=== PATIENT | female | born 1980 | race Caucasian/White ===

== ENCOUNTER 2020-06-29 20:01 | Emergency (ER) | payer MEDICARE, OTHER ==
[~2020-06-29] VITALS: Ht 170.2 cm; Wt 59.0 kg
--- OUTSIDE RECORDS SUMMARY | ~2020-06-29 | XMS | Clinical Summary ---
Demographics + + + | Address | [address] | | | [place] [address] | + + + | Home Phone | | + + + | Preferred Language | Unknown | + + + | Marital Status | Unknown or other | + + + | Evangelical Affiliation | Unknown | + + + | Race | White | + + + | Ethnic Group | Patient Declined | + + + Author + + + | Author | [facility] | + + + | Organization | [facility] | + + + | Address | [address] | | | [place] [address] | + + + | Phone | | + + + Care Team Providers + + + + | Care Professor Of Education Name | Role | Phone | + + + + Unavailable | Unavailable | + + + + Conditions or Problems +---------+---------+---------+--------+---------+---------+---------+---------+---------+ | Problem | Problem | Onset | Status | Entry | Provide | Comment | Standar | Annotat | | Name | Code | Date | | Date | r | | d | e | | | | | | | | | Descrip | | | | | | | | | | tion | | +---------+---------+---------+--------+---------+---------+---------+---------+---------+ | Other | [id number] | | Active | | Sheila | | Dyspnea | | | abnorma | | / | | / | Lea | | | | | lities | (SNOMED | | | | PA-C | | | | | of | CT) | | | | | | | | | breathi | | | | | | | | | | ng | | | | | | | | | +---------+---------+---------+--------+---------+---------+---------+---------+---------+ | Positiv | [id number] | | Active | | Zo | | Positiv | | | e | [id number] | | | /15 | Willoug | | e | | | screeni | 0 | | | | hby | | screeni | | | ng for | (SNOMED | | | | 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 AUTOMATIC | | ng for | | | depress | CT) | | | | | | depress | | | ion on | | | | | | | ion on | | | Patient | | | | | | | PHQ-9 | | | Health | | | | | | | (Patien | | | | | | | | | | t | | | Questio | | | | | | | Health | | | nnaire | | | | | | | Questio | | | 9 | | | | | | | nnaire | | | | | | | | | | 9) | | +---------+---------+---------+--------+---------+---------+---------+---------+---------+ | Cigaret | [id number] | | Active | | Yaneli | | Cigaret | | | te | 7 | /30 | | /05 | Anil | | te | | | smoker | (SNOMED | | | | | | smoker | | | | CT) | | | | | | | | +---------+---------+---------+--------+---------+---------+---------+---------+---------+ | Autism | [id number] | | Active | | lEder | | Addisti | | | | 03 | /13 | | /13 | D | | c | | | | (SNOMED | | | | Chloe | | disorde | | | | CT) | | | | MD | | r | | +---------+---------+---------+--------+---------+---------+---------+---------+---------+ | other | [id number] | | Active | | Amal | | Procedu | | | screeni | | / | | / | Tominna | | re | | | ng | (SNOMED | | | | | | carried | | | | CT) | | | | | | out on | | | | | | | | | | | | | | | | | | | | subject | | +---------+---------+---------+--------+---------+---------+---------+---------+---------+ | Lumbar | [id number] | | Active | | Leobardo | | Disorde | | | disc | | | | | Robyn AMOS | | r of | | | degener | (SNOMED | | | | | | nervous | | | ation | CT) | | | | | | system | | | with | | | | | | | | | | neurolo | | | | | | | | | | gical | | | | | | | | | | manifes | | | | | | | | | | tation | | | | | | | | | +---------+---------+---------+--------+---------+---------+---------+---------+---------+ | Anxiety | [id number] | | Active | | Leobardo | | Anxiety | | | | | | | | Robyn AMOS | | | | | disorde | (SNOMED | | | | | | disorde | | | r | CT) | | | | | | r | | +---------+---------+---------+--------+---------+---------+---------+---------+---------+ | Vitamin | [id number] | | Active | | Yomaira | | Vitamin | | | D | 6 | /21 | | /21 | M | | D | | | deficie | (SNOMED | | | | Paez | | deficie | | | ncy | CT) | | | | 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 | | ncy | | +---------+---------+---------+--------+---------+---------+---------+---------+---------+ | Sacroil | [id number] | | Active | | Yomaira | | Sacroil | | | iac | 03 | / | | | M | | iac | | | joint | (SNOMED | | | | Paez | | disorde | | | dysfunc | CT) | | | | 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 | | r | | | tion | | | | | | | | | +---------+---------+---------+--------+---------+---------+---------+---------+---------+ | Pain in | [id number] | | Active | | Yomaira | | Multipl | | | joint, | 5 | /21 | | / | M | | e joint | | | | (SNOMED | | | | Paez | | pain | | | multipl | CT) | | | | 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 | | | | | e sites | | | | | | | | | +---------+---------+---------+--------+---------+---------+---------+---------+---------+ | Ilioing | [id number] | | Active | | Yomaira | | Ilioing | | | uinal | 08 | | | | M | | uinal | | | nerve | (SNOMED | | | | Paez | | nerve | | | neuriti | CT) | | | | 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 | | neuriti | | | s, left | | | | | | | s | | +---------+---------+---------+--------+---------+---------+---------+---------+---------+ | Incisio | [id number] | | Active | | Yomaira | | Incisio | | | nal | 00 | | | | M | | nal | | | hernia | (SNOMED | | | | Paez | | hernia | | | | CT) | | | | 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 | | | | +---------+---------+---------+--------+---------+---------+---------+---------+---------+ | Hx of | [id number] | | Active | | Yomaira | | H/O: | | | dysmeno | | | | | M | | dysmeno | | | rrhea | (SNOMED | | | | Paez | | rrhea | | | | CT) | | | | 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 | | | | +---------+---------+---------+--------+---------+---------+---------+---------+---------+ | Pelvic | [id number] | | Active | | Yomaira | | Pain in | | | pain, | | | | | M | | female | | | female | (SNOMED | | | | Paez | | pelvis | | | | CT) | | | | 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 | | | | +---------+---------+---------+--------+---------+---------+---------+---------+---------+ | Endomet | [id number] | | Active | | Yomaira | | Endomet | | | riosis | | | | | M | | riosis | | | | (SNOMED | | | | Paez | | (clinic | | | | CT) | | | | 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 | | al) | | +---------+---------+---------+--------+---------+---------+---------+---------+---------+ | Chronic | [id number] | | Active | | Yomaira | | Chronic | | | pain | 1 | /21 | | /21 | M | | pain | | | | (SNOMED | | | | Paez | | | | | | CT) | | | | 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 | | | | +---------+---------+---------+--------+---------+---------+---------+---------+---------+ Medications + + + + + + + + | Medication | Instructio | Start Date | Stop Date | Generic | NDC | Provider | | | ns | | | Name | | | + + + + + + + + | SERTRALINE | take 2 | | | SERTRALINE | [id number] | Sheila Dorman | | HCL 100 | tablet by | | | HCL | 0 | PA-C | | MG TABS | mouth | | | | | | | | daily | | | | | | + + + + + + + + | KRATOM | | | | KRATOM | | Sheila Dorman | | | | | | | | ELSA | + + + + + + + + | CLONAZEPAM | take 1 | | | CLONAZEPAM | [id number] | Sheila Dorman | | 0.5 MG | tablet by | | | | 1 | ELSA | | TABS | mouth up | | | | | | | | to 3 times | | | | | | | | per day | | | | | | + + + + + + + + Medications Administered No information available. 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 | + + + + +--------+ + | AVIANE TABS | | | Critical | Active | Yomaira M | | | | | | | Paez 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 | + + + + +--------+ + | PENICILLIN | | | Moderate | Active | Yomaira M | | | | | | | Paez 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 | + + + + +--------+ + Results +------+------+-------+------+-------+------+ + | Date | Name | Value | Unit | Range | Flag | Descriptio | | | | | | | | n | +------+------+-------+------+-------+------+ + + + | Lab Report: CMP, CBC, PLT, & MANUAL DIFF | + + + + +---+---+-----+---+ + | | EOS % MANU | 0 | % | 0-7 | | eosinophil | | | | | | | | s as | | | | | | | | percent of | | | | | | | | blood | | | | | | | | leukocytes | | | | | | | | , manual | | | | | | | | count | + + +---+---+-----+---+ + + + | Office Visit: Establish care | + + + + + +---+---+---+ + | | PAP SMEAR | Abnormal | | | | General | | | | | | | | categories | | | | | | | | | | | | | | | | [Interpret | | | | | | | | ation] of | | | | | | | | Cervical | | | | | | | | or vaginal | | | | | | | | smear or | | | | | | | | scraping | | | | | | | | by Cyto | | | | | | | | stain | + + + +---+---+---+ + + + | Office Visit: medication follow up | + + + + +----+---+---+---+ + | | FALLRSKASS | No | | | | Fall risk | | | ES | | | | | assessment | + + +----+---+---+---+ + + + | Lab Report: CMP, CBC, PLT & AUTO DIFF, DIFFERENTIAL, MANUAL, AMYLASE, LI ... | + + + + + + + +---+ + | | LIPASE | 56 | U/L | 22-51 | H | lipase, | | | SERUM | | | | | serum | + + + + + +---+ + | | AMYLASE | 88 | U/L | 28-100 | | amylase, | | | | | | | | serum | + + + + + +---+ + | | RBC MORPH | NORMAL | | NORMAL | | RBC | | | | | | | | morphology | + + + + + +---+ + | | MONOS % | 2 | % | 0-12 | | monocytes | | | MANU | | | | | as percent | | | | | | | | of blood | | | | | | | | leukocytes | | | | | | | | , manual | | | | | | | | count | + + + + + +---+ + | | LYMPH % | 6 | % | 15-45 | L | lymphocyte | | | MANU | | | | | s as | | | | | | | | percent of | | | | | | | | blood | | | | | | | | leukocytes | | | | | | | | , manual | | | | | | | | count | + + + + + +---+ + | | BAND % | 1 | % | 0-8 | | neutrophil | | | MANU | | | | | s, band | | | | | | | | form as | | | | | | | | percent of | | | | | | | | blood | | | | | | | | leukocytes | | | | | | | | , manual | | | | | | | | count | + + + + + +---+ + | | PMN%(MANUA | 90 | | 38-70 | H | neutrophil | | | L) | | | | | s, | | | | | | | | polymorpho | | | | | | | | nuclear as | | | | | | | | percent | | | | | | | | of blood | | | | | | | | leukocytes | | | | | | | | , manual | | | | | | | | count | + + + + + +---+ + | | WBC | 11.5 | 10*3/mm3 | 4.8-10.8 | H | leukocyte | | | | | | | | count, | | | | | | | | blood | + + + + + +---+ + | | PLATELETS | 205 | 10*3/mm3 | 150-400 | | platelet | | | | | | | | count | + + + + + +---+ + | | RDW | 12.3 | % | 11.0-15.0 | | red blood | | | | | | | | cell | | | | | | | | distributi | | | | | | | | on width | + + + + + +---+ + | | MCHC | 33.9 | G/DL | 33.0-35.5 | | mean | | | | | | | | corpuscula | | | | | | | | r | | | | | | | | hemoglobin | | | | | | | | | | | | | | | | concentrat | | | | | | | | ion, RBC | + + + + + +---+ + | | MCH | 29.6 | pg | 27.0-34.0 | | mean | | | | | | | | corpuscula | | | | | | | | r | | | | | | | | hemoglobin | | | | | | | | , RBC | + + + + + +---+ + | | MCV | 87.2 | fL | 81.0-100.0 | | mean | | | | | | | | corpuscula | | | | | | | | r volume, | | | | | | | | RBC | + + + + + +---+ + | | RBC | 4.42 M/UL | 10*6/mm3 | 3.80-5.20 | | erythrocyt | | | | | | | | e (RBC) | | | | | | | | count | + + + + + +---+ + | | HCT | 38.6 | % | 35-46 | | hematocrit | | | | | | | | , blood | + + + + + +---+ + | | HGB | 13.1 | g/dL | 11.6-15.5 | | hemoglobin | | | | | | | | , blood | + + + + + +---+ + | | EGFR | > 60 | mL/min/1.7 | >60 | | Estimated | | | | | 3m2 | | | Glomerular | | | | | | | | | | | | | | | | Filtration | | | | | | | | Rate | | | | | | | | (calc) | + + + + + +---+ + | | SGOT (AST) | 26 | U/L | 15-41 | | aspartate | | | | | | | | aminotrans | | | | | | | | ferase | | | | | | | | (SGOT), | | | | | | | | serum | + + + + + +---+ + | | ALK PHOS | 52 | U/L | 50-136 | | alkaline | | | | | | | | phosphatas | | | | | | | | e, serum | + + + + + +---+ + | | SGPT (ALT) | 14 | U/L | 14-54 | | alanine | | | | | | | | aminotrans | | | | | | | | ferase | | | | | | | | (SGPT), | | | | | | | | serum | + + + + + +---+ + | | BILI TOTAL | 1.2 | mg/dL | 0.3-1.2 | | bilirubin, | | | | | | | | serum, | | | | | | | | total | + + + + + +---+ + | | A/G RATIO | 1.9 CALC | | 1.1-2.2 | | albumin/gl | | | | | | | | obulin | | | | | | | | ratio, | | | | | | | | serum | + + + + + +---+ + | | ALBUMIN | 4.2 | g/dL | 3.5-5.0 | | albumin, | | | | | | | | serum | + + + + + +---+ + | | PROTEIN, | 6.4 | g/dL | 6.0-8.3 | | protein, | | | TOT | | | | | total, | | | | | | | | serum | + + + + + +---+ + | | CALCIUM | 8.4 | mg/dL | 8.6-10.0 | L | calcium, | | | | | | | | serum | + + + + + +---+ + | | GLUCOSE | 107.0 | mg/dL | 65-110 | | blood | | | SER | | | | | glucose | + + + + + +---+ + | | BUN/CREAT | 34.2 Ratio | | 7.0-24.0 | H | urea | | | | | | | | nitrogen/c | | | | | | | | reatinine | | | | | | | | ratio, | | | | | | | | serum | + + + + + +---+ + | | BUN | 24 | mg/dL | 6-20 | H | urea | | | | | | | | nitrogen, | | | | | | | | blood | + + + + + +---+ + | | CREATININE | 0.7 | mg/dL | 0.6-1.3 | | creatinine | | | | | | | | , serum | + + + + + +---+ + | | ANION GAP | 12.6 | mmol/L | 5-16 | | anion gap, | | | | | | | | serum | + + + + + +---+ + | | CO2 | 22 | mmol/L | 23-29 | L | carbon | | | | | | | | dioxide, | | | | | | | | venous | | | | | | | | blood | + + + + + +---+ + | | CHLORIDE | 105 | mmol/L | 98-107 | | chloride, | | | | | | | | serum | + + + + + +---+ + | | POTASSIUM | 3.6 | mmol/L | 3.5-5.1 | | potassium, | | | | | | | | serum | + + + + + +---+ + | | SODIUM | 136 | mmol/L | 136-145 | | sodium, | | | | | | | | serum | + + + + + +---+ + + + | Lab Report: URINALYSIS | + + + + + +---+ +---+ + | | [id number] | CULT NOT | | | | GE use | | | | INDICATED | | | | only - for | | | | | | | | LinkLogic | | | | | | | | import | | | | | | | | when terms | | | | | | | | are not | | | | | | | | otherwise | | | | | | | | specified | + + + +---+ +---+ + | | UROBILINOG | NORMAL | | < 2.0 | | urobilinog | | | EN | | | | | en, urine, | | | | | | | | | | | | | | | | semiquanti | | | | | | | | tative | | | | | | | | (dipstick) | + + + +---+ +---+ + | | NITRITE | NEGATIVE | | NEGATIVE | | nitrite, | | | URN | | | | | urine, | | | | | | | | semiquanti | | | | | | | | tative | + + + +---+ +---+ + | | WBC DIPSTK | NEGATIVE | | NEGATIVE | | leukocyte | | | U | | | | | esterase, | | | | | | | | urine, by | | | | | | | | dipstick | + + + +---+ +---+ + | | BILIRUBIN | NEGATIVE | | NEGATIVE | | bilirubin, | | | UR | | | | | urine | + + + +---+ +---+ + | | BLOOD UR | NEGATIVE | | NEGATIVE | | blood in | | | DIP | | | | | urine | | | | | | | | (hemoglobi | | | | | | | | n) by | | | | | | | | dipstick | + + + +---+ +---+ + | | KETONES | NEGATIVE | | NEGATIVE | | ketones, | | | URN | | | | | urine, by | | | | | | | | test strip | + + + +---+ +---+ + | | GLOBULIN | NORMAL | | NEGATIVE | | globulin, | | | | | | | | serum | + + + +---+ +---+ + | | PROTEIN, | NEGATIVE | | NEGATIVE | | Albumin | | | URN | | | | | [Presence] | | | | | | | | in Urine | + + + +---+ +---+ + | | PH URINE | 8.0 | | 5.0 - 8.0 | | pH, urine, | | | | | | | | | | | | | | | | semiquanti | | | | | | | | tative | + + + +---+ +---+ + | | SPEC GR | 1.015 | | 1.000-1.03 | | specific | | | URIN | | | 0 | | gravity, | | | | | | | | urine | + + + +---+ +---+ + | | APPEARANCE | CLEAR | | CLEAR | | appearance | | | U | | | | | , urine | + + + +---+ +---+ + | | UA COLOR | YELLOW | | YELLOW | | urine | | | | | | | | color | + + + +---+ +---+ + + + | Lab Report: DRUG SCREEN, UR | + + + + + +-------+ +---+ + | | THC URINE | NEGATIVE | ng/mL | NEGATIVE | | cannabinoi | | | | | | | | d screen, | | | | | | | | urine | + + + +-------+ +---+ + | | OPIATE | POSITIVE | | NEGATIVE | A | opiate | | | URINE | | | | | screen, | | | | | | | | urine | + + + +-------+ +---+ + | | METHADONE | NEGATIVE | ug/mL | NEGATIVE | | methadone | | | | | | | | screen, | | | | | | | | urine | + + + +-------+ +---+ + | | COCAINE UR | NEGATIVE | | NEGATIVE | | cocaine, | | | | | | | | urine | + + + +-------+ +---+ + | | BENZODIAZ | NEGATIVE | | NEGATIVE | | benzodiaze | | | UR | | | | | pine | | | | | | | | screen, | | | | | | | | urine | + + + +-------+ +---+ + + + | Office Visit: Follow up psychotherapy | + + + +--------+----+---+---+---+ + | | PHQ-9 | 19 | | | | Adult | | | SCORE | | | | | depression | | | | | | | | screening | | | | | | | | | | | | | | | | assessment | + +--------+----+---+---+---+ + + + | Office Visit: F/U | + + + + + +---+---+---+ + | | MEDS | Done | | | | Documentat | | | REVIEW | | | | | ion of | | | | | | | | current | | | | | | | | medication | | | | | | | | s | | | | | | | | (procedure | | | | | | | | ) | + + + +---+---+---+ + | | SMOK | yes | | | | Smoking | | | ADVICE | | | | | cessation | | | | | | | | education | | | | | | | | (procedure | | | | | | | | ) | + + + +---+---+---+ + | | ORALTOBACU | Never | | | | Tobacco | | | SE | | | | | smoking | | | | | | | | status | | | | | | | | NHIS | + + + +---+---+---+ + | | SMOK | Current | | | | Tobacco | | | STATUS | every day | | | | smoking | | | | smoker | | | | status | | | | | | | | NHIS | + + + +---+---+---+ + Plan of Care + + + + | Type | Date | Detail | + + + + | Referral | | Physical | | | | Therapy/Occupational | | | | Therapy | | | | [facility] [place] | | | | [facility] [place] [facility] [place] | | | | [facility], | | | | [place], [address] | | | | | + + + + | Pending order | | CBC- Auto Diff | + + + + | Pending order | | CMP | + + + + | Pending order | | Vitamin D, 25 Hydroxy | + + + + | Pending order | | Lipid Profile | + + + + Procedures + + + + + | Code | Procedure Name | Date | Entry Date | + + + + + | CPT-4004F | [facility] TOBACCO SCREEN | | | | | AND COUNSELING | | | | | ([facility]) | | | + + + + + | CPT-32680 | [facility] PSYTX PT/FAM | | | | | 45 MIN | | | + + + + + | CPT-3725F | [facility] Depression | | | | | Screening ([facility]) | | | + + + + + | CPT-36675 | [facility] PSYCH | | | | | DIAGNOSTIC EVAL | | | + + + + + | CPT-3725F | [facility] Depression | | | | | Screening ([facility]) | | | + + + + + | CPT-4004F | [facility] TOBACCO SCREEN | | | | | AND COUNSELING | | | | | ([facility]) | | | + + + + + | CPT-NCV | [facility] NCV | | | + + + + + | CPT-10808 | [facility] PSYCH DIAG | | | | | EVAL W/MED SRVCS | | | + + + + + | DME | DME | | | + + + + + | [id number] | SNOMED-CT: | | | | | [id number] Smoking | | | | | Cessation | | | | | Counseling | | | + + + + + | [id number] | SNOMED-CT: | | | | | [id number] | | | | | Current Medications | | | | | Documented | | | + + + + + | CPT-3725F | [facility] Depression | | | | | Screening ([facility]) | | | + + + + + Vital Signs + + +--------+---------+ + | Date | Name | Value | Unit | Description | + + +--------+---------+ + | | BMI (Body Mass | 18.64 | kg/m2 | Body Mass Index | | | Index) | | | [Ratio] | + + +--------+---------+ + | | Body | 98.6 | [degF] | temperature E&M | | | Temperature | | | | + + +--------+---------+ + | | BP Diastolic | 64 | mm[Hg] | blood pressure, | | | | | | diastolic | + + +--------+---------+ + | | BP Systolic | 102 | mm[Hg] | blood pressure, | | | | | | systolic | + + +--------+---------+ + | | Heart Rate | 108 | /min | pulse rate E&M | + + +--------+---------+ + | | Respiratory | 16 | /min | respiratory | | | Rate | | | rate E&M | + + +--------+---------+ + | | Weight Measured | 119 | [lb_av] | weight E&M | + + +--------+---------+ + | | Height | 67 | [in_us] | height E&M | + + +--------+---------+ + | | BSA (Body | 1.64 | | body surface | | | Surface Area) | | | area | + + +--------+---------+ + | | Height | 170.18 | cm | height in | | | | | | centimeters E&M | + + +--------+---------+ + | | Weight Measured | 55.11 | kg | weight in | | | | | | kilograms E&M | + + +--------+---------+ + Immunizations No information available. Advance Directives No information available. Chief Complaint + + + | Chief Complaint Description | Start Date | + + + | F/U meds | | + + + | Follow up psychotherapy | | + + + | med check | | + + + | Establish care psychotherapy | | + + + | medication follow up | | + + + | New Patient | | + + + | Establish care | | + + + Family History + +--------+ + | Relation | Gender | Diagnosis | + +--------+ + | Paternal Grandfather | M | FH of acute medical | | | | disorder | + +--------+ + | Maternal Grandmother | F | FH of acute medical | | | | disorder | + +--------+ + | Full Brother | M | FH: Anxiety state | + +--------+ + | Father | M | FH of HT | + +--------+ + | Father | M | FH: Anxiety state | + +--------+ + | Mother | F | FH of heart failure | + +--------+ + GE General Observations Section narrative not generated History of Past Illness Peptic ulcerpyelonephritisanemiachronic low back pain. endometriosis -- 2 surgeries to cor rect -- [facility]mostat [employer] Dr Julien.Peptic ulcerpyelonephritisPernicious anemia History of Present Illness + + + | History of Present Illness Description | Start Date | + + + | Patient is here today for a follow up med | | | check..................................... | | | ...............................Jadyn | | | [facility] September 04, 2018 3:53 PM | | | DAVID LANDAVERDE is a 38 year old female | | | who presents to the clinic today with | | | chief complaint of several issues to | | | discuss. 1) medicaiton management. States | | | that she lost her sertraline 3 days after | | | picking it up. She had restarted and was | | | at 100 mg our last visit. Increased to | | | 150 mg. She is very anxious today, | | | pressured speech. She is afraid that | | | since she lost it in the [place] a bear | | | could have eaten the meds and . We | | | discussed that this is unlikely. 2) cannot | | | breathe. She is concerned as she has a | | | history of chldhood asthma. Now she is | | | living in basement and there is black | | | mold, a covering over one of the windows | | | was labeled as containing asbestos. She | | | feels that her breathing has been worse in | | | the past 2 weeks. Now with cough. Very | | | anxious and has to stop to catch her | | | breath several times. She also smokes and | | | is worried aobut that3) she talks about | | | issues with family, this has increased | | | anxiety. She saw counselor today and did | | | not feel comfortable in the room they were | | | in, could hear others outside the door so | | | felt it was not a "confidential area". Is | | | afraid that she offended the behavioral | | | health specialist because she wanted her | | | to read a text on patient's phone4) has | | | switcheds from the teaspoons and | | | tablespoons of Kratum to capsules 500 mg, | | | taking 2 three times per day. Reminds me | | | that she has chronic pain and will need | | | this or pain medicaitons. 5) since she | | | lost the sertraline and was afraid to call | | | and report this, she has used more of the | | | clonazepam then prescribed. She will | | | monitor, restrt the sertraline and follow | | | up. Was on higher dose with Dr. Castro. | | | We discussed that she needs further | | | mental health evalution for best diagnosis | | | and then will be able to treat best. | | + + + | Follow up psychotherapy [facility] FOLLOW-UP | | | NOTE Duration of session: 50 | | | minutesCURRENT BEHAVIORAL HEALTH | | | CONCERNS/REASON(S) FOR VISIT: Pt is a 38 | | | year old female Patient self-referred to | | | the [facility]al [facility] Program | | | ([facility]) for Anxiety and Pervasive | | | Developmental Disorder. Pt was oriented | | | x3, cooperate attitude, hygiene and | | | grooming good, labile affect congruent | | | with mood, anxious mood, fast speech, | | | clear thought processes. Pt voiced no | | | suicidal thoughts, no intent or plan. Pt | | | voiced no thoughts of self-harm or harm to | | | others. Interval HistoryPt comes to | | | therapy to follow up on Anxiety and | | | Pervasive Developmental Disorder. Pt | | | presented late for her initial assessment | | | and this follow up session was used to | | | complete the assessment. Sections of | | | original assessment that were not | | | completed will be listed and completed | | | below. Pt reports she is not feeling | | | really good. Pt shared that she has had | | | trouble breathing, was recently exposed | | | to asbestos, is struggling with memory | | | problems, feeling dizzy and coughing. Pt | | | has a scheduled appointment with her PCP | | | directly after this appointment to discuss | | | her medical concerns. Pt reports three | | | days after getting her Zoloft prescription | | | she lost it and reports she is hoping to | | | get a refill today. Pt reports that all of | | | this has been anxiety provoking. Pt | | | reports she has been utilizing prayer and | | | breathing techniques to help her decrease | | | anxiety but states the breathing | | | techniques are not as useful as she | | | struggles to breathe. Pt voiced concerns | | | throughout the sessions that persons in | | | the clinic could hear her and Counselor | | | talking and was concerned regarding her | | | privacy. Pt asked Counselor for | | | clarification on confidentially between Pt | | | and Counselor and was made aware that | | | 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 mandated datastage architect and | | | would be required to report | | | suspected/reported child abuse, elder | | | abuse (or abuse of a vulnerable adult), | | | suicidal ideation with intent and | | | homicidal ideation with intent. | | + + + | Patient is here today for a med review | | | needing | | | refills................................... | | | .................................Jadyn | | | [facility] August 21, 2018 3:15 PM | | | DAVID LANDAVERDE is a 38 year old female | | | who presents to the clinic today with | | | chief complaint of medication management. | | | She was seen by Dr. Castro in the past | | | and has not had meds since the refills ran | | | out. she was on sertraline and needs to | | | get back on the meds. She saw counselor | | | today. She relates that she did have | | | refills of the sertraline and has | | | restarted that at 100 mg per day. Started | | | again on 07/19. She was on clonaxepam as | | | well, lots of anxiety and would like to | | | restart that as well but at lower dose. 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 She had termination at 5 months | | | and has had issues since. Relates that | | | this was in 2007, uterus was punctured. | | | later had exploratory lap. then in 2016 | | | had hernia repair with Dr. Theodore. She | | | has had lupron injections, Danagal as | | | well. No hysterectomy yet. | | | Endometriosis. she also has chronic back | | | pain, annular tears, dysmenorrhea and | | | neuropathy. Lots of anxiety. She takes | | | kratum frequently, she shows me the bag | | | and her measuring spoons. helps wth her | | | various pains. No fever or chills. No | | | nausea, vomiting, diarrhea. | | + + + | Establish care psychotherapy BEHAVIORAL | | | HEALTH INTEGRATION PROGRAM ([facility]) INITIAL | | | CLINICAL ASSESSMENT Duration of session: | | | 30 minutesCURRENT MENTAL HEALTH | | | CONCERN(S)/REASON(S) FOR VISITPt is a 38 | | | year old female Patient self-referred to | | | the Behavioral Health Integration Program | | | ([facility]) for Anxiety and Pervasive | | | Developmental Disorder. Pt was oriented | | | x3, cooperate attitude, hygiene and | | | grooming good, labile affect congruent | | | with mood, anxious mood, fast speech, | | | clear thought processes. Pt voiced no | | | suicidal thoughts, no intent or plan. Pt | | | voiced no thoughts of self-harm or harm to | | | others. History of Present Illness: Pt | | | presented for assessment and therapy, | | | stating she had previous been engaged in | | | MH services and was wanting to re-engage | | | in services. Pt reports she was diagnosed | | | with Pervasive Developmental Disorder in | | | 09/2017 and is unsure if the diagnosis is | | | accurate. Pt reports her Anxiety began in | | | 2006 after having a DNC that led to | | | numerous medical conditions. Since then, | | | Pts anxiety has continued to worsen and | | | Pt reports she finds it crippling. | | | Pt has pervasive thoughts and reports the | | | theme of the thoughts is I need to get | | | stuff done.Summary of pt reported | | | symptoms: Anger, anxiety, chronic pain, | | | panic attacks, poor appetite, poor | | | concentration, poor sleep. PATIENTS | | | GOAL(S) FOR TREATMENT: Get back to | | | teaching, Getting back on meds, | | | Eliminate anxiety.SCREENING | | | SCORESPHQ9: 20 VGAD7: 15 VPSYCHIATRIC | | | HXPt reports no hx. MEDICAL CONCERNS: | | | patient statedUnable to complete due to | | | time constraints.SLEEP HYGIENEPt struggles | | | to fall asleep before midnight. Pt wakes | | | up around 9-10AM and may go back to bed | | | depending on her pain. Pt uses Kratom at | | | night before going to bed and if she | | | continues to struggle falling asleep she | | | reports she takes Benadryl as well. Pt has | | | had no sleep study and does not have a | | | CPAP. SUBSTANCE USE/ABUSE HISTORYUnable to | | | complete due to time constraints. | | + + + | Patient is here today to follow up on | | | medications. questions regarding | | | clonazepam and dosage. needs refill | | | sertraline. | | | .......................................... | | | .........................Belle Cook | | | December 05, 2017 2:33 PMPt says he father | | | has said she is much easier to be around | | | and is not getting overwhelmed like she | | | was. Pt wonders if she is needing a | | | higher dose of sertraline, has been using | | | 1mg of clonazepam of the clonazepam and | | | take about 1.5 hrs to start working and | | | thinks the extra sertraline may help her | | | not need as much. clonazepam is not | | | making her tired but thinks it takes too | | | long to work. She is aslso finding her | | | sleep is better regularted, able to sleep | | | in 30 minutes and wakes up easily. She is | | | thinking she has the most anxiety in the | | | morning, ruminating and calming herself | | | down, mid day she will start to feel amped | | | up again. | | + + + | This is a new patient here to establish | | | care with Dr. Castro. Here for anxiety. | | | Has been seeing Bernardo Ugarte for past few | | | years, but has been seeing Dr. Carlson now. | | | .......................................... | | | .........................Myriam Novak RN | | | October 04, 2017 9:13 AM Pt has issues | | | with anxiety, was seeing Dr Julien and then | | | Bernardo Rose over anxiety. 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 Says | | | she was having some panic, feelings she | | | cannot breath and asked her PCP for xanax | | | again but was given propranolol instead | | | and is not helping. Was told to come see | | | a psychiatrist instead of given xanax. | | | Says she is chronic late and blames her | | | anxiety for much. Worries, heart pounds. | | | Tends to be worried about being late, | | | not liking someone, someone not liking her | | | and ruminates on it. Repeatedly brings | | | up pain issues and ruminates on it. She | | | is not , has no SO or children but | | | people in her life see her as a worrier. | | | She spins at night about the following day | | | and can keep her awake. Tenses up her | | | muscles, family tell her she needs to | | | relax and is hard on her. She recalls | | | this starting in college when she had | | | homework. She gets a knot feeling in her | | | gut. Has had a panic attack in the past, | | | went to the hospital and felt she was not | | | able to breath, worried she was dying. | | | Was at work, was told she was having | | | panic. 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 in 2004 had | | | health issues, ended up having her uterus | | | punctured and needed blood transfusions. | | | Says she started seeing Anaay in 2007, | | | did a exploreratory lap and found | | | endometriosis, adhesions and another | | | surgery in 2011. Back started becoming a | | | problem in 2011. Feels her health has | | | been an issue. Agrees she tends to need | | | to fight the thought something is | | | seriously wrong with her health and has | | | made it hard to work. Gave her YBOC, | | | very much identifies with needing things | | | arranged just so, she | | + + + | Past psyc: Hx of anxiety and has used | | | xanax sucessfully and tried propranolol | | | and not working for her. Has treid | | | cymbalta and did not help. xanax helped a | | | lot. Substances: Family psyc; | | | Grandfather is thought has aspergers. | | | Thinks he is OCD as well. Thinks brother | | | is OCD. Allergy: had bladder | | | constriction with cymbalta. | | + + + | has tendoncy to need to make lists to the | | | point she is late, others see it an issue | | | for her. Tend to recheck things to | | | excess. 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 She will redo | | | things and erase thing to the point gets | | | in her way. Her house has to be don | | | perfectly, not in a particular standard | | | but has to change and she does the | | | rearranging to excess and can take all | | | day. Does montly and drives her broter | | | and dad crazy. She feels that something | | | terrible is going to happn in her life to | | | excess. She has kashif and unlucky numbers | | | and tends to be superstitious. She adds | | | things up and finds the nuber 7 helps her | | | feel better. She tends to double the | | | digets when she i sputting the microwave | | | on. She has wondered if she has | | | aspergers. Does not like change or how | | | things are outside her way of things | | | needing to be done. Social is a preoblem | | | for her, relationships have been hard as | | | she often does not get social subtly. | | | Recalls struggling in school, 3rd or 4th | | | grade was hard and struggled. Struggled | | | in college a lot. Easily distracted, even | | | by her own thought. She use to get upset | | | at her last relationship last year, felt | | | he would say embarassing things, feels | | | akward socially. Does not get jokes often | | | and embarasses her or her SO. She does | | | not get sarcasm easily and when she picks | | | up on it, often gets offended. often | | | people make comments that are meant to be | | | cute, often reacting in a hostile manner, | | | angry. She gets onto her dad for making | | | comments like that. I comment how people | | | with autism spectrum have these features | | | often and says she agrees, other have | | | commented this. Tends to have impulsive | | | issues, talking before speaking. Has | | | recall of doing unusual things as a child, | | | use to have to blinking tic and her | | | brother does this as well. eye contact is | | | not hard but has been before college. | | | She had this pointed out to her and has | | | worked on this in college. She will often | | | have to look away. | | + + + | Establish care. Bcollier LPNchronic low | | | back pain. --major pain in her back. She | | | used to see PRASHANTH Rose, She was | | | refered to Dr Nava for epidural but | | | her insurance denied. She will be referred | | | to PT She used to take Hydrocodone 10mg | | | tid and Tramadol before. she is not on | | | any controlled substance. we will do UDS | | | and contolled substance agreement signed. | | | first. her last [place] 10mg refill was on | | | 08/07 #90. Her PADS showed she is using | | | it appropriately so we will give refill SI | | | joint dysfunction -- needs SI belt. | | | Anxiety disorder -- she used to be on | | | Xanax but she stopped due to fear of | | | memory loss. She was givne cymbalta 60mg | | | but this caused elevated BP and bladder | | | outlet problem so she had to stop it. She | | | has appt with Dr Castro in September. | | | FRANCK 10/12 PHQ-9 endometriosis -- she | | | has appt with Dr Hunter. She bleeds 10 | | | days out of month before and during | | | menses. She is in bed suffering from pain | | | while in period. She still has uterus | | | hoping she can get in future. | | | smoking -- 3 cig per day. she is advised | | | to quit smoking. | | + + + Review of Systems No information available.
--- OUTSIDE RECORDS SUMMARY | ~2020-06-29 | XMS | Clinical Summary ---
Demographics + + + | Address | [address] | | | [place] [address] | + + + | Home Phone | | + + + | Preferred Language | Unknown | + + + | Marital Status | Unknown or other | + + + | Gnosticist Affiliation | Unknown | + + + | Race | White | + + + | Ethnic Group | Patient Declined | + + + Author + + + | Author | [facility] | + + + | Organization | [facility] | + + + | Address | [address] | | | [place] [address] | + + + | Phone | | + + + Care Team Providers + + + + | Care Small Parts Assembler Name | Role | Phone | + [...] | | tion | | +---------+---------+---------+--------+---------+---------+---------+---------+---------+ | Screeni | [id number] | | Active | | Sheila | | Procedu | | | ng for | 03 | /16 | | /16 | [place] | | re | | | infecti | (SNOMED | | | | PA-C | | carried | | | ous | [place]) | | | | | | out on | | | disease | | | | | | | | | | | | | | | | | subject | | +---------+---------+---------+--------+---------+---------+---------+---------+---------+ | Depress | [id number] | | Active | | Sheila | | Depress | | | ion | 7 | / | | / | [place] | | cesilia | | | | (SNOMED | | | | PA-C | | disorde | | | | CT) | | | | | | r | | +---------+---------+---------+--------+---------+---------+---------+---------+---------+ | screeni | [id number] | | Active | | Amal | | Depress | | | ng for | 06 | /22 | | / | [place] | | ion | | | depress | (SNOMED | | | | | | screeni | | | ion | CT) | | | | | | ng | | +---------+---------+---------+--------+---------+---------+---------+---------+---------+ | Encount | [id number] | | Active | | Yaneli | | Depress | | | er for | 06 | /13 | | /15 | Anil | | ion | | | screeni | (SNOMED | | | | | | screeni | | | ng for | CT) | | | | | | ng | | | depress | | | | | | | | | | ion | | | | | | | | | +---------+---------+---------+--------+---------+---------+---------+---------+---------+ | Degener | [id number] | | Active | | Sheila | | Degener | | | ative | | / | | / | [place] | | ation | | | disc | (SNOMED | | | | PA-C | | of | | | disease | CT) | | | | | | interve | | | | | | | | | | rtebral | | | | | | | | | | disc | | +---------+---------+---------+--------+---------+---------+---------+---------+---------+ | Cervica | [id number] | | Active | | Sheila | | HPV - | | | l high | | / | | | [place] | | Human | | | risk | (SNOMED | | | | PA-C | | papillo | | | human | CT) | | | | | | mavirus | | | papillo | | | | | | | test | | | mavirus | | | | | | | positiv | | | (HPV) | | | | | | | e | | | DNA | | | | | | | | | | test | | | | | | | | | | positiv | | | | | | | | | | e | | | | | | | | | +---------+---------+---------+--------+---------+---------+---------+---------+---------+ | Umbilic | [id number] | | Active | | Sheila | | Umbilic | | | al | | | | | [place] | | al | | | hernia | (SNOMED | | | | PA-C | | hernia | | | | CT) | | | | | | | | +---------+---------+---------+--------+---------+---------+---------+---------+---------+ | Other | [id number] | | Active | | Sheila | | Dyspnea | | | abnorma | | | | /16 | [place] | | | | | lities | (SNOMED | | | | PA-C | | | | | of | [place]) | | | | | | | | | breathi | | | | | | | | | | ng | | | | | | | | | +---------+---------+---------+--------+---------+---------+---------+---------+---------+ | Cigaret | [id number] | | Active | | Yaneli | | Cigaret | | | te | 7 | /30 | | /05 | Anil | | te | | | smoker | (SNOMED | | | | | | smoker | | | | CT) | | | | | | | | +---------+---------+---------+--------+---------+---------+---------+---------+---------+ | Autism | [id number] | | Active | | Elder | | Autisti | | | | 03 | / | | | D | | c | | | | (SNOMED | | | | Maroa | | disorde | | | | CT) | | | | MD | | r | | +---------+---------+---------+--------+---------+---------+---------+---------+---------+ | Lumbar | [id number] | | Active | | Leobardo | [...] | | | +---------+---------+---------+--------+---------+---------+---------+---------+---------+ | Anxiety | [id number] | | Active | | Leobardo | | Anxiety | | | | | | | | Robyn AMOS | | | | | disorde | (SNOMED | | | | | | disorde | | | r | CT) | | | | | | r | | +---------+---------+---------+--------+---------+---------+---------+---------+---------+ | Vitamin | [id number] | | Active | | Yomaira | | Vitamin | | | D | 6 | | | | M | | D | | | deficie | (SNOMED | | | | Paez | | deficie | | | ncy | CT) | | | | CANNONEER | | ncy | | +---------+---------+---------+--------+---------+---------+---------+---------+---------+ | Sacroil | [id number] | | Active | | Yomaira | | Sacroil | | | iac | 03 | /21 | | /21 | M | | iac | | | joint | (SNOMED | | | | Paez | | disorde | | | dysfunc | CT) | | | | CANNONEER | | r | | | tion | | | | | | | | | +---------+---------+---------+--------+---------+---------+---------+---------+---------+ | Pain in | [id number] | | Active | | Yomaira | | Multipl | | | joint, | | | | | M | | e joint | | | | (SNOMED | | | | Paez | | pain | | | multipl | CT) | | | | CANNONEER | | | | | e sites | | | | | | | | | +---------+---------+---------+--------+---------+---------+---------+---------+---------+ | Ilioing | [id number] | | Active | | Yomaira | | Ilioing | | | uinal | 08 | | | | M | | uinal | | | nerve | (SNOMED | | | | Paez | | nerve | | | neuriti | CT) | | | | CANNONEER | | neuriti | | | s, left | | | | | | | s | | +---------+---------+---------+--------+---------+---------+---------+---------+---------+ | Incisio | [id number] | | Active | | Yomaira | | Incisio | | | nal | 00 | | | | M | | nal | | | hernia | (SNOMED | | | | Paez | | hernia | | | | CT) | | | | CANNONEER | | | | +---------+---------+---------+--------+---------+---------+---------+---------+---------+ | Hx of | [id number] | | Active | | Yomaira | | H/O: | | | dysmeno | | | | | M | | dysmeno | | | rrhea | (SNOMED | | | | Paez | | rrhea | | | | CT) | | | | CANNONEER | | | | +---------+---------+---------+--------+---------+---------+---------+---------+---------+ | Pelvic | [id number] | | Active | | Yomaira | | Pain in | | | pain, | 03 | /21 | | /21 | M | | female | | | female | (SNOMED | | | | Paez | | pelvis | | | | CT) | | | | CANNONEER | | | | +---------+---------+---------+--------+---------+---------+---------+---------+---------+ | Endomet | [id number] | | Active | | Yomaira | | Endomet | | | riosis | 03 | / | | | M | | riosis | | | | (SNOMED | | | | Paez | | (clinic | | | | CT) | | | | CANNONEER | | al) | | +---------+---------+---------+--------+---------+---------+---------+---------+---------+ | Chronic | [id number] | | Active | | Yomaira | | Chronic | | | pain | 1 | / | | | M | | pain | | | | (SNOMED | | | | Paez | | | | | | CT) | | | | CANNONEER | | | | +---------+---------+---------+--------+---------+---------+---------+---------+---------+ Medications + + + + + + + + | Medication | Instructio | Start Date | Stop Date | Generic | NDC | Provider | | | ns | | | Name | | | + + + + + + + + | VENLAFAXIN | take 1 | | | VENLAFAXIN | [id number] | Sheila Dorman | | E HCL ER | capsule by | | | E HCL | 5 | PA-C | | 37.5 MG | mouth | | | | | | | [id number] | daily for | | | | | | | | 10 days | | | | | | + + + + + + + + | VENLAFAXIN | take 1 | | | VENLAFAXIN | [id number] | Sheila Dorman | | E HCL ER | capsule by | | | E HCL | 5 | PA-C | | 75 MG | mouth | | | | | | | [id number] | daily | | | | | | + + + + + + + + | CLONAZEPAM | take 1 | | | CLONAZEPAM | [id number] | Sheila Dorman | | 0.5 MG | tablet by | | | | 1 | PA-C | | TABS | mouth up | | | | | | | | to 3 times | | | | | | | | per day | | | | | | + + + + + + + + | TRAMADOL | one pill | | | TRAMADOL | [id number] | Sheila Dorman | | HCL 50 MG | orally | | | HCL | 1 | PA-C | | TABS | every six | | | | | | | | hours as | | | | | | | | needed for | | | | | | | | pain | | | | | | + + + + + + + + | SERTRALINE | take 2 | | | SERTRALINE | [id number] | Sheila Dorman | | HCL 100 | tablet by | | | HCL | 0 | PA-C | | MG TABS | mouth | | | | | | | | daily | | | | | | + + + + + + + + | GREGORIOM | | | | SELAM | | Sheila Dorman | | | [...] NS | | | | | [place] CANNONEER | + + + + +--------+ + | AVIANE TABS | | | Critical | Active | Yomaira M | | | | | | | [place] CANNONEER | + + + + +--------+ + | PENICILLIN | | | Moderate | Active | Yomaira M | | | | | | | [place]ae[place] CANNONEER | + + + + +--------+ + [...] + + +---+---+-----+---+ + + + | Lab Report: CMP, [...] | + + + +-------+ +---+ + Plan of Care + + + + | Type | Date | Detail | + + + + | Appointment | 02:20 PM | Sheila Dorman PA-C, [address] [facility] | | | | [place], [place], | | | | | + + + + | Referral | | OB-[facility]EE[facility] for | | | | [facility] | | | | Physicians, [address] | | | | [place], [address], | | | | [place], [address] | | | | | + + + + | Referral | | Tele-Psych | + + + + | Referral | | Physical | | | | Therapy/Occupational | | | | Therapy | + + + + | Pending order | | Other Lab | + + + + | Pending [...] | + + + + + | CPT-22550 | [facility] PT/[facility] | | | | | 30 MIN | | | + + + [...] | + + + + + | CPT-85617 | [facility] | | | | | 45 MIN | | | + + + + + | CPT-3725F | [facility] Depression | | | | | Screening ([facility]) | | | + + + + + | CPT-56622 | [facility] | | | | [...] | + + + + + | CPT-04183 | [facility] DIAG | | | | | EVAL W/MED SRVCS | | | + + + + + | DME | DME | | | + + + + + | [id number] | SNOMED-CT: | | | | | [phone] Smoking | | | | | Cessation | | | | | Counseling | | | + + + + + | [id number] | SNOMED-CT: | | | | | [phone] | | | | | Current Medications | | | | | Documented | | | + + + + + | CPT-3725F | [facility] | | | | | Screening ([facility]) | | | + + + + + | [id number] | Physical | | | | | Therapy/Occupationa | | | | | l Therapy | | | + + + + + Vital Signs + + +--------+---------+ + | Date | Name | Value | Unit | Description | + + +--------+---------+ + | | BP Diastolic | 84 | mm[Hg] | blood pressure, | | | | | | diastolic | + + +--------+---------+ + | | BP Systolic | 130 | mm[Hg] | blood pressure, | | | | | | systolic | + + +--------+---------+ + | | Heart Rate | 68 | /min | pulse rate E&M | + + +--------+---------+ + | | Respiratory | 16 | /min | respiratory | | | Rate | | | rate E&M | + + +--------+---------+ + | | BMI (Body Mass | 18.17 | kg/m2 | Body Mass Index | | | Index) | | | [Ratio] | + + +--------+---------+ + | | Body | 97.9 | [degF] | temperature E&M | | | Temperature | | | | + + +--------+---------+ + | | Weight Measured | 116 | [lb_av] | weight E&M | + [...] Start Date | + + + | wants antibiotic possible MRSA | | + + + | paperwork | | + + + | needs paperwork for DS | | + + + | Follow up anxiety psychotherapy | | + + + | F/U anxiety | | + + + | F/U meds [...] -- 2 surgeries to cor rect -- [facility] T[facility] Dr Julien.Peptic ulcerpyelonephritisPernicious anemia History of Present Illness + + + | History of Present Illness Description | Start Date | + + + | Patient is here today wanting an | | | antibiotic with possible | | | MRSA...................................... | | | ..............................Jadyn | | | Arnulfo [facility] January 05, 2019 12:59 PM | | | DAVID LANDAVERDE is a 38 year old female | | | who presents to the clinic today with | | | chief complaint of several issues to | | | discuss1) father with another bout of | | | MRSA. Pt as talking to her new TAVERN KEEPER and | | | states that she was told to get on | | | prophylactic antibiotics as they live in | | | the same house. Father did not have | | | sores but had some procedures and was dx | | | with nasal swab. We discussed that it is | | | not approprite to take abx without active | | | iinfection. WE discussed that I can do | | | nasal swab on her to make sure that she is | | | not harboring.2) She saw the gyne and | | | will have further testing and possibly | | | another laproscopic procedure. Hx of | | | endometriosis. US is scheduled for ) | | | increased anxiety with all of this, states | | | that Dr Castro had her on higher dose of | | | clonazepam and she has been taking more. | | | WE discussed again that this is | | | controlled substance and the goal is to | | | get off his med, not increase. She is on | | | max dose of sertraline. Discussed that | | | she missed the telepsych, she states that | | | she was called and notified that | | | appointment was cancelled. I will need to | | | check into that. She needs to schedule | | | with Zo for furhter counseling. | | | Discussed changing to venlafaxine that may | | | be more helpful for her pain and her | | | anxiety. Discussed decreasing sertraline | | | by 50 while starting venlafaxine at 37.5 | | | and making adjustment every 10 days. I am | | | not comfortable increasing the | | | clonazepam. No current illness sympotms. | | | No fever or chills. no nausea, vomiting, | | | diarrhea. No cough or congestion. No | | | sores. increased anxiety | | + + + | Patient is here today needing paperwork | | | filled out supervisor pipe finishing said they was not | | | filled out | | | right..................................... | | | ..............................Jadyn | | | [facility] November 05, 2018 8:00 PM | | | DAVID LANDAVERDE is a 38 year old female | | | who presents to the clinic today with | | | chief complaint of disability forms. She | | | relates that I did not complete the | | | severity rating. Rather I wrote that at | | | this time I cannot rate as she will need | | | [facility] evaluaiton. I kept the comments | | | and corrected, recopied for scanning. | | | she has continued to cut back on Kratum. | | | We discussed cutting back on clonazepam, | | | she feels that this is what is really | | | helping with her anxiety and Dr. Castro | | | told her she needs to stay on this. | | | Discussed consulting psychistry | | | recommendations and we will discuss in the | | | future, very slow weaning after she has | | | better diagnosis and treatment | | | plan.Ongoing endometiral pain, last foot doctor | | | discussed [facility] for better diagnosis. | | | she has had hernia surgery mesh and is | | | concerned aobut his. We discussed that | | | she does need to follow specialist | | | recommendations and there may be changes | | | in the past 5 years. She will consider. | | | She will be having the [facility] mental health | | | evaluation for that portion of the | | | disability forms. | | + + + | Chris is here today needing paperwork | | | filled out for | | | [facility]...................................... | | | ..............................Jadyn | | | Arredondo CMA October 20, 2018 1:46 PM | | | DAVID LANDAVERDE is a 38 year old female | | | who presents to the clinic today with | | | chief complaint of needing forms for | | | disability completed. She brings in some | | | from years ago by her GYNE Dr. Julien. She | | | has ongoing chronic pelvic pain. she is | | | on cratum and is weaning down as I have | | | agreed to prescribe some ultram. she has | | | halved her use of the cratum. We | | | discussed continuing to decrease | | | completely. Then will wean off the | | | tramadol as we should have more | | | informaiton regarding definitive | | | treatment. We discussed that I just have | | | past records to review for the paperwork | | | and cannot do this during or visit today | | | but will get this done whne I am back in | | | office the week of Oct 29Shsudeep has some | | | forms for her counselor to sign as well. | | | She has been refrred to telepsych for | | | definitive diagnosis of her mental helath | | | as well. Has autism spectrum by prior | | | psychiatric provider, definitely with | | | anxiety. she relats that she needs to | | | increase her clonazepam. I am not | | | comfortable wiht this and she needs to | | | remain at same dosing until furhter | | | psychiatric evaluation. I just filled | | | for one month on 10/18. | | + + + | Follow up anxiety psychotherapy [facility] | | | FOLLOW-UP NOTE Duration of session: 20 | | | minutesCURRENT BEHAVIORAL HEALTH | | | CONCERNS/REASON(S) FOR VISIT: Pt is a 38 | | | year old female Patient self-referred to | | | the Behavioral Health Integration Program | | | ([facility]) for Anxiety and Pervasive | | | [...] self-harm or harm to | | | othersInterval HistoryPt comes to therapy | | | for follow up on anxiety and pervasive | | | developmental disorder. Pt presented late | | | for her session so session was cut short. | | | Pt reports attending appointments causes | | | anxiety so she procrastinates. Pt states | | | this is why she is usually late for her | | | appointments. Pt has been taking her | | | Zoloft as prescribed and states she can | | | tell, thank the Lord. Pt reports she | | | is feeling calmer and like I can be | | | nicer to people. Pt reports she is | | | willing to meet with Counselor in the | | | therapy room due to being medicated. | | | Thats the difference between being | | | on meds and not being on meds, she | | | stated. Previously, Pt was concerned about | | | people hearing her talk in the therapy | | | room and was not wanting to engage in | | | services. 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 Pt reports she is | | | still concerned about the possibility of | | | asbestos exposure, starting she can | | | breathe now, but it still feels like | | | Im having trouble getting oxygen. Pt | | | reports her Father was recently made | | | aware that he has three lumps in his | | | armpit and has to go do a biopsy. Pt | | | states she thinks she has something | | | similar as she has some lumps as well. Pt | | | states she had previously discussed this | | | with her PCP. | | + + + | Patient is here today for a follow up | | | anxiety the KRATOM is getting to expencive | | | and not as effective no opiods would like | | | to try tylenol with codiene to help with | | | pain...................................... | | | .............................Jadyn | | | [facility] [place] October 01, 2018 5:08 PM | | | DAVID LANDAVERDE is a 38 year old female | | | who presents to the clinic today with | | | chief complaint of follow up on anxiety | | | and pain. She has long history of back | | | and pelvic pain. today she brings in | | | several old records. She has had | | | extensiver work up and surgeries for | | | endometriosis. Has some older disability | | | forms that she shows me as well. Old | | | lumbar MRI showing degenerative disc | | | disease. Disability for endometriosis, | | | sacrolitis, neuropathy. She feels that she | | | may be due for PAP but has records | | | showing last one done in December of this | | | year. Hx of positive HPV but last few PAP | | | negative for this. We discussed those | | | results in detail. Hx of endometriosis. | | | Was put on lupron and that increased | | | anxiety and changes in her personality. | | | States that at 41 she will have | | | hysterectomy, Has been having some lower | | | abdominal pressure, some white discharge, | | | no smell, no itching. States that with the | | | sertraline she is doing much better. She | | | is still using lots of Kratum for her | | | pain. She is open to PT. WE discussed | | | this today. She does not want to be on | | | "strong" narcotic. Discussed that kratum | | | acts as narcotic. Discussed that I do not | | | think that codeine will be effective with | | | the amount of kratum that she is taking. | | | She is having a hard time affording this. | | | We did disuss ultram as well. no | | | seizure disorder. has used in the past. | | | We spent time discussing that ultram is a | | | controlled substance, will see if it is | | | effective and if so will need to sign | | | agreement, close follow up, etc. | | + + + | Patient is here today for a follow up med | | | check..................................... | | | ...............................Jadyn | | | [facility] [place] September 04, 2018 3:53 PM | | [...] + + + | Follow up psychotherapy [facility] FOLLOW-UP | | | NOTE Duration of session: 50 | | | minutesCURRENT BEHAVIORAL HEALTH | | | CONCERNS/REASON(S) FOR VISIT: Pt is a 38 | | | year old female Patient self-referred to | | | the Behavioral Health Integration Program | | | (BH[facility]) for Anxiety and Pervasive | | | [...] | | | 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 mandated drier helper and | | | would be required [...] | | | .................................Jadyn | | | [facility] [place] August 21, 2018 3:15 PM | | [...] Establish care psychotherapy BEHAVIORAL | | | [facility] INTEGRATION PROGRAM ([facility]) INITIAL | | | CLINICAL ASSESSMENT Duration of session: | | | 30 minutesCURRENT MENTAL HEALTH | | | CONCERN(S)/REASON(S) FOR VISITPt is a 38 | | | year old female Patient self-referred to | | | the [facility] | | | ([facility]) for Anxiety and Pervasive | | | [...] | | started to become concerned of tank terminal gauger | | | side effects and took [...] | | | Says she started seeing Anaya in 2007, | | | did a [...] signed. | | | first. her last [place] 10mg refill was on | | | [...]
--- OUTSIDE RECORDS SUMMARY | ~2020-06-29 | XMS | Clinical Summary ---
Demographics + + + | Address | [address] | | | [place] [address] | + + + | Home Phone | | + + + | Preferred Language | Unknown | + + + | Marital Status | Unknown or other | + + + | Holiness Affiliation | Unknown | + + + | Race | White | + + + | Ethnic Group | Patient Declined | + + + Author + + + | Author | [facility] | + + + | Organization | [facility] | + + + | Address | [address] | | | [place] [address] | + + + | Phone | | + + + Care Team Providers + + + + | Care Director Of Search Engine Marketing Name | Role | Phone | + [...] | | tion | | +---------+---------+---------+--------+---------+---------+---------+---------+---------+ | Depress | [phone] | | Active | | Sheila | | Depress | | | ion | | / | | / | [place] | | cesilia | | | | (SNOMED | | | | PA-C | | disorde | | | | CT) | | | | | | r | | +---------+---------+---------+--------+---------+---------+---------+---------+---------+ | screeni | [id number] | | Active | | Amal | | Depress | | | ng for | | / | | / | [place] | | ion | | | depress | (SNOMED | | | | | | screeni | | | ion | CT) | | | | | | ng | | +---------+---------+---------+--------+---------+---------+---------+---------+---------+ | Encount | [id number] | | Active | | Yaneli | | Depress | | | er for | 06 | / | | /15 | Anil | | ion | | | screeni | (SNOMED | | | | | | screeni | | | ng for | CT) | | | | | | ng | | | depress | | | | | | | | | | ion | | | | | | | | | +---------+---------+---------+--------+---------+---------+---------+---------+---------+ | Degener | [id number] | | Active | | Sheila | | Degener | | | ative | | | | | [place] | | ation | | | disc | (SNOMED | | | | PA-C | | of | | | disease | CT) | | | | | | interve | | | | | | | | | | rtebral | | | | | | | | | | disc | | +---------+---------+---------+--------+---------+---------+---------+---------+---------+ | Cervica | [id number] | | Active | | Sheila | | HPV - | | | l high | 04 | / | | | [place] | | Human | | | risk [...] | | | +---------+---------+---------+--------+---------+---------+---------+---------+---------+ | Umbilic | [id number] | | Active | | Sheila | | Umbilic | | | al | | | | | [place] | | al | | | hernia | (SNOMED | | | | PA-C | | hernia | | | | CT) | | | | | | | | +---------+---------+---------+--------+---------+---------+---------+---------+---------+ | Other | [id number] | | Active | | Sheila | | Dyspnea | | | abnorma | | | | /16 | [place] | | | | | lities | (SNOMED | | | | PA-C | | | | | of | CT) | | | | | | | | | breathi | | | | | | | | | | ng | | | | | | | | | +---------+---------+---------+--------+---------+---------+---------+---------+---------+ | Cigaret | [id number] | | Active | | Yaneli | | Cigaret | | | te | 7 | /30 | | /05 | Anil | | te | | | smoker | (SNOMED | | | | | | smoker | | | | CT) | | | | | | | | +---------+---------+---------+--------+---------+---------+---------+---------+---------+ | Autism | [id number] | | Active | | Elder | | Autisti | | | | 03 | /13 | | /13 | D | | c | | | | (SNOMED | | | | Holley | | disorde | | | | CT) | | | | MD | | r | | +---------+---------+---------+--------+---------+---------+---------+---------+---------+ | Lumbar | [id number] | | Active | | Leobardo | | Disorde | | | disc | 03 | / | | / | Park MD | | r of | | | [...] | | | +---------+---------+---------+--------+---------+---------+---------+---------+---------+ | Anxiety | [id number] | | Active | | Leobardo | | Anxiety | | | | 06 | | | | Park MD | | | | | disorde | (SNOMED | | | | | | disorde | | | r | CT) | | | | | | r | | +---------+---------+---------+--------+---------+---------+---------+---------+---------+ | Vitamin | [id number] | | Active | | Yomaira | | Vitamin | | | D | 6 | | | | M | | D | | | deficie | (SNOMED | | | | Paez | | deficie | | | ncy | CT) | | | | ASSISTANT PROFESSOR OF SURGERY | | ncy | | +---------+---------+---------+--------+---------+---------+---------+---------+---------+ | Sacroil | [id number] | | Active | | Yomaira | | Sacroil | | | iac | 03 | | | | M | | iac | | | joint | (SNOMED | | | | Paez | | disorde | | | dysfunc | CT) | | | | ASSISTANT PROFESSOR OF SURGERY | | r | | | tion | | | | | | | | | +---------+---------+---------+--------+---------+---------+---------+---------+---------+ | Pain in | [id number] | | Active | | Yomaira | | Multipl | | | joint, | 5 | / | | / | M | | e joint | | | | (SNOMED | | | | Paez | | pain | | | multipl | CT) | | | | ASSISTANT PROFESSOR OF SURGERY | | | | | e sites | | | | | | | | | +---------+---------+---------+--------+---------+---------+---------+---------+---------+ | Ilioing | [id number] | | Active | | Yomaira | | Ilioing | | | uinal | 08 | | | | M | | uinal | | | nerve | (SNOMED | | | | Paez | | nerve | | | neuriti | CT) | | | | ASSISTANT PROFESSOR OF SURGERY | | neuriti | | | s, left | | | | | | | s | | +---------+---------+---------+--------+---------+---------+---------+---------+---------+ | Incisio | [id number] | | Active | | Yomaira | | Incisio | | | nal | 00 | | | | M | | nal | | | hernia | (SNOMED | | | | Paez | | hernia | | | | CT) | | | | ASSISTANT PROFESSOR OF SURGERY | | | | +---------+---------+---------+--------+---------+---------+---------+---------+---------+ | Hx of | [id number] | | Active | | Yomaira | | H/O: | | | dysmeno | | | | | M | | dysmeno | | | rrhea | (SNOMED | | | | Paez | | rrhea | | | | CT) | | | | ASSISTANT PROFESSOR OF SURGERY | | | | +---------+---------+---------+--------+---------+---------+---------+---------+---------+ | Pelvic | [id number] | | Active | | Yomaira | | Pain in | | | pain, | | | | | M | | female | | | female | (SNOMED | | | | Paez | | pelvis | | | | CT) | | | | ASSISTANT PROFESSOR OF SURGERY | | | | +---------+---------+---------+--------+---------+---------+---------+---------+---------+ | Endomet | [id number] | | Active | | Yomaira | | Endomet | | | riosis | | | | | M | | riosis | | | | (SNOMED | | | | Paez | | (clinic | | | | CT) | | | | ASSISTANT PROFESSOR OF SURGERY | | al) | | +---------+---------+---------+--------+---------+---------+---------+---------+---------+ | Chronic | [id number] | | Active | | Yomaira | | Chronic | | | pain | 1 | /21 | | /21 | M | | pain | | | | (SNOMED | | | | Paez | | | | | | CT) | | | | ASSISTANT PROFESSOR OF SURGERY | | | | +---------+---------+---------+--------+---------+---------+---------+---------+---------+ Medications + + + + + + + + | Medication | Instructio | Start Date | Stop Date | Generic | NDC | Provider | | | ns | | | Name | | | + + + + + + + + | TRAMADOL | one pill | | | TRAMADOL | [id number] | Sheila Dorman | | HCL 50 [...] take 1 | | | CLONAZEPAM | [id number] | Claudia | | 0.5 MG | tablet by | | | | 1 | Rich | | TABS | mouth up | | | | | 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 | | | to 3 times | | | | | | | | per day | | | | | | + + + + + + + + | SERTRALINE | take 2 | | | SERTRALINE | [id number] | Sheila Dorman | | HCL 100 | tablet by | | | HCL | 0 | PA-C | | MG TABS | mouth | | | | | | | | daily | | | | | | + + + + + + + + | KRATOM | | | | GREGORIOM | | Sheila Dorman | | | | | | | | PA-C | + + + + + + [...] NS | | | | | Paez ASSISTANT PROFESSOR OF SURGERY | + + + + +--------+ + | AVIANE TABS | | | Critical | Active | Yomaira M | | | | | | | Paez ASSISTANT PROFESSOR OF SURGERY | + + + + +--------+ + | PENICILLIN | | | Moderate | Active | Yomaira M | | | | | | | Paez ASSISTANT PROFESSOR OF SURGERY | + + + + +--------+ + [...] + + | Office Visit: Follow up anxiety psychotherapy | + + + +--------+----+---+---+---+ + | | PHQ-9 | 22 | | | | Adult | | | SCORE | | | | | depression | | | | | | | | screening | | | | | | | | | | | | | | | | assessment | + +--------+----+---+---+---+ + + + | Office Visit: paperwork for [facility] | + + + + + +---+---+---+ [...] Therapy | + + + + | Referral | | Physical | | | | Therapy/Occupational | | | | Therapy | | | | [facility] | | | | [facility] | | | | [facility], | | | | [facility] [address] | | | | | + + [...] | + + + + + | CPT-66263 | [facility]TX PT/FAM | | | [...] | + + + + + | CPT-50558 | [facility] PSY[facility] PT/FAM | | | | | 45 MIN | | | + + + + + | CPT-3725F | [facility] Depression | | | | | Screening ([facility]) | | | + + + + + | CPT-26805 | [facility] PSYCH | | | | [...] | + + + + + | CPT-13819 | [facility] DIAG | | | | | CHANCE W/MED SRVCS | | | + + + + + | DME | DME | | | + + + + + | [id number] | SNOMED-CT: | | | | | [id number] Smoking | | | | | Cessation | | | | | Counseling | | | + + + + + | [id number] | SNOMED-CT: | | | | | [id number] | | | | | Current Medications [...] + | | BMI (Body Mass | 18.48 | kg/m2 | Body Mass Index | | | Index) | | | [Ratio] | + + +--------+---------+ + | | Body | 98.6 | [degF] | temperature E&M | | | Temperature | | | | + + +--------+---------+ + | | BP Diastolic | 76 | mm[Hg] | blood pressure, | | | | | | diastolic | + + +--------+---------+ + | | BP Systolic | 120 | mm[Hg] | blood pressure, | | | | | | systolic | + + +--------+---------+ + | | Heart Rate | 100 | /min | pulse rate E&M | + + +--------+---------+ + | | Respiratory | 16 | /min | respiratory | | | Rate | | | rate E&M | + + +--------+---------+ + | | Weight Measured | 118 | [lb_av] | weight E&M | + [...] Start Date | + + + | needs paperwork for [facility] | | + + + | Follow [...] -- 2 surgeries to cor rect -- 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 then in 2015 | | | had hernia repair with [...] BEHAVIORAL | | | HEALTH INTEGRATION PROGRAM ([facility]) INITIAL | | | CLINICAL ASSESSMENT Duration of session: | | | 30 minutesCURRENT MENTAL HEALTH | | | CONCERN(S)/REASON(S) FOR VISITPt is a 38 | | | year old female Patient self-referred to | | | the [facility] | | | ([facility]) for Anxiety and Pervasive | | | [...] previous been engaged in | | | services and was wanting to re-engage | [...] | | started to become concerned of longterm | | | 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 | | | first. her last [place] 10mg refill was on | | | [...]
--- OUTSIDE RECORDS SUMMARY | ~2020-06-29 | XMS | Clinical Summary ---
Demographics + + + | Address | [address] | | | [place] [address] | + + + | Home Phone | | + + + | Preferred Language | Unknown | + + + | Marital Status | Unknown or other | + + + | Buddhism Affiliation | Unknown | + + + | Race | White | + + + | Ethnic Group | Patient Declined | + + + Author + + + | Author | [facility] | + + + | Organization | [facility] | + + + | Address | [address] | | | [place] [address] | + + + | Phone | | + + + Care Team Providers + + + + | Care Education Specialist Name | Role | Phone | + [...] | | tion | | +---------+---------+---------+--------+---------+---------+---------+---------+---------+ | Pneumon | [id number] | | Active | | Marilyn | | Pneumon | | | ia | 07 | /25 | | /25 | R | | ia | | | | (SNOMED | | | | Czapka | | | | | | CT) | | | | TOBACCO CHECKOUT CLERK | | | | +---------+---------+---------+--------+---------+---------+---------+---------+---------+ | Screeni | [id number] | | Active | | Sheila | | Procedu | | | ng for | 03 | /16 | | /16 | Gove | | re | | | infecti | (SNOMED | | | | PA-C | | carried | | | ous | CT) | | | | | | out on | | | disease | | | | | | | | | | | | | | | | | subject | | +---------+---------+---------+--------+---------+---------+---------+---------+---------+ | Depress | [id number] | | Active | | Sheila | | Depress | | | ion | 7 | / | | / | Gove | | cesilia | | | | (SNOMED | | | | PA-C | | disorde | | | | CT) | | | | | | r | | +---------+---------+---------+--------+---------+---------+---------+---------+---------+ | screeni | [id number] | | Active | | Amal | | Depress | | | ng for | | / | | / | Tominna | | ion | | | depress | (SNOMED | | | | | | screeni | | | ion | CT) | | | | | | ng | | +---------+---------+---------+--------+---------+---------+---------+---------+---------+ | Encount | [id number] | | Active | | Yaneli | [...] | | | +---------+---------+---------+--------+---------+---------+---------+---------+---------+ | Degener | [id number] | | Active | | Sheila | | Degener | | | ative | 8 | / | | /13 | Gove | | ation | | | disc | (SNOMED | | | | PA-C | | of | | | disease | CT) | | | | | | interve | | | | | | | | | | rtebral | | | | | | | | | | disc | | +---------+---------+---------+--------+---------+---------+---------+---------+---------+ | Cervica | [id number] | | Active | | Sheila | | HPV - | | | l high | 04 | /10 | | /13 | Gove | | Human | | | risk [...] | | | +---------+---------+---------+--------+---------+---------+---------+---------+---------+ | Umbilic | [id number] | | Active | | Sheila | | Umbilic | | | al | 07 | /10 | | /13 | Gove | | al | | | hernia | (SNOMED | | | | PA-C | | hernia | | | | CT) | | | | | | | | +---------+---------+---------+--------+---------+---------+---------+---------+---------+ | Other | [id number] | | Active | | Sheila | | Dyspnea | | | abnorma | 07 | / | | /16 | Gove | | | | | lities | (SNOMED | | | | PA-C | | | | | of | CT) | | | | | | | | | breathi | | | | | | | | | | ng | | | | | | | | | +---------+---------+---------+--------+---------+---------+---------+---------+---------+ | Cigaret | [id number] | | Active | | Yaneli | | Cigaret | | | te | 7 | /30 | | /05 | Anil | | te | | | smoker | (SNOMED | | | | | | smoker | | | | CT) | | | | | | | | +---------+---------+---------+--------+---------+---------+---------+---------+---------+ | Autism | [id number] | | Active | | Elder | | Autisti | | | | 03 | / | | | D | | c | | | | (SNOMED | | | | [place] | | disorde | | | | CT) | | | | MD | | r | | +---------+---------+---------+--------+---------+---------+---------+---------+---------+ | Lumbar | [id number] | | Active | | Leobardo | [...] | | | +---------+---------+---------+--------+---------+---------+---------+---------+---------+ | Anxiety | [id number] | | Active | | Leobardo | | Anxiety | | | | | | | | Robyn AMOS | | | | | disorde | (SNOMED | | | | | | disorde | | | r | CT) | | | | | | r | | +---------+---------+---------+--------+---------+---------+---------+---------+---------+ | Vitamin | [id number] | | Active | | Yomaira | | Vitamin | | | D | 6 | /21 | | /21 | M | | D | | | deficie | (SNOMED | | | | Paez | | deficie | | | ncy | CT) | | | | BATTERY INSTALLER | | ncy | | +---------+---------+---------+--------+---------+---------+---------+---------+---------+ | Sacroil | [id number] | | Active | | Yomaira | | Sacroil | | | iac | 03 | | | | M | | iac | | | joint | (SNOMED | | | | Paez | | disorde | | | dysfunc | CT) | | | | BATTERY INSTALLER | | r | | | tion | | | | | | | | | +---------+---------+---------+--------+---------+---------+---------+---------+---------+ | Pain in | [id number] | | Active | | Yomaira | | Multipl | | | joint, | 5 | /21 | | / | M | | e joint | | | | (SNOMED | | | | Paez | | pain | | | multipl | CT) | | | | BATTERY INSTALLER | | | | | e sites | | | | | | | | | +---------+---------+---------+--------+---------+---------+---------+---------+---------+ | Ilioing | [id number] | | Active | | Yomaira | | Ilioing | | | uinal | 08 | | | | M | | uinal | | | nerve | (SNOMED | | | | Paez | | nerve | | | neuriti | CT) | | | | BATTERY INSTALLER | | neuriti | | | s, left | | | | | | | s | | +---------+---------+---------+--------+---------+---------+---------+---------+---------+ | Incisio | [id number] | | Active | | Yomaira | | Incisio | | | nal | 00 | | | | M | | nal | | | hernia | (SNOMED | | | | Paez | | hernia | | | | CT) | | | | BATTERY INSTALLER | | | | +---------+---------+---------+--------+---------+---------+---------+---------+---------+ | Hx of | [id number] | | Active | | Yomaira | | H/O: | | | dysmeno | 06 | / | | /21 | M | | dysmeno | | | rrhea | (SNOMED | | | | Paez | | rrhea | | | | CT) | | | | BATTERY INSTALLER | | | | +---------+---------+---------+--------+---------+---------+---------+---------+---------+ | Pelvic | [id number] | | Active | | Yomaira | | Pain in | | | pain, | | | | | M | | female | | | female | (SNOMED | | | | Paez | | pelvis | | | | CT) | | | | BATTERY INSTALLER | | | | +---------+---------+---------+--------+---------+---------+---------+---------+---------+ | Endomet | [id number] | | Active | | Yomaira | | Endomet | | | riosis | | | | | M | | riosis | | | | (SNOMED | | | | Paez | | (clinic | | | | CT) | | | | BATTERY INSTALLER | | al) | | +---------+---------+---------+--------+---------+---------+---------+---------+---------+ | Chronic | [id number] | | Active | | Yomaira | | Chronic | | | pain | 1 | /21 | | /21 | M | | pain | | | | (SNOMED | | | | Paez | | | | | | CT) | | | | BATTERY INSTALLER | | | | +---------+---------+---------+--------+---------+---------+---------+---------+---------+ Medications + + + + + + + + | Medication | Instructio | Start Date | Stop Date | Generic | NDC | Provider | | | ns | | | Name | | | + + + + + + + + | TRAMADOL | one pill | | | TRAMADOL | [id number] | Sheila Dorman | | HCL 50 [...] take 2 | | | SERTRALINE | [id number] | Sheila Gove | | HCL 100 | tablet by | | | HCL | 0 | PA-C | | MG TABS | mouth | | | | | | | | daily | | | | | | + + + + + + + + | CLONAZEPAM | take 1 | | | CLONAZEPAM | [id number] | Sheila Dorman | | 0.5 MG | tablet by | | | | 1 | PA-C | | TABS | mouth up | | | | | | | | to 3 times | | | | | | | | per day | | | | | | + + + + + + + + | BACTRIM DS | 1 tab by | | | SULFAMETHO | [id number] | Marilyn R | | 800-160 | mouth | | | XAZOLE-TRI | 1 | Czapka | | MG TABS | twice a | | | METHOPRIM | | TOBACCO CHECKOUT CLERK | | | day | | | | | | + + + + + + + + | VENLAFAXIN | take 1 | | | VENLAFAXIN | [id number] | Sheila Dorman | | E HCL ER | capsule by | | | E HCL | 5 | PA-C | | 37.5 MG | mouth | | | | | | | [id number] | daily for | | | | | | | | 10 days | | | | | | + + + + + + + + | VENLAFAXIN | take 1 | | | VENLAFAXIN | [id number] | Sheila Dorman | | E HCL ER | capsule by | | | E HCL | 5 | PA-C | | 75 MG | mouth | | | | | | | [id number] | daily | | | | | [...] NS | | | | | Paez BATTERY INSTALLER | + + + + +--------+ + | AVIANE TABS | | | Critical | Active | Yomaira M | | | | | | | Paez BATTERY INSTALLER | + + + + +--------+ + | PENICILLIN | | | Moderate | Active | Yomaira M | | | | | | | Paez BATTERY INSTALLER | + + + + +--------+ + [...] 02:20 PM | Sheila Dorman PA-C, [address] [facility] | | | | [place], [place], | | | | | + + + + | Referral | | [facility] for | | | | [facility] | | | | Physicians, [address], [address], | | | | [place], [address] | | | | | + + + + | Referral | | Tele-Psych | + + + + | Referral | | Physical | | | | Therapy/Occupational | | | | Therapy | + + + + | Pending order | | CBC- Auto Diff | + + + + | Pending order | | XR Chest 2 Views | + + + + | Pending [...] | + + + + + | [id number] | SNOMED-CT: | | | | | [id number] | | | | | Current Medications | | | | | Documented | | | + + + + + | OTHLAB | Other Lab | | | + + + + + | CPT-28223 | [facility] | | | [...] | + + + + + | CPT-17906 | [facility] PT/[facility] | | | | | 45 MIN | | | + + + + + | CPT-3725F | [facility] Depression | | | | | Screening ([facility]) | | | + + + + + | CPT-90608 | [facility] | | | | [...] | + + + + + | CPT-24425 | [facility] DI[facility] | | | | | MONIQUEAL W/MED SRVCS | | | + + + + + | DME | DME | | | + + + + + | [id number] | SNOMED-CT: | | | | | [id number] Smoking | | | | | Cessation | | | | | Counseling | | | + + + + + | [id number] | SNOMED-CT: | | | | | [id number] | | | | | Current Medications | | | | | Documented | | | + + + + + | CPT-3725F | [facility] | | | | | Screening ([facility]) | | | + + + + + | [id number] | Physical | | | | | Therapy/Occupationa | | | | | l Therapy | | | + + + + + Vital Signs + + +--------+---------+ + | Date | Name | Value | Unit | Description | + + +--------+---------+ + | | BMI (Body Mass | 18.78 | kg/m2 | Body Mass Index | | | Index) | | | [Ratio] | + + +--------+---------+ + | | Body | 98.6 | [degF] | temperature E&M | | | Temperature | | | | + + +--------+---------+ + | | BP Diastolic | 70 | mm[Hg] | blood pressure, | | | | | | diastolic | + + +--------+---------+ + | | BP Systolic | 112 | mm[Hg] | blood pressure, | | | | | | systolic | + + +--------+---------+ + | | Heart Rate | 103 | /min | pulse rate E&M | + + +--------+---------+ + | | Weight Measured | 119.9 | [lb_av] | weight E&M | + [...] + + + | needs paperwork for [facility] | | + + + | Follow [...] -- 2 surgeries to cor rect -- Overlock Operator Dr Julien.Peptic ulcerpyelonephritisPernicious anemia History of Present Illness + + + | History of Present Illness Description | Start Date | + + + | Pt states she has been sick for about a | | | week. Pt c/o cough, nasal congestion, | | | bloody mucus. Pt c/o pain on breathing and | | | states she can't lay flat. | | | .......................................... | | | .........................Kae Moran | | | BATTERY INSTALLER January 14, 2019 1:58 PM Sick for 7 | | | days. Cough, nasal congestion, pain with | | | deep breathing. Left side sharp pain with | | | with deep breath. Unable to lay flat. | | | Cough is productive, yellow thick sputum. | | | Thick green drainage coming from her nose. | | | Ear pain and pressure, sore throat. | | | Headaches. Body aches. Restless. No | | | nausea, vomiting, or diarrhea. Decreased | | | appetite. Hoarse voice. Denies chills. | | | Maybe fevers. Quit smoking three days ago. | | | Denies alcohol or drug use. Caring for | | | her elderly father who is sick. History of | | | pneumonia [phone] (Patient | | | cell) [phone] (Dad emergency contact) | | + + + | Patient is here today wanting an | | | antibiotic with possible | | | MRSA...................................... | | | ..............................Jadyn | | | Arredondo CMA January 05, 2019 12:59 PM | | | DAVID LANDAVERDE is a 38 year old female | | | who presents to the clinic today with | | | chief complaint of several issues to | | | discuss1) father with another bout of | | | MRSA. Pt as talking to her new CATTLE RANCHER and | | | states that she [...] needing paperwork | | | filled out montessori teacher said they was not | | | filled out | | | right..................................... | | | ..............................Jadyn | | | Arredondo CMA November 05, 2018 8:00 PM | | [...] as she will need | | | [facility] evaluaiton. I kept the comments | | [...] | | | plan.Ongoing endometiral pain, last bottle washer | | | discussed furhte lab for better diagnosis. | | | she has had hernia surgery mesh and is | | | concerned aobut his. We discussed that | | | she does need to follow specialist | | | recommendations and there may be changes | | | in the past 5 years. She will consider. | | | She will be having the [facility] mental health | | | evaluation for that portion of the | | | disability forms. | | + + + | Chris is here today needing paperwork | | | filled out for | | | [facility]...................................... | | | ..............................Jadyn | | | [facility] October 20, 2018 1:46 PM | | [...] + + | Follow up anxiety psychotherapy [facility] | | | FOLLOW-UP NOTE Duration of [...] | | | .............................Jadyn | | | [facility] October 01, 2018 5:08 PM | [...] | | | ...............................Jadyn | | | Arredondo CMA September 04, 2018 3:53 PM | | [...] + + + | Follow up psychotherapy [facility] FOLLOW-UP | | | NOTE Duration of session: 50 | | | minutesCURRENT BEHAVIORAL HEALTH | | | CONCERNS/REASON(S) FOR VISIT: Pt is a 38 | | | year old female Patient self-referred to | | | the Behavioral Health Integration Program | | | ([facility]) for Anxiety and Pervasive | | | [...] | | | 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 mandated template fitter and | | | would be required [...] | | | .................................Jadyn | | | [facility] August 21, 2018 3:15 PM | [...] BEHAVIORAL | | | HEALTH INTEGRATION PROGRAM ([facility]) INITIAL | | | CLINICAL ASSESSMENT Duration of session: | | | 30 minutesCURRENT MENTAL HEALTH | | | CONCERN(S)/REASON(S) FOR VISITPt is a 38 | | | year old female Patient self-referred to | | | the [facility] Health Integration [facility] | | | ([facility]) for Anxiety and Pervasive | | | [...] | | started to become concerned of usp | | | 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 | | | first. her last Loraine 10mg refill was on | | | [...]
--- OUTSIDE RECORDS SUMMARY | ~2020-06-29 | XMS | Clinical Summary ---
Demographics + + + | Address | [address] | | | [place] [address] | + + + | Home Phone | | + + + | Preferred Language | Unknown | + + + | Marital Status | Unknown or other | + + + | Anabaptist Affiliation | Unknown | + + + | Race | White | + + + | Ethnic Group | Patient Declined | + + + Author + + + | Author | [facility] | + + + | Organization | [facility] | + + + | Address | [address] | | | [place] [address] | + + + | Phone | | + + + Care Team Providers + + + + | Care Recreation Director Name | Role | Phone | + [...] | | tion | | +---------+---------+---------+--------+---------+---------+---------+---------+---------+ | Autism | [id number] | | Active | | Elder | | Autisti | | | | | / | | | D | | c | | | | (SNOMED | | | | [employer] | | disorde | | | | CT) | | | | MD | | r | | +---------+---------+---------+--------+---------+---------+---------+---------+---------+ | other | [id number] | | Active | | Amal | [...] subject | | +---------+---------+---------+--------+---------+---------+---------+---------+---------+ | Lumbar | [id number] | | Active | | Leobardo | | Disorde | | | disc | 03 | | | | Robyn AMOS | [...] | | | +---------+---------+---------+--------+---------+---------+---------+---------+---------+ | Anxiety | [id number] | | Active | | Leobardo | | Anxiety | | | | | | | | Robyn AMOS | | | | | disorde | (SNOMED | | | | | | disorde | | | r | CT) | | | | | | r | | +---------+---------+---------+--------+---------+---------+---------+---------+---------+ | Vitamin | 6231456 | | Active | | Yomaira | | Vitamin | | | D | 6 | /21 | | / | M | | D | | | deficie | (SNOMED | | | | Paez | | deficie | | | ncy | CT) | | | | MANAGER MOTOR | | ncy | | +---------+---------+---------+--------+---------+---------+---------+---------+---------+ | Sacroil | [id number] | | Active | | Yomaira | | Sacroil | | | iac | 03 | | | | M | | iac | | | joint | (SNOMED | | | | Paez | | disorde | | | dysfunc | CT) | | | | MANAGER MOTOR | | r | | | tion | | | | | | | | | +---------+---------+---------+--------+---------+---------+---------+---------+---------+ | Pain in | [id number] | | Active | | Yomaira | | Multipl | | | joint, | | | | | M | | e joint | | | | (SNOMED | | | | Paez | | pain | | | multipl | CT) | | | | MANAGER MOTOR | | | | | e sites | | | | | | | | | +---------+---------+---------+--------+---------+---------+---------+---------+---------+ | Ilioing | [id number] | | Active | | Yomaira | | Ilioing | | | uinal | | | | /21 | M | | uinal | | | nerve | (SNOMED | | | | Paez | | nerve | | | neuriti | CT) | | | | MANAGER MOTOR | | neuriti | | | s, left | | | | | | | s | | +---------+---------+---------+--------+---------+---------+---------+---------+---------+ | Incisio | [id number] | | Active | | Yomaira | | Incisio | | | nal | 00 | | | | M | | nal | | | hernia | (SNOMED | | | | Paez | | hernia | | | | CT) | | | | MANAGER MOTOR | | | | +---------+---------+---------+--------+---------+---------+---------+---------+---------+ | Hx of | [id number] | | Active | | Yomaira | | H/O: | | | dysmeno | 06 | | | | M | | dysmeno | | | rrhea | (SNOMED | | | | Paez | | rrhea | | | | CT) | | | | MANAGER MOTOR | | | | +---------+---------+---------+--------+---------+---------+---------+---------+---------+ | Pelvic | [id number] | | Active | | Yomaira | | Pain in | | | pain, | 03 | / | | / | M | | female | | | female | (SNOMED | | | | Paez | | pelvis | | | | CT) | | | | MANAGER MOTOR | | | | +---------+---------+---------+--------+---------+---------+---------+---------+---------+ | Endomet | [id number] | | Active | | Yomaira | | Endomet | | | riosis | | | | | M | | riosis | | | | (SNOMED | | | | Paez | | (clinic | | | | CT) | | | | MANAGER MOTOR | | al) | | +---------+---------+---------+--------+---------+---------+---------+---------+---------+ | Chronic | [id number] | | Active | | Yomaira | | Chronic | | | pain | 1 | | | | M | | pain | | | | (SNOMED | | | | Paez | | | | | | CT) | | | | MANAGER MOTOR | | | | +---------+---------+---------+--------+---------+---------+---------+---------+---------+ Medications + + + + + + + + | Medication | Instructio | Start Date | Stop Date | Generic | NDC | Provider | | | ns | | | Name | | | + + + + + + + + | SERTRALINE | take 1 and | | | SERTRALINE | [id number] | Sheila Dorman | | HCL 100 | 1/2 | | | HCL | 0 | PA-C | | MG TABS | tablets by | | | | | | | | mouth | | | | | | | | daily | | | | | | + + + + + + + + | CLONAZEPAM | take 1 | | | CLONAZEPAM | [id number] | Sheila Dorman | | 0.5 MG | tablet by | | | | 1 | PA-C | | TABS | mouth up | | | | | | | | to 3 times | | | | | | | | per day | | | | | | + + + + + + + + | CLONAZEPAM | 1 po tid | | | CLONAZEPAM | [id number] | Sheila Dorman | | 1 MG TABS | as needed | | | | 5 | PA-C | | | for | | | | | | | | anxiety | | | | | | | | and sleep. | | | | | | + [...] NS | | | | | Paez MANAGER MOTOR | + + + + +--------+ + | AVIANE TABS | | | Critical | Active | Yomaira M | | | | | | | Paez MANAGER MOTOR | + + + + +--------+ + | PENICILLIN | | | Moderate | Active | Yomaira M | | | | | | | Paez MANAGER MOTOR | + + + + +--------+ + [...] + + +---+ +---+ + | | ThomasZ-GE-placidok | CULT NOT | | | | [...] +---+ + + + | Office Visit: Establish care psychotherapy | + + + +--------+----+---+---+---+ + | | PHQ-9 | 20 | | | | Adult | | | SCORE | | | | | depression | | | | | | | | screening | | | | | | | | | | | | | | | | assessment | + +--------+----+---+---+---+ + + + | Office Visit: needs refills | + + + + + +---+---+---+ [...] + + + + | Appointment | 03:40 PM | Sheila Dorman PA-C, [address] | | | | [facility], [place], | | | | | + + + + | Referral | | Physical | | | | Therapy/Occupational | | | | Therapy | | | | [facility] | | | | [place] [address] | | | | [facility], | | | | [place], [address] | | | | | + + [...] | + + + + + | CPT-79310 | [facility] | | | | | CHANCE Rivera/[facility] | | | + + + + + | DME | DME | | | + + + + + | [id number] | SNOMED-CT: | | | | | [id number] Smoking | | | | | Cessation | | | | | Counseling | | | + + + + + | [id number] | SNOMED-CT: | | | | | [id number] | | | | | Current Medications [...] + +--------+---------+ + | | Respiratory | 18 | /min | respiratory | | | [...] Start Date | + + + | med check [...] -- 2 surgeries to cor rect -- Adult Education Teacher Dr Julien.Peptic ulcerpyelonephritisPernicious anemia History of Present Illness + + + | History of Present Illness Description | Start Date | + + + | Patient is here today for a med review | | | needing | | | refills................................... | | | .................................Jadyn | | | Arredondo CMA August 21, 2018 3:15 PM | | [...] BEHAVIORAL | | | HEALTH INTEGRATION PROGRAM ([facility]) INITIAL | | | CLINICAL ASSESSMENT Duration [...] | | started to become concerned of [place] | | | side effects and took [...] She | | | used to see SHUTTLE VAN DRIVERCarolina Rose, She was | | | refered [...] signed. | | | first. her last Avoca 10mg refill was on | | | [...] + + Review of Systems No information available."
--- OUTSIDE RECORDS SUMMARY | ~2020-06-29 | XMS | Clinical Summary ---
Demographics + + + | Address | [address] | | | [place] [address] | + + + | Home Phone | | + + + | Preferred Language | Unknown | + + + | Marital Status | Unknown or other | + + + | Mu-Ism Affiliation | Unknown | + + + | Race | White | + + + | Ethnic Group | Patient Declined | + + + Author + + + | Author | [facility] | + + + | Organization | [facility] | + + + | Address | [address] | | | [place] [address] | + + + | Phone | | + + + Care Team Providers + + + + | Care Maintenance Of Way Supervisor Name | Role | Phone | + [...] tion | | +---------+---------+---------+--------+---------+---------+---------+---------+---------+ | Screeni | [id number] | | Active | | Sheila | | Procedu | | | ng for | 03 | /16 | | /16 | [place] | | re | | | infecti | (SNOMED | | | | PA-C | | carried | | | ous | CT) | | | | | | out on | | | disease | | | | | | | | | | | | | | | | | subject | | +---------+---------+---------+--------+---------+---------+---------+---------+---------+ | Depress | [id number] | | Active | | Sheila | | Depress | | | ion | 7 | / | | / | [place] | | cesilia | | | | (SNOMED | | | | PA-C | | disorde | | | | CT) | | | | | | r | | +---------+---------+---------+--------+---------+---------+---------+---------+---------+ | screeni | [id number] | | Active | | Amal | | Depress | | | ng for | 06 | /22 | | / | [place] | | ion | | | depress | (SNOMED | | | | | | screeni | | | ion | CT) | | | | | | ng | | +---------+---------+---------+--------+---------+---------+---------+---------+---------+ | Encount | [id number] | | Active | | Yaneli | [...] | | | +---------+---------+---------+--------+---------+---------+---------+---------+---------+ | Degener | [id number] | | Active | | Sheila | | Degener | | | ative | | / | | / | [place] | | ation | | | disc | (SNOMED | | | | PA-C | | of | | | disease | CT) | | | | | | interve | | | | | | | | | | rtebral | | | | | | | | | | disc | | +---------+---------+---------+--------+---------+---------+---------+---------+---------+ | Cervica | [id number] | | Active | | Sheila | | HPV - | | | l high | | / | | | [place] | | Human | | | risk [...] | | | +---------+---------+---------+--------+---------+---------+---------+---------+---------+ | Umbilic | [id number] | | Active | | Sheila | | Umbilic | | | al | | | | | [place] | | al | | | hernia | (SNOMED | | | | PA-C | | hernia | | | | CT) | | | | | | | | +---------+---------+---------+--------+---------+---------+---------+---------+---------+ | Other | [id number] | | Active | | Sheila | | Dyspnea | | | abnorma | | | | /16 | [place] | | | | | lities | (SNOMED | | | | PA-C | | | | | of | CT) | | | | | | | | | breathi | | | | | | | | | | ng | | | | | | | | | +---------+---------+---------+--------+---------+---------+---------+---------+---------+ | Cigaret | [id number] | | Active | | Yaneli | | Cigaret | | | te | 7 | /30 | | /05 | Anil | | te | | | smoker | (SNOMED | | | | | | smoker | | | | CT) | | | | | | | | +---------+---------+---------+--------+---------+---------+---------+---------+---------+ | Autism | [id number] | | Active | | Elder | | Autisti | | | | 03 | / | | | D | | c | | | | (SNOMED | | | | [place] | | disorde | | | | CT) | | | | MD | | r | | +---------+---------+---------+--------+---------+---------+---------+---------+---------+ | Lumbar | [id number] | | Active | | Leobardo | [...] | | | +---------+---------+---------+--------+---------+---------+---------+---------+---------+ | Anxiety | [id number] | | Active | | Leobardo | | Anxiety | | | | | | | | Robyn AMOS | | | | | disorde | (SNOMED | | | | | | disorde | | | r | CT) | | | | | | r | | +---------+---------+---------+--------+---------+---------+---------+---------+---------+ | Vitamin | [id number] | | Active | | Yomaira | | Vitamin | | | D | 6 | | | | M | | D | | | deficie | (SNOMED | | | | Paez | | deficie | | | ncy | CT) | | | | [employer] | | ncy | | +---------+---------+---------+--------+---------+---------+---------+---------+---------+ | Sacroil | [id number] | | Active | | Yomaira | | Sacroil | | | iac | 03 | /21 | | /21 | M | | iac | | | joint | (SNOMED | | | | [facility] | | disorde | | | dysfunc | CT) | | | | [employer] | | r | | | tion | | | | | | | | | +---------+---------+---------+--------+---------+---------+---------+---------+---------+ | Pain in | [id number] | | Active | | Yomaira | | Multipl | | | joint, | | | | | M | | e joint | | | | (SNOMED | | | | Paez | | pain | | | multipl | CT) | | | | [employer] | | | | | e sites | | | | | | | | | +---------+---------+---------+--------+---------+---------+---------+---------+---------+ | Ilioing | [id number] | | Active | | Yomaira | | Ilioing | | | uinal | 08 | | | | M | | uinal | | | nerve | (SNOMED | | | | Paez | | nerve | | | neuriti | CT) | | | | [employer] | | neuriti | | | s, left | | | | | | | s | | +---------+---------+---------+--------+---------+---------+---------+---------+---------+ | Incisio | [id number] | | Active | | Yomaira | | Incisio | | | nal | 00 | | | | M | | nal | | | hernia | (SNOMED | | | | Paez | | hernia | | | | CT) | | | | [employer] | | | | +---------+---------+---------+--------+---------+---------+---------+---------+---------+ | Hx of | [id number] | | Active | | Yomaira | | H/O: | | | dysmeno | | | | | M | | dysmeno | | | rrhea | (SNOMED | | | | [facility]aez | | rrhea | | | | CT) | | | | [employer] | | | | +---------+---------+---------+--------+---------+---------+---------+---------+---------+ | Pelvic | [id number] | | Active | | Yomaira | | Pain in | | | pain, | 03 | /21 | | /21 | M | | female | | | female | (SNOMED | | | | [facility] | | pelvis | | | | CT) | | | | [employer] | | | | +---------+---------+---------+--------+---------+---------+---------+---------+---------+ | Endomet | [id number] | | Active | | Yomaira | | Endomet | | | riosis | 03 | / | | | M | | riosis | | | | (SNOMED | | | | [facility] | | (clinic | | | | CT) | | | | [employer] | | al) | | +---------+---------+---------+--------+---------+---------+---------+---------+---------+ | Chronic | [id number] | | Active | | Yomaira | | Chronic | | | pain | 1 | / | | | M | | pain | | | | (SNOMED | | | | [facility] | | | | | | CT) | | | | [employer] | | | | +---------+---------+---------+--------+---------+---------+---------+---------+---------+ Medications + + + + + + + + | Medication | Instructio | Start Date | Stop Date | Generic | NDC | Provider | | | ns | | | Name | | | + + + + + + + + | VENLAFAXIN | take 1 | | | VENLAFAXIN | [id number] | Sheila Dorman | | E HCL ER | capsule by | | | E HCL | 5 | PA-C | | 37.5 MG | mouth | | | | | | | [id number] | daily for | | | | | | | | 10 days | | | | | | + + + + + + + + | VENLAFAXIN | take 1 | | | VENLAFAXIN | [id number] | Sheila Dorman | | E HCL ER | capsule by | | | E HCL | 5 | PA-C | | 75 MG | mouth | | | | | | | [id number] | daily | | | | | | + + + + + + + + | CLONAZEPAM | take 1 | | | CLONAZEPAM | [id number] | Sheila Dorman | | 0.5 MG [...] one pill | | | TRAMADOL | [id number] | Sheila Dorman | | HCL 50 [...] take 2 | | | SERTRALINE | [id number] | Sheila Dorman | | HCL 100 [...] NS | | | | | Pae[facility] [employer] | + + + + +--------+ + | AVIANE TABS | | | Critical | Active | Yomaira M | | | | | | | [facility]ae[facility] [employer] | + + + + +--------+ + | PENICILLIN | | | Moderate | Active | Yomaira M | | | | | | | [place] [employer] | + + + + +--------+ + [...] 02:20 PM | Sheila Dorman PA-C, [address] [facility] | | | | [place], [place], | | | | | + + + + | Referral | | [facility] for | | | | [facility] | | | | Physicians, [address] | | | | [place], [address], | | | | [place], [address] | | | | | + + [...] | + + + + + | CPT-99094 | [facility] PS[facility]TX PT/F[facility] | | | [...] | + + + + + | CPT-10385 | [facility] | | | | | 45 MIN | | | + + + + + | CPT-3725F | [facility] Depression | | | | | Screening ([facility]) | | | + + + + + | CPT-73312 | [facility] PSYCH | | | | [...] | + + + + + | CPT-34961 | [facility] DIAG | | | | | EVAL W/MED SRVCS | | | + + + + + | DME | DME | | | + + + + + | [id number] | SNOMED-CT: | | | | | [id number] Smoking | | | | | Cessation | | | | | Counseling | | | + + + + + | [id number] | SNOMED-CT: | | | | | [id number] | | | | | Current Medications | | | | | Documented | | | + + + + + | CPT-3725F | [facility] Depression | | | | | Screening ([facility]) | | | + + + + + | [id number] | Physical | | | | | [...] +--------+---------+ + | | BP Diastolic | 78 | mm[Hg] | blood pressure, | | | | | | diastolic | + + +--------+---------+ + | | BP Systolic | 118 | mm[Hg] | blood pressure, | | | | | | systolic | + + +--------+---------+ + | | Heart Rate | 88 | /min | pulse rate E&M | [...] Start Date | + + + | paperwork | | + + + | needs paperwork for [facility] | | + + + | [...] -- 2 surgeries to cor rect -- 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 | | | ..............................Jadyn | | | November 05, 2018 8:00 PM | | [...] as she will need | | | [facility] evaluaiton. I kept the [...] | | | plan.Ongoing endometiral pain, last messenger copy | | | discussed furhte lab for [...] | | She will be having the [facility] mental health | | | evaluation for that portion of the | | | disability forms. | | + + + | Chris is here today needing paperwork | | | filled out for | | | [facility]...................................... | | | ..............................Jadyn | | | [facility] October 20, 2018 1:46 PM | [...] | | office the week of Oct has some | | | forms for [...] + + | Follow up anxiety psychotherapy [facility] | | | FOLLOW-UP NOTE Duration of session: 20 | | | minutesCURRENT BEHAVIORAL HEALTH | | | CONCERNS/REASON(S) FOR VISIT: Pt is a 38 | | | year old female Patient self-referred to | | | the Behavioral Health Integration Program | | | ([facility]) for Anxiety and Pervasive | [...] | | | .............................Jadyn | | | [facility] October 01, 2018 5:08 PM | [...] | | | ...............................Jadyn | | | [facility] September 04, 2018 3:53 PM | [...] + + + | Follow up psychotherapy [facility] FOLLOW-UP | | | NOTE Duration of session: 50 | | | minutesCURRENT BEHAVIORAL HEALTH | | | CONCERNS/REASON(S) FOR VISIT: Pt is a 38 | | | year old female Patient self-referred to | | | the Behavioral Health Integration Program | | | ([facility]) for Anxiety and Pervasive | [...] | | | 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 Dar LPNchronic low | | | back pain. --major pain in her back. She | | | used to see FIELD TECHNICAL SPECIALISTCarolina Rose, She was | | | refered [...] signed. | | | first. her last [place] 10mg refill was on | | | [...]
--- OUTSIDE RECORDS SUMMARY | ~2020-06-29 | XMS | Continuity of Care Document ---
Demographics + + + | Address | [address] | | | [place] [address] | + + + | Home Phone | | + + + | Preferred Language | Unknown | + + + | Marital Status | Unknown | + + + | Samaritan Affiliation | Unknown | + + + | Race | Unknown | + + + | Ethnic Group | Unknown | + + + Author + + + | Author | [facility] | + + + | Organization | [facility] | + + + | Address | Unknown | + + + | Phone | Unavailable | + + + Support + + + + + | Name | Relationship | Address | Phone | + + + + + | EUGENE LANDAVERDE | Next Of Kin | [address] | | | | | [place] [address] | | + + + + + Care Team Providers + + + + | Care Packaging Operator Name | Role | Phone | + + + + | Christofer Carlson | Unavailable | | + + + + Insurance Providers + + + + + | Payer Name | Policy Number | Subscriber Name | Relationship | + + + + + | KELSEY STEELE | [id number] | DAVID LANDAVERDE | SAME PATIENT | | [facility] | | | | + + + + + Chief Complaint and Reason for Visit + + + | Reason for Visit | FOOD POISONING | + + + Problems No problem information available. Medications Current Home Medications + +------+-------+-------+ + + + + | Medicati | Dose | Units | Route | Directio | Days/Qty | Instruct | Start | | on | | | | ns | | ions | Date | + +------+-------+-------+ + + + + | Clonazep | 1 | MG | ORAL | | | | | | am 1 MG | | | | | | | | | TABLET | | | | | | | | + +------+-------+-------+ + + + + | Duloxeti | 40 | MG | ORAL | AT | | | | | ne Hcl | | | | BEDTIME | | | | | (Cymbalt | | | | | | | | | a) 60 MG | | | | | | | | | | | | | | | | | | CAPSULE. | | | | | | | | | DR | | | | | | | | + +------+-------+-------+ + + + + | Hydroxyz | 50 | MG | ORAL | TWICE | 15 | | 05/04/18 | | ine | | | | DAILY | | | | | Pamoate | | | | NEEDED | | | | | (Vistari | | | | as | | | | | l) 50 MG | | | | needed | | | | | CAPSULE | | | | for | | | | | | | | | Anxiety | | | | + +------+-------+-------+ + + + + Past Home Medications + + +---------+ + | Medication | Directions | Ordered | Status | + + +---------+ + | Alprazolam 0.5 Mg | for ANXIETY | Unknown | Discontinued | | Tablet Tablet, 0.25 | | | | | Mg Oral | | | | + + +---------+ + | Docusate Sodium | ONCE DAILY for | Unknown | Discontinued | | (Stool Softener) | CONSTIPATION | | | | 250 Mg Capsule | | | | | Capsule, 3 Tab Oral | | | | + + +---------+ + | Gabapentin 100 Mg | AT BEDTIME as | Unknown | Discontinued | | Capsule Capsule, | needed for Pain | | | | 600 Mg Oral | | | | + + +---------+ + | Hydrocodone/Apap | FIVE TIMES DAILY as | Unknown | Discontinued | | 5-325 Mg 1 Each | needed for Pain | | | | Tablet Tablet, 2 | | | | | Tab Oral | | | | + + +---------+ + | Propranolol Hcl 20 | ONCE DAILY as | Unknown | Discontinued | | Mg Tablet Tablet, | needed for Anxiety | | | | 10 Mg Oral | | | | + + +---------+ + Social History + + + + + | Query | Response | Start Date | Stop Date | + + + + + | Smoking Status/ | Current Every Day | | | | | Smoker | | | + + + + + Hospital Discharge Instructions No hospital discharge instructions. Plan of Care + + + | Discharge Date | 05/04/18 | + + + | Disposition | DISCHARGE HOME ROUTINE HOME | + + + | Condition at Discharge | Improved | + + + | Instructions/Education Provided | ED Visit Guide | | | Acute Nausea and Vomiting (ED) | | | Anxiety (ED) | + + + | Forms Provided | Home Medications/Allergy Form | + + + | Prescriptions | See Medications Section | + + + | Referrals | Christofer Carlson - | | | | | | Yisel Staples - | + + + | Additional Instructions/Education | Follow up with a provider of your choice | | | within 2-4 weeks so that you can | | | re-establish care. We Will need to make | | | sure that your anxiety is under control, | | | anxiety and panic may have been a | | | contributing factor to your worsening | | | symptoms tonight Hydrocodone should be | | | taken with food, take one tab every 4-6 | | | hours as needed for pain. Trial Vistaril | | | 50-100mg twice daily NEEDED for anxiety | | | or panic attack, may also help with sleep | | | when taken at nightEat well rounded easy | | | to digest foods until you feel like you | | | are getting back to your baseline then | | | advance your diet as tolerated. I agree | | | with you on the Kratom Powder, please | | | avoid. The data on this product is | | | complicated to interpret due to the many | | | products used in studies and the poor | | | quality of the studies. On the product | | | side there is not regulation such that | | | when one buys a product it is unclear as | | | to what is really in it. return to the ER | | | as needed | + + + Functional Status + + + + | Query | Response | Date Recorded | + + + + | Weight LB: | 120.00 | May 03, 2018 10:46pm | + + + + | KG: | 54.43 | May 03, 2018 10:46pm | + + + + | HEIGHT: FT. | 5 | May 03, 2018 10:46pm | + + + + | IN. | 7.00 | May 03, 2018 10:46pm | + + + + Allergies, Adverse Reactions, Alerts + +---------+ + +--------+ + | Allergen | Type | Severity | Reaction | Status | Last Updated | + +---------+ + +--------+ + | CEPHALOSPORI | Allergy | Unknown | Anaphylaxis | Active | 01/14/16 | | NS | | | | | | + +---------+ + +--------+ + | ETHINYL | Allergy | Unknown | Vomiting | Active | 01/14/16 | | ESTRADIOL | | | | | | + +---------+ + +--------+ + | LEVONORGESTR | Allergy | Unknown | Vomiting | Active | 01/14/16 | | EL | | | | | | + +---------+ + +--------+ + | PENICILLIN G | Allergy | Unknown | Anaphylaxis | Active | 01/14/16 | + +---------+ + +--------+ + Immunizations No Known History of Immunizations. Vital Signs + + + + | Vital Reading | Collection Date/Time | Result | + + + + | Blood Pressure | 05/04/18 2:19am | 108/58 | + + + + | Temperature | 05/04/18 2:19am | 98.9 F | + + + + | Respiratory Rate | 05/04/18 2:19am | 18 | + + + + | Pulse Rate | 05/04/18 2:19am | 106 | + + + + | Bedside Pulse Oximetry | 05/04/18 2:19am | 98 | + + + + | Height | 05/03/18 10:46pm | 5 ft 7 in | + + + + | Height | 05/03/18 10:46pm | 170.18 cm | + + + + | Weight | 05/03/18 10:46pm | 120 lb | + + + + | Weight | 05/03/18 10:46pm | 54.43 kg | + + + + | Body Mass Index | 05/03/18 10:46pm | 18.8 kg/m2 | + + + + Results Laboratory Results + + +--------+-------+ + + + + | Test | Result | Units | Flags | Referenc | Collecti | Result | Comments | | Name | | | | e | on | Date/Sky | | | | | | | | Date/Sky | e | | | | | | | | e | | | + + +--------+-------+ + + + + | Hemoglob | 13.1 | G/dL | | 11.6-15. | 05/03/18 | 05/03/18 | | | in | | | | 5 | 11:15pm | 11:31pm | | + + +--------+-------+ + + + + | Hematocr | 38.6 | % | | 35-46 | 05/03/18 | 05/03/18 | | | it | | | | | 11:15pm | 11:31pm | | + + +--------+-------+ + + + + | Red | 4.42 | M/uL | | 3.80-5.2 | 05/03/18 | 05/03/18 | | | Blood | | | | 0 | 11:15pm | 11:31pm | | | Count | | | | | | | | + + +--------+-------+ + + + + | Mean | 87.2 | fL | | 81.0-100 | 05/03/18 | 05/03/18 | | | Corpuscu | | | | .0 | 11:15pm | 11:31pm | | | lar | | | | | | | | | Volume | | | | | | | | + + +--------+-------+ + + + + | Mean | 29.6 | pg | | 27.0-34. | 05/03/18 | 05/03/18 | | | Corpuscu | | | | 0 | 11:15pm | 11:31pm | | | lar | | | | | | | | | Hemoglob | | | | | | | | | in | | | | | | | | + + +--------+-------+ + + + + | Mean | 33.9 | g/dL | | 33.0-35. | 05/03/18 | 05/03/18 | | | Corpuscu | | | | 5 | 11:15pm | 11:31pm | | | lar | | | | | | | | | Hemoglob | | | | | | | | | in | | | | | | | | | Concent | | | | | | | | + + +--------+-------+ + + + + | Red Cell | 12.3 | % | | 11.0-15. | 05/03/18 | 05/03/18 | | | | | | | 0 | 11:15pm | 11:31pm | | | Distribu | | | | | | | | | tion | | | | | | | | | Width | | | | | | | | + + +--------+-------+ + + + + | Platelet | 205 | K/uL | | 150-400 | 05/03/18 | 05/03/18 | | | Count | | | | | 11:15pm | 11:31pm | | + + +--------+-------+ + + + + | White | 11.5 | K/uL | H | 4.8-10.8 | 05/03/18 | 05/03/18 | | | Blood | | | | | 11:15pm | 11:31pm | | | Count | | | | | | | | + + +--------+-------+ + + + + | Neutroph | 90 | % | H | 38-70 | 05/03/18 | 05/03/18 | | | ils % | | | | | 11:15pm | 11:49pm | | | (Manual) | | | | | | | | + + +--------+-------+ + + + + | Band | 1 | % | | 0-8 | 05/03/18 | 05/03/18 | | | Neutroph | | | | | 11:15pm | 11:49pm | | | ils % | | | | | | | | + + +--------+-------+ + + + + | Lymphocy | 6 | % | L | 15-45 | 18 | 05/03/18 | | | cody % | | | | | 11:15pm | 11:49pm | | | (Manual) | | | | | | | | + + +--------+-------+ + + + + | Monocyte | 2 | % | | 0-12 | 18 | 05/03/18 | | | s % | | | | | 11:15pm | 11:49pm | | | (Manual) | | | | | | | | + + +--------+-------+ + + + + | Basophil | 1 | % | | 0-2 | 18 | 18 | | | s % | | | | | 11:15pm | 11:49pm | | | (Manual) | | | | | | | | + + +--------+-------+ + + + + | Platelet | ADEQUATE | | | | 05/03/18 | 18 | | | | | | | | 11:15pm | 11:49pm | | | Estimate | | | | | | | | + + +--------+-------+ + + + + | Red | NORMAL | | | NORMAL | 05/03/18 | 05/03/18 | | | Blood | | | | | 11:15pm | 11:49pm | | | Cell | | | | | | | | | Morpholo | | | | | | | | | gy | | | | | | | | + + +--------+-------+ + + + + | Sodium | 136 | mmol/L | | 136-145 | 05/03/18 | 05/03/18 | | | Level | | | | | 11:15pm | 11:48pm | | + + +--------+-------+ + + + + | Potassiu | 3.6 | mmol/L | | 3.5-5.1 | 05/03/18 | 05/03/18 | | | m Level | | | | | 11:15pm | 11:48pm | | + + +--------+-------+ + + + + | Chloride | 105 | mmol/L | | 98-107 | 05/03/18 | 05/03/18 | | | Level | | | | | 11:15pm | 11:48pm | | + + +--------+-------+ + + + + | Carbon | 22 | mmol/L | L | 23-29 | 05/03/18 | 05/03/18 | | | Dioxide | | | | | 11:15pm | 11:48pm | | | Level | | | | | | | | + + +--------+-------+ + + + + | Anion | 12.6 | mmol/L | | 5-16 | 05/03/18 | 05/03/18 | | | Gap | | | | | 11:15pm | 11:48pm | | + + +--------+-------+ + + + + | Creatini | 0.7 | mg/dL | | 0.6-1.3 | 05/03/18 | 05/03/18 | | | ne | | | | | 11:15pm | 11:48pm | | + + +--------+-------+ + + + + | Blood | 24 | mg/dL | H | 6-20 | 05/03/18 | 05/03/18 | | | Urea | | | | | 11:15pm | 11:48pm | | | Nitrogen | | | | | | | | + + +--------+-------+ + + + + | BUN/Crea | 34.2 | Ratio | H | 7.0-24.0 | 05/03/18 | 05/03/18 | | | tinine | | | | | 11:15pm | 11:48pm | | | Ratio | | | | | | | | + + +--------+-------+ + + + + | Glucose | 107.0 | mg/dL | | 65-110 | 05/03/18 | 05/03/18 | | | Level | | | | | 11:15pm | 11:48pm | | + + +--------+-------+ + + + + | Calcium | 8.4 | mg/dL | L | 8.6-10.0 | 05/03/18 | 05/03/18 | | | Level | | | | | 11:15pm | 11:48pm | | + + +--------+-------+ + + + + | Serum | 6.4 | g/dL | | 6.0-8.3 | 05/03/18 | 05/03/18 | | | Total | | | | | 11:15pm | 11:48pm | | | Protein | | | | | | | | + + +--------+-------+ + + + + | Albumin | 4.2 | g/dL | | 3.5-5.0 | 05/03/18 | 05/03/18 | | | | | | | | 11:15pm | 11:48pm | | + + +--------+-------+ + + + + | Globulin | 2.2 | g/dL | L | 2.3-3.5 | 05/03/18 | 05/03/18 | | | | | | | | 11:15pm | 11:48pm | | + + +--------+-------+ + + + + | Albumin/ | 1.9 | CALC | | 1.1-2.2 | 05/03/18 | 05/03/18 | | | Globulin | | | | | 11:15pm | 11:48pm | | | Ratio | | | | | | | | + + +--------+-------+ + + + + | Total | 1.2 | mg/dL | | 0.3-1.2 | 05/03/18 | 05/03/18 | | | Bilirubi | | | | | 11:15pm | 11:48pm | | | n | | | | | | | | + + +--------+-------+ + + + + | Alanine | 14 | IU/L | | 14-54 | 05/03/18 | 05/03/18 | | | Aminotra | | | | | 11:15pm | 11:48pm | | | nsferase | | | | | | | | | | | | | | | | | | (ALT/SGP | | | | | | | | | T) | | | | | | | | + + +--------+-------+ + + + + | Alkaline | 52 | IU/L | | 50-136 | 05/03/18 | 05/03/18 | | | | | | | | 11:15pm | 11:48pm | | | Phosphat | | | | | | | | | ase | | | | | | | | + + +--------+-------+ + + + + | Aspartat | 26 | IU/L | | 15-41 | 05/03/18 | 05/03/18 | | | e Amino | | | | | 11:15pm | 11:48pm | | | Transf | | | | | | | | | (AST/SGO | | | | | | | | | T) | | | | | | | | + + +--------+-------+ + + + + | Amylase | 88 | U/L | | 28-100 | 05/03/18 | 05/03/18 | | | Level | | | | | 11:15pm | 11:48pm | | + + +--------+-------+ + + + + | Lipase | 56 | U/L | H | 22-51 | 05/03/18 | 05/03/18 | | | | | | | | 11:15pm | 11:48pm | | + + +--------+-------+ + + + + | Estimat | > 60 | | | >60 | 07/12/18 | 07/12/18 | Limitati | | Glomerul | | | | | 11:15pm | 11:48pm | ons | | ar | | | | | | | apply. | | Filtrati | | | | | | | This | | on Rate | | | | | | | calculat | | | | | | | | | ion | | | | | | | | | includes | | | | | | | | | | | | | | | | | | variable | | | | | | | | | s | | | | | | | | | forserum | | | | | | | | | | | | | | | | | | creatini | | | | | | | | | ne, age, | | | | | | | | | race | | | | | | | | | and | | | | | | | | | gender. | | | | | | | | | This | | | | | | | | | estimate | | | | | | | | | applies | | | | | | | | | only to | | | | | | | | | stable | | | | | | | | | chronic | | | | | | | | | renal | | | | | | | | | disease | | | | | | | | | states. | | | | | | | | | Below60 | | | | | | | | | | | | | | | | | | ml/min/1 | | | | | | | | | .73 | | | | | | | | | square | | | | | | | | | meters, | | | | | | | | | the | | | | | | | | | prevalen | | | | | | | | | ce | | | | | | | | | ofcompli | | | | | | | | | cations | | | | | | | | | of CKD | | | | | | | | | increase | | | | | | | | | s, as | | | | | | | | | does the | | | | | | | | | risk | | | | | | | | | ofcardio | | | | | | | | | vascular | | | | | | | | | | | | | | | | | | disease. | + + +--------+-------+ + + + + Procedures No Known History of Procedures. Encounters + + + + + + | Encounter | Location | Arrival/Admit | Discharge/Depar | Attending | | | | Date | t Date | Provider | + + + + + + | Departed | [facility] | 05/03/18 | 05/04/18 2:48am | [facility] | 10:44pm | | | + + + + + +"
--- OUTSIDE RECORDS SUMMARY | ~2020-06-29 | XMS | Clinical Summary ---
Demographics + + + | Address | [address] | | | [place] [address] | + + + | Home Phone | | + + + | Preferred Language | Unknown | + + + | Marital Status | Unknown or other | + + + | Voodoo Affiliation | Unknown | + + + | Race | White | + + + | Ethnic Group | Patient Declined | + + + Author + + + | Author | [facility] | + + + | Organization | [facility] | + + + | Address | [address] | | | [place] [address] | + + + | Phone | | + + + Care Team Providers + + + + | Care Finance Vice President Name | Role | Phone | + [...] tion | | +---------+---------+---------+--------+---------+---------+---------+---------+---------+ | Depress | [id number] | | Active | | Sheila | | Depress | | | ion | | / | | / | Navarro | | cesilia | | | | (SNOMED | | | | PA-C | | disorde | | | | CT) | | | | | | r | | +---------+---------+---------+--------+---------+---------+---------+---------+---------+ | screeni | [id number] | | Active | | Amal | | Depress | | | ng for | | / | | / | Tominna | | ion | | | depress | (SNOMED | | | | | | screeni | | | ion | CT) | | | | | | ng | | +---------+---------+---------+--------+---------+---------+---------+---------+---------+ | Encount | [id number] | | Active | | Yaneli | [...] | | | +---------+---------+---------+--------+---------+---------+---------+---------+---------+ | Degener | [id number] | | Active | | Sheila | | Degener | | | ative | | | | | Navarro | | ation | | | disc | (SNOMED | | | | PA-C | | of | | | disease | CT) | | | | | | interve | | | | | | | | | | rtebral | | | | | | | | | | disc | | +---------+---------+---------+--------+---------+---------+---------+---------+---------+ | Cervica | [id number] | | Active | | Sheila | | HPV - | | | l high | 04 | / | | | Navarro | | Human | | | risk [...] | | | +---------+---------+---------+--------+---------+---------+---------+---------+---------+ | Umbilic | [id number] | | Active | | Sheila | | Umbilic | | | al | | | | | Navarro | | al | | | hernia | (SNOMED | | | | PA-C | | hernia | | | | CT) | | | | | | | | +---------+---------+---------+--------+---------+---------+---------+---------+---------+ | Other | [id number] | | Active | | Sheila | | Dyspnea | | | abnorma | | | | /16 | Navarro | | | | | lities | (SNOMED | | | | PA-C | | | | | of | CT) | | | | | | | | | breathi | | | | | | | | | | ng | | | | | | | | | +---------+---------+---------+--------+---------+---------+---------+---------+---------+ | Cigaret | [id number] | | Active | | Yaneli | | Cigaret | | | te | 7 | /30 | | /05 | Anil | | te | | | smoker | (SNOMED | | | | | | smoker | | | | CT) | | | | | | | | +---------+---------+---------+--------+---------+---------+---------+---------+---------+ | Autism | [id number] | | Active | | Elder | | Autisti | | | | 03 | /13 | | /13 | D | | c | | | | (SNOMED | | | | [place] | | disorde | | | | CT) | | | | MD | | r | | +---------+---------+---------+--------+---------+---------+---------+---------+---------+ | Lumbar | [id number] | | Active | | Leobardo | [...] | | | +---------+---------+---------+--------+---------+---------+---------+---------+---------+ | Anxiety | [id number] | | Active | | Leobardo | | Anxiety | | | | 06 | | | | Park MD | | | | | disorde | (SNOMED | | | | | | disorde | | | r | CT) | | | | | | r | | +---------+---------+---------+--------+---------+---------+---------+---------+---------+ | Vitamin | [id number] | | Active | | Yomaira | | Vitamin | | | D | 6 | | | | M | | D | | | deficie | (SNOMED | | | | Paez | | deficie | | | ncy | CT) | | | | SALES AND MARKETING MANAGER | | ncy | | +---------+---------+---------+--------+---------+---------+---------+---------+---------+ | Sacroil | [id number] | | Active | | Yomaira | | Sacroil | | | iac | 03 | | | | M | | iac | | | joint | (SNOMED | | | | Paez | | disorde | | | dysfunc | CT) | | | | SALES AND MARKETING MANAGER | | r | | | tion | | | | | | | | | +---------+---------+---------+--------+---------+---------+---------+---------+---------+ | Pain in | [id number] | | Active | | Yomaira | | Multipl | | | joint, | 5 | / | | / | M | | e joint | | | | (SNOMED | | | | Paez | | pain | | | multipl | CT) | | | | SALES AND MARKETING MANAGER | | | | | e sites | | | | | | | | | +---------+---------+---------+--------+---------+---------+---------+---------+---------+ | Ilioing | [id number] | | Active | | Yomaira | | Ilioing | | | uinal | 08 | | | | M | | uinal | | | nerve | (SNOMED | | | | Paez | | nerve | | | neuriti | CT) | | | | SALES AND MARKETING MANAGER | | neuriti | | | s, left | | | | | | | s | | +---------+---------+---------+--------+---------+---------+---------+---------+---------+ | Incisio | [id number] | | Active | | Yomaira | | Incisio | | | nal | 00 | | | | M | | nal | | | hernia | (SNOMED | | | | Paez | | hernia | | | | CT) | | | | SALES AND MARKETING MANAGER | | | | +---------+---------+---------+--------+---------+---------+---------+---------+---------+ | Hx of | [id number] | | Active | | Yomaira | | H/O: | | | dysmeno | | | | | M | | dysmeno | | | rrhea | (SNOMED | | | | Paez | | rrhea | | | | CT) | | | | SALES AND MARKETING MANAGER | | | | +---------+---------+---------+--------+---------+---------+---------+---------+---------+ | Pelvic | [id number] | | Active | | Yomaira | | Pain in | | | pain, | | | | | M | | female | | | female | (SNOMED | | | | Paez | | pelvis | | | | CT) | | | | SALES AND MARKETING MANAGER | | | | +---------+---------+---------+--------+---------+---------+---------+---------+---------+ | Endomet | [id number] | | Active | | Yomaira | | Endomet | | | riosis | | | | | M | | riosis | | | | (SNOMED | | | | Paez | | (clinic | | | | CT) | | | | SALES AND MARKETING MANAGER | | al) | | +---------+---------+---------+--------+---------+---------+---------+---------+---------+ | Chronic | [id number] | | Active | | Yomaira | | Chronic | | | pain | 1 | /21 | | /21 | M | | pain | | | | (SNOMED | | | | Paez | | | | | | CT) | | | | SALES AND MARKETING MANAGER | | | | +---------+---------+---------+--------+---------+---------+---------+---------+---------+ Medications + + + + + + + + | Medication | Instructio | Start Date | Stop Date | Generic | NDC | Provider | | | ns | | | Name | | | + + + + + + + + | TRAMADOL | one pill | | | TRAMADOL | [id number] | Sheila Dorman | | HCL 50 [...] take 1 | | | CLONAZEPAM | [id number] | Claudia | | 0.5 MG | tablet by | | | | 1 | Rich | | TABS | mouth up | | | | | CAR DEALER | | | to 3 times | | | | | | | | per day | | | | | | + + + + + + + + | SERTRALINE | take 2 | | | SERTRALINE | [id number] | Sheila Dorman | | HCL 100 [...] NS | | | | | Paez SALES AND MARKETING MANAGER | + + + + +--------+ + | AVIANE TABS | | | Critical | Active | Yomaira M | | | | | | | Paez SALES AND MARKETING MANAGER | + + + + +--------+ + | PENICILLIN | | | Moderate | Active | Yomaira M | | | | | | | Paez SALES AND MARKETING MANAGER | + + + + +--------+ + [...] + + + | Office Visit: paperwork | + + + + + +---+---+---+ [...] + + + + | Appointment | 02:00 PM | [address], | | | | [place], | + + + + | Referral | | Tele-Psych | + + + + | Referral | | Physical | | | | Therapy/Occupational | | | | Therapy | + + + + | Referral | | Physical | | | | Therapy/Occupational | | | | Therapy | | | | [facility] [place] | | | | [facility], [facility] | | | | [facility], | | | | [facility] [address] | | | | | + + [...] | + + + + + | CPT-28882 | [facility] PT/[facility] | | | [...] | + + + + + | CPT-57853 | [facility] PT/F[facility] | | | | | 45 MIN | | | + + + + + | CPT-3725F | [facility] | | | | | Screening ([facility]) | | | + + + + + | CPT-39608 | [facility] | | | | [...] | + + + + + | CPT-94652 | [facility] DIAG | | | | | EVAL W/MED SRVCS | | | + + + + + | DME | DME | | | + + + + + | [id number] | SNOMED-CT: | | | | | [id number] Smoking | | | | | Cessation | | | | | Counseling | | | + + + + + | [id number] | SNOMED-CT: | | | | | [id number] | | | | | Current Medications [...] -- 2 surgeries to cor rect -- 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 | | | she has had hernia surgery mesh and is | | | concerned aobut his. We discussed that | | | she does need to follow specialist | | | recommendations and there may be changes | | | in the past 5 years. She will consider. | | | She will be having the [facility] mental health | | | evaluation for that portion of the | | | disability forms. | | + + + | Chris is here today needing paperwork | | | filled out for | | | [facility]...................................... | | | ..............................Jadyn | | | [facility] October 20, 2018 1:46 PM [...] | | office the week of Oct 29She has some | | | forms for [...] + + | Follow up anxiety psychotherapy [facility] | | | FOLLOW-UP NOTE Duration of session: 20 | | | minutesCURRENT BEHAVIORAL HEALTH | | | CONCERNS/REASON(S) FOR VISIT: Pt is a 38 | | | year old female Patient self-referred to | | | the Behavioral Health Integration Program | | | ([facility]) for Anxiety and Pervasive | | [...] | | | .............................Jadyn | | | Arnulfo [facility] October 01, 2018 5:08 PM | | [...] | | ...............................Jadyn | | | Arredondo [facility] September 04, 2018 3:53 PM | | [...] + + + | Follow up psychotherapy [facility] FOLLOW-UP | | | NOTE Duration of session: 50 | | | minutesCURRENT BEHAVIORAL HEALTH | | | CONCERNS/REASON(S) FOR VISIT: Pt is a 38 | | | year old female Patient self-referred to | | | the Behavioral Health Integration Program | | | ([facility]) for Anxiety and Pervasive | | [...] | | | 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 | | | would be required [...] | | | .................................Jadyn | | | [facility] August 21, 2018 3:15 PM [...] BEHAVIORAL | | | HEALTH INTEGRATION PROGRAM ([facility]) INITIAL | | | CLINICAL ASSESSMENT Duration of session: | | | 30 minutesCURRENT MENTAL HEALTH | | | CONCERN(S)/REASON(S) FOR VISITPt is a 38 | | | year old female Patient self-referred to | | | the Behavioral Health Integration Program | | | ([facility]) for Anxiety and Pervasive | | [...] | | 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 | | | first. her last [place] 10mg refill was on | | | [...]
--- OUTSIDE RECORDS SUMMARY | ~2020-06-29 | XMS | Clinical Summary ---
Demographics + + + | Address | [address] | | | [place] [address] | + + + | Home Phone | | + + + | Preferred Language | Unknown | + + + | Marital Status | Unknown or other | + + + | Roman Catholic Affiliation | Unknown | + + + | Race | White | + + + | Ethnic Group | Patient Declined | + + + Author + + + | Author | [facility] | + + + | Organization | [facility] | + + + | Address | [address] | | | [place] [address] | + + + | Phone | | + + + Care Team Providers + + + + | Care Varnish Blender Name | Role | Phone | + [...] | | tion | | +---------+---------+---------+--------+---------+---------+---------+---------+---------+ | Cigaret | [id number] | | Active | | Yaneli | | Cigaret | | | te | 7 | /30 | | /05 | Anil | | te | | | smoker | (SNOMED | | | | | | smoker | | | | CT) | | | | | | | | +---------+---------+---------+--------+---------+---------+---------+---------+---------+ | Autism | [id number] | | Active | | Elder | | Autisti | | | | 03 | /13 | | /13 | D | | c | | | | (SNOMED | | | | [place] | | disorde | | | | CT) | | | | MD | | r | | +---------+---------+---------+--------+---------+---------+---------+---------+---------+ | other | [id number] | | Active | | Amal | | Procedu | | | screeni | | | | Tominna | | re | | | ng | (SNOMED | | | | | | carried | | | | CT) | | | | | | out on | | | | | | | | | | | | | | | | | | | | subject | | +---------+---------+---------+--------+---------+---------+---------+---------+---------+ | Lumbar | [id number] | | Active | | Leobardo | | Disorde | | | disc | | | | Robyn AMOS | [...] | | | +---------+---------+---------+--------+---------+---------+---------+---------+---------+ | Anxiety | [id number] | | Active | | Leobardo | | Anxiety | | | | | | | | Robyn AMOS | | | | | disorde | (SNOMED | | | | | | disorde | | | r | CT) | | | | | | r | | +---------+---------+---------+--------+---------+---------+---------+---------+---------+ | Vitamin | [id number] | | Active | | Yomaira | | Vitamin | | | D | 6 | /21 | | /21 | M | | D | | | deficie | (SNOMED | | | | Paez | | deficie | | | ncy | CT) | | | | PRODUCTION BORING MACHINE OPERATOR | | ncy | | +---------+---------+---------+--------+---------+---------+---------+---------+---------+ | Sacroil | [id number] | | Active | | Yomaira | | Sacroil | | | iac | 03 | | | | M | | iac | | | joint | (SNOMED | | | | Paez | | disorde | | | dysfunc | CT) | | | | PRODUCTION BORING MACHINE OPERATOR | | r | | | tion | | | | | | | | | +---------+---------+---------+--------+---------+---------+---------+---------+---------+ | Pain in | [id number] | | Active | | Yomaira | | Multipl | | | joint, | 5 | /21 | | /21 | M | | e joint | | | | (SNOMED | | | | Paez | | pain | | | multipl | CT) | | | | PRODUCTION BORING MACHINE OPERATOR | | | | | e sites | | | | | | | | | +---------+---------+---------+--------+---------+---------+---------+---------+---------+ | Ilioing | [id number] | | Active | | Yomaira | | Ilioing | | | uinal | 08 | | | | M | | uinal | | | nerve | (SNOMED | | | | Paez | | nerve | | | neuriti | CT) | | | | PRODUCTION BORING MACHINE OPERATOR | | neuriti | | | s, left | | | | | | | s | | +---------+---------+---------+--------+---------+---------+---------+---------+---------+ | Incisio | [id number] | | Active | | Yomaira | | Incisio | | | nal | 00 | | | | M | | nal | | | hernia | (SNOMED | | | | Paez | | hernia | | | | CT) | | | | PRODUCTION BORING MACHINE OPERATOR | | | | +---------+---------+---------+--------+---------+---------+---------+---------+---------+ | Hx of | [id number] | | Active | | Yomaira | | H/O: | | | dysmeno | 06 | | | | M | | dysmeno | | | rrhea | (SNOMED | | | | Paez | | rrhea | | | | CT) | | | | PRODUCTION BORING MACHINE OPERATOR | | | | +---------+---------+---------+--------+---------+---------+---------+---------+---------+ | Pelvic | [id number] | | Active | | Yomaira | | Pain in | | | pain, | | | | | M | | female | | | female | (SNOMED | | | | Paez | | pelvis | | | | CT) | | | | PRODUCTION BORING MACHINE OPERATOR | | | | +---------+---------+---------+--------+---------+---------+---------+---------+---------+ | Endomet | [id number] | | Active | | Yomaira | | Endomet | | | riosis | | | | | M | | riosis | | | | (SNOMED | | | | Paez | | (clinic | | | | CT) | | | | PRODUCTION BORING MACHINE OPERATOR | | al) | | +---------+---------+---------+--------+---------+---------+---------+---------+---------+ | Chronic | [id number] | | Active | | Yomaira | | Chronic | | | pain | | / | | /21 | M | | pain | | | | (SNOMED | | | | Paez | | | | | | CT) | | | | PRODUCTION BORING MACHINE OPERATOR | | | | +---------+---------+---------+--------+---------+---------+---------+---------+---------+ Medications + + + + + + + + | Medication | Instructio | Start Date | Stop Date | Generic | NDC | Provider | | | ns | | | Name | | | + + + + + + + + | SERTRALINE | take 1 and | | | SERTRALINE | [id number] | Sheila Dorman | | HCL 100 | 10/24 | | | HCL | 0 | PA-C | | MG TABS | tablets by | | | | | | | | mouth | | | | | | | | daily | | | | | | + + + + + + + + | CLONAZEPAM | take 1 | | | CLONAZEPAM | [id number] | Sheila Dorman | | 0.5 MG [...] po tid | | | CLONAZEPAM | [id number] | Sheila Dorman | | 1 MG [...] NS | | | | | Paez PRODUCTION BORING MACHINE OPERATOR | + + + + +--------+ + | AVIANE TABS | | | Critical | Active | Yomaira M | | | | | | | Paez PRODUCTION BORING MACHINE OPERATOR | + + + + +--------+ + | PENICILLIN | | | Moderate | Active | Yomaira M | | | | | | | Paez PRODUCTION BORING MACHINE OPERATOR | + + + + +--------+ + [...] 03:40 PM | Sheila Dorman PA-C, [address] | | | | [place], [place], | | | | | + + + + | Referral | | Physical | | | | Therapy/Occupational | | | | Therapy | | | | [facility] [place] | | | | [facility], [address] | | | | [facility], | | | | [facility] [address] | | | | | + + [...] | + + + + + | CPT-55500 | [facility] | | | | | DIAGNOSTIC EVAL | | | + + + + + | CPT-3725F | [facility] Depression | | | | | Screening ([facility]) | | | + + + + + | CPT-4004F | [facility] TOBACCO SCREEN | | | | | AND COUNSELING | | | | | ([facility]) | | | + + + + + | CPT-NCV | [facility] NCV | | | + + + + + | CPT-90925 | [facility] PSYCH DIAG | | | | | [place] W/MED SRVCS | | | + + + + + | DME | DME | | | + + + + + | [id number] | SNOMED-CT: | | | | | [id number] Smoking | | | | | Cessation | | | | | Counseling | | | + + + + + | [id number] | SNOMED-CT: | | | | | [id number] | | | | | Current Medications [...] -- 2 surgeries to cor rect -- 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 Bcmarge LPNchronic low | | | back pain. [...] signed. | | | first. her last [place] 10mg refill was on | | | [...]
--- OUTSIDE RECORDS SUMMARY | ~2020-06-29 | XMS | Clinical Summary ---
Demographics + + + | Address | [address] | | | [place] [address] | + + + | Home Phone | | + + + | Preferred Language | Unknown | + + + | Marital Status | Unknown or other | + + + | Restorationist Affiliation | Unknown | + + + | Race | White | + + + | Ethnic Group | Patient Declined | + + + Author + + + | Author | [facility] | + + + | Organization | [facility] | + + + | Address | [address] | | | [place] [address] | + + + | Phone | | + + + Care Team Providers + + + + | Care Health Program Specialist Name | Role | Phone | [...] tion | | +---------+---------+---------+--------+---------+---------+---------+---------+---------+ | Pneumon | [id number] | | Active | | Marilyn | | Pneumon | | | ia | 07 | /25 | | /25 | R | | ia | | | | (SNOMED | | | | [place] | | | | | | CT) | | | | RANCH COOK | | | | +---------+---------+---------+--------+---------+---------+---------+---------+---------+ | Screeni | [id number] | | Active | | Sheila | | Procedu | | | ng for | 03 | /16 | | /16 | [place] | | re | | | infecti | (SNOMED | | | | PA-C | | carried | | | ous | CT) | | | | | | out on | | | disease | | | | | | | | | | | | | | | | | subject | | +---------+---------+---------+--------+---------+---------+---------+---------+---------+ | Depress | [id number] | | Active | | Sheila | | Depress | | | ion | 7 | / | | / | [place] | | cesilia | | | | (SNOMED | | | | PA-C | | disorde | | | | CT) | | | | | | r | | +---------+---------+---------+--------+---------+---------+---------+---------+---------+ | screeni | [id number] | | Active | | Amal | | Depress | | | ng for | | / | | / | [place] | | ion | | | depress | (SNOMED | | | | | | screeni | | | ion | CT) | | | | | | ng | | +---------+---------+---------+--------+---------+---------+---------+---------+---------+ | Encount | [id number] | | Active | | Yaneli | [...] | | | +---------+---------+---------+--------+---------+---------+---------+---------+---------+ | Degener | [id number] | | Active | | Shelia | | Degener | | | ative | 8 | / | | /13 | [place] | | ation | | | disc | (SNOMED | | | | PA-C | | of | | | disease | CT) | | | | | | interve | | | | | | | | | | rtebral | | | | | | | | | | disc | | +---------+---------+---------+--------+---------+---------+---------+---------+---------+ | Cervica | [id number] | | Active | | Sheila | | HPV - | | | l high | 04 | /10 | | /13 | [place] | | Human | | | risk [...] | | | +---------+---------+---------+--------+---------+---------+---------+---------+---------+ | Umbilic | [id number] | | Active | | Sheila | | Umbilic | | | al | 07 | /10 | | /13 | [place] | | al | | | hernia | (SNOMED | | | | PA-C | | hernia | | | | CT) | | | | | | | | +---------+---------+---------+--------+---------+---------+---------+---------+---------+ | Other | [id number] | | Active | | Sheila | | Dyspnea | | | abnorma | 07 | / | | /16 | [place] | | | | | lities | (SNOMED | | | | PA-C | | | | | of | CT) | | | | | | | | | breathi | | | | | | | | | | ng | | | | | | | | | +---------+---------+---------+--------+---------+---------+---------+---------+---------+ | Cigaret | [id number] | | Active | | Yaneli | | Cigaret | | | te | 7 | /30 | | /05 | Anil | | te | | | smoker | (SNOMED | | | | | | smoker | | | | CT) | | | | | | | | +---------+---------+---------+--------+---------+---------+---------+---------+---------+ | Autism | [id number] | | Active | | Elder | | Autisti | | | | 03 | / | | | D | | c | | | | (SNOMED | | | | [place] | | disorde | | | | CT) | | | | MD | | r | | +---------+---------+---------+--------+---------+---------+---------+---------+---------+ | Lumbar | [id number] | | Active | | Leobardo | [...] | | | +---------+---------+---------+--------+---------+---------+---------+---------+---------+ | Anxiety | [id number] | | Active | | Leobardo | | Anxiety | | | | | | | | Robyn AMOS | | | | | disorde | (SNOMED | | | | | | disorde | | | r | CT) | | | | | | r | | +---------+---------+---------+--------+---------+---------+---------+---------+---------+ | Vitamin | 1054081 | | Active | | Yomaira | | Vitamin | | | D | 6 | /21 | | /21 | M | | D | | | deficie | (SNOMED | | | | Paez | | deficie | | | ncy | CT) | | | | CALL OUT CLERK | | ncy | | +---------+---------+---------+--------+---------+---------+---------+---------+---------+ | Sacroil | [id number] | | Active | | Yomaira | | Sacroil | | | iac | 03 | | | | M | | iac | | | joint | (SNOMED | | | | Paez | | disorde | | | dysfunc | CT) | | | | CALL OUT CLERK | | r | | | tion | | | | | | | | | +---------+---------+---------+--------+---------+---------+---------+---------+---------+ | Pain in | [id number] | | Active | | Yomaira | | Multipl | | | joint, | 5 | /21 | | / | M | | e joint | | | | (SNOMED | | | | Paez | | pain | | | multipl | CT) | | | | CALL OUT CLERK | | | | | e sites | | | | | | | | | +---------+---------+---------+--------+---------+---------+---------+---------+---------+ | Ilioing | [id number] | | Active | | Yomaira | | Ilioing | | | uinal | 08 | | | | M | | uinal | | | nerve | (SNOMED | | | | Paez | | nerve | | | neuriti | CT) | | | | CALL OUT CLERK | | neuriti | | | s, left | | | | | | | s | | +---------+---------+---------+--------+---------+---------+---------+---------+---------+ | Incisio | [id number] | | Active | | Yomaira | | Incisio | | | nal | 00 | | | | M | | nal | | | hernia | (SNOMED | | | | Paez | | hernia | | | | CT) | | | | CALL OUT CLERK | | | | +---------+---------+---------+--------+---------+---------+---------+---------+---------+ | Hx of | [id number] | | Active | | Yomaira | | H/O: | | | dysmeno | 06 | / | | /21 | M | | dysmeno | | | rrhea | (SNOMED | | | | Paez | | rrhea | | | | CT) | | | | CALL OUT CLERK | | | | +---------+---------+---------+--------+---------+---------+---------+---------+---------+ | Pelvic | [id number] | | Active | | Yomaira | | Pain in | | | pain, | | | | | M | | female | | | female | (SNOMED | | | | Paez | | pelvis | | | | CT) | | | | CALL OUT CLERK | | | | +---------+---------+---------+--------+---------+---------+---------+---------+---------+ | Endomet | [id number] | | Active | | Yomaira | | Endomet | | | riosis | | | | | M | | riosis | | | | (SNOMED | | | | Paez | | (clinic | | | | CT) | | | | CALL OUT CLERK | | al) | | +---------+---------+---------+--------+---------+---------+---------+---------+---------+ | Chronic | 1157715 | | Active | | Yomaira | | Chronic | | | pain | 1 | /21 | | /21 | M | | pain | | | | (SNOMED | | | | Paez | | | | | | CT) | | | | CALL OUT CLERK | | | | +---------+---------+---------+--------+---------+---------+---------+---------+---------+ Medications + + + + + + + + | Medication | Instructio | Start Date | Stop Date | Generic | NDC | Provider | | | ns | | | Name | | | + + + + + + + + | CLONAZEPAM | take 1 | | | CLONAZEPAM | [id number] | Sheila Dorman | | 0.5 MG | tablet by | | | | 1 | PASarthakC | | TABS | mouth up | | | | | | | | to 3 times | | | | | | | | per day | | | | | | + + + + + + + + | SERTRALINE | take 2 | | | SERTRALINE | [id number] | Sehila Dorman | | HCL 100 | tablet by | | | HCL | 0 | PA-C | | MG TABS | mouth | | | | | | | | daily | | | | | | + + + + + + + + | BACTRIM DS | 1 tab by | | | SULFAMETHO | [id number] | Marilyn R | | 800-160 | mouth | | | XAZOLE-TRI | 1 | [place] | | MG TABS | twice a | | | METHOPRIM | | RANCH COOK | | | day | | | | | | + + + + + + + + | VENLAFAXIN | take 1 | | | VENLAFAXIN | [id number] | Sheila Dorman | | E HCL ER | capsule by | | | E HCL | 5 | PA-C | | 37.5 MG | mouth | | | | | | | [id number] | daily for | | | | | | | | 10 days | | | | | | + + + + + + + + | VENLAFAXIN | take 1 | | | VENLAFAXIN | [id number] | Sheila Dorman | | E HCL ER | capsule by | | | E HCL | 5 | PA-C | | 75 MG | mouth | | | | | | | [id number] | daily | | | | | | + + + + + + + + | TRAMADOL | one pill | | | TRAMADOL | [id number] | Sheila Dorman | | HCL 50 [...] NS | | | | | Paez CALL OUT CLERK | + + + + +--------+ + | AVIANE TABS | | | Critical | Active | Yomaira M | | | | | | | Paez CALL OUT CLERK | + + + + +--------+ + | PENICILLIN | | | Moderate | Active | Yomaira M | | | | | | | Paez CALL OUT CLERK | + + + + +--------+ + [...] 02:20 PM | Sheila Dorman PA-C, [address] | | | | [place], [place], | | | | | + + + + | Referral | | OB-EXERCISE PHYSIOLOGIST CERTIFIED for | | | | [facility] | | | | Physicians, [address], [address], | | | | [place], [address] | | | | | + + [...] | + + + + + | [id number] | SNOMED-CT: | | | | | [id number] | | | | | Current Medications | | | | | Documented | | | + + + + + | CPT-19916 | [facility] PS[facility] PT[facility] | | | [...] | + + + + + | CPT-57592 | [facility] PS[facility]TX PT/FAM | | | | | 45 MIN | | | + + + + + | CPT-3725F | [facility] | | | | | Screening ([facility]) | | | + + + + + | CPT-60746 | [facility] PS[facility]CH | | | | [...] | + + + + + | CPT-80600 | [facility] DIAG | | | | | CHANCE W/MED SRVCS | | | + + + + + | DME | DME | | | + + + + + | [id number] | SNOMED-CT: | | | | | [id number] Smoking | | | | | Cessation | | | | | Counseling | | | + + + + + | [id number] | SNOMED-CT: | | | | | [id number] | | | | | Current Medications | | | | | Documented | | | + + + + + | CPT-3725F | [facility] | | | | | Screening ([facility]) | | | + + + + + | [id number] | Physical | | | | | [...] -- 2 surgeries to cor rect -- 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 History of | | | pneumonia [phone] (Patient | | | cell) [phone] ([facility] emergency contact) | | + + + | Patient is here today wanting an | | | antibiotic with possible | | | MRSA...................................... | | | ..............................Jadyn | | | Arredondo [facility] January 05, 2019 12:59 PM | | | DAVID LANDAVERDE is a 38 year old female | | | who presents to the clinic today with | | | chief complaint of several issues to | | | discuss1) father with another bout of | | | MRSA. Pt as talking to her new EXERCISE PHYSIOLOGIST CERTIFIED and | | | states that she [...] needing paperwork | | | filled out emergency dispatcher said they was not | | | filled out | | | right..................................... | | | ..............................Jadyn | | | [facility] November 05, 2018 8:00 PM | | [...] as she will need | | | [facility] evaluaiton. 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 | | | discussed furhte lab for [...] + + | Follow up anxiety psychotherapy IP | | | FOLLOW-UP NOTE Duration of session: 20 | | | minutesCURRENT BEHAVIORAL HEALTH | | | CONCERNS/REASON(S) FOR VISIT: Pt is a 38 | | | year old female Patient self-referred to | | | the Behavioral Health Integration Program | | | ([facility]) for Anxiety and Pervasive | [...] | | | .............................Jadyn | | | [facility] October 01, 2018 5:08 PM | [...] | | | ...............................Jadyn | | | [facility] September 04, 2018 3:53 PM | [...] + + + | Follow up psychotherapy BHIP FOLLOW-UP | | | NOTE Duration of session: 50 | | | minutesCURRENT BEHAVIORAL HEALTH | | | CONCERNS/REASON(S) FOR VISIT: Pt is a 38 | | | year old female Patient self-referred to | | | the Behavioral Health Integration Program | | | ([facility]) for Anxiety and Pervasive | [...] | | | 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 mandated substance abuse counselor and | | | would be required [...] | | | .................................Jadyn | | | [facility] August 21, 2018 3:15 PM | [...] BEHAVIORAL | | | HEALTH INTEGRATION PROGRAM ([facility]) INITIAL | | | CLINICAL ASSESSMENT Duration of session: | | | 30 minutesCURRENT MENTAL HEALTH | | | CONCERN(S)/REASON(S) FOR VISITPt is a 38 | | | year old female Patient self-referred to | | | the [facility] | | | ([facility]) for Anxiety and Pervasive | [...] | | started to become concerned of watermaster | | | 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 | | | first. her last Russell 10mg refill was on | | | [...]
--- OUTSIDE RECORDS SUMMARY | ~2020-06-29 | XMS | Clinical Summary ---
Demographics + + + | Address | [address] | | | [place] [address] | + + + | Home Phone | | + + + | Preferred Language | Unknown | + + + | Marital Status | Unknown or other | + + + | Islam Affiliation | Unknown | + + + | Race | White | + + + | Ethnic Group | Patient Declined | + + + Author + + + | Author | [facility] | + + + | Organization | [facility] | + + + | Address | [address] | | | [place] [address] | + + + | Phone | | + + + Care Team Providers + + + + | Care Cloth Grader Name | Role | Phone | + [...] | | tion | | +---------+---------+---------+--------+---------+---------+---------+---------+---------+ | Degener | [id number] | | Active | | Sheila | | Degener | | | ative | 8 | / | | | [place] | | ation | | | disc | (SNOMED | | | | PA-C | | of | | | disease | CT) | | | | | | interve | | | | | | | | | | rtebral | | | | | | | | | | disc | | +---------+---------+---------+--------+---------+---------+---------+---------+---------+ | Cervica | [id number] | | Active | | Sheila | | HPV - | | | l high | 04 | /10 | | /13 | [place] | | Human | | | risk [...] | | | +---------+---------+---------+--------+---------+---------+---------+---------+---------+ | Umbilic | 9446451 | | Active | | Sheila | | Umbilic | | | al | | | | | [place] | | al | | | hernia | (SNOMED | | | | PA-C | | hernia | | | | CT) | | | | | | | | +---------+---------+---------+--------+---------+---------+---------+---------+---------+ | Other | [id number] | | Active | | Sheila | | Dyspnea | | | abnorma | | | | /16 | [place] | | | | | lities | (SNOMED | | | | PA-C | | | | | of | CT) | | | | | | | | | breathi | | | | | | | | | | ng | | | | | | | | | +---------+---------+---------+--------+---------+---------+---------+---------+---------+ | Positiv | [id number] | | Active | | Zo | | Positiv | | | e | [id number] | /13 | | /15 | Willoug | | e | | | screeni | 0 | | | | hby | | screeni | | | ng for | (SNOMED | | | | GAUGER CHIEF DELIVERY | | ng for | | | [...] 9) | | +---------+---------+---------+--------+---------+---------+---------+---------+---------+ | Cigaret | 8439677 | | Active | | Yaneli | | Cigaret | | | te | 7 | /30 | | /05 | Anli | | te | | | smoker | (SNOMED | | | | | | smoker | | | | CT) | | | | | | | | +---------+---------+---------+--------+---------+---------+---------+---------+---------+ | Autism | 5704554 | | Active | | Elder | | Autisti | | | | 03 | / | | / | D | | c | | | | (SNOMED | | | | [place] | | disorde | | | | CT) | | | | MD | | r | | +---------+---------+---------+--------+---------+---------+---------+---------+---------+ | other | 9757688 | | Active | | Amal | [...] subject | | +---------+---------+---------+--------+---------+---------+---------+---------+---------+ | Lumbar | 7255129 | | Active | | Leobardo | | Disorde | | | disc | | / | | | Park MD | | r of [...] | | | +---------+---------+---------+--------+---------+---------+---------+---------+---------+ | Anxiety | 7341836 | | Active | | Leobardo | | Anxiety | | | | 06 | / | | | Park MD | | | | | disorde | (SNOMED | | | | | | disorde | | | r | CT) | | | | | | r | | +---------+---------+---------+--------+---------+---------+---------+---------+---------+ | Vitamin | 5373541 | | Active | | Yomaira | | Vitamin | | | D | 6 | | | | M | | D | | | deficie | (SNOMED | | | | Paez | | deficie | | | ncy | CT) | | | | RADIOLOGY TRANSPORTER | | ncy | | +---------+---------+---------+--------+---------+---------+---------+---------+---------+ | Sacroil | [id number] | | Active | | Yomaira | | Sacroil | | | iac | 03 | | | | M | | iac | | | joint | (SNOMED | | | | Paez | | disorde | | | dysfunc | CT) | | | | RADIOLOGY TRANSPORTER | | r | | | tion | | | | | | | | | +---------+---------+---------+--------+---------+---------+---------+---------+---------+ | Pain in | [id number] | | Active | | Yomaira | | Multipl | | | joint, | 5 | /21 | | / | M | | e joint | | | | (SNOMED | | | | Paez | | pain | | | multipl | CT) | | | | RADIOLOGY TRANSPORTER | | | | | e sites | | | | | | | | | +---------+---------+---------+--------+---------+---------+---------+---------+---------+ | Ilioing | [id number] | | Active | | Yomaira | | Ilioing | | | uinal | 08 | | | | M | | uinal | | | nerve | (SNOMED | | | | Paez | | nerve | | | neuriti | CT) | | | | RADIOLOGY TRANSPORTER | | neuriti | | | s, left | | | | | | | s | | +---------+---------+---------+--------+---------+---------+---------+---------+---------+ | Incisio | 8556685 | | Active | | Yomaira | | Incisio | | | nal | 00 | / | | | M | | nal | | | hernia | (SNOMED | | | | Paez | | hernia | | | | CT) | | | | RADIOLOGY TRANSPORTER | | | | +---------+---------+---------+--------+---------+---------+---------+---------+---------+ | Hx of | 9409271 | | Active | | Yomaira | | H/O: | | | dysmeno | | / | | /21 | M | | dysmeno | | | rrhea | (SNOMED | | | | Paez | | rrhea | | | | CT) | | | | RADIOLOGY TRANSPORTER | | | | +---------+---------+---------+--------+---------+---------+---------+---------+---------+ | Pelvic | 3477270 | | Active | | Yomaira | | Pain in | | | pain, | | | | | M | | female | | | female | (SNOMED | | | | Paez | | pelvis | | | | CT) | | | | RADIOLOGY TRANSPORTER | | | | +---------+---------+---------+--------+---------+---------+---------+---------+---------+ | Endomet | 7497910 | | Active | | Yomaira | | Endomet | | | riosis | | | | | M | | riosis | | | | (SNOMED | | | | Paez | | (clinic | | | | CT) | | | | RADIOLOGY TRANSPORTER | | al) | | +---------+---------+---------+--------+---------+---------+---------+---------+---------+ | Chronic | 3989176 | | Active | | Yomaira | | Chronic | | | pain | 1 | / | | / | M | | pain | | | | (SNOMED | | | | Paez | | | | | | CT) | | | | RADIOLOGY TRANSPORTER | | | | +---------+---------+---------+--------+---------+---------+---------+---------+---------+ Medications + + + + + + + + | Medication | Instructio | Start Date | Stop Date | Generic | NDC | Provider | | | ns | | | Name | | | + + + + + + + + | SERTRALINE | take 2 | | | SERTRALINE | [id number] | Sheila Dorman | | HCL 100 | tablet by | | | HCL | 0 | PA-C | | MG TABS | mouth | | | | | | | | daily | | | | | | + + + + + + + + | TRAMADOL | one pill | | | TRAMADOL | [id number] | Sheila Dorman | | HCL 50 [...] take 1 | | | CLONAZEPAM | [id number] | Sheila Dorman | | 0.5 MG [...] NS | | | | | Pae[place] RADIOLOGY TRANSPORTER | + + + + +--------+ + | AVIANE TABS | | | Critical | Active | Yomaira M | | | | | | | Paez RADIOLOGY TRANSPORTER | + + + + +--------+ + | PENICILLIN | | | Moderate | Active | Yomaira M | | | | | | | Paez RADIOLOGY TRANSPORTER | + + + + +--------+ + [...] +---+ + + + | Office Visit: F/U anxiety | + + + + + +---+---+---+ [...] NHIS | + + + +---+---+---+ + + + | Office Visit: Follow [...] | | assessment | + +--------+----+---+---+---+ + Plan of Care + + + + | Type | Date | Detail | + + + + | Appointment | 01:20 PM | Sheila Dorman PA-C, [address] [place] [address] | | | | [place], [place], | | | | | + + + + | Appointment | 04:00 PM | Zo Blackby G[facility]GER [facility]IE[facility] DELIVERY, | | | | [address], | | | | [place], | + + + + | Referral | | Physical | | | | Therapy/Occupational | | | | Therapy | + + + + | Referral | | Physical | | | | Therapy/Occupational | | | | Therapy | | | | [facility] | | | | [facility], [address] | | | | [facility], | | | | [place], [address] | | | | | + + [...] + + + + | CPT-4004F | [facility] TOBACCO SCREEN | | | | | AND COUNSELING | | | | | ([facility]) | | | + + + + + | CPT-02109 | [facility] PSYTX PT/FAM | | | | | 45 MIN | | | + + + + + | CPT-3725F | [facility] Depression | | | | | Screening ([facility]) | | | + + + + + | CPT-01084 | [facility] PSYCH | | | | | DIAGNOSTIC EVAL | | | + + + + + | CPT-3725F | [facility] Depression | | | | | Screening ([facility]) | | | + + + + + | CPT-4004F | [facility] TOBACCO SCREEN | | | | | AND COUNSELING | | | | | ([facility]) | | | + + + + + | CPT-NCV | [facility] NCV | | | + + + + + | CPT-03505 | [facility] PSYCH DIAG | | | | | EVAL W/MED SRVCS | | | + + + + + | DME | DME | | | + + + + + | [id number] | SNOMED-CT: | | | | | [id number] Smoking | | | | | Cessation | | | | | Counseling | | | + + + + + | [id number] | SNOMED-CT: | | | | | [id number] | | | | | Current Medications [...] + | | BMI (Body Mass | 18.32 | kg/m2 | Body Mass Index | [...] +--------+---------+ + | | BP Systolic | 110 | mm[Hg] | blood pressure, | | | | | | systolic | + + +--------+---------+ + | | Heart Rate | 100 | /min | pulse rate E&M | + + +--------+---------+ + | | Respiratory | 16 | /min | respiratory | | | Rate | | | rate E&M | + + +--------+---------+ + | | Weight Measured | 117 | [lb_av] | weight E&M | + [...] Start Date | + + + | Follow up [...] -- 2 surgeries to cor rect -- 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 [employer]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.Peptic ulcerpyelonephritisPernicious anemia History of Present Illness + + + | History of Present Illness Description | Start Date | + + + | [facility] | | | FOLLOW-UP NOTE Duration of session: 20 | | | minutesCURRENT BEHAVIORAL HEALTH | | | CONCERNS/REASON(S) FOR VISIT: Pt is a 38 | | | year old female Patient self-referred to | | | the [facility] Health [facility] Program | | | ([facility] for Anxiety and Pervasive | | [...] | | | .............................Jadyn | | | Arredondo [facility] October 01, 2018 5:08 PM | [...] | | | ...............................Jadyn | | | [facility] September 04, 2018 3:53 PM | | [...] + + + | Follow up psychotherapy [facility] FOLLOW-UP | | | NOTE Duration of session: 50 | | | minutesCURRENT BEHAVIORAL HEALTH | | | CONCERNS/REASON(S) FOR VISIT: Pt is a 38 | | | year old female Patient self-referred to | | | the [facility] Health Integration Program | | | ([facility] for Anxiety and Pervasive | | [...] | | | 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 | | | first. her last Cactus 10mg refill was on | | | [...]
--- OUTSIDE RECORDS SUMMARY | ~2020-06-29 | XMS | Clinical Summary ---
Demographics + + + | Address | [address] | | | [place] [address] | + + + | Home Phone | | + + + | Preferred Language | Unknown | + + + | Marital Status | Unknown or other | + + + | Muslim Affiliation | Unknown | + + + | Race | White | + + + | Ethnic Group | Patient Declined | + + + Author + + + | Author | [facility] | + + + | Organization | [facility] | + + + | Address | [address] | | | [place] [address] | + + + | Phone | | + + + Care Team Providers + + + + | Care Storekeeper Engineering Name | Role | Phone | + [...] tion | | +---------+---------+---------+--------+---------+---------+---------+---------+---------+ | Screeni | [id number] | | Active | | Sheila | | Procedu | | | ng for | 03 | /16 | | /16 | Kake | | re | | | infecti | (SNOMED | | | | PA-C | | carried | | | ous | CT) | | | | | | out on | | | disease | | | | | | | | | | | | | | | | | subject | | +---------+---------+---------+--------+---------+---------+---------+---------+---------+ | Depress | [id number] | | Active | | Sheila | | Depress | | | ion | 7 | / | | / | Kake | | cesilia | | | | (SNOMED | | | | PA-C | | disorde | | | | CT) | | | | | | r | | +---------+---------+---------+--------+---------+---------+---------+---------+---------+ | screeni | [id number] | | Active | | Amal | | Depress | | | ng for | 06 | /22 | | / | Tominna | | ion | | | depress | (SNOMED | | | | | | screeni | | | ion | CT) | | | | | | ng | | +---------+---------+---------+--------+---------+---------+---------+---------+---------+ | Encount | [id number] | | Active | | Yaneli | [...] | | | +---------+---------+---------+--------+---------+---------+---------+---------+---------+ | Degener | [id number] | | Active | | Sheila | | Degener | | | ative | | / | | / | Kake | | ation | | | disc | (SNOMED | | | | PA-C | | of | | | disease | CT) | | | | | | interve | | | | | | | | | | rtebral | | | | | | | | | | disc | | +---------+---------+---------+--------+---------+---------+---------+---------+---------+ | Cervica | [id number] | | Active | | Sheila | | HPV - | | | l high | | / | | | Kake | | Human | | | risk [...] | | | +---------+---------+---------+--------+---------+---------+---------+---------+---------+ | Umbilic | [id number] | | Active | | Sheila | | Umbilic | | | al | | | | | Kake | | al | | | hernia | (SNOMED | | | | PA-C | | hernia | | | | CT) | | | | | | | | +---------+---------+---------+--------+---------+---------+---------+---------+---------+ | Other | [id number] | | Active | | Sheila | | Dyspnea | | | abnorma | | | | /16 | Kake | | | | | lities | (SNOMED | | | | PA-C | | | | | of | CT) | | | | | | | | | breathi | | | | | | | | | | ng | | | | | | | | | +---------+---------+---------+--------+---------+---------+---------+---------+---------+ | Cigaret | [id number] | | Active | | Yaneli | | Cigaret | | | te | 7 | /30 | | /05 | Anil | | te | | | smoker | (SNOMED | | | | | | smoker | | | | CT) | | | | | | | | +---------+---------+---------+--------+---------+---------+---------+---------+---------+ | Autism | [id number] | | Active | | Elder | | Autisti | | | | 03 | / | | | D | | c | | | | (SNOMED | | | | Delavan | | disorde | | | | CT) | | | | MD | | r | | +---------+---------+---------+--------+---------+---------+---------+---------+---------+ | Lumbar | [id number] | | Active | | Leobardo | [...] | | | +---------+---------+---------+--------+---------+---------+---------+---------+---------+ | Anxiety | [id number] | | Active | | Leobardo | | Anxiety | | | | | | | | Robyn AMOS | | | | | disorde | (SNOMED | | | | | | disorde | | | r | CT) | | | | | | r | | +---------+---------+---------+--------+---------+---------+---------+---------+---------+ | Vitamin | [id number] | | Active | | Yomaira | | Vitamin | | | D | 6 | | | | M | | D | | | deficie | (SNOMED | | | | Paez | | deficie | | | ncy | CT) | | | | DORMITORY COUNSELOR | | ncy | | +---------+---------+---------+--------+---------+---------+---------+---------+---------+ | Sacroil | [id number] | | Active | | Yomaira | | Sacroil | | | iac | 03 | /21 | | /21 | M | | iac | | | joint | (SNOMED | | | | Paez | | disorde | | | dysfunc | CT) | | | | DORMITORY COUNSELOR | | r | | | tion | | | | | | | | | +---------+---------+---------+--------+---------+---------+---------+---------+---------+ | Pain in | [id number] | | Active | | Yomaira | | Multipl | | | joint, | | | | | M | | e joint | | | | (SNOMED | | | | Paez | | pain | | | multipl | CT) | | | | DORMITORY COUNSELOR | | | | | e sites | | | | | | | | | +---------+---------+---------+--------+---------+---------+---------+---------+---------+ | Ilioing | [id number] | | Active | | Yomaira | | Ilioing | | | uinal | 08 | | | | M | | uinal | | | nerve | (SNOMED | | | | Paez | | nerve | | | neuriti | CT) | | | | DORMITORY COUNSELOR | | neuriti | | | s, left | | | | | | | s | | +---------+---------+---------+--------+---------+---------+---------+---------+---------+ | Incisio | [id number] | | Active | | Yomaira | | Incisio | | | nal | 00 | | | | M | | nal | | | hernia | (SNOMED | | | | Paez | | hernia | | | | CT) | | | | DORMITORY COUNSELOR | | | | +---------+---------+---------+--------+---------+---------+---------+---------+---------+ | Hx of | [id number] | | Active | | Yomaira | | H/O: | | | dysmeno | | | | | M | | dysmeno | | | rrhea | (SNOMED | | | | Paez | | rrhea | | | | CT) | | | | DORMITORY COUNSELOR | | | | +---------+---------+---------+--------+---------+---------+---------+---------+---------+ | Pelvic | [id number] | | Active | | Yomaira | | Pain in | | | pain, | 03 | /21 | | /21 | M | | female | | | female | (SNOMED | | | | Paez | | pelvis | | | | CT) | | | | DORMITORY COUNSELOR | | | | +---------+---------+---------+--------+---------+---------+---------+---------+---------+ | Endomet | [id number] | | Active | | Yomaira | | Endomet | | | riosis | 03 | / | | | M | | riosis | | | | (SNOMED | | | | Paez | | (clinic | | | | CT) | | | | DORMITORY COUNSELOR | | al) | | +---------+---------+---------+--------+---------+---------+---------+---------+---------+ | Chronic | [id number] | | Active | | Yomaira | | Chronic | | | pain | 1 | / | | | M | | pain | | | | (SNOMED | | | | Paez | | | | | | CT) | | | | DORMITORY COUNSELOR | | | | +---------+---------+---------+--------+---------+---------+---------+---------+---------+ Medications + + + + + + + + | Medication | Instructio | Start Date | Stop Date | Generic | NDC | Provider | | | ns | | | Name | | | + + + + + + + + | VENLAFAXIN | take 1 | | | VENLAFAXIN | [id number] | Sheila Dorman | | E HCL ER | capsule by | | | E HCL | 5 | PA-C | | 37.5 MG | mouth | | | | | | | [id number] | daily for | | | | | | | | 10 days | | | | | | + + + + + + + + | VENLAFAXIN | take 1 | | | VENLAFAXIN | [id number] | Sheila Dorman | | E HCL ER | capsule by | | | E HCL | 5 | PA-C | | 75 MG | mouth | | | | | | | [id number] | daily | | | | | | + + + + + + + + | CLONAZEPAM | take 1 | | | CLONAZEPAM | [id number] | Sheila Dorman | | 0.5 MG [...] one pill | | | TRAMADOL | [id number] | Sheila Dorman | | HCL 50 [...] take 2 | | | SERTRALINE | [id number] | Sheila Dorman | | HCL 100 [...] NS | | | | | Paez DORMITORY COUNSELOR | + + + + +--------+ + | AVIANE TABS | | | Critical | Active | Yomaira M | | | | | | | Paez DORMITORY COUNSELOR | + + + + +--------+ + | PENICILLIN | | | Moderate | Active | Yomaira M | | | | | | | Paez DORMITORY COUNSELOR | + + + + +--------+ + [...] 02:20 PM | Sheila Dorman PA-C, [address] | | | | [place], [place], | | | | | + + + + | Referral | | OB-INFECTION CONTROL PRACTITIONER for | | | | [facility] | | | | Physicians, [address] | | | | [place], [address], | | | | [place], [address] | | | | | + + [...] | + + + + + | CPT-68117 | [facility] PS[facility]TX PT/FAM | | | [...] | + + + + + | CPT-36615 | [facility] PSYTX PT/FAM | | | | | 45 MIN | | | + + + + + | CPT-3725F | [facility] Depression | | | | | Screening ([facility]) | | | + + + + + | CPT-24810 | [facility] PSYCH | | | | [...] | + + + + + | CPT-72446 | [facility] DIAG | | | | | EVAL W/MED SRVCS | | | + + + + + | DME | DME | | | + + + + + | [id number] | SNOMED-CT: | | | | | [id number] Smoking | | | | | Cessation | | | | | Counseling | | | + + + + + | [id number] | SNOMED-CT: | | | | | [id number] | | | | | Current Medications | | | | | Documented | | | + + + + + | CPT-3725F | [facility] Depression | | | | | Screening ([facility]) | | | + + + + + | [id number] | Physical | | | | | [...] -- 2 surgeries to cor rect -- Field Nurse Dr Julien.Peptic ulcerpyelonephritisPernicious anemia History of Present Illness + + + | History of Present Illness Description | Start Date | + + + | Patient is here today wanting an | | | antibiotic with possible | | | MRSA...................................... | | | ..............................Jadyn | | | [facility] January 05, 2019 12:59 PM | | | DAVID LANDAVERDE is a 38 year old female | | | who presents to the clinic today with | | | chief complaint of several issues to | | | discuss1) father with another bout of | | | MRSA. Pt as talking to her new INFECTION CONTROL PRACTITIONER and | | | states that she [...] needing paperwork | | | filled out site worker said they was not | | | filled out | | | right..................................... | | | ..............................Jadyn | | | [facility] November 05, 2018 8:00 PM | [...] as she will need | | | [facility] evaluaiton. I kept the comments | [...] | | | plan.Ongoing endometiral pain, last urogynaecologist | [facility]. | | | she has had hernia surgery mesh and is | | | concerned aobut his. We discussed that | | | she does need to follow specialist | | | recommendations and there may be changes | | | in the past 5 years. She will consider. | | | She will be having the [facility] mental health | | | evaluation for that portion of the | | | disability forms. | | + + + | Chris is here today needing paperwork | | | filled out for | | | [facility]...................................... 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 and | | | would be required [...] | | | .................................Jadyn | | | [facility] August 21, 2018 3:15 PM | [...] Establish care psychotherapy BEHAVIORAL | | | [facility] INTEGRATION PROGRAM ([facility]) INITIAL | | | CLINICAL ASSESSMENT Duration of session: | | | 30 minutesCURRENT MENTAL HEALTH | | | CONCERN(S)/REASON(S) FOR VISITPt is a 38 | | | year old female Patient self-referred to | | | the [facility] Integration [facility] | | | ([facility]) for Anxiety and Pervasive | [...] to become concerned of long term care pharmacist | | | 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 | | | first. her last Ethridge 10mg refill was on | | | [...]
--- OUTSIDE RECORDS SUMMARY | ~2020-06-29 | XMS | Clinical Summary ---
Demographics + + + | Address | [address] | | | [place] [address] | + + + | Home Phone | | + + + | Preferred Language | Unknown | + + + | Marital Status | Unknown or other | + + + | Mosque Affiliation | Unknown | + + + | Race | White | + + + | Ethnic Group | Patient Declined | + + + Author + + + | Author | [facility] | + + + | Organization | [facility] | + + + | Address | [address] | | | [place] [address] | + + + | Phone | | + + + Care Team Providers + + + + | Care Eligibility Manager Name | Role | Phone | + [...] | | tion | | +---------+---------+---------+--------+---------+---------+---------+---------+---------+ | Body | [id number] | | Active | | Amal | | Decreas | | | mass | | /20 | | /23 | [place] | | ed body | | | index | (SNOMED | | | | | | mass | | | less | CT) | | | | | | index | | | than 19 | | | | | | | | | +---------+---------+---------+--------+---------+---------+---------+---------+---------+ | Pneumon | [id number] | | Active | | Marilyn | | Pneumon | | | ia | 07 | /25 | | /25 | R | | ia | | | | (SNOMED | | | | Cz[place]ka | | | | | | CT) | | | | REPAIRER RESISTANCE WELDING MACHINES | | | | +---------+---------+---------+--------+---------+---------+---------+---------+---------+ | Screeni | [id number] | | Active | | Sheila | | Procedu | | | ng for | | / | | / | [place] | | re | | | infecti | (SNOMED | | | | PA-C | | carried | | | ous | CT) | | | | | | out on | | | disease | | | | | | | | | | | | | | | | | subject | | +---------+---------+---------+--------+---------+---------+---------+---------+---------+ | Depress | [id number] | | Active | | Sheila | | Depress | | | ion | | | | | [place] | | cesilia | | | | (SNOMED | | | | PA-C | | disorde | | | | CT) | | | | | | r | | +---------+---------+---------+--------+---------+---------+---------+---------+---------+ | screeni | [id number] | | Active | | Amal | | Depress | | | ng for | | | | | [place] | | ion | | | depress | (SNOMED | | | | | | screeni | | | ion | CT) | | | | | | ng | | +---------+---------+---------+--------+---------+---------+---------+---------+---------+ | Encount | [id number] | | Active | | Yaneli | [...] | | | +---------+---------+---------+--------+---------+---------+---------+---------+---------+ | Degener | [id number] | | Active | | Sheila | | Degener | | | ative | 8 | | | | [place] | | ation | | | disc | (SNOMED | | | | PA-C | | of | | | disease | CT) | | | | | | interve | | | | | | | | | | rtebral | | | | | | | | | | disc | | +---------+---------+---------+--------+---------+---------+---------+---------+---------+ | Cervica | [id number] | | Active | | Sheila | | HPV - | | | l high | 04 | /10 | | /13 | [place] | | Human | | | risk [...] | | | +---------+---------+---------+--------+---------+---------+---------+---------+---------+ | Umbilic | [id number] | | Active | | Sheila | | Umbilic | | | al | | / | | | [place] | | al | | | hernia | (SNOMED | | | | PA-C | | hernia | | | | CT) | | | | | | | | +---------+---------+---------+--------+---------+---------+---------+---------+---------+ | Other | [id number] | | Active | | Sheila | | Dyspnea | | | abnorma | 07 | /13 | | /16 | [place] | | | | | lities | (SNOMED | | | | PA-C | | | | | of | CT) | | | | | | | | | breathi | | | | | | | | | | ng | | | | | | | | | +---------+---------+---------+--------+---------+---------+---------+---------+---------+ | Cigaret | [id number] | | Active | | Yaneli | | Cigaret | | | te | 7 | /30 | | /05 | Anil | | te | | | smoker | (SNOMED | | | | | | smoker | | | | CT) | | | | | | | | +---------+---------+---------+--------+---------+---------+---------+---------+---------+ | Autism | [id number] | | Active | | Elder | | Autisti | | | | 03 | / | | /13 | D | | c | | | | (SNOMED | | | | [place] | | disorde | | | | CT) | | | | MD | | r | | +---------+---------+---------+--------+---------+---------+---------+---------+---------+ | Lumbar | [id number] | | Active | | Leobardo | | Disorde | | | disc | | / | | / | [...] | | | +---------+---------+---------+--------+---------+---------+---------+---------+---------+ | Anxiety | [id number] | | Active | | Leobardo | | Anxiety | | | | 06 | / | | | Park MD | | | | | disorde | (SNOMED | | | | | | disorde | | | r | CT) | | | | | | r | | +---------+---------+---------+--------+---------+---------+---------+---------+---------+ | Vitamin | [id number] | | Active | | Yomaira | | Vitamin | | | D | 6 | | | | M | | D | | | deficie | (SNOMED | | | | Paez | | deficie | | | ncy | CT) | | | | OXYGRAPH OPERATOR | | ncy | | +---------+---------+---------+--------+---------+---------+---------+---------+---------+ | Sacroil | [id number] | | Active | | Yomaira | | Sacroil | | | iac | 03 | | | | M | | iac | | | joint | (SNOMED | | | | Paez | | disorde | | | dysfunc | CT) | | | | OXYGRAPH OPERATOR | | r | | | tion | | | | | | | | | +---------+---------+---------+--------+---------+---------+---------+---------+---------+ | Pain in | [id number] | | Active | | Yomaira | | Multipl | | | joint, | | | | | M | | e joint | | | | (SNOMED | | | | Paez | | pain | | | multipl | CT) | | | | OXYGRAPH OPERATOR | | | | | e sites | | | | | | | | | +---------+---------+---------+--------+---------+---------+---------+---------+---------+ | Ilioing | [id number] | | Active | | Yomaira | | Ilioing | | | uinal | | | | | M | | uinal | | | nerve | (SNOMED | | | | Paez | | nerve | | | neuriti | CT) | | | | OXYGRAPH OPERATOR | | neuriti | | | s, left | | | | | | | s | | +---------+---------+---------+--------+---------+---------+---------+---------+---------+ | Incisio | [id number] | | Active | | Yomaira | | Incisio | | | nal | 00 | / | | | M | | nal | | | hernia | (SNOMED | | | | Paez | | hernia | | | | CT) | | | | OXYGRAPH OPERATOR | | | | +---------+---------+---------+--------+---------+---------+---------+---------+---------+ | Hx of | [id number] | | Active | | Yomaira | | H/O: | | | dysmeno | | | | | M | | dysmeno | | | rrhea | (SNOMED | | | | Paez | | rrhea | | | | CT) | | | | OXYGRAPH OPERATOR | | | | +---------+---------+---------+--------+---------+---------+---------+---------+---------+ | Pelvic | [id number] | | Active | | Yomaira | | Pain in | | | pain, | | | | | M | | female | | | female | (SNOMED | | | | Paez | | pelvis | | | | CT) | | | | OXYGRAPH OPERATOR | | | | +---------+---------+---------+--------+---------+---------+---------+---------+---------+ | Endomet | [id number] | | Active | | Yomaira | | Endomet | | | riosis | 03 | /21 | | /21 | M | | riosis | | | | (SNOMED | | | | Paez | | (clinic | | | | CT) | | | | OXYGRAPH OPERATOR | | al) | | +---------+---------+---------+--------+---------+---------+---------+---------+---------+ | Chronic | [id number] | | Active | | Yomaira | | Chronic | | | pain | 1 | | | | M | | pain | | | | (SNOMED | | | | Paez | | | | | | CT) | | | | OXYGRAPH OPERATOR | | | | +---------+---------+---------+--------+---------+---------+---------+---------+---------+ Medications + + + + + + + + | Medication | Instructio | Start Date | Stop Date | Generic | NDC | Provider | | | ns | | | Name | | | + + + + + + + + | ACETAMINOP | take 1 | | | ACETAMINOP | [id number] | Sheila Dorman | | HEN-CODEIN | tablet by | | | HEN-CODEIN | 1 | PA-C | | E #3 | mouth up | | | E | | | | 300-30 MG | to three | | | | | | | TABS | times per | | | | | | | | day | | | | | | + + + + + + + + | CLONAZEPAM | one tablet | | | CLONAZEPAM | [id number] | Sheila Dorman | | 1 MG TABS | by mouth | | | | 1 | PA-C | | | every 8 | | | | | | | | hours as | | | | | | | | needed | | | | | | + + + + + + + + | VENLAFAXIN | take 1 | | | VENLAFAXIN | [id number] | Sheila Dorman | | E HCL ER | capsule by | | | E HCL | 5 | PA-C | | 75 MG | mouth | | | | | | | [id number] | daily | | | | | [...] NS | | | | | Paez OXYGRAPH OPERATOR | + + + + +--------+ + | AVIANE TABS | | | Critical | Active | Yomaira M | | | | | | | Paez OXYGRAPH OPERATOR | + + + + +--------+ + | PENICILLIN | | | Moderate | Active | Yomaira M | | | | | | | Paez OXYGRAPH OPERATOR | + + + + +--------+ + Results +------+------+-------+------+-------+------+ + | Date | Name | Value | Unit | Range | Flag | Descriptio | | | | | | | | n | +------+------+-------+------+-------+------+ + + + | Lab Report: CMP, CBC, PLT & AUTO DIFF, DIFFERENTIAL, MANUAL, AMYLASE, LI ... | + + + +---------+----+-----+--------+---+ + | | LIPASE | 56 | U/L | 22-51 | H | lipase, | | | SERUM | | | | | serum | + +---------+----+-----+--------+---+ + | | AMYLASE | 88 | U/L | 28-100 | | amylase, | | | | | | | | serum | + +---------+----+-----+--------+---+ + + + | Lab Report: URINALYSIS [...] + +-------+ +---+ + + + | Lab Report: CMP, CBC, PLT & AUTO DIFF, DIFFERENTIAL, MANUAL | + + + + + +-------+---------+---+ + | | SGOT (AST) | 15 | U/L | 15-41 | | aspartate | | | | | | | | aminotrans | | | | | | | | ferase | | | | | | | | (SGOT), | | | | | | | | serum | + + + +-------+---------+---+ + | | ALK PHOS | 56 | U/L | 50-136 | | alkaline | | | | | | | | phosphatas | | | | | | | | e, serum | + + + +-------+---------+---+ + | | SGPT (ALT) | 8 | U/L | 14-54 | L | alanine | | | | | | | | aminotrans | | | | | | | | ferase | | | | | | | | (SGPT), | | | | | | | | serum | + + + +-------+---------+---+ + | | BILI TOTAL | 0.7 | mg/dL | 0.3-1.2 | | bilirubin, | | | | | | | | serum, | | | | | | | | total | + + + +-------+---------+---+ + | | A/G RATIO | 1.4 CALC | | 1.1-2.2 | | albumin/gl | | | | | | | | obulin | | | | | | | | ratio, | | | | | | | | serum | + + + +-------+---------+---+ + | | GLOBULIN | 2.7 | | 2.3-3.5 | | globulin, | | | | | | | | serum | + + + +-------+---------+---+ + | | ALBUMIN | 3.8 | g/dL | 3.5-5.0 | | albumin, | | | | | | | | serum | + + + +-------+---------+---+ + | | PROTEIN, | 6.5 | g/dL | 6.0-8.3 | | protein, | | | TOT | | | | | total, | | | | | | | | serum | + + + +-------+---------+---+ + + + | Lab Report: B-TYPE NATRIURETIC PEPTIDE | + + + + +----+-------+-------+---+ + | | BNP PG/ML | 87 | pg/mL | 0-100 | | B-type | | | | | | | | natriureti | | | | | | | | c peptide | + + +----+-------+-------+---+ + + + | Lab Report: BMP, CBC, PLT & AUTO DIFF, DIFFERENTIAL, MANUAL | + + + + +--------+---+--------+---+ + | | RBC MORPH | NORMAL | | NORMAL | | RBC | | | | | | | | morphology | + + +--------+---+--------+---+ + | | EOS % MANU | [...] | | | count | + + +--------+---+--------+---+ + | | MONOS % | 4 | % | 0-12 | | monocytes | | | MANU | | | | | as percent | | | | | | | | of blood | | | | | | | | leukocytes | | | | | | | | , manual | | | | | | | | count | + + +--------+---+--------+---+ + | | LYMPH % | 12 | % | 15-45 | L | [...] | | | count | + + +--------+---+--------+---+ + | | BAND % | 8 | % | 0-8 | | neutrophil [...] | | | count | + + +--------+---+--------+---+ + | | PMN%(MANUA | 76 | | 38-70 | H | neutrophil [...] | | | count | + + +--------+---+--------+---+ + + + | Lab Report: BMP, CBC, PLT & AUTO DIFF | + + + + + + + +---+ + | | BASOPH | 0.00 | 10*3/mm3 | 0.00-0.10 | | basophil | | | COUNT | | | | | count, | | | | | | | | blood | + + + + + +---+ + | | EOS COUNT | 0.20 | 10*3/mm3 | 0.00-0.50 | | eosinophil | | | | | | | | count, | | | | | | | | blood | + + + + + +---+ + | | MONOCYTE | 0.50 | 10*3/mm3 | 0.30-0.80 | | monocyte | | | CNT | | | | | count, | | | | | | | | blood | + + + + + +---+ + | | LYMPH | 1.3 | 10*3/mm3 | 1.20-3.20 | | lymphocyte | | | COUNT | | | | | count, | | | | | | | | blood | + + + + + +---+ + | | ANC | 4.80 | 10*3/mm3 | 2.00-7.30 | | neutrophil | | | | | | | | count, | | | | | | | | blood | + + + + + +---+ + | | % BASO | 0.6 | % | 0.0-2.0 | | basophils | | | AUTO | | | | | as percent | | | | | | | | of blood | | | | | | | | leukocytes | | | | | | | | , | | | | | | | | automated | | | | | | | | count | + + + + + +---+ + | | % EOS AUTO | 3.0 | % | 0.0-7.0 | | eosinophil | | | | | | | | s as | | | | | | | | percent of | | | | | | | | blood | | | | | | | | leukocytes | + + + + + +---+ + | | MONOCYTE % | 7.8 | % | 0.0-12.0 | | monocytes | | | | | | | | as percent | | | | | | | | of blood | | | | | | | | leukocytes | + + + + + +---+ + | | LYMPHS % | 18.7 | % | 15.0-45.0 | | lymphocyte | | | | | | | | s as | | | | | | | | percent of | | | | | | | | blood | | | | | | | | leukocytes | + + + + + +---+ + | | PMN % | 69.9 | % | 40.0-80.0 | | neutrophil | | | | | | | | s as | | | | | | | | percent of | | | | | | | | blood | | | | | | | | leukocytes | + + + + + +---+ + | | WBC | 6.8 | 10*3/mm3 | 4.8-10.8 | | leukocyte | | | | | | | | count, | | | | | | | | blood | + + + + + +---+ + | | PLATELETS | 202 | 10*3/mm3 | 150-400 | | platelet | | | | | | | | count | + + + + + +---+ + | | RDW | 13.0 | % | 11.0-15.0 | | red blood | | | | | | | | cell | | | | | | | | distributi | | | | | | | | on width | + + + + + +---+ + | | MCHC | 33.8 | G/DL | 33.0-35.5 | | mean [...] + +---+ + | | MCH | 30.1 | pg | 27.0-34.0 | | mean | | | | | | | | corpuscula | | | | | | | | r | | | | | | | | hemoglobin | | | | | | | | , RBC | + + + + + +---+ + | | MCV | 89.2 | fL | 81.0-100.0 | | mean | | | | | | | | corpuscula | | | | | | | | r volume, | | | | | | | | RBC | + + + + + +---+ + | | RBC | 3.57 M/UL | 10*6/mm3 | 3.80-5.20 | L | erythrocyt | | | | | | | | e (RBC) | | | | | | | | count | + + + + + +---+ + | | HCT | 31.8 | % | 35-46 | L | hematocrit | | | | | | | | , blood | + + + + + +---+ + | | HGB | 10.8 | g/dL | 11.6-15.5 | L | hemoglobin | | | | | [...] + +---+ + | | CALCIUM | 8.3 | mg/dL | 8.6-10.0 | L | calcium, | | | | | | | | serum | + + + + + +---+ + | | GLUCOSE | 94.0 | mg/dL | 65-110 | | blood | | | SER | | | | | glucose | + + + + + +---+ + | | BUN/CREAT | 30.0 Ratio | | 7.0-24.0 | H | urea | | | | | | | | nitrogen/c | | | | | | | | reatinine | | | | | | | | ratio, | | | | | | | | serum | + + + + + +---+ + | | BUN | 12 | mg/dL | 6-20 | | urea | | | | | | | | nitrogen, | | | | | | | | blood | + + + + + +---+ + | | CREATININE | 0.4 | mg/dL | 0.6-1.3 | L | creatinine | | | | | | | | , serum | + + + + + +---+ + | | ANION GAP | 8.9 | mmol/L | 5-16 | | anion gap, | | | | | | | | serum | + + + + + +---+ + | | CO2 | 24 | mmol/L | 23-29 | | carbon | | | | | | | | dioxide, | | | | | | | | venous | | | | | | | | blood | + + + + + +---+ + | | CHLORIDE | 109 | mmol/L | 98-107 | H | chloride, | | | | | | | | serum | + + + + + +---+ + | | POTASSIUM | 3.9 | mmol/L | 3.5-5.1 | | potassium, | | | | | | | | serum | + + + + + +---+ + | | SODIUM | 138 | mmol/L | 136-145 | | sodium, | | | | | | | | serum | + + + + + +---+ + Plan of Care No information available. Procedures + + + + + | Code | Procedure Name | Date | Entry Date | + + + + + | CPT-3008F | [facility] BODY MASS | | | | | INDEX DOCUMENTED | | | | | ([facility]) | | | + + + + + | CPT-4004F | [facility] TOBACCO SCREEN | | | | | AND COUNSELING | | | | | ([facility]) | | | + + + + + | CPT-14371 | [facility] PSYTX PT/FAM | | | | | 30 MIN | | | + + + + + | CPT-3008F | [facility] BODY MASS | | | | | INDEX DOCUMENTED | | | | | ([facility]) | | | + + + + + | 12951 | XR Chest 2 Views | | | + + + + + | CBC | CBC- Auto Diff | | | + + + + + | [id number] | SNOMED-CT: | | | | | [id number] | | | | | Current Medications | | | | | Documented | | | + + + + + | OTHLAB | Other Lab | | | + + + + + | [id number] | OB-READING ASSISTANT | | | + + + + + | [id number] | Tele-Psych | | | + + + + + | [id number] | Physical | | | | | Therapy/Occupationa | | | | | l Therapy | | | + + + + + | CPT-25985 | [facility] PSYTX PT/FAM | | | | [...] | + + + + + | CPT-73921 | [facility] PSYTX PT/FAM | | | | | 45 MIN | | | + + + + + | CPT-3725F | [facility] Depression | | | | | Screening ([facility]) | | | + + + + + | CPT-55513 | [facility] PSYCH | | | | [...] | + + + + + | CPT-06691 | [facility] PSYCH DIAG | | | | | EVAL W/MED SRVCS | | | + + + + + | DME | DME | | | + + + + + | [id number] | SNOMED-CT: | | | | | [id number] Smoking | | | | | Cessation | | | | | Counseling | | | + + + + + | [id number] | SNOMED-CT: | | | | | [id number] | | | | | Current Medications | | | | | Documented | | | + + + + + | CPT-3725F | [facility] Depression | | | | | Screening ([facility]) | | | + + + + + | [id number] | Physical | | | | | Therapy/Occupationa | | | | | l Therapy | | | + + + + + | CBC | CBC- Auto Diff | | | + + + + + | CMP | CMP | | | + + + + + | VITD | Vitamin D, 25 | | | | | Hydroxy | | | + + + + + | LIPID | Lipid Profile | | | + + + + + Vital Signs + + +--------+---------+ + | Date | Name | Value | Unit | Description | + + +--------+---------+ + | | BMI (Body Mass | 18.01 | kg/m2 | Body Mass Index | | | Index) | | | [Ratio] | + + +--------+---------+ + | | Body | 98.4 | [degF] | temperature E&M | | | Temperature | | | | + + +--------+---------+ + | | BP Diastolic | 88 | mm[Hg] | blood pressure, | | | | | | diastolic | + + +--------+---------+ + | | BP Systolic | 150 | mm[Hg] | blood pressure, | | | | | | systolic | + + +--------+---------+ + | | Heart Rate | 88 | /min | pulse rate E&M | + + +--------+---------+ + | | Respiratory | 16 | /min | respiratory | | | Rate | | | rate E&M | + + +--------+---------+ + | | Weight Measured | 115 | [lb_av] | weight E&M | + [...] Date | + + + | med review | | + + + | med review | | + + + | wants antibiotic [...] -- 2 surgeries to cor rect -- Host Dr Julien.Peptic ulcerpyelonephritisPernicious anemia History of Present Illness + + + | History of Present Illness Description | Start Date | + + + | Patient is here today for a med | | | review.................................... | | | ................................Jadyn | | | [facility] March 22, 2019 1:16 PM DAVID | | | AKHIL is a 38 year old female who | | | presents to the clinic today with chief | | | complaint of medication management. She | | | relates that her anxiety is out of | | | control. she changed the date of her | | | pelvic surgery due to this. she again | | | relates that Dr. Castro said she should | | | take 1 mg of clonazapam three times per | | | day and I am only given her 0.5 mg | | | tablets. She has been to see Zo for | | | counseling and has had chart review with | | | our consulting psychiatrist who does not | | | agree wit hthe higher clonazepam. I do | | | not as well and we have discussed this at | | | past visits. She has bring in some of her | | | records, med insert sheets. She is on | | | venlafaxine, now at 150, finds this | | | helpful but with the tramadol uncle has | | | warned her that she will have serrotonin | | | syndrome. We reviewed literature today | | | and this is a possibility. She would like | | | to decrease the venlafaxine but not stop | | | it. She would like to try something else | | | for pain. We talked about her telepsych | | | appointments, one was rescheduled and she | | | has no showed, states because she was | | | told to come the wrong day and then was | | | son anxious about that she could not come | | | in. She apologized for her behavior on the | | | last couple of phone calls. We spent time | | | discussing the clonazepam and I let her | | | know that I would send one rx in at the | | | dose she wants to give her time to find a | | | new provider. She relates that she has | | | been accepted back to her prior provider | | | as long as she has the note stating that | | | Dr. Castro told her that she can take 1 | | | mg clonazepam TID. She will need records | | | sent. | | + + + | [facility] FOLLOW-UP NOTE Duration of | | | session: 30 minutesCURRENT BEHAVIORAL | | | HEALTH CONCERNS/REASON(S) FOR VISIT: Pt is | | | a 38 year old female Patient | | | self-referred to the Behavioral Health | | | Integration Program (BHIP) for Anxiety and | | | Pervasive Developmental Disorder. Pt was | | | oriented x3, hygiene and grooming | | | adequate, labile affect congruent with | | | mood, fast-changing mood, loud, pressured | | | speech, and thought processes. Pt voiced | | | no suicidal thoughts, no intent or plan. | | | Pt voiced no thoughts of self-harm or harm | | | to others. Also present was a female | | | friend of Pt. Interval HistoryPt presents | | | to session distraught and frustrated. Pt | | | states she feels as if she is being forced | | | into sessions to get her medications and | | | Pt was made aware that sessions are | | | completely voluntary. Pt states she does | | | not need counseling but states she wants | | | an increase in her clonazepam and her PCP | | | has not agreed. Pt would like Psychiatric | | | review/consultation for medications and to | | | clarify Pervasive Developmental Disorder | | | however is hesitant to agree to Tele-Psych | | | as she prefers pfhg-[id number] sessions. | | | Discussion was had on Pts potential | | | options. Three were identified. Pt is able | | | to transition to a different PCP, Pt is | | | able to engage in Tele-Psych through [facility], | | | and Pt is able to pursue psychiatric | | | evaluation from a different psychiatrist | | | outside of [facility]. Pt decided at this time to | | | pursue Tele-Psych through [facility] and was | | | scheduled for Tele-Psych appointment. | | | Reviewed Medication(s) Plan: Pt agrees to | | | continue current medication regimen as | | | prescribed by PCP. SCREENING SCORESPHQ9: | | | Screening not completed.GAD7: Screening | | | not completed. BARRIERS TO CARE None | | | identified.[facility]Psych[facility] appointment | | | scheduled. Counseling interventions: | | | Problem-Focused Therapy.Substance use | | | interventions (if applicable): N/APatient | | | will follow-up with: [facility] if she chooses to | | | in the future. The pt is able to | | | participate in treatment and consents to | | | the [facility] treatment plan. | | + + + | Patient is here today for a med | | | review.................................... | | | ................................Jadyn | | | Arredondo CMA February 09, 2019 11:44 AM | | | DAVID LANDAVERDE is a 38 year old female | | | who presents to the clinic today with | | | chief complaint of follow up on her | | | chronic conditions. She has had | | | pneumonia since I saw her last. Sympotms | | | have improved. She has seen OB and is | | | scheduled for surgery on 03/28. She has pre | | | op for 03/21, her well woman on 02/28 and SS | | | hearing on 02/18. We discussed her robotic | | | assisted upcoming surgery. Hopefully | | | this will resolve her chronic pelvic pain, | | | hx of endometriosis. I hae refilled her | | | tramadol. She relates that she is doing | | | well on the venlafaxine. She needs | | | refill. We discussed increasing the dose. | | | she needs to get to pharmacy today | | | before they close. We discussed treatment | | | with Zo she needds to schedule follow | | | up. No current fever or chills. No | | | nausea, vomiting, diarrhea. Cough has | | | improved, no congestion. | | + + + | Pt states she has been sick for about a | | | week. Pt c/o cough, nasal congestion, | | | bloody mucus. Pt c/o pain on breathing and | | | states she can't lay flat. | | | .......................................... 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 History of | | | pneumonia [phone] (Patient | | | cell) [phone] (Dad emergency contact) | | + + + | Patient is here today wanting an | | | antibiotic with possible | | | MRSA...................................... | | | ..............................Jadyn | | | Arredondo [facility] January 05, 2019 12:59 PM | | | DAVID LANDAVERDE is a 38 year old female | | | who presents to the clinic today with | | | chief complaint of several issues to | | | discuss1) father with another bout of | | | MRSA. Pt as talking to her new READING ASSISTANT and | | | states that she [...] schedule | | [facility]. 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 | | | ..............................Jadyn | | | [facility] November 05, 2018 8:00 PM | | [...] as she will need | | | [facility] evaluaiton. 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 | | | she has had hernia surgery mesh and is | | | concerned aobut his. We discussed that | | | she does need to follow specialist | | | recommendations and there may be changes | | | in the past 5 years. She will consider. | | | She will be having the [facility] mental health | | | evaluation for that portion of the | | | disability forms. | | + + + | Chris is here today needing paperwork | | | filled out for | | | [facility]...................................... 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 | | | She was seen by Dr. Casrto in the past | | | and [...] BEHAVIORAL | | | HEALTH INTEGRATION PROGRAM ([facility]) INITIAL | | | CLINICAL ASSESSMENT Duration of session: | | | 30 minutesCURRENT MENTAL HEALTH | | | CONCERN(S)/REASON(S) FOR VISITPt is a 38 | | | year old female Patient self-referred to | | | the [facility] Health Integration Program | | | ([facility]) for Anxiety and Pervasive | [...] | | started to become concerned of mcc | | | 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 | | | first. her last [place] 10mg refill was on | | | [...]
--- OUTSIDE RECORDS SUMMARY | ~2020-06-29 | XMS | Clinical Summary ---
Demographics + + + | Address | [address] | | | [place] [address] | + + + | Home Phone | | + + + | Preferred Language | Unknown | + + + | Marital Status | Unknown or other | + + + | Druze Affiliation | Unknown | + + + | Race | White | + + + | Ethnic Group | Patient Declined | + + + Author + + + | Author | [facility] | + + + | Organization | [facility] | + + + | Address | [address] | | | [place] [address] | + + + | Phone | | + + + Care Team Providers + + + + | Care Slab Lifting Engineer Name | Role | Phone | + [...] tion | | +---------+---------+---------+--------+---------+---------+---------+---------+---------+ | Body | [id number] | | Active | | Amal | [...] | | | +---------+---------+---------+--------+---------+---------+---------+---------+---------+ | Pneumon | [id number] | | Active | | Marilyn | | Pneumon | | | ia | 07 | /25 | | /25 | R | | ia | | | | (SNOMED | | | | Czapka | | | | | | CT) | | | | DIAL LATHE OPERATOR | | | | +---------+---------+---------+--------+---------+---------+---------+---------+---------+ | Screeni | [id number] | | Active | | Sheila | | Procedu | | | ng for | | / | | / | [place] | | re | | | infecti | (SNOMED | | | | PA-C | | carried | | | ous | CT) | | | | | | out on | | | disease | | | | | | | | | | | | | | | | | subject | | +---------+---------+---------+--------+---------+---------+---------+---------+---------+ | Depress | [id number] | | Active | | Sheila | | Depress | | | ion | | | | | [place] | | cesilia | | | | (SNOMED | | | | PA-C | | disorde | | | | CT) | | | | | | r | | +---------+---------+---------+--------+---------+---------+---------+---------+---------+ | screeni | [id number] | | Active | | Amal | | Depress | | | ng for | | | | | Tominna | | ion | | | depress | (SNOMED | | | | | | screeni | | | ion | CT) | | | | | | ng | | +---------+---------+---------+--------+---------+---------+---------+---------+---------+ | Encount | [id number] | | Active | | Yaneli | [...] | | | +---------+---------+---------+--------+---------+---------+---------+---------+---------+ | Degener | [id number] | | Active | | Sheila | | Degener | | | ative | 8 | | | | [place] | | ation | | | disc | (SNOMED | | | | PA-C | | of | | | disease | CT) | | | | | | interve | | | | | | | | | | rtebral | | | | | | | | | | disc | | +---------+---------+---------+--------+---------+---------+---------+---------+---------+ | Cervica | [id number] | | Active | | Sheila | | HPV - | | | l high | 04 | /10 | | /13 | [place] | | Human | | | [...] | | | +---------+---------+---------+--------+---------+---------+---------+---------+---------+ | Umbilic | [id number] | | Active | | Sheila | | Umbilic | | | al | | / | | | [place] | | al | | | hernia | (SNOMED | | | | PA-C | | hernia | | | | CT) | | | | | | | | +---------+---------+---------+--------+---------+---------+---------+---------+---------+ | Other | [id number] | | Active | | Sheila | | Dyspnea | | | abnorma | 07 | /13 | | /16 | [place] | | | | | lities | (SNOMED | | | | PA-C | | | | | of | CT) | | | | | | | | | breathi | | | | | | | | | | ng | | | | | | | | | +---------+---------+---------+--------+---------+---------+---------+---------+---------+ | Cigaret | [id number] | | Active | | Yaneli | | Cigaret | | | te | 7 | /30 | | /05 | Anil | | te | | | smoker | (SNOMED | | | | | | smoker | | | | CT) | | | | | | | | +---------+---------+---------+--------+---------+---------+---------+---------+---------+ | Autism | [id number] | | Active | | Elder | | Autisti | | | | 03 | / | | /13 | D | | c | | | | (SNOMED | | | | Plummer | | disorde | | | | CT) | | | | MD | | r | | +---------+---------+---------+--------+---------+---------+---------+---------+---------+ | Lumbar | [id number] | | Active | | Leobardo | [...] | | | +---------+---------+---------+--------+---------+---------+---------+---------+---------+ | Anxiety | [id number] | | Active | | Leobardo | | Anxiety | | | | 06 | / | | | Park MD | | | | | disorde | (SNOMED | | | | | | disorde | | | r | CT) | | | | | | r | | +---------+---------+---------+--------+---------+---------+---------+---------+---------+ | Vitamin | [id number] | | Active | | Yomaira | | Vitamin | | | D | 6 | | | | M | | D | | | deficie | (SNOMED | | | | Paez | | deficie | | | ncy | CT) | | | | GAS STATION CLERK | | ncy | | +---------+---------+---------+--------+---------+---------+---------+---------+---------+ | Sacroil | [id number] | | Active | | Yomaira | | Sacroil | | | iac | 03 | | | | M | | iac | | | joint | (SNOMED | | | | Paez | | disorde | | | dysfunc | CT) | | | | GAS STATION CLERK | | r | | | tion | | | | | | | | | +---------+---------+---------+--------+---------+---------+---------+---------+---------+ | Pain in | [id number] | | Active | | Yomaira | | Multipl | | | joint, | | | | | M | | e joint | | | | (SNOMED | | | | Paez | | pain | | | multipl | CT) | | | | GAS STATION CLERK | | | | | e sites | | | | | | | | | +---------+---------+---------+--------+---------+---------+---------+---------+---------+ | Ilioing | [id number] | | Active | | Yomaira | | Ilioing | | | uinal | | | | | M | | uinal | | | nerve | (SNOMED | | | | Paez | | nerve | | | neuriti | CT) | | | | GAS STATION CLERK | | neuriti | | | s, left | | | | | | | s | | +---------+---------+---------+--------+---------+---------+---------+---------+---------+ | Incisio | [id number] | | Active | | Yomaira | | Incisio | | | nal | 00 | / | | | M | | nal | | | hernia | (SNOMED | | | | Paez | | hernia | | | | CT) | | | | GAS STATION CLERK | | | | +---------+---------+---------+--------+---------+---------+---------+---------+---------+ | Hx of | [id number] | | Active | | Yomaira | | H/O: | | | dysmeno | | | | | M | | dysmeno | | | rrhea | (SNOMED | | | | Paez | | rrhea | | | | CT) | | | | GAS STATION CLERK | | | | +---------+---------+---------+--------+---------+---------+---------+---------+---------+ | Pelvic | [id number] | | Active | | Yomaira | | Pain in | | | pain, | | | | | M | | female | | | female | (SNOMED | | | | Paez | | pelvis | | | | CT) | | | | GAS STATION CLERK | | | | +---------+---------+---------+--------+---------+---------+---------+---------+---------+ | Endomet | [id number] | | Active | | Yomaira | | Endomet | | | riosis | 03 | /21 | | /21 | M | | riosis | | | | (SNOMED | | | | Paez | | (clinic | | | | CT) | | | | GAS STATION CLERK | | al) | | +---------+---------+---------+--------+---------+---------+---------+---------+---------+ | Chronic | [id number] | | Active | | Yomaira | | Chronic | | | pain | 1 | | | | M | | pain | | | | (SNOMED | | | | Paez | | | | | | CT) | | | | GAS STATION CLERK | | | | +---------+---------+---------+--------+---------+---------+---------+---------+---------+ Medications + + + + + + + + | Medication | Instructio | Start Date | Stop Date | Generic | NDC | Provider | | | ns | | | Name | | | + + + + + + + + | ACETAMINOP | take 1 | | | ACETAMINOP | [id number] | Sheila Dorman | | HEN-CODEIN | [...] one tablet | | | CLONAZEPAM | [id number] | Sheila Dorman | | 1 MG [...] take 1 | | | VENLAFAXIN | [id number] | Sheila Dorman | | E HCL ER | capsule by | | | E HCL | 5 | PA-C | | 75 MG | mouth | | | | | | | [id number] | daily | | | | | [...] NS | | | | | Paez GAS STATION CLERK | + + + + +--------+ + | AVIANE TABS | | | Critical | Active | Yomaira M | | | | | | | Paez GAS STATION CLERK | + + + + +--------+ + | PENICILLIN | | | Moderate | Active | Yomaira M | | | | | | | Paez GAS STATION CLERK | + + + + +--------+ [...] MANUAL | + + + + + + + +---+ + | | RBC MORPH | NORMAL | | NORMAL | | RBC | | | | | | | | morphology | + + + + + +---+ + | | EOS % MANU | [...] +---+ + | | MONOS % | 4 [...] +---+ + | | LYMPH % | 12 [...] +---+ + | | BAND % | 8 [...] + +---+ + | | PMN%(MANUA | 76 | [...] + +---+ + | | WBC | 16.5 | 10*3/mm3 | 4.8-10.8 | H | leukocyte | | | | | | | | count, | | | | | | | | blood | + + + + + +---+ + | | PLATELETS | 210 | 10*3/mm3 | 150-400 | | platelet | | | | | | | | count | + + + + + +---+ + | | RDW | 13.6 | % | 11.0-15.0 | | red blood | | | | | | | | cell | | | | | | | | distributi | | | | | | | | on width | + + + + + +---+ + | | MCHC | 33.6 | G/DL | 33.0-35.5 | | mean [...] + +---+ + | | MCH | 29.7 | pg | 27.0-34.0 | | mean | | | | | | | | corpuscula | | | | | | | | r | | | | | | | | hemoglobin | | | | | | | | , RBC | + + + + + +---+ + | | MCV | 88.4 | fL | 81.0-100.0 | | mean | | | | | | | | corpuscula | | | | | | | | r volume, | | | | | | | | RBC | + + + + + +---+ + | | RBC | 3.68 M/UL | 10*6/mm3 | 3.80-5.20 | L | erythrocyt | | | | | | | | e (RBC) | | | | | | | | count | + + + + + +---+ + | | HCT | 32.5 | % | 35-46 | L | hematocrit | | | | | | | | , blood | + + + + + +---+ + | | HGB | 10.9 | g/dL | 11.6-15.5 | L | [...] + +---+ + | | GLUCOSE | 104.0 | mg/dL | 65-110 | | blood | | | SER | | | | | glucose | + + + + + +---+ + | | BUN/CREAT | 26.6 Ratio | | 7.0-24.0 | H | urea | | | | | | | | nitrogen/c | | | | | | | | reatinine | | | | | | | | ratio, | | | | | | | | serum | + + + + + +---+ + | | BUN | 16 | mg/dL | 6-20 | | urea | | | | | | | | nitrogen, | | | | | | | | blood | + + + + + +---+ + | | CREATININE | 0.6 | mg/dL | 0.6-1.3 | | creatinine | | | | | | | | , serum | + + + + + +---+ + | | ANION GAP | 9.7 | mmol/L | 5-16 | | anion gap, | | | | | | | | serum | + + + + + +---+ + | | CO2 | 23 | mmol/L | 23-29 | | carbon [...] + +---+ + | | POTASSIUM | 3.7 | mmol/L | 3.5-5.1 | | potassium, | | | | | | | | serum | + + + + + +---+ + | | SODIUM | 138 | mmol/L | 136-145 | | sodium, | | | | | | | | serum | + + + + + +---+ + Plan of Care + + + + | Type | Date | Detail | + + + + | Referral | | 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, [address] | | | [address], [address], | | | | [place], [address] | | | | | + + [...] | + + + + + | CPT-22295 | [facility] PSYTX PT/FAM | | | | | 30 MIN | | | + + + + + | CPT-3008F | [facility] BODY MASS | | | | | INDEX DOCUMENTED | | | | | ([facility]) | | | + + + + + | [id number] | SNOMED-CT: | | | | | [id number] | | | | | Current Medications | | | | | Documented | | | + + + + + | [id number] | XR Chest 2 Views | | | + + + + + | CBC | CBC- Auto Diff | | | + + + + + | OTHLAB | Other Lab | | | + + + + + | CPT-41494 | [facility] PSYTX PT/FAM | | | | | 30 MIN | | | + + + + + | CPT-3725F | [facility] Depression | | | | | Screening ([facility]) | | | + + + + + | CPT-3725F | [facility] Depression | | | | | Screening ([facility]) | | | + + + + + | CPT-4004F | [facility] TOBACCO SCREEN | | | | | AND COUNSELING | | | | | ([facility]) | | | + + + + + | CPT-53504 | [facility] PSYTX PT/FAM | | | | | 45 MIN | | | + + + + + | CPT-3725F | [facility] Depression | | | | | Screening ([facility]) | | | + + + + + | CPT-40834 | [facility] PSYCH | | | | | DIAGNOSTIC [...] | + + + + + | CPT-58992 | [facility] PSYCH DIAG | | | | | CHANCE Rivera/[facility] | | | + + + + + | DME | DME | | | + + + + + | [id number] | SNOMED-CT: | | | | | [id number] Smoking | | | | | Cessation | | | | | Counseling | | | + + + + + | [id number] | SNOMED-CT: | | | | | [id number] | | | | | Current Medications | | | | | Documented | | | + + + + + | CPT-3725F | [facility] Depression | | | | | Screening ([facility]) | | | + + + + + | [id number] | Physical | | | | | [...] -- 2 surgeries to cor rect -- 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 | | | ................................Jadyn | | | [facility] March 22, 2019 1:16 PM DAVID | [...] sent. | | + + + | BHIP FOLLOW-UP NOTE Duration of | | | session: 30 minutesCURRENT BEHAVIORAL | | | HEALTH CONCERNS/REASON(S) FOR VISIT: Pt is | | | a 38 year old female Patient | | | self-referred to the Behavioral Health | | | Integration Program ([facility]) for Anxiety and | | | Pervasive [...] Tele-Psych | | | as she prefers yrns-xq-vjic sessions. | | | Discussion was had on Pts potential | | | options. Three were identified. Pt is able | | | to transition to a different PCP, Pt is | | | able to engage in Tele-Psych through [facility], | | | and Pt is able to pursue psychiatric | | | evaluation from a different psychiatrist | | | outside of [facility]. Pt decided at this time to | | | pursue Tele-Psych through [facility] and was | | | scheduled for Tele-Psych appointment. | | | Reviewed Medication(s) Plan: Pt agrees to | | | continue current medication regimen as | | | prescribed by PCP. SCREENING SCORESPHQ9: | | | Screening not completed.GAD7: Screening | | | not completed. BARRIERS TO CARE None | | | identified.PLANTele-Psychiatry appointment | | | scheduled. Counseling interventions: | | | Problem-Focused Therapy.Substance use | | | interventions (if applicable): N/APatient | | | will follow-up with: [facility] if she chooses to | | | in the future. The pt is able to | | | participate in treatment and consents to | | | the [facility] treatment plan. | | + + + | Patient is here today for a med | | | review.................................... | | | ................................Jadyn | | | [facility] February 09, 2019 11:44 AM | | [...] | | .........................Kae Moran | | | GAS STATION CLERK January 14, 2019 1:58 PM Sick [...] sick. History of | | | pneumonia [phone] (Patient | | | cell) [phone] (Dad emergency contact) | | + + + | Patient is here today wanting an | | | antibiotic with possible | | | MRSA...................................... | | | ..............................Jadyn | | | Arnulfo [facility] January 05, 2019 12:59 PM | | | DAVID LANDAVERDE is a 38 year old female | | | who presents to the clinic today with | | | chief complaint of several issues to | | | discuss1) father with another bout of | | | MRSA. Pt as talking to her new BOWLING BALL PATCHER and | | | states that she [...] schedule | | [facility]. | | | Discussed changing [...] needing paperwork | | | filled out hand or machine paster said they was not | | | filled out | | | right..................................... | | | ..............................Jadyn | | | Arredondo [facility] November 05, 2018 8:00 PM | | [...] as she will need | | | [facility] evaluaiton. 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 | | | she has had hernia surgery mesh and is | | | concerned aobut his. We discussed that | | | she does need to follow specialist | | | recommendations and there may be changes | | | in the past 5 years. She will consider. | | | She will be having the [facility] mental health | | | evaluation for that portion of the | | | disability forms. | | + + + | Chris is here today needing paperwork | | | filled out for | | | [facility]...................................... | | | ..............................Jadyn | | | [facility] October 20, 2018 1:46 PM | [...] + + | Follow up anxiety psychotherapy [facility] | | | FOLLOW-UP NOTE Duration of session: 20 | | | minutesCURRENT BEHAVIORAL HEALTH | | | CONCERNS/REASON(S) FOR VISIT: Pt is a 38 | | | year old female Patient self-referred to | | | the Behavioral Health Integration Program | | | ([facility]) for Anxiety and Pervasive | [...] | | | .............................Jadyn | | | [facility] October 01, 2018 5:08 PM | | | DVAID LANDAVERDE is a 38 year old female [...] + + + | Follow up psychotherapy [facility] FOLLOW-UP | | | NOTE [...] | | | 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 mandated med peds and | | | would be required [...] | | | .................................Jadyn | | | 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 She feels that something | | | [...] signed. | | | first. her last [place] 10mg refill was on | | | [...] | | | has appt with Dr Vandeslut. She bleeds 10 | | | days [...]
--- OUTSIDE RECORDS SUMMARY | ~2020-06-29 | XMS | Clinical Summary ---
Demographics + + + | Address | [address] | | | [place] [address] | + + + | Home Phone | | + + + | Preferred Language | Unknown | + + + | Marital Status | Unknown or other | + + + | Christianity Affiliation | Unknown | + + + | Race | White | + + + | Ethnic Group | Patient Declined | + + + Author + + + | Author | [facility] | + + + | Organization | [facility] | + + + | Address | [address] | | | [place] [address] | + + + | Phone | | + + + Care Team Providers + + + + | Care Bisque Placer Name | Role | Phone | + [...] tion | | +---------+---------+---------+--------+---------+---------+---------+---------+---------+ | Body | [id number] | | Active | | Amal | [...] | | | +---------+---------+---------+--------+---------+---------+---------+---------+---------+ | Pneumon | [id number] | | Active | | Marilyn | | Pneumon | | | ia | 07 | /25 | | /25 | R | | ia | | | | (SNOMED | | | | Czapka | | | | | | CT) | | | | 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 | | | | +---------+---------+---------+--------+---------+---------+---------+---------+---------+ | Screeni | [id number] | | Active | | Sheila | | Procedu | | | ng for | | / | | / | [place] | | re | | | infecti | (SNOMED | | | | PA-C | | carried | | | ous | CT) | | | | | | out on | | | disease | | | | | | | | | | | | | | | | | subject | | +---------+---------+---------+--------+---------+---------+---------+---------+---------+ | Depress | [id number] | | Active | | Sheila | | Depress | | | ion | | / | | | [place] | | cesilia | | | | (SNOMED | | | | PA-C | | disorde | | | | CT) | | | | | | r | | +---------+---------+---------+--------+---------+---------+---------+---------+---------+ | screeni | [id number] | | Active | | Amal | | Depress | | | ng for | | | | | Tominna | | ion | | | depress | (SNOMED | | | | | | screeni | | | ion | CT) | | | | | | ng | | +---------+---------+---------+--------+---------+---------+---------+---------+---------+ | Encount | [id number] | | Active | | Yaneli | [...] | | | +---------+---------+---------+--------+---------+---------+---------+---------+---------+ | Degener | [id number] | | Active | | Sheila | | Degener | | | ative | 8 | | | | [place] | | ation | | | disc | (SNOMED | | | | PA-C | | of | | | disease | CT) | | | | | | interve | | | | | | | | | | rtebral | | | | | | | | | | disc | | +---------+---------+---------+--------+---------+---------+---------+---------+---------+ | Cervica | [id number] | | Active | | Sheila | | HPV - | | | l high | 04 | /10 | | /13 | [place] | | Human | | | risk [...] | | | +---------+---------+---------+--------+---------+---------+---------+---------+---------+ | Umbilic | [id number] | | Active | | Sheila | | Umbilic | | | al | | / | | | [place] | | al | | | hernia | (SNOMED | | | | PA-C | | hernia | | | | CT) | | | | | | | | +---------+---------+---------+--------+---------+---------+---------+---------+---------+ | Other | [id number] | | Active | | Sheila | | Dyspnea | | | abnorma | 07 | /13 | | /16 | [place] | | | | | lities | (SNOMED | | | | PA-C | | | | | of | CT) | | | | | | | | | breathi | | | | | | | | | | ng | | | | | | | | | +---------+---------+---------+--------+---------+---------+---------+---------+---------+ | Cigaret | [id number] | | Active | | Yaneli | | Cigaret | | | te | 7 | /30 | | /05 | Anil | | te | | | smoker | (SNOMED | | | | | | smoker | | | | CT) | | | | | | | | +---------+---------+---------+--------+---------+---------+---------+---------+---------+ | Autism | [id number] | | Active | | Elder | | Autisti | | | | 03 | / | | /13 | D | | c | | | | (SNOMED | | | | [place]ust | | disorde | | | | CT) | | | | MD | | r | | +---------+---------+---------+--------+---------+---------+---------+---------+---------+ | Lumbar | [id number] | | Active | | Leobardo | [...] | | | +---------+---------+---------+--------+---------+---------+---------+---------+---------+ | Anxiety | [id number] | | Active | | Leobardo | | Anxiety | | | | 06 | / | | | Park MD | | | | | disorde | (SNOMED | | | | | | disorde | | | r | CT) | | | | | | r | | +---------+---------+---------+--------+---------+---------+---------+---------+---------+ | Vitamin | [id number] | | Active | | Yomaira | | Vitamin | | | D | 6 | / | | | M | | D | | | deficie | (SNOMED | | | | Paez | | deficie | | | ncy | CT) | | | | VOCATIONAL REHABILITATION TEACHER | | ncy | | +---------+---------+---------+--------+---------+---------+---------+---------+---------+ | Sacroil | [id number] | | Active | | Yomaira | | Sacroil | | | iac | 03 | | | | M | | iac | | | joint | (SNOMED | | | | Paez | | disorde | | | dysfunc | CT) | | | | VOCATIONAL REHABILITATION TEACHER | | r | | | tion | | | | | | | | | +---------+---------+---------+--------+---------+---------+---------+---------+---------+ | Pain in | [id number] | | Active | | Yomaira | | Multipl | | | joint, | | | | | M | | e joint | | | | (SNOMED | | | | Paez | | pain | | | multipl | CT) | | | | VOCATIONAL REHABILITATION TEACHER | | | | | e sites | | | | | | | | | +---------+---------+---------+--------+---------+---------+---------+---------+---------+ | Ilioing | [id number] | | Active | | Yomaira | | Ilioing | | | uinal | | | | | M | | uinal | | | nerve | (SNOMED | | | | Paez | | nerve | | | neuriti | CT) | | | | VOCATIONAL REHABILITATION TEACHER | | neuriti | | | s, left | | | | | | | s | | +---------+---------+---------+--------+---------+---------+---------+---------+---------+ | Incisio | [id number] | | Active | | Yomaira | | Incisio | | | nal | 00 | / | | | M | | nal | | | hernia | (SNOMED | | | | Paez | | hernia | | | | CT) | | | | VOCATIONAL REHABILITATION TEACHER | | | | +---------+---------+---------+--------+---------+---------+---------+---------+---------+ | Hx of | [id number] | | Active | | Yomaira | | H/O: | | | dysmeno | | | | | M | | dysmeno | | | rrhea | (SNOMED | | | | Paez | | rrhea | | | | CT) | | | | VOCATIONAL REHABILITATION TEACHER | | | | +---------+---------+---------+--------+---------+---------+---------+---------+---------+ | Pelvic | [id number] | | Active | | Yomaira | | Pain in | | | pain, | 03 | | | | M | | female | | | female | (SNOMED | | | | Paez | | pelvis | | | | CT) | | | | VOCATIONAL REHABILITATION TEACHER | | | | +---------+---------+---------+--------+---------+---------+---------+---------+---------+ | Endomet | [id number] | 2017/11 | Active | | Yomaira | | Endomet | | | riosis | 03 | /21 | | /21 | M | | riosis | | | | (SNOMED | | | | Paez | | (clinic | | | | CT) | | | | VOCATIONAL REHABILITATION TEACHER | | al) | | +---------+---------+---------+--------+---------+---------+---------+---------+---------+ | Chronic | [id number] | | Active | | Yomaira | | Chronic | | | pain | 1 | | | | M | | pain | | | | (SNOMED | | | | Paez | | | | | | CT) | | | | VOCATIONAL REHABILITATION TEACHER | | | | +---------+---------+---------+--------+---------+---------+---------+---------+---------+ Medications + + + + + + + + | Medication | Instructio | Start Date | Stop Date | Generic | NDC | Provider | | | ns | | | Name | | | + + + + + + + + | TRAMADOL | one pill | | | TRAMADOL | [id number] | Sheila Dorman | | HCL 50 [...] take 1 | | | CLONAZEPAM | [id number] | Sheila Dorman | | 0.5 MG [...] take 1 | | | VENLAFAXIN | [id number] | Sheila Dorman | | E HCL ER | capsule by | | | E HCL | 5 | PA-C | | 150 MG | mouth | | | | | | | [id number] | daily | | | | | [...] NS | | | | | Paez VOCATIONAL REHABILITATION TEACHER | + + + + +--------+ + | AVIANE TABS | | | Critical | Active | Yomaira M | | | | | | | Paez VOCATIONAL REHABILITATION TEACHER | + + + + +--------+ + | PENICILLIN | | | Moderate | Active | Yomaira M | | | | | | | Paez VOCATIONAL REHABILITATION TEACHER | + + + + +--------+ + [...] +---+ + + + | Lab Report: CBC, PLT & AUTO DIFF | + + + + + + + +---+ + | | WBC | 9.6 | 10*3/mm3 | 4.8-10.8 | | leukocyte | | | | | | | | count, | | | | | | | | blood | + + + + + +---+ + | | PLATELETS | 226 | 10*3/mm3 | 150-400 | | platelet | | | | | | | | count | + + + + + +---+ + | | RDW | 12.4 | % | 11.0-15.0 | | red blood | | | | | | | | cell | | | | | | | | distributi | | | | | | | | on width | + + + + + +---+ + | | MCHC | 34.1 | G/DL | 33.0-35.5 | | mean [...] + +---+ + | | MCH | 30.0 | pg | 27.0-34.0 | | mean | | | | | | | | corpuscula | | | | | | | | r | | | | | | | | hemoglobin | | | | | | | | , RBC | + + + + + +---+ + | | MCV | 87.9 | fL | 81.0-100.0 | | mean | | | | | | | | corpuscula | | | | | | | | r volume, | | | | | | | | RBC | + + + + + +---+ + | | RBC | 3.70 M/UL | 10*6/mm3 | 3.80-5.20 | L | erythrocyt | | | | | | | | e (RBC) | | | | | | | | count | + + + + + +---+ + | | HCT | 32.6 | % | 35-46 | L | hematocrit | | | | | | | | , blood | + + + + + +---+ + | | HGB | 11.1 | g/dL | 11.6-15.5 | L | hemoglobin | | | | | | | | , blood | + + + + + +---+ + + + | Lab Report: DIFFERENTIAL, MANUAL | + + + + [...] +--------+---+--------+---+ + | | MONOS % | 10 | % | 0-12 | | monocytes [...] +--------+---+--------+---+ + | | BAND % | 4 | % | 0-8 | | neutrophil [...] + +--------+---+--------+---+ + | | PMN%(MANUA | 73 | | 38-70 | H | neutrophil [...] | count | + + +--------+---+--------+---+ + Plan of Care + + + + | Type | Date | Detail | + + + + | Appointment | 11:00 AM | [address], | | | | [place], [place], | + + + + | Referral | | 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[employer] [facility] | | | | - Clau Roach | | | | [facility] for, [address], [address], | | | | [place], [place], [address] | | | | | + + [...] | + + + + + | [id number] | SNOMED-CT: | | | | | [id number] | | | | | Current Medications | | | | | Documented | | | + + + + + | [id number] | XR Chest 2 Views | | | + + + + + | CBC | CBC- Auto Diff | | | + + + + + | OTHLAB | Other Lab | | | + + + + + | CPT-30923 | [facility] PSYTX PT/FAM | | | | | 30 MIN | | | + + + + + | CPT-3725F | [facility] Depression | | | | | Screening ([facility]) | | | + + + + + | CPT-3725F | [facility] Depression | | | | | Screening ([facility]) | | | + + + + + | CPT-4004F | [facility] TOBACCO SCREEN | | | | | AND COUNSELING | | | | | ([facility]) | | | + + + + + | CPT-50232 | [facility] PSYTX PT/FAM | | | | | 45 MIN | | | + + + + + | CPT-3725F | [facility] Depression | | | | | Screening ([facility]) | | | + + + + + | CPT-40252 | [facility] PSYCH | | | | [...] | + + + + + | CPT-86321 | [facility] PSYCH DIAG | | | | | EVAL W/MED SRVCS | | | + + + + + | DME | DME | | | + + + + + | [id number] | SNOMED-CT: | | | | | [id number] Smoking | | | | | Cessation | | | | | Counseling | | | + + + + + | [id number] | SNOMED-CT: | | | | | [id number] | | | | | Current Medications | | | | | Documented | | | + + + + + | CPT-3725F | [facility] Depression | | | | | Screening ([facility]) | | | + + + + + | [id number] | Physical | | | | | Therapy/Occupationa | | | | | l Therapy | | | + + + + + Vital Signs + + +--------+---------+ + | Date | Name | Value | Unit | Description | + + +--------+---------+ + | | BMI (Body Mass | 17.85 | kg/m2 | Body Mass Index | | | Index) | | | [Ratio] | + + +--------+---------+ + | | Body | 98.6 | [degF] | temperature E&M | | | Temperature | | | | + + +--------+---------+ + | | BP Diastolic | 80 | mm[Hg] | blood pressure, | | | | | | diastolic | + + +--------+---------+ + | | BP Systolic | 126 | mm[Hg] | blood pressure, | | | | | | systolic | + + +--------+---------+ + | | Heart Rate | 104 | /min | pulse rate E&M | + + +--------+---------+ + | | Respiratory | 16 | /min | respiratory | | | Rate | | | rate E&M | + + +--------+---------+ + | | Weight Measured | 114 | [lb_av] | weight E&M | + [...] -- 2 surgeries to cor rect -- 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 | | | Discussion was had on Pts potential | | | options. Three were identified. Pt is able | | | to transition to a different PCP, Pt is | | | able to engage in Tele-Psych through [facility], | | | and Pt is able to pursue psychiatric | | | evaluation from a different psychiatrist | | | outside of [facility]. Pt decided at this time to | | | pursue Tele-Psych through [facility] and was | | | scheduled for Tele-Psych appointment. | | | Reviewed Medication(s) Plan: Pt agrees to | | | continue current medication regimen as | | | prescribed by PCP. SCREENING SCORESPHQ9: | | | Screening not completed.GAD7: Screening | | | not completed. BARRIERS TO CARE None | | | identified.[facility]Psych[facility] appointment | | | scheduled. Counseling interventions: | | | Problem-Focused Therapy.Substance use | | | interventions (if applicable): N/APatient | | | will follow-up with: [facility] if she chooses to | | | in the future. The pt is able to | | | participate in treatment and consents to | | | the [facility] treatment plan. | | + + + | Patient is here today for a med | | | review.................................... | | | ................................Jadyn | | | [facility] February 09, 2019 11:44 AM | | [...] | | | hx of endometriosis. I lisy refilled her | | | tramadol. 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 History of | | | pneumonia [phone] (Patient | | | cell) [phone] (Dad emergency contact) | | + + + | Patient is here today wanting an | | | antibiotic with possible | | | MRSA...................................... | | | ..............................Jadyn | | | [facility] January 05, 2019 12:59 PM | | | DAVID LANDAVERDE is a 38 year old female | | | who presents to the clinic today with | | | chief complaint of several issues to | | | discuss1) father with another bout of | | | MRSA. 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 | | | ..............................Jadyn | | | [facility] November 05, 2018 8:00 PM | [...] as she will need | | | furer evaluaiton. 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 | | | she has had hernia surgery mesh and is | | | concerned aobut his. We discussed that | | | she does need to follow specialist | | | recommendations and there may be changes | | | in the past 5 years. She will consider. | | | She will be having the [facility] mental health | | | evaluation for that portion of the | | | disability forms. | | + + + | Shiranilampan is here today needing paperwork | | [...] | | but will get this done whdevin I am back in | | | office the week of Octsudeep has some | | | forms for [...] + + | Follow up anxiety psychotherapy [facility] | | | FOLLOW-UP NOTE Duration [...] | | .............................Jadyn | | | [facility] October 01, 2018 5:08 PM | [...] | ...............................Jadyn | | | [facility] September 04, 2018 3:53 PM | [...] + + + | Follow up psychotherapy [facility] FOLLOW-UP | | | NOTE Duration of session: 50 | | | minutesCURRENT BEHAVIORAL HEALTH | | | CONCERNS/REASON(S) FOR VISIT: Pt is a 38 | | | year old female Patient self-referred to | | | the Behavioral Health Integration Program | | | ([facility]) for Anxiety and Pervasive | | [...] | | | 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 mandated 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 | | | first. her last Fontanelle 10mg refill was on | | | [...]
--- OUTSIDE RECORDS SUMMARY | ~2020-06-29 | XMS | Clinical Summary ---
Demographics + + + | Address | [address] | | | [place] [address] | + + + | Home Phone | | + + + | Preferred Language | Unknown | + + + | Marital Status | Unknown or other | + + + | Taoism Affiliation | Unknown | + + + | Race | White | + + + | Ethnic Group | Patient Declined | + + + Author + + + | Author | [facility] | + + + | Organization | [facility] | + + + | Address | [address] | | | [place] [address] | + + + | Phone | | + + + Care Team Providers + + + + | Care Autocad Electrical Designer Name | Role | Phone | + [...] tion | | +---------+---------+---------+--------+---------+---------+---------+---------+---------+ | Pneumon | [id number] | | Active | | Marilyn | | Pneumon | | | ia | 07 | /25 | | /25 | R | | ia | | | | (SNOMED | | | | Czapka | | | | | | CT) | | | | MATERIALS ASSISTANT | | | | +---------+---------+---------+--------+---------+---------+---------+---------+---------+ | Screeni | [id number] | | Active | | Sheila | | Procedu | | | ng for | 03 | /16 | | /16 | [place] | | re | | | infecti | (SNOMED | | | | PA-C | | carried | | | ous | CT) | | | | | | out on | | | disease | | | | | | | | | | | | | | | | | subject | | +---------+---------+---------+--------+---------+---------+---------+---------+---------+ | Depress | [id number] | | Active | | Sheila | | Depress | | | ion | 7 | / | | / | [place] | | cesilia | | | | (SNOMED | | | | PA-C | | disorde | | | | CT) | | | | | | r | | +---------+---------+---------+--------+---------+---------+---------+---------+---------+ | screeni | [id number] | | Active | | Amal | | Depress | | | ng for | | / | | / | [place] | | ion | | | depress | (SNOMED | | | | | | screeni | | | ion | CT) | | | | | | ng | | +---------+---------+---------+--------+---------+---------+---------+---------+---------+ | Encount | [id number] | | Active | | Yaneli | [...] | | | +---------+---------+---------+--------+---------+---------+---------+---------+---------+ | Degener | [id number] | | Active | | Sheila | | Degener | | | ative | 8 | / | | /13 | [place] | | ation | | | disc | (SNOMED | | | | PA-C | | of | | | disease | CT) | | | | | | interve | | | | | | | | | | rtebral | | | | | | | | | | disc | | +---------+---------+---------+--------+---------+---------+---------+---------+---------+ | Cervica | [id number] | | Active | | Sheila | | HPV - | | | l high | 04 | /10 | | /13 | [place] | | Human | | | risk [...] | | | +---------+---------+---------+--------+---------+---------+---------+---------+---------+ | Umbilic | [id number] | | Active | | Sheila | | Umbilic | | | al | 07 | /10 | | /13 | [place] | | al | | | hernia | (SNOMED | | | | PA-C | | hernia | | | | CT) | | | | | | | | +---------+---------+---------+--------+---------+---------+---------+---------+---------+ | Other | [id number] | | Active | | Sheila | | Dyspnea | | | abnorma | 07 | / | | /16 | [place] | | | | | lities | (SNOMED | | | | PA-C | | | | | of | CT) | | | | | | | | | breathi | | | | | | | | | | ng | | | | | | | | | +---------+---------+---------+--------+---------+---------+---------+---------+---------+ | Cigaret | [id number] | | Active | | Yaneli | | Cigaret | | | te | 7 | /30 | | /05 | Anil | | te | | | smoker | (SNOMED | | | | | | smoker | | | | CT) | | | | | | | | +---------+---------+---------+--------+---------+---------+---------+---------+---------+ | Autism | [id number] | | Active | | Elder | | Autisti | | | | 03 | / | | | D | | c | | | | (SNOMED | | | | Hartley | | disorde | | | | CT) | | | | MD | | r | | +---------+---------+---------+--------+---------+---------+---------+---------+---------+ | Lumbar | [id number] | | Active | | Leobardo | [...] | | | +---------+---------+---------+--------+---------+---------+---------+---------+---------+ | Anxiety | [id number] | | Active | | Leobardo | | Anxiety | | | | | | | | Robyn AMOS | | | | | disorde | (SNOMED | | | | | | disorde | | | r | CT) | | | | | | r | | +---------+---------+---------+--------+---------+---------+---------+---------+---------+ | Vitamin | [id number] | | Active | | Yomaira | | Vitamin | | | D | 6 | /21 | | /21 | M | | D | | | deficie | (SNOMED | | | | Paez | | deficie | | | ncy | CT) | | | | PHOTOGRAPH TINTER | | ncy | | +---------+---------+---------+--------+---------+---------+---------+---------+---------+ | Sacroil | [id number] | | Active | | Yomaira | | Sacroil | | | iac | 03 | | | | M | | iac | | | joint | (SNOMED | | | | Paez | | disorde | | | dysfunc | CT) | | | | PHOTOGRAPH TINTER | | r | | | tion | | | | | | | | | +---------+---------+---------+--------+---------+---------+---------+---------+---------+ | Pain in | [id number] | | Active | | Yomaira | | Multipl | | | joint, | 5 | /21 | | / | M | | e joint | | | | (SNOMED | | | | Paez | | pain | | | multipl | CT) | | | | PHOTOGRAPH TINTER | | | | | e sites | | | | | | | | | +---------+---------+---------+--------+---------+---------+---------+---------+---------+ | Ilioing | [id number] | | Active | | Yomaira | | Ilioing | | | uinal | 08 | | | | M | | uinal | | | nerve | (SNOMED | | | | Paez | | nerve | | | neuriti | CT) | | | | PHOTOGRAPH TINTER | | neuriti | | | s, left | | | | | | | s | | +---------+---------+---------+--------+---------+---------+---------+---------+---------+ | Incisio | [id number] | | Active | | Yomaira | | Incisio | | | nal | 00 | | | | M | | nal | | | hernia | (SNOMED | | | | Paez | | hernia | | | | CT) | | | | PHOTOGRAPH TINTER | | | | +---------+---------+---------+--------+---------+---------+---------+---------+---------+ | Hx of | [id number] | | Active | | Yomaira | | H/O: | | | dysmeno | 06 | / | | /21 | M | | dysmeno | | | rrhea | (SNOMED | | | | Paez | | rrhea | | | | CT) | | | | PHOTOGRAPH TINTER | | | | +---------+---------+---------+--------+---------+---------+---------+---------+---------+ | Pelvic | [id number] | | Active | | Yomaira | | Pain in | | | pain, | | | | | M | | female | | | female | (SNOMED | | | | Paez | | pelvis | | | | CT) | | | | PHOTOGRAPH TINTER | | | | +---------+---------+---------+--------+---------+---------+---------+---------+---------+ | Endomet | [id number] | | Active | | Yomaira | | Endomet | | | riosis | | | | | M | | riosis | | | | (SNOMED | | | | Paez | | (clinic | | | | CT) | | | | PHOTOGRAPH TINTER | | al) | | +---------+---------+---------+--------+---------+---------+---------+---------+---------+ | Chronic | [id number] | | Active | | Yomaira | | Chronic | | | pain | 1 | /21 | | /21 | M | | pain | | | | (SNOMED | | | | Paez | | | | | | CT) | | | | PHOTOGRAPH TINTER | | | | +---------+---------+---------+--------+---------+---------+---------+---------+---------+ Medications + + + + + + + + | Medication | Instructio | Start Date | Stop Date | Generic | NDC | Provider | | | ns | | | Name | | | + + + + + + + + | CLONAZEPAM | take 1 | | | CLONAZEPAM | [id number] | Sheila Dorman | | 0.5 MG | tablet by | | | | 1 | PAElvin | | TABS | mouth up | | | | | | | | to 3 times | | | | | | | | per day | | | | | | + + + + + + + + | VENLAFAXIN | take 1 | | | VENLAFAXIN | [id number] | Sheila Dorman | | E HCL ER | capsule by | | | E HCL | 5 | PA-C | | 150 MG | mouth | | | | | | | [id number] | daily | | | | | | + + + + + + + + | TRAMADOL | one pill | | | TRAMADOL | [id number] | Sheila [place] | | HCL 50 MG | orally [...] NS | | | | | Paez PHOTOGRAPH TINTER | + + + + +--------+ + | AVIANE TABS | | | Critical | Active | Yomaira M | | | | | | | Paez PHOTOGRAPH TINTER | + + + + +--------+ + | PENICILLIN | | | Moderate | Active | Yomaira M | | | | | | | Paez PHOTOGRAPH TINTER | + + + + +--------+ + [...] + + + | Referral | | OB-TRAFFIC RATE COMPUTER for | | | | Women [facility] | | | | Physicians, [address], [facility] [address], | | | | [place], [address] | | | | | + + [...] | + + + + + | [id number] | SNOMED-CT: | | | | | [id number] | | | | | Current Medications | | | | | Documented | | | + + + + + | [id number] | XR Chest 2 Views | | | + + + + + | CBC | CBC- Auto Diff | | | + + + + + | OTHLAB | Other Lab | | | + + + + + | CPT-85767 | [facility] PS[facility]TX PT/FAM | | | [...] | + + + + + | CPT-49600 | [facility] PSYTX PT/FAM | | | | | 45 MIN | | | + + + + + | CPT-3725F | [facility] Depression | | | | | Screening ([facility]) | | | + + + + + | CPT-06564 | [facility] PSYCH | | | | [...] | + + + + + | CPT-61625 | [facility] DIAG | | | | | EVAL W/MED SRVCS | | | + + + + + | DME | DME | | | + + + + + | [id number] | SNOMED-CT: | | | | | [id number] Smoking | | | | | Cessation | | | | | Counseling | | | + + + + + | [id number] | SNOMED-CT: | | | | | [id number] | | | | | Current Medications | | | | | Documented | | | + + + + + | CPT-3725F | [facility] Depression | | | | | Screening ([facility]) | | | + + + + + | [id number] | Physical | | | | | [...] -- 2 surgeries to cor rect -- [employer] 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 | | | ................................Jadyn | | | [facility] February 09, 2019 11:44 AM | [...] | | .........................Kae Moran | | | PHOTOGRAPH TINTER January 14, 2019 1:58 PM Sick for [...] sick. History of | | | pneumonia [phone] (Patient | | | cell) [phone] (Dad emergency contact) | | + + [...] MRSA. 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 | | | ..............................Jadyn | | | [facility] November 05, 2018 8:00 PM | [...] as she will need | | | [facility] evaluaiton. I kept the comments [...] | | | plan.Ongoing endometiral pain, last obstetrics gyn physician | | | discussed [facility] for better diagnosis. | | [...] | filled out for | | | [facility]...................................... | | | ..............................Jadyn | | | [facility] October 20, 2018 1:46 PM | [...] + + | Follow up anxiety psychotherapy [facility] | | | FOLLOW-UP NOTE Duration of session: 20 | | | minutesCURRENT BEHAVIORAL HEALTH | | | CONCERNS/REASON(S) FOR VISIT: Pt is a 38 | | | year old female Patient self-referred to | | | the Behavioral Health Integration Program | | | ([facility]) for Anxiety and Pervasive | | [...] | | .............................Jadyn | | | [facility] October 01, 2018 5:08 PM | | [...] | | | ...............................Jadyn | | | [facility] September 04, 2018 3:53 PM | [...] + + + | Follow up psychotherapy [facility] FOLLOW-UP | | | NOTE Duration of session: 50 | | | minutesCURRENT BEHAVIORAL HEALTH | | | CONCERNS/REASON(S) FOR VISIT: Pt is a 38 | | | year old female Patient self-referred to | | | the Behavioral Health Integration Program | | | ([facility]) for Anxiety and Pervasive | | [...] | | | 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 | | | first. her last [place] 10mg refill was on | | | [...]
--- OUTSIDE RECORDS SUMMARY | ~2020-06-29 | XMS | Clinical Summary ---
Demographics + + + | Address | [address] | | | [place] [address] | + + + | Home Phone | | + + + | Preferred Language | Unknown | + + + | Marital Status | Unknown or other | + + + | Yarsani Affiliation | Unknown | + + + | Race | White | + + + | Ethnic Group | Patient Declined | + + + Author + + + | Author | [facility] | + + + | Organization | [facility] | + + + | Address | [address] | | | [place] [address] | + + + | Phone | | + + + Care Team Providers + + + + | Care Compliance Clerk Name | Role | Phone | + [...] tion | | +---------+---------+---------+--------+---------+---------+---------+---------+---------+ | Body | [id number] | | Active | | Amal | [...] | | | +---------+---------+---------+--------+---------+---------+---------+---------+---------+ | Pneumon | [id number] | | Active | | Marilyn | | Pneumon | | | ia | 07 | /25 | | /25 | R | | ia | | | | (SNOMED | | | | Czapka | | | | | | CT) | | | | 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 | | | | +---------+---------+---------+--------+---------+---------+---------+---------+---------+ | Screeni | [id number] | | Active | | Sheila | | Procedu | | | ng for | | / | | / | [place] | | re | | | infecti | (SNOMED | | | | PA-C | | carried | | | ous | CT) | | | | | | out on | | | disease | | | | | | | | | | | | | | | | | subject | | +---------+---------+---------+--------+---------+---------+---------+---------+---------+ | Depress | [id number] | | Active | | Sheila | | Depress | | | ion | | | | | [place] | | cesilia | | | | (SNOMED | | | | PA-C | | disorde | | | | CT) | | | | | | r | | +---------+---------+---------+--------+---------+---------+---------+---------+---------+ | screeni | [id number] | | Active | | Amal | | Depress | | | ng for | | | | | Tominna | | ion | | | depress | (SNOMED | | | | | | screeni | | | ion | CT) | | | | | | ng | | +---------+---------+---------+--------+---------+---------+---------+---------+---------+ | Encount | [id number] | | Active | | Yaneli | [...] | | | +---------+---------+---------+--------+---------+---------+---------+---------+---------+ | Degener | [id number] | | Active | | Sheila | | Degener | | | ative | 8 | | | | [place] | | ation | | | disc | (SNOMED | | | | PA-C | | of | | | disease | CT) | | | | | | interve | | | | | | | | | | rtebral | | | | | | | | | | disc | | +---------+---------+---------+--------+---------+---------+---------+---------+---------+ | Cervica | [id number] | | Active | | Sheila | | HPV - | | | l high | 04 | /10 | | /13 | [place] | | Human | | | risk [...] | | | +---------+---------+---------+--------+---------+---------+---------+---------+---------+ | Umbilic | [id number] | | Active | | Sheila | | Umbilic | | | al | | / | | | [place] | | al | | | hernia | (SNOMED | | | | PA-C | | hernia | | | | CT) | | | | | | | | +---------+---------+---------+--------+---------+---------+---------+---------+---------+ | Other | [id number] | | Active | | Sheila | | Dyspnea | | | abnorma | 07 | /13 | | /16 | [place] | | | | | lities | (SNOMED | | | | PA-C | | | | | of | CT) | | | | | | | | | breathi | | | | | | | | | | ng | | | | | | | | | +---------+---------+---------+--------+---------+---------+---------+---------+---------+ | Cigaret | [id number] | | Active | | Yaneli | | Cigaret | | | te | 7 | /30 | | /05 | Anil | | te | | | smoker | (SNOMED | | | | | | smoker | | | | CT) | | | | | | | | +---------+---------+---------+--------+---------+---------+---------+---------+---------+ | Autism | [id number] | | Active | | Elder | | Autisti | | | | 03 | / | | /13 | D | | c | | | | (SNOMED | | | | [place] | | disorde | | | | CT) | | | | MD | | r | | +---------+---------+---------+--------+---------+---------+---------+---------+---------+ | Lumbar | [id number] | | Active | | Leobardo | [...] | | | +---------+---------+---------+--------+---------+---------+---------+---------+---------+ | Anxiety | [id number] | | Active | | Leobardo | | Anxiety | | | | 06 | / | | | Park MD | | | | | disorde | (SNOMED | | | | | | disorde | | | r | CT) | | | | | | r | | +---------+---------+---------+--------+---------+---------+---------+---------+---------+ | Vitamin | [id number] | | Active | | Yomaira | | Vitamin | | | D | 6 | | | | M | | D | | | deficie | (SNOMED | | | | Paez | | deficie | | | ncy | CT) | | | | 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 | | ncy | | +---------+---------+---------+--------+---------+---------+---------+---------+---------+ | Sacroil | [id number] | | Active | | Yomaira | | Sacroil | | | iac | 03 | | | | M | | iac | | | joint | (SNOMED | | | | Paez | | disorde | | | dysfunc | CT) | | | | 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 | | r | | | tion | | | | | | | | | +---------+---------+---------+--------+---------+---------+---------+---------+---------+ | Pain in | [id number] | | Active | | Yomaira | | Multipl | | | joint, | | | | | M | | e joint | | | | (SNOMED | | | | Paez | | pain | | | multipl | CT) | | | | 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 | | | | | e sites | | | | | | | | | +---------+---------+---------+--------+---------+---------+---------+---------+---------+ | Ilioing | [id number] | | Active | | Yomaira | | Ilioing | | | uinal | | | | | M | | uinal | | | nerve | (SNOMED | | | | Paez | | nerve | | | neuriti | CT) | | | | 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 | | neuriti | | | s, left | | | | | | | s | | +---------+---------+---------+--------+---------+---------+---------+---------+---------+ | Incisio | [id number] | | Active | | Yomaira | | Incisio | | | nal | 00 | / | | | M | | nal | | | hernia | (SNOMED | | | | Paez | | hernia | | | | CT) | | | | 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 | | | | +---------+---------+---------+--------+---------+---------+---------+---------+---------+ | Hx of | [id number] | | Active | | Yomaira | | H/O: | | | dysmeno | | | | | M | | dysmeno | | | rrhea | (SNOMED | | | | Paez | | rrhea | | | | CT) | | | | 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 | | | | +---------+---------+---------+--------+---------+---------+---------+---------+---------+ | Pelvic | [id number] | | Active | | Yomaira | | Pain in | | | pain, | | | | | M | | female | | | female | (SNOMED | | | | Paez | | pelvis | | | | CT) | | | | 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 | | | | +---------+---------+---------+--------+---------+---------+---------+---------+---------+ | Endomet | [id number] | | Active | | Yomaira | | Endomet | | | riosis | 03 | /21 | | /21 | M | | riosis | | | | (SNOMED | | | | Paez | | (clinic | | | | CT) | | | | 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 | | al) | | +---------+---------+---------+--------+---------+---------+---------+---------+---------+ | Chronic | [id number] | | Active | | Yomaira | | Chronic | | | pain | 1 | | | | M | | pain | | | | (SNOMED | | | | Paez | | | | | | CT) | | | | 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 | | | | +---------+---------+---------+--------+---------+---------+---------+---------+---------+ Medications + + + + + + + + | Medication | Instructio | Start Date | Stop Date | Generic | NDC | Provider | | | ns | | | Name | | | + + + + + + + + | ACETAMINOP | take 1 | | | ACETAMINOP | [id number] | Sheila Dorman | | HEN-CODEIN | [...] one tablet | | | CLONAZEPAM | [id number] | Sheila Dorman | | 1 MG [...] take 1 | | | VENLAFAXIN | [id number] | Sheila Dorman | | E HCL ER | capsule by | | | E HCL | 5 | PA-C | | 75 MG | mouth | | | | | | | [id number] | daily | | | | | [...] NS | | | | | Paez 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 | + + + + +--------+ + | AVIANE TABS | | | Critical | Active | Yomaira M | | | | | | | Paez 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 | + + + + +--------+ + | PENICILLIN | | | Moderate | Active | Yomaira M | | | | | | | Paez 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 | + + + + +--------+ + [...] + | | EOS % MANU | 1 | % | 0-7 | | eosinophil [...] +---+ + | | LYMPH % | 1 | % | 15-45 | L | [...] +---+ + | | BAND % | 12 | % | 0-8 | H | neutrophil | | | MANU | [...] + +---+ + | | PMN%(MANUA | 82 | | 38-70 | H | neutrophil [...] + +---+ + | | WBC | 23.1 | 10*3/mm3 | 4.8-10.8 | H | leukocyte | | | | | | | | count, | | | | | | | | blood | + + + + + +---+ + | | PLATELETS | 251 | 10*3/mm3 | 150-400 | | platelet | | | | | | | | count | + + + + + +---+ + | | RDW | 13.1 | % | 11.0-15.0 | | red blood | | | | | | | | cell | | | | | | | | distributi | | | | | | | | on width | + + + + + +---+ + | | MCHC | 33.4 | G/DL | 33.0-35.5 | | mean [...] + +---+ + | | MCH | 29.5 | pg | 27.0-34.0 | | mean | | | | | | | | corpuscula | | | | | | | | r | | | | | | | | hemoglobin | | | | | | | | , RBC | + + + + + +---+ + | | MCV | 88.3 | fL | 81.0-100.0 | | mean | | | | | | | | corpuscula | | | | | | | | r volume, | | | | | | | | RBC | + + + + + +---+ + | | RBC | 4.10 M/UL | 10*6/mm3 | 3.80-5.20 | | erythrocyt | | | | | | | | e (RBC) | | | | | | | | count | + + + + + +---+ + | | HCT | 36.2 | % | 35-46 | | hematocrit | | | | | | | | , blood | + + + + + +---+ + | | HGB | 12.1 | g/dL | 11.6-15.5 | | hemoglobin | | | | | | | | , blood | + + + + + +---+ + | | EGFR | 59 (?) | mL/min/1.7 | >60 | L | Estimated | | | | | 3m2 | | | Glomerular | | | | | | | | | | | | | | | | Filtration | | | | | | | | Rate | | | | | | | | (calc) | + + + + + +---+ + | | SGOT (AST) | 15 | U/L | 15-41 | | aspartate | | | | | | | | aminotrans | | | | | | | | ferase | | | | | | | | (SGOT), | | | | | | | | serum | + + + + + +---+ + | | ALK PHOS | 56 | U/L | 50-136 | | alkaline | | | | | | | | phosphatas | | | | | | | | e, serum | + + + + + +---+ + | | SGPT (ALT) | 8 [...] +---+ + | | BILI TOTAL | 0.7 | mg/dL | 0.3-1.2 | | bilirubin, | | | | | | | | serum, | | | | | | | | total | + + + + + +---+ + | | A/G RATIO | 1.4 CALC | | 1.1-2.2 | | albumin/gl | | | | | | | | obulin | | | | | | | | ratio, | | | | | | | | serum | + + + + + +---+ + | | GLOBULIN | 2.7 | | 2.3-3.5 | | globulin, | | | | | | | | serum | + + + + + +---+ + | | ALBUMIN | 3.8 | g/dL | 3.5-5.0 | | albumin, | | | | | | | | serum | + + + + + +---+ + | | PROTEIN, | 6.5 | [...] + +---+ + | | GLUCOSE | 127.0 | mg/dL | 65-110 | H | blood | | | SER | | | | | glucose | + + + + + +---+ + | | BUN/CREAT | 13.6 Ratio | | 7.0-24.0 | | urea | | | | | | | | nitrogen/c | | | | | | | | reatinine | | | | | | | | ratio, | | | | | | | | serum | + + + + + +---+ + | | BUN | 15 | mg/dL | 6-20 | | urea | | | | | | | | nitrogen, | | | | | | | | blood | + + + + + +---+ + | | CREATININE | 1.1 | mg/dL | 0.6-1.3 | | creatinine | | | | | | | | , serum | + + + + + +---+ + | | ANION GAP | 12.1 | mmol/L | 5-16 | | anion gap, | | | | | | | | serum | + + + + + +---+ + | | CO2 | 25 | mmol/L | 23-29 | | carbon | | | | | | | | dioxide, | | | | | | | | venous | | | | | | | | blood | + + + + + +---+ + | | CHLORIDE | 103 | mmol/L | 98-107 | | chloride, | | | | | | | | serum | + + + + + +---+ + | | POTASSIUM | 4.1 | mmol/L | 3.5-5.1 | | potassium, | | | | | | | | serum | + + + + + +---+ + | | SODIUM | 136 | mmol/L | 136-145 | | sodium, | | | | | | | | serum | + + + + + +---+ + + + | Lab Report: B-TYPE NATRIURETIC PEPTIDE | + + + + +----+-------+-------+---+ + | | BNP PG/ML | 87 | pg/mL | 0-100 | | B-type | | | | | | | | natriureti | | | | | | | | c peptide | + + +----+-------+-------+---+ + Plan of Care + + + + | Type | Date | Detail | + + + + | Referral | | OB-NETWORK MANAGEMENT SPECIALIST Women | | | | - [facility] [place] [facility] [place] | | | | [facility] [place] [address] | | [address], | | | | [place], [address] | | | | | + + [...] | + + + + + | CPT-45084 | [facility] PSYTX PT/FAM | | | | | 30 MIN | | | + + + + + | CPT-3008F | [facility] BODY MASS | | | | | INDEX DOCUMENTED | | | | | ([facility]) | | | + + + + + | [id number] | SNOMED-CT: | | | | | [id number] | | | | | Current Medications | | | | | Documented | | | + + + + + | 53331 | XR Chest 2 Views | | | + + + + + | CBC | CBC- Auto Diff | | | + + + + + | OTHLAB | Other Lab | | | + + + + + | CPT-16248 | [facility] PSYTX PT/FAM | | | | | 30 MIN | | | + + + + + | CPT-3725F | [facility] Depression | | | | | Screening ([facility]) | | | + + + + + | CPT-3725F | [facility] Depression | | | | | Screening ([facility]) | | | + + + + + | CPT-4004F | [facility] TOBACCO SCREEN | | | | | AND COUNSELING | | | | | ([facility]) | | | + + + + + | CPT-04118 | [facility] PSYTX PT/FAM | | | | | 45 MIN | | | + + + + + | CPT-3725F | [facility] Depression | | | | | Screening ([facility]) | | | + + + + + | CPT-23716 | [facility] PSYCH | | | | [...] | + + + + + | CPT-33801 | [facility] PSYCH DIAG | | | | | CHANCE W/MED SRVCS | | | + + + + + | DME | DME | | | + + + + + | [id number] | SNOMED-CT: | | | | | [id number] Smoking | | | | | Cessation | | | | | Counseling | | | + + + + + | [id number] | SNOMED-CT: | | | | | [id number] | | | | | Current Medications | | | | | Documented | | | + + + + + | CPT-3725F | [facility] Depression | | | | | Screening ([facility]) | | | + + + + + | [id number] | Physical | | | | | [...] -- 2 surgeries to cor rect -- 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 | | | ................................Jadyn | | | [facility] March 22, 2019 1:16 PM DAVID | [...] sent. | | + + + | [facility] FOLLOW-UP NOTE Duration of | | | [...] Tele-Psych | | | as she prefers [id number] sessions. | | | Discussion was had on Pts potential | | | options. Three were identified. Pt is able | | | to transition to a different PCP, Pt is | | | able to engage in Tele-Psych through [facility], | | | and Pt is able to pursue psychiatric | | | evaluation from a different psychiatrist | | | outside of [facility]. Pt decided at this time to | | | pursue Tele-Psych through [facility] and was | | | scheduled for Tele-Psych appointment. | | | Reviewed Medication(s) Plan: Pt agrees to | | | continue current medication regimen as | | | prescribed by PCP. SCREENING SCORESPHQ9: | | | Screening not completed.GAD7: Screening | | | not completed. BARRIERS TO CARE None | | | identified.[facility]-Psychiatry appointment | | | scheduled. Counseling interventions: | | | Problem-Focused Therapy.Substance use | | | interventions (if applicable): N/APatient | | | will follow-up with: [facility] if she chooses to | | | in the future. The pt is able to | | | participate in treatment and consents to | | | the [facility] treatment plan. 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 History of | | | pneumonia [phone] (Patient | | | cell) [phone] (Dad emergency contact) | | + + + | Patient is here today wanting an | | | antibiotic with possible | | | MRSA...................................... | | | ..............................Jadyn | | | Arred[facility] January 05, 2019 12:59 PM | | | DAVID LANDAVERDE is a 38 year old female | | | who presents to the clinic today with | | | chief complaint of several issues to | | | discuss1) father with another bout of | | | MRSA. Pt as talking to her new NETWORK MANAGEMENT SPECIALIST and | | | states that she [...] schedule | | | [facility]. 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 [...] | | She will be having the [facility] mental health | | | evaluation for that portion of the | | | disability forms. | | + + + | Chris is here today needing paperwork | | | filled out for | | | [facility]...................................... 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 | | | first. her last [place] 10mg refill was on | | | [...]
--- OUTSIDE RECORDS SUMMARY | ~2020-06-29 | XMS | Clinical Summary ---
Demographics + + + | Address | [address] | | | [place] [address] | + + + | Home Phone [...] Author + + + | Author | [facility] | + + + | Organization | [facility] | + + + | Address | [address] | | | [place] [address] | + + + | Phone | | + + + Care Team Providers + + + + | Care Industrial Training Specialist Name | Role | Phone | [...] tion | | +---------+---------+---------+--------+---------+---------+---------+---------+---------+ | Body | [id number] | | Active | | Amal | [...] | | | +---------+---------+---------+--------+---------+---------+---------+---------+---------+ | Pneumon | [id number] | | Active | | Marilyn | | Pneumon | | | ia | 07 | /25 | | /25 | R | | ia | | | | (SNOMED | | | | Czapka | | | | | | CT) | | | | EMT I/99 | | | | +---------+---------+---------+--------+---------+---------+---------+---------+---------+ | Screeni | [id number] | | Active | | Sheila | | Procedu | | | ng for | | / | | / | [place] | | re | | | infecti | (SNOMED | | | | PA-C | | carried | | | ous | CT) | | | | | | out on | | | disease | | | | | | | | | | | | | | | | | subject | | +---------+---------+---------+--------+---------+---------+---------+---------+---------+ | Depress | [id number] | | Active | | Sheila | | Depress | | | ion | | / | | | [place] | | cesilia | | | | (SNOMED | | | | PA-C | | disorde | | | | CT) | | | | | | r | | +---------+---------+---------+--------+---------+---------+---------+---------+---------+ | screeni | [id number] | | Active | | Amal | | Depress | | | ng for | | | | | Tominna | | ion | | | depress | (SNOMED | | | | | | screeni | | | ion | CT) | | | | | | ng | | +---------+---------+---------+--------+---------+---------+---------+---------+---------+ | Encount | [id number] | | Active | | Yaneli | [...] | | | +---------+---------+---------+--------+---------+---------+---------+---------+---------+ | Degener | [id number] | | Active | | Sheila | | Degener | | | ative | 8 | | | | [place] | | ation | | | disc | (SNOMED | | | | PA-C | | of | | | disease | CT) | | | | | | interve | | | | | | | | | | rtebral | | | | | | | | | | disc | | +---------+---------+---------+--------+---------+---------+---------+---------+---------+ | Cervica | [id number] | | Active | | Sheila | | HPV - | | | l high | 04 | /10 | | /13 | [place] | | Human | | | risk [...] | | | +---------+---------+---------+--------+---------+---------+---------+---------+---------+ | Umbilic | [id number] | | Active | | Sheila | | Umbilic | | | al | | / | | | [place] | | al | | | hernia | (SNOMED | | | | PA-C | | hernia | | | | CT) | | | | | | | | +---------+---------+---------+--------+---------+---------+---------+---------+---------+ | Other | [id number] | | Active | | Sheila | | Dyspnea | | | abnorma | 07 | /13 | | /16 | [place] | | | | | lities | (SNOMED | | | | PA-C | | | | | of | CT) | | | | | | | | | breathi | | | | | | | | | | ng | | | | | | | | | +---------+---------+---------+--------+---------+---------+---------+---------+---------+ | Cigaret | [id number] | | Active | | Yaneli | | Cigaret | | | te | 7 | /30 | | /05 | Anil | | te | | | smoker | (SNOMED | | | | | | smoker | | | | CT) | | | | | | | | +---------+---------+---------+--------+---------+---------+---------+---------+---------+ | Autism | [id number] | | Active | | Elder | | Autisti | | | | 03 | / | | /13 | D | | c | | | | (SNOMED | | | | [place] | | disorde | | | | CT) | | | | MD | | r | | +---------+---------+---------+--------+---------+---------+---------+---------+---------+ | Lumbar | [id number] | | Active | | Leobardo | [...] | | | +---------+---------+---------+--------+---------+---------+---------+---------+---------+ | Anxiety | [id number] | | Active | | Leobardo | | Anxiety | | | | 06 | / | | | [place] MD | | | | | disorde | (SNOMED | | | | | | disorde | | | r | CT) | | | | | | r | | +---------+---------+---------+--------+---------+---------+---------+---------+---------+ | Vitamin | [id number] | | Active | | Yomaira | | Vitamin | | | D | 6 | / | | | M | | D | | | deficie | (SNOMED | | | | Paez | | deficie | | | ncy | CT) | | | | PAINT POURER | | ncy | | +---------+---------+---------+--------+---------+---------+---------+---------+---------+ | Sacroil | [id number] | | Active | | Yomaira | | Sacroil | | | iac | 03 | | | | M | | iac | | | joint | (SNOMED | | | | Paez | | disorde | | | dysfunc | CT) | | | | PA[place]ER | | r | | | tion | | | | | | | | | +---------+---------+---------+--------+---------+---------+---------+---------+---------+ | Pain in | [id number] | | Active | | Yomaira | | Multipl | | | joint, | | | | | M | | e joint | | | | (SNOMED | | | | Paez | | pain | | | multipl | CT) | | | | [place] | | | | | e sites | | | | | | | | | +---------+---------+---------+--------+---------+---------+---------+---------+---------+ | Ilioing | 3355967 | | Active | | Yomaira | | Ilioing | | | uinal | | | | | M | | uinal | | | nerve | (SNOMED | | | | Paez | | nerve | | | neuriti | CT) | | | | [place] | | neuriti | | | s, left | | | | | | | s | | +---------+---------+---------+--------+---------+---------+---------+---------+---------+ | Incisio | [id number] | | Active | | Yomaira | | Incisio | | | nal | 00 | / | | | M | | nal | | | hernia | (SNOMED | | | | Paez | | hernia | | | | CT) | | | | PAINT P[employer]ER | | | | +---------+---------+---------+--------+---------+---------+---------+---------+---------+ | Hx of | [id number] | | Active | | Yomaira | | H/O: | | | dysmeno | | | | | M | | dysmeno | | | rrhea | (SNOMED | | | | Paez | | rrhea | | | | CT) | | | | PAINT POURER | | | | +---------+---------+---------+--------+---------+---------+---------+---------+---------+ | Pelvic | [id number] | | Active | | Yomaira | | Pain in | | | pain, | 03 | | | | M | | female | | | female | (SNOMED | | | | Paez | | pelvis | | | | CT) | | | | [place]ER | | | | +---------+---------+---------+--------+---------+---------+---------+---------+---------+ | Endomet | [id number] | 2017/11 | Active | | Yomaira | | Endomet | | | riosis | 03 | /21 | | /21 | M | | riosis | | | | (SNOMED | | | | Paez | | (clinic | | | | CT) | | | | PAINT POURER | | al) | | +---------+---------+---------+--------+---------+---------+---------+---------+---------+ | Chronic | [id number] | | Active | | Yomaira | | Chronic | | | pain | 1 | | | | M | | pain | | | | (SNOMED | | | | Paez | | | | | | CT) | | | | PAINT P[employer]ER | | | | +---------+---------+---------+--------+---------+---------+---------+---------+---------+ Medications + + + + + + + + | Medication | Instructio | Start Date | Stop Date | Generic | NDC | Provider | | | ns | | | Name | | | + + + + + + + + | TRAMADOL | one pill | | | TRAMADOL | [id number] | Sheila Dorman | | HCL 50 [...] take 1 | | | CLONAZEPAM | [id number] | Sheila Dorman | | 0.5 MG [...] take 1 | | | VENLAFAXIN | [id number] | Sheila Dorman | | E HCL ER | capsule by | | | E HCL | 5 | PA-C | | 150 MG | mouth | | | | | | | [id number] | daily | | | | | [...] NS | | | | | Paez PAINT [place]OURER | + + + + +--------+ + | AVIANE TABS | | | Critical | Active | Yomaira M | | | | | | | Paez [place] | + + + + +--------+ + | PENICILLIN | | | Moderate | Active | Yomaira M | | | | | | | Paez [place] | + + + + +--------+ + [...] | Appointment | 11:00 AM | [address], | | | | [place], [place], | + + + + | Referral | | OB-NATIONAL [facility]CRET[facility] | | | | - Clau Roach | | | | Physicians for, [address], [address], | | | | [place], [address] | | | | | + + [...] | + + + + + | CPT-15899 | [facility] PSYTX PT/FAM | | | | | 30 MIN | | | + + + + + | CPT-3008F | [facility] BODY MASS | | | | | INDEX DOCUMENTED | | | | | ([facility]) | | | + + + + + | [id number] | SNOMED-CT: | | | | | [id number] | | | | | Current Medications | | | | | Documented | | | + + + + + | [id number] | XR Chest 2 Views | | | + + + + + | CBC | CBC- Auto Diff | | | + + + + + | OTHLAB | Other Lab | | | + + + + + | CPT-10823 | [facility] PSYTX PT/FAM | | | | | 30 MIN | | | + + + + + | CPT-3725F | [facility] Depression | | | | | Screening ([facility]) | | | + + + + + | CPT-3725F | [facility] Depression | | | | | Screening ([facility]) | | | + + + + + | CPT-4004F | [facility] TOBACCO SCREEN | | | | | AND COUNSELING | | | | | ([facility]) | | | + + + + + | CPT-95326 | [facility] PSYTX PT/FAM | | | | | 45 MIN | | | + + + + + | CPT-3725F | [facility] Depression | | | | | Screening ([facility]) | | | + + + + + | CPT-05991 | [facility] PSYCH | | | | | [...] | + + + + + | CPT-55347 | [facility] PSYCH DIAG | | | | | CHANCE Rivera/STU [facility] | | | + + + + + | DME | DME | | | + + + + + | [id number] | SNOMED-CT: | | | | | [id number] Smoking | | | | | Cessation | | | | | Counseling | | | + + + + + | [id number] | SNOMED-CT: | | | | | [id number] | | | | | Current Medications | | | | | Documented | | | + + + + + | CPT-3725F | [facility] Depression | | | | | Screening ([facility]) | | | + + + + + | [id number] | Physical | | | | | [...] + + + | needs paperwork for [facility] | | + + + | [...] -- 2 surgeries to cor rect -- 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 | | | Discussion was had on Pts potential | | | options. Three were identified. Pt is able | | | to transition to a different PCP, Pt is | | | able to engage in Tele-Psych through [facility], | | | and Pt is able to pursue psychiatric | | | evaluation from a different psychiatrist | | | outside of [facility]. Pt decided at this time to | | | pursue Tele-Psych through [facility] and was | | | scheduled for Tele-Psych appointment. | | | Reviewed Medication(s) Plan: Pt agrees to | | | continue current medication regimen as | | | prescribed by PCP. SCREENING SCORESPHQ9: | | | Screening not completed.GAD7: Screening | | | not completed. BARRIERS TO CARE None | | | identified.[facility]-Psychiatry appointment | | | scheduled. Counseling interventions: | | | Problem-Focused Therapy.Substance use | | | interventions (if applicable): N/APatient | | | will follow-up with: [facility] if she chooses to | | | in the future. The pt is able to | | | participate in treatment and consents to | | | the [facility] treatment plan. | | + + + | Patient is here today for a med | | | review.................................... | | | ................................Jadyn | | | [facility] February 09, 2019 11:44 AM | | [...] | | .........................Kae Moran | | | [place] January 14, 2019 1:58 PM Sick for [...] sick. History of | | | pneumonia [phone] (Patient | | | cell) [phone] (Dad emergency contact) | | + + + | Patient is here today wanting an | | | antibiotic with possible | | | MRSA...................................... | | | ..............................Jadyn | | | [facility] January 05, 2019 12:59 PM | | | DAVID LANDAVERDE is a 38 year old female | | | who presents to the clinic today with | | | chief complaint of several issues to | | | discuss1) father with another bout of | | | MRSA. 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 | | | Discussed changing [...] needing paperwork | | | filled out inspector integrated circuits said they was not | | | filled out | | | right..................................... | | | ..............................Jadyn | | | Arredondo [facility] November 05, 2018 8:00 PM | | [...] as she will need | | | [facility]. 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 | | | she has had hernia surgery mesh and is | | | concerned aobut his. We discussed that | | | she does need to follow specialist | | | recommendations and there may be changes | | | in the past 5 years. She will consider. | | | She will be having the [facility] mental health | | | evaluation for that portion of the | | | disability forms. | | + + + | Chris is here today needing paperwork | | | filled out for | | | [facility]...................................... | | | ..............................Jadyn | | | Arredondo [facility] October 20, 2018 1:46 PM | | [...] | | | office the week of Octe has some | | | forms for [...] + + | Follow up anxiety psychotherapy [facility] | | | FOLLOW-UP NOTE Duration of session: 20 | | | minutesCURRENT BEHAVIORAL HEALTH | | | CONCERNS/REASON(S) FOR VISIT: Pt is a 38 | | | year old female Patient self-referred to | | | the Behavioral Health Integration Program | | | ([facility]) for Anxiety and Pervasive | | [...] | | | .............................Jadyn | | | [facility] October 01, 2018 5:08 PM | [...] | | | ...............................Jadyn | | | [facility] September 04, 2018 3:53 PM | [...] + + + | Follow up psychotherapy [facility] FOLLOW-UP | | | NOTE Duration of session: 50 | | | minutesCURRENT BEHAVIORAL HEALTH | | | CONCERNS/REASON(S) FOR VISIT: Pt is a 38 | | | year old female Patient self-referred to | | | the Behavioral Health Integration Program | | | ([facility]) for Anxiety and Pervasive | | [...] | | | 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 | | | .........................[place] | | | December 05, 2017 2:33 [...] signed. | | | first. her last Mcalpin 10mg refill was on | | | [...]
--- OUTSIDE RECORDS SUMMARY | ~2020-06-29 | XMS | Clinical Summary ---
Demographics + + + | Address | [address] | | | [place] [address] | + + + | Home Phone [...] + + + | Author | [facility] | + + + | Organization | [facility] | + + + | Address | [address] | | | [place] [address] | + + + | Phone | | + + + Care Team Providers + + + + | Care Nuclear Control Room Operator Name | Role | Phone | [...] tion | | +---------+---------+---------+--------+---------+---------+---------+---------+---------+ | Other | [id number] | | Active | | Sheila | | Dyspnea | | | abnorma | | / | | / | [place] | | | | | lities | (SNOMED | | | | PA-C | | | | | of | CT) | | | | | | | | | breathi | | | | | | | | | | ng | | | | | | | | | +---------+---------+---------+--------+---------+---------+---------+---------+---------+ | Positiv | [id number] | | Active | | Zo | | Positiv | | | e | [id number] | | | /15 | Willoug | | e | | | screeni | 0 | | | | hby | | screeni | | | ng for | (SNOMED | | | | ENGINEERING SPECIALIST | | ng for | | | [...] 9) | | +---------+---------+---------+--------+---------+---------+---------+---------+---------+ | Cigaret | 8773471 | | Active | | Yaneli | | Cigaret | | | te | 7 | /30 | | /05 | Anil | | te | | | smoker | (SNOMED | | | | | | smoker | | | | CT) | | | | | | | | +---------+---------+---------+--------+---------+---------+---------+---------+---------+ | Autism | [id number] | | Active | | Elder | | Addisti | | | | 03 | /13 | | /13 | D | | c | | | | (SNOMED | | | | [place] | | disorde | | | | CT) | | | | MD | | r | | +---------+---------+---------+--------+---------+---------+---------+---------+---------+ | other | [id number] | | Active | | Amal | [...] subject | | +---------+---------+---------+--------+---------+---------+---------+---------+---------+ | Lumbar | [id number] | | Active | | Leobardo | [...] | | | +---------+---------+---------+--------+---------+---------+---------+---------+---------+ | Anxiety | 5804869 | | Active | | Leobardo | | Anxiety | | | | | | | | Robyn AMOS | | | | | disorde | (SNOMED | | | | | | disorde | | | r | CT) | | | | | | r | | +---------+---------+---------+--------+---------+---------+---------+---------+---------+ | Vitamin | 6733302 | | Active | | Yomaira | | Vitamin | | | D | 6 | /21 | | /21 | M | | D | | | deficie | (SNOMED | | | | Paez | | deficie | | | ncy | CT) | | | | PUBLIC HEALTH PHYSICIAN | | ncy | | +---------+---------+---------+--------+---------+---------+---------+---------+---------+ | Sacroil | [id number] | | Active | | Yomaira | | Sacroil | | | iac | 03 | / | | | M | | iac | | | joint | (SNOMED | | | | Paez | | disorde | | | dysfunc | CT) | | | | PUBLIC HEALTH PHYSICIAN | | r | | | tion | | | | | | | | | +---------+---------+---------+--------+---------+---------+---------+---------+---------+ | Pain in | 0066559 | | Active | | Yomaira | | Multipl | | | joint, | 5 | /21 | | / | M | | e joint | | | | (SNOMED | | | | Paez | | pain | | | multipl | CT) | | | | PUBLIC HEALTH PHYSICIAN | | | | | e sites | | | | | | | | | +---------+---------+---------+--------+---------+---------+---------+---------+---------+ | Ilioing | [id number] | | Active | | Yomaira | | Ilioing | | | uinal | 08 | | | | M | | uinal | | | nerve | (SNOMED | | | | Paez | | nerve | | | neuriti | CT) | | | | PUBLIC HEALTH PHYSICIAN | | neuriti | | | s, left | | | | | | | s | | +---------+---------+---------+--------+---------+---------+---------+---------+---------+ | Incisio | [id number] | | Active | | Yomaira | | Incisio | | | nal | 00 | | | | M | | nal | | | hernia | (SNOMED | | | | Paez | | hernia | | | | CT) | | | | PUBLIC HEALTH PHYSICIAN | | | | +---------+---------+---------+--------+---------+---------+---------+---------+---------+ | Hx of | 6679830 | | Active | | Yomaira | | H/O: | | | dysmeno | | | | | M | | dysmeno | | | rrhea | (SNOMED | | | | Paez | | rrhea | | | | CT) | | | | PUBLIC HEALTH PHYSICIAN | | | | +---------+---------+---------+--------+---------+---------+---------+---------+---------+ | Pelvic | [id number] | | Active | | Yomaira | | Pain in | | | pain, | | | | | M | | female | | | female | (SNOMED | | | | Paez | | pelvis | | | | CT) | | | | PUBLIC HEALTH PHYSICIAN | | | | +---------+---------+---------+--------+---------+---------+---------+---------+---------+ | Endomet | [id number] | | Active | | Yomaira | | Endomet | | | riosis | | | | | M | | riosis | | | | (SNOMED | | | | Paez | | (clinic | | | | CT) | | | | PUBLIC HEALTH PHYSICIAN | | al) | | +---------+---------+---------+--------+---------+---------+---------+---------+---------+ | Chronic | 8600429 | | Active | | Yomaira | | Chronic | | | pain | 1 | /21 | | /21 | M | | pain | | | | (SNOMED | | | | Paez | | | | | | CT) | | | | PUBLIC HEALTH PHYSICIAN | | | | +---------+---------+---------+--------+---------+---------+---------+---------+---------+ Medications + + + + + + + + | Medication | Instructio | Start Date | Stop Date | Generic | NDC | Provider | | | ns | | | Name | | | + + + + + + + + | SERTRALINE | take 2 | | | SERTRALINE | [id number] | Sheila Dorman | | HCL 100 [...] take 1 | | | CLONAZEPAM | [id number] | Sheila Dorman | | 0.5 MG [...] NS | | | | | [place] PUBLIC HEALTH PHYSICIAN | + + + + +--------+ + | AVIANE TABS | | | Critical | Active | Yomaira M | | | | | | | [place] PUBLIC HEALTH PHYSICIAN | + + + + +--------+ + | PENICILLIN | | | Moderate | Active | Yomaira M | | | | | | | [place] PUBLIC HEALTH PHYSICIAN | + + + + +--------+ + [...] Therapy | | | | [facility] [place] | | | | [facility] | | | | [facility], | | | | [place], [address] | | | | | + + [...] | + + + + + | CPT-43110 | [facility] | | | | [...] | + + + + + | CPT-18469 | [facility] DIAG | | | | | MONIQUEAL W/MED [facility] | | | + + + + + | DME | DME | | | + + + + + | [id number] | SNOMED-CT: | | | | | [id number] Smoking | | | | | Cessation | | | | | Counseling | | | + + + + + | [id number] | SNOMED-CT: | | | | | [id number] | | | | | Current Medications [...] -- 2 surgeries to cor rect -- 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 | | | first. her last Fosters 10mg refill was on | | | [...]
--- OUTSIDE RECORDS SUMMARY | ~2020-06-29 | XMS | Clinical Summary ---
Demographics + + + | Address | [address] | | | [place] [address] | + + + | Home Phone | | + + + | Preferred Language | Unknown | + + + | Marital Status | Unknown or other | + + + | Jain Affiliation | Unknown | + + + | Race | White | + + + | Ethnic Group | Patient Declined | + + + Author + + + | Author | [facility] | + + + | Organization | [facility] | + + + | Address | [address] | | | [place] [address] | + + + | Phone | | + + + Care Team Providers + + + + | Care Client Support Associate Name | Role | Phone | + [...] tion | | +---------+---------+---------+--------+---------+---------+---------+---------+---------+ | Body | [id number] | | Active | | Amal | [...] | | | +---------+---------+---------+--------+---------+---------+---------+---------+---------+ | Pneumon | [id number] | | Active | | Marilyn | | Pneumon | | | ia | 07 | /25 | | /25 | R | | ia | | | | (SNOMED | | | | Czapka | | | | | | CT) | | | | WELDER SETTER RESISTANCE MACHINE | | | | +---------+---------+---------+--------+---------+---------+---------+---------+---------+ | Screeni | [id number] | | Active | | Sheila | | Procedu | | | ng for | | / | | / | Osteen | | re | | | infecti | (SNOMED | | | | PA-C | | carried | | | ous | CT) | | | | | | out on | | | disease | | | | | | | | | | | | | | | | | subject | | +---------+---------+---------+--------+---------+---------+---------+---------+---------+ | Depress | [id number] | | Active | | Sheila | | Depress | | | ion | | / | | | Osteen | | cesilia | | | | (SNOMED | | | | PA-C | | disorde | | | | CT) | | | | | | r | | +---------+---------+---------+--------+---------+---------+---------+---------+---------+ | screeni | [id number] | | Active | | Amal | | Depress | | | ng for | | | | | Tominna | | ion | | | depress | (SNOMED | | | | | | screeni | | | ion | CT) | | | | | | ng | | +---------+---------+---------+--------+---------+---------+---------+---------+---------+ | Encount | [id number] | | Active | | Yaneli | [...] | | | +---------+---------+---------+--------+---------+---------+---------+---------+---------+ | Degener | [id number] | | Active | | Sheila | | Degener | | | ative | 8 | | | | Osteen | | ation | | | disc | (SNOMED | | | | PA-C | | of | | | disease | CT) | | | | | | interve | | | | | | | | | | rtebral | | | | | | | | | | disc | | +---------+---------+---------+--------+---------+---------+---------+---------+---------+ | Cervica | [id number] | | Active | | Sheila | | HPV - | | | l high | 04 | /10 | | /13 | Osteen | | Human | | | risk [...] | | | +---------+---------+---------+--------+---------+---------+---------+---------+---------+ | Umbilic | [id number] | | Active | | Sheila | | Umbilic | | | al | | / | | | Osteen | | al | | | hernia | (SNOMED | | | | PA-C | | hernia | | | | CT) | | | | | | | | +---------+---------+---------+--------+---------+---------+---------+---------+---------+ | Other | [id number] | | Active | | Sheila | | Dyspnea | | | abnorma | 07 | /13 | | /16 | Osteen | | | | | lities | (SNOMED | | | | PA-C | | | | | of | CT) | | | | | | | | | breathi | | | | | | | | | | ng | | | | | | | | | +---------+---------+---------+--------+---------+---------+---------+---------+---------+ | Cigaret | [id number] | | Active | | Yaneli | | Cigaret | | | te | 7 | /30 | | /05 | Anil | | te | | | smoker | (SNOMED | | | | | | smoker | | | | CT) | | | | | | | | +---------+---------+---------+--------+---------+---------+---------+---------+---------+ | Autism | [id number] | | Active | | Elder | | Autisti | | | | 03 | / | | /13 | D | | c | | | | (SNOMED | | | | [place] | | disorde | | | | CT) | | | | MD | | r | | +---------+---------+---------+--------+---------+---------+---------+---------+---------+ | Lumbar | [id number] | | Active | | Leobardo | [...] | | | +---------+---------+---------+--------+---------+---------+---------+---------+---------+ | Anxiety | [id number] | | Active | | Leobardo | | Anxiety | | | | 06 | / | | | [place] MD | | | | | disorde | (SNOMED | | | | | | disorde | | | r | CT) | | | | | | r | | +---------+---------+---------+--------+---------+---------+---------+---------+---------+ | Vitamin | [id number] | | Active | | Yomaira | | Vitamin | | | D | 6 | / | | | M | | D | | | deficie | (SNOMED | | | | Paez | | deficie | | | ncy | CT) | | | | J2EE ARCHITECT | | ncy | | +---------+---------+---------+--------+---------+---------+---------+---------+---------+ | Sacroil | [id number] | | Active | | Yomaira | | Sacroil | | | iac | 03 | | | | M | | iac | | | joint | (SNOMED | | | | Paez | | disorde | | | dysfunc | CT) | | | | J2EE ARCHITECT | | r | | | tion | | | | | | | | | +---------+---------+---------+--------+---------+---------+---------+---------+---------+ | Pain in | [id number] | | Active | | Yomaira | | Multipl | | | joint, | | | | | M | | e joint | | | | (SNOMED | | | | Paez | | pain | | | multipl | CT) | | | | J2EE ARCHITECT | | | | | e sites | | | | | | | | | +---------+---------+---------+--------+---------+---------+---------+---------+---------+ | Ilioing | [id number] | | Active | | Yomaira | | Ilioing | | | uinal | | | | | M | | uinal | | | nerve | (SNOMED | | | | Paez | | nerve | | | neuriti | CT) | | | | J2EE ARCHITECT | | neuriti | | | s, left | | | | | | | s | | +---------+---------+---------+--------+---------+---------+---------+---------+---------+ | Incisio | [id number] | | Active | | Yomaira | | Incisio | | | nal | 00 | / | | | M | | nal | | | hernia | (SNOMED | | | | Paez | | hernia | | | | CT) | | | | J2EE ARCHITECT | | | | +---------+---------+---------+--------+---------+---------+---------+---------+---------+ | Hx of | [id number] | | Active | | Yomaira | | H/O: | | | dysmeno | | | | | M | | dysmeno | | | rrhea | (SNOMED | | | | Paez | | rrhea | | | | CT) | | | | J2EE ARCHITECT | | | | +---------+---------+---------+--------+---------+---------+---------+---------+---------+ | Pelvic | [id number] | | Active | | Yomaira | | Pain in | | | pain, | 03 | | | | M | | female | | | female | (SNOMED | | | | Paez | | pelvis | | | | CT) | | | | J2EE ARCHITECT | | | | +---------+---------+---------+--------+---------+---------+---------+---------+---------+ | Endomet | [id number] | 2017/11 | Active | | Yomaira | | Endomet | | | riosis | 03 | /21 | | /21 | M | | riosis | | | | (SNOMED | | | | Paez | | (clinic | | | | CT) | | | | J2EE ARCHITECT | | al) | | +---------+---------+---------+--------+---------+---------+---------+---------+---------+ | Chronic | [id number] | | Active | | Yomaira | | Chronic | | | pain | 1 | | | | M | | pain | | | | (SNOMED | | | | Paez | | | | | | CT) | | | | J2EE ARCHITECT | | | | +---------+---------+---------+--------+---------+---------+---------+---------+---------+ Medications + + + + + + + + | Medication | Instructio | Start Date | Stop Date | Generic | NDC | Provider | | | ns | | | Name | | | + + + + + + + + | TRAMADOL | one pill | | | TRAMADOL | [id number] | Sheila Dorman | | HCL 50 [...] take 1 | | | CLONAZEPAM | [id number] | Sheila Dorman | | 0.5 MG [...] take 1 | | | VENLAFAXIN | [id number] | Sheila Dorman | | E HCL ER | capsule by | | | E HCL | 5 | PA-C | | 150 MG | mouth | | | | | | | TX20O-MUM | daily | | | | | [...] NS | | | | | Paez J2EE ARCHITECT | + + + + +--------+ + | AVIANE TABS | | | Critical | Active | Yomaira M | | | | | | | Paez J2EE ARCHITECT | + + + + +--------+ + | PENICILLIN | | | Moderate | Active | Yomaira M | | | | | | | Paez J2EE ARCHITECT | + + + + +--------+ + [...] | Appointment | 11:00 AM | [address], | | | | [place], [place], | + + + + | Referral | | OB-OXYGEN EQUIPMENT TECHNICIAN Women | | | | - Clau Roach | | | | [facility] for, [address], [address], | | | | [place], [place], [address] | | | | | + + [...] | + + + + + | [id number] | SNOMED-CT: | | | | | [id number] | | | | | Current Medications | | | | | Documented | | | + + + + + | [id number] | XR Chest 2 Views | | | + + + + + | CBC | CBC- Auto Diff | | | + + + + + | OTHLAB | Other Lab | | | + + + + + | CPT-63121 | [facility] PSYTX PT/FAM | | | | | 30 MIN | | | + + + + + | CPT-3725F | [facility] Depression | | | | | Screening ([facility]) | | | + + + + + | CPT-3725F | [facility] Depression | | | | | Screening ([facility]) | | | + + + + + | CPT-4004F | [facility] TOBACCO SCREEN | | | | | AND COUNSELING | | | | | ([facility]) | | | + + + + + | CPT-29562 | [facility] PSYTX PT/FAM | | | | | 45 MIN | | | + + + + + | CPT-3725F | [facility] Depression | | | | | Screening ([facility]) | | | + + + + + | CPT-04111 | [facility] PSYCH | | | | [...] | + + + + + | CPT-81894 | [facility] PS[facility]CH DIAG | | | | | EVAL W/MED SRVCS | | | + + + + + | DME | DME | | | + + + + + | [id number] | SNOMED-CT: | | | | | [id number] Smoking | | | | | Cessation | | | | | Counseling | | | + + + + + | [id number] | SNOMED-CT: | | | | | [id number] | | | | | Current Medications | | | | | Documented | | | + + + + + | CPT-3725F | [facility] Depression | | | | | Screening ([facility]) | | | + + + + + | [id number] | Physical | | | | | [...] -- 2 surgeries to cor rect -- Embossograph Operator Dr Julien.Peptic ulcerpyelonephritisPernicious anemia History of Present Illness + + + | History of Present Illness Description | Start Date | + + + | [facility] FOLLOW-UP NOTE Duration of | [...] Tele-Psych | | | as she prefers neqq-yp-lpwi sessions. | | | Discussion was had on Pts potential | | | options. Three were identified. Pt is able | | | to transition to a different PCP, Pt is | | | able to engage in Tele-Psych through [facility], | | | and Pt is able to pursue psychiatric | | | evaluation from a different psychiatrist | | | outside of [facility]. Pt decided at this time to | | | pursue Tele-Psych through [facility] and was | | | scheduled for Tele-Psych appointment. | | | Reviewed Medication(s) Plan: Pt agrees to | | | continue current medication regimen as | | | prescribed by PCP. SCREENING SCORESPHQ9: | | | Screening not completed.GAD7: Screening | | | not completed. BARRIERS TO CARE None | | | identified.[facility]Psych[facility] appointment | | | scheduled. Counseling interventions: | | | Problem-Focused Therapy.Substance use | | | interventions (if applicable): N/APatient | | | will follow-up with: [facility] if she chooses to | | | in the future. The pt is able to | | | participate in treatment and consents to | | | the [facility] treatment plan. | | + + + | Patient is here today for a med | | | review.................................... | | | ................................Jadyn | | | Arredondo [facility] February 09, 2019 11:44 AM | | [...] | | .........................Kae Moran | | | J2EE ARCHITECT January 14, 2019 1:58 PM Sick for [...] sick. History of | | | pneumonia [phone] (Patient | | | cell) [phone] (Dad emergency contact) | | + + + | Patient is here today wanting an | | | antibiotic with possible | | | MRSA...................................... | | | ..............................Jadyn | | | [facility] January 05, 2019 12:59 PM | | | DAVID LANDAVERDE is a 38 year old female | | | who presents to the clinic today with | | | chief complaint of several issues to | | | discuss1) father with another bout of | | | MRSA. Pt as talking to her new OXYGEN EQUIPMENT TECHNICIAN and | | | states that she [...] needing paperwork | | | filled out breed to wean production technician said they was not | | | filled out | | | right..................................... | | | ..............................Jadyn | | | [facility] November 05, 2018 8:00 PM [...] | | | plan.Ongoing endometiral pain, last resident advisor | | | [facility] better diagnosis. | | | she has had hernia surgery mesh and is | | | concerned aobut his. We discussed that | | | she does need to follow specialist | | | recommendations and there may be changes | | | in the past 5 years. She will consider. | | | She will be having the [facility] mental health | | | [...] + + | Follow up anxiety psychotherapy [facility] | | | FOLLOW-UP NOTE [...] | | .............................Jadyn | | | Arnulfo [facility] October 01, 2018 5:08 PM | | [...] | | | ...............................Jadyn | | | [facility] September 04, 2018 3:53 PM [...] + + + | Follow up psychotherapy [facility] FOLLOW-UP | | | NOTE Duration of session: 50 | | | minutesCURRENT BEHAVIORAL HEALTH | | | CONCERNS/REASON(S) FOR VISIT: Pt is a 38 | | | year old female Patient self-referred to | | | the Behavioral Health Integration Program | | | ([facility]) for Anxiety and Pervasive | [...] | | | 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 | | | first. her last [place] 10mg refill was on | | | [...]
--- OUTSIDE RECORDS SUMMARY | ~2020-06-29 | XMS | Clinical Summary ---
Demographics + + + | Address | [address] | | | [place] [address] | + + + | Home Phone | | + + + | Preferred Language | Unknown | + + + | Marital Status | Unknown or other | + + + | Scientologist Affiliation | Unknown | + + + | Race | White | + + + | Ethnic Group | Patient Declined | + + + Author + + + | Author | [facility] | + + + | Organization | [facility] | + + + | Address | [address] | | | [place] [address] | + + + | Phone | | + + + Care Team Providers + + + + | Care Cattle Knocker Name | Role | Phone | + [...] | | tion | | +---------+---------+---------+--------+---------+---------+---------+---------+---------+ | screeni | [id number] | | Active | | Amal | | Depress | | | ng for | | / | | / | [place] | | ion | | | depress | (SNOMED | | | | | | screeni | | | ion | CT) | | | | | | ng | | +---------+---------+---------+--------+---------+---------+---------+---------+---------+ | Encount | [id number] | | Active | | Yaneli | [...] | | | +---------+---------+---------+--------+---------+---------+---------+---------+---------+ | Degener | [id number] | | Active | | Sheila | | Degener | | | ative | 8 | /13 | | /13 | [place] | | ation | | | disc | (SNOMED | | | | PA-C | | of | | | disease | CT) | | | | | | interve | | | | | | | | | | rtebral | | | | | | | | | | disc | | +---------+---------+---------+--------+---------+---------+---------+---------+---------+ | Cervica | [id number] | | Active | | Sheila | | HPV - | | | l high | 04 | /10 | | /13 | [place] | | Human | | | risk [...] | | | +---------+---------+---------+--------+---------+---------+---------+---------+---------+ | Umbilic | [id number] | | Active | | Sheila | | Umbilic | | | al | 07 | / | | / | [place] | | al | | | hernia | (SNOMED | | | | PA-C | | hernia | | | | CT) | | | | | | | | +---------+---------+---------+--------+---------+---------+---------+---------+---------+ | Other | [id number] | | Active | | Sheila | | Dyspnea | | | abnorma | | | | /16 | [place] | | | | | lities | (SNOMED | | | | PA-C | | | | | of | CT) | | | | | | | | | breathi | | | | | | | | | | ng | | | | | | | | | +---------+---------+---------+--------+---------+---------+---------+---------+---------+ | Cigaret | 7444364 | | Active | | Yaneli | | Cigaret | | | te | 7 | /30 | | /05 | Anil | | te | | | smoker | (SNOMED | | | | | | smoker | | | | CT) | | | | | | | | +---------+---------+---------+--------+---------+---------+---------+---------+---------+ | Autism | [id number] | | Active | | Elder | | Autisti | | | | 03 | /13 | | / | D | | c | | | | (SNOMED | | | | [place] | | disorde | | | | CT) | | | | MD | | r | | +---------+---------+---------+--------+---------+---------+---------+---------+---------+ | Lumbar | 2592666 | | Active | | Leobardo | [...] | | | +---------+---------+---------+--------+---------+---------+---------+---------+---------+ | Anxiety | [id number] | | Active | | Leobardo | | Anxiety | | | | | | | | Robyn AMOS | | | | | disorde | (SNOMED | | | | | | disorde | | | r | CT) | | | | | | r | | +---------+---------+---------+--------+---------+---------+---------+---------+---------+ | Vitamin | [id number] | | Active | | Yomaira | | Vitamin | | | D | 6 | /21 | | / | M | | D | | | deficie | (SNOMED | | | | Paez | | deficie | | | ncy | CT) | | | | SENIOR CLINICAL PROJECT MANAGER | | ncy | | +---------+---------+---------+--------+---------+---------+---------+---------+---------+ | Sacroil | [id number] | | Active | | Yomaira | | Sacroil | | | iac | 03 | | | | M | | iac | | | joint | (SNOMED | | | | Paez | | disorde | | | dysfunc | CT) | | | | SENIOR CLINICAL PROJECT MANAGER | | r | | | tion | | | | | | | | | +---------+---------+---------+--------+---------+---------+---------+---------+---------+ | Pain in | [id number] | | Active | | Yomaira | | Multipl | | | joint, | 5 | / | | / | M | | e joint | | | | (SNOMED | | | | Paez | | pain | | | multipl | CT) | | | | SENIOR CLINICAL PROJECT MANAGER | | | | | e sites | | | | | | | | | +---------+---------+---------+--------+---------+---------+---------+---------+---------+ | Ilioing | [id number] | | Active | | Yomaira | | Ilioing | | | uinal | 08 | | | | M | | uinal | | | nerve | (SNOMED | | | | Paez | | nerve | | | neuriti | CT) | | | | SENIOR CLINICAL PROJECT MANAGER | | neuriti | | | s, left | | | | | | | s | | +---------+---------+---------+--------+---------+---------+---------+---------+---------+ | Incisio | [id number] | | Active | | Yomaira | | Incisio | | | nal | 00 | | | | M | | nal | | | hernia | (SNOMED | | | | Paez | | hernia | | | | CT) | | | | SENIOR CLINICAL PROJECT MANAGER | | | | +---------+---------+---------+--------+---------+---------+---------+---------+---------+ | Hx of | [id number] | | Active | | Yomaira | | H/O: | | | dysmeno | | | | | M | | dysmeno | | | rrhea | (SNOMED | | | | Paez | | rrhea | | | | CT) | | | | SENIOR CLINICAL PROJECT MANAGER | | | | +---------+---------+---------+--------+---------+---------+---------+---------+---------+ | Pelvic | [id number] | | Active | | Yomaira | | Pain in | | | pain, | 03 | / | | | M | | female | | | female | (SNOMED | | | | Paez | | pelvis | | | | CT) | | | | SENIOR CLINICAL PROJECT MANAGER | | | | +---------+---------+---------+--------+---------+---------+---------+---------+---------+ | Endomet | 2454743 | | Active | | Yomaira | | Endomet | | | riosis | 03 | | | | M | | riosis | | | | (SNOMED | | | | Paez | | (clinic | | | | CT) | | | | SENIOR CLINICAL PROJECT MANAGER | | al) | | +---------+---------+---------+--------+---------+---------+---------+---------+---------+ | Chronic | [id number] | | Active | | Yomaira | | Chronic | | | pain | 1 | / | | | M | | pain | | | | (SNOMED | | | | Paez | | | | | | CT) | | | | SENIOR CLINICAL PROJECT MANAGER | | | | +---------+---------+---------+--------+---------+---------+---------+---------+---------+ Medications + + + + + + + + | Medication | Instructio | Start Date | Stop Date | Generic | NDC | Provider | | | ns | | | Name | | | + + + + + + + + | SERTRALINE | take 2 | | | SERTRALINE | [id number] | Sheila Dorman | | HCL 100 | tablet by | | | HCL | 0 | PA-C | | MG TABS | mouth | | | | | | | | daily | | | | | | + + + + + + + + | TRAMADOL | one pill | | | TRAMADOL | [id number] | Sheila Dorman | | HCL 50 [...] take 1 | | | CLONAZEPAM | [id number] | Sheila Dorman | | 0.5 MG [...] NS | | | | | Paez SENIOR CLINICAL PROJECT MANAGER | + + + + +--------+ + | AVIANE TABS | | | Critical | Active | Yomaira M | | | | | | | Paez SENIOR CLINICAL PROJECT MANAGER | + + + + +--------+ + | PENICILLIN | | | Moderate | Active | Yomaira M | | | | | | | Paez SENIOR CLINICAL PROJECT MANAGER | + + + + +--------+ [...] | 01:20 PM | Sheila Dorman PA-C, [address] [place] [address] | | | | [facility], [place], [place], | | | | | + + + + | Appointment | 04:00 PM | [facility], | | | | [address], | | | | [place], [place], | + + + + | Referral | | Physical | | | | Therapy/Occupational | | | | Therapy | + + + + | Referral | | Physical | | | | Therapy/Occupational | | | | Therapy | | | | [facility] [place] | | | | [facility] | | | | [facility], | | | | [facility] [address] | | | | | + + [...] | + + + + + | CPT-68774 | [facility] PSYTX PT/FAM | | | | [...] | + + + + + | CPT-39124 | [facility] PSYTX PT/FAM | | | | | 45 MIN | | | + + + + + | CPT-3725F | [facility] Depression | | | | | Screening ([facility]) | | | + + + + + | CPT-21066 | [facility]CH | | | | [...] | + + + + + | CPT-55917 | [facility] PS[facility]CH DIAG | | | | | CHANCE Rviera/STU SRVCS | | | + + + + + | DME | DME | | | + + + + + | [id number] | SNOMED-CT: | | | | | [id number] Smoking | | | | | Cessation | | | | | Counseling | | | + + + + + | [id number] | SNOMED-CT: | | | | | [id number] | | | | | Current Medications [...] -- 2 surgeries to cor rect -- Taker Off Braker Machine Dr Julien.Peptic ulcerpyelonephritisPernicious anemia History of Present Illness + + + | History of Present Illness Description | Start Date | + + + | Follow up anxiety psychotherapy [facility] | | | FOLLOW-UP NOTE [...] | | | .............................Jadyn | | | [facility] October 01, 2018 5:08 PM [...] | | | ...............................Jadyn | | | [facility] September 04, 2018 3:53 PM [...] + + + | Follow up psychotherapy [facility] FOLLOW-UP | | | NOTE [...] | | | 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 mandated combination 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 and | | | would be [...] | | | .................................Jadyn | | | [facility] August 21, 2018 3:15 PM [...] BEHAVIORAL | | | HEALTH INTEGRATION PROGRAM ([facility]) INITIAL | | | CLINICAL ASSESSMENT Duration of session: | | | 30 minutesCURRENT MENTAL HEALTH | | | CONCERN(S)/REASON(S) FOR VISITPt is a 38 | | | year old female Patient self-referred to | | | the [facility] Health Integration Program | | | ([facility]) for Anxiety and Pervasive | [...] | | started to become concerned of termite technician | | | side effects and took [...] her broter | | | and dad kadiey. She feels that something | | | [...] signed. | | | first. her last [place] 10mg refill was on | | | [...]
--- OUTSIDE RECORDS SUMMARY | ~2020-06-29 | XMS | Clinical Summary ---
Demographics + + + | Address | [address] | | | [place] [address] | + + + | Home Phone | | + + + | Preferred Language | Unknown | + + + | Marital Status | Unknown or other | + + + | Quaker Affiliation | Unknown | + + + | Race | White | + + + | Ethnic Group | Patient Declined | + + + Author + + + | Author | [facility] | + + + | Organization | [facility] | + + + | Address | [address] | | | [place] [address] | + + + | Phone | | + + + Care Team Providers + + + + | Care Water Supply Technician Name | Role | Phone | + [...] tion | | +---------+---------+---------+--------+---------+---------+---------+---------+---------+ | Body | [id number] | | Active | | Amal | [...] | | | +---------+---------+---------+--------+---------+---------+---------+---------+---------+ | Pneumon | [id number] | | Active | | Marilyn | | Pneumon | | | ia | 07 | /25 | | /25 | R | | ia | | | | (SNOMED | | | | Czapka | | | | | | CT) | | | | GOLD MINER | | | | +---------+---------+---------+--------+---------+---------+---------+---------+---------+ | Screeni | [id number] | | Active | | Sheila | | Procedu | | | ng for | | / | | / | [place] | | re | | | infecti | (SNOMED | | | | PA-C | | carried | | | ous | CT) | | | | | | out on | | | disease | | | | | | | | | | | | | | | | | subject | | +---------+---------+---------+--------+---------+---------+---------+---------+---------+ | Depress | [id number] | | Active | | Sheila | | Depress | | | ion | | / | | | [place] | | cesilia | | | | (SNOMED | | | | PA-C | | disorde | | | | CT) | | | | | | r | | +---------+---------+---------+--------+---------+---------+---------+---------+---------+ | screeni | [id number] | | Active | | Amal | | Depress | | | ng for | | | | | Tominna | | ion | | | depress | (SNOMED | | | | | | screeni | | | ion | CT) | | | | | | ng | | +---------+---------+---------+--------+---------+---------+---------+---------+---------+ | Encount | [id number] | | Active | | Yaneli | [...] | | | +---------+---------+---------+--------+---------+---------+---------+---------+---------+ | Degener | [id number] | | Active | | Sheila | | Degener | | | ative | 8 | | | | [place] | | ation | | | disc | (SNOMED | | | | PA-C | | of | | | disease | CT) | | | | | | interve | | | | | | | | | | rtebral | | | | | | | | | | disc | | +---------+---------+---------+--------+---------+---------+---------+---------+---------+ | Cervica | [id number] | | Active | | Sheila | | HPV - | | | l high | 04 | /10 | | /13 | [place] | | Human | | | risk [...] | | | +---------+---------+---------+--------+---------+---------+---------+---------+---------+ | Umbilic | [id number] | | Active | | Sheila | | Umbilic | | | al | | / | | | [place] | | al | | | hernia | (SNOMED | | | | PA-C | | hernia | | | | CT) | | | | | | | | +---------+---------+---------+--------+---------+---------+---------+---------+---------+ | Other | [id number] | | Active | | Sheila | | Dyspnea | | | abnorma | 07 | /13 | | /16 | [place] | | | | | lities | (SNOMED | | | | PA-C | | | | | of | CT) | | | | | | | | | breathi | | | | | | | | | | ng | | | | | | | | | +---------+---------+---------+--------+---------+---------+---------+---------+---------+ | Cigaret | [id number] | | Active | | Yaneli | | Cigaret | | | te | 7 | /30 | | /05 | Anil | | te | | | smoker | (SNOMED | | | | | | smoker | | | | CT) | | | | | | | | +---------+---------+---------+--------+---------+---------+---------+---------+---------+ | Autism | [id number] | | Active | | Elder | | Autisti | | | | 03 | / | | /13 | D | | c | | | | (SNOMED | | | | [place] | | disorde | | | | CT) | | | | MD | | r | | +---------+---------+---------+--------+---------+---------+---------+---------+---------+ | Lumbar | [id number] | | Active | | Leobardo | [...] | | | +---------+---------+---------+--------+---------+---------+---------+---------+---------+ | Anxiety | [id number] | | Active | | Leobardo | | Anxiety | | | | 06 | / | | | Park MD | | | | | disorde | (SNOMED | | | | | | disorde | | | r | CT) | | | | | | r | | +---------+---------+---------+--------+---------+---------+---------+---------+---------+ | Vitamin | [id number] | | Active | | Yomaira | | Vitamin | | | D | 6 | / | | | M | | D | | | deficie | (SNOMED | | | | Paez | | deficie | | | ncy | CT) | | | | RESOURCE COORDINATOR | | ncy | | +---------+---------+---------+--------+---------+---------+---------+---------+---------+ | Sacroil | [id number] | | Active | | Yomaira | | Sacroil | | | iac | 03 | | | | M | | iac | | | joint | (SNOMED | | | | Paez | | disorde | | | dysfunc | CT) | | | | RESOURCE COORDINATOR | | r | | | tion | | | | | | | | | +---------+---------+---------+--------+---------+---------+---------+---------+---------+ | Pain in | [id number] | | Active | | Yomaira | | Multipl | | | joint, | | | | | M | | e joint | | | | (SNOMED | | | | Paez | | pain | | | multipl | CT) | | | | RESOURCE COORDINATOR | | | | | e sites | | | | | | | | | +---------+---------+---------+--------+---------+---------+---------+---------+---------+ | Ilioing | [id number] | | Active | | Yomaira | | Ilioing | | | uinal | | | | | M | | uinal | | | nerve | (SNOMED | | | | Paez | | nerve | | | neuriti | CT) | | | | RESOURCE COORDINATOR | | neuriti | | | s, left | | | | | | | s | | +---------+---------+---------+--------+---------+---------+---------+---------+---------+ | Incisio | [id number] | | Active | | Yomaira | | Incisio | | | nal | 00 | / | | | M | | nal | | | hernia | (SNOMED | | | | Paez | | hernia | | | | CT) | | | | RESOURCE COORDINATOR | | | | +---------+---------+---------+--------+---------+---------+---------+---------+---------+ | Hx of | [id number] | | Active | | Yomaira | | H/O: | | | dysmeno | | | | | M | | dysmeno | | | rrhea | (SNOMED | | | | Paez | | rrhea | | | | CT) | | | | RESOURCE COORDINATOR | | | | +---------+---------+---------+--------+---------+---------+---------+---------+---------+ | Pelvic | [id number] | | Active | | Yomaira | | Pain in | | | pain, | 03 | | | | M | | female | | | female | (SNOMED | | | | Paez | | pelvis | | | | CT) | | | | RESOURCE COORDINATOR | | | | +---------+---------+---------+--------+---------+---------+---------+---------+---------+ | Endomet | [id number] | 2017/11 | Active | | Yomaira | | Endomet | | | riosis | 03 | /21 | | /21 | M | | riosis | | | | (SNOMED | | | | Paez | | (clinic | | | | CT) | | | | RESOURCE COORDINATOR | | al) | | +---------+---------+---------+--------+---------+---------+---------+---------+---------+ | Chronic | [id number] | | Active | | Yomaira | | Chronic | | | pain | 1 | | | | M | | pain | | | | (SNOMED | | | | Paez | | | | | | CT) | | | | RESOURCE COORDINATOR | | | | +---------+---------+---------+--------+---------+---------+---------+---------+---------+ Medications + + + + + + + + | Medication | Instructio | Start Date | Stop Date | Generic | NDC | Provider | | | ns | | | Name | | | + + + + + + + + | VENLAFAXIN | take 1 | | | VENLAFAXIN | [id number] | Sheila Dorman | | E HCL ER | capsule by | | | E HCL | 5 | PA-C | | 75 MG | mouth | | | | | | | [id number] | daily | | | | | | + + + + + + + + | CLONAZEPAM | one tablet | | | CLONAZEPAM | [id number] | Sheila Dorman | | 1 MG [...] take 1 | | | ACETAMINOP | [id number] | Sheila Dorman | | HEN-CODEIN | [...] NS | | | | | Paez RESOURCE COORDINATOR | + + + + +--------+ + | AVIANE TABS | | | Critical | Active | Yomaira M | | | | | | | Paez RESOURCE COORDINATOR | + + + + +--------+ + | PENICILLIN | | | Moderate | Active | Yomaira M | | | | | | | Paez RESOURCE COORDINATOR | + + + + +--------+ + [...] + + + | Referral | | OB-UX DESIGNER Women | | | | - [facility] | | | | [facility] [place], [address], [address], | | | | [place], [place], [address] | | | | | + + [...] + + + + | CPT-4004F | [facility] TOBACCO SCREEN | | | | | AND COUNSELING | | | | | ([facility]) | | | + + + + + | CPT-05436 | [facility] PSYTX PT/FAM | | | | | 30 MIN | | | + + + + + | CPT-3008F | [facility] BODY MASS | | | | | INDEX DOCUMENTED | | | | | ([facility]) | | | + + + + + | [id number] | SNOMED-CT: | | | | | [id number] | | | | | Current Medications | | | | | Documented | | | + + + + + | [id number] | XR Chest 2 Views | | | + + + + + | CBC | CBC- Auto Diff | | | + + + + + | OTHLAB | Other Lab | | | + + + + + | CPT-44471 | [facility] PSYTX PT/FAM | | | | | 30 MIN | | | + + + + + | CPT-3725F | [facility] Depression | | | | | Screening ([facility]) | | | + + + + + | CPT-3725F | [facility] Depression | | | | | Screening ([facility]) | | | + + + + + | CPT-4004F | [facility] TOBACCO SCREEN | | | | | AND COUNSELING | | | | | ([facility]) | | | + + + + + | CPT-24707 | [facility] PSYTX PT/FAM | | | | | 45 MIN | | | + + + + + | CPT-3725F | [facility] Depression | | | | | Screening ([facility]) | | | + + + + + | CPT-10790 | [facility] PSYCH | | | | [...] | + + + + + | CPT-78027 | [facility] PSYCH DIAG | | | | | CHANCE Rivera/[facility] | | | + + + + + | DME | DME | | | + + + + + | [id number] | SNOMED-CT: | | | | | [id number] Smoking | | | | | Cessation | | | | | Counseling | | | + + + + + | [id number] | SNOMED-CT: | | | | | [id number] | | | | | Current Medications | | | | | Documented | | | + + + + + | CPT-3725F | [facility] Depression | | | | | Screening ([facility]) | | | + + + + + | [id number] | Physical | | | | | [...] -- 2 surgeries to cor rect -- Senior It Business Analyst Dr Julien.Peptic ulcerpyelonephritisPernicious anemia History of Present Illness + + + | History of Present Illness Description | Start Date | + + + | Patient is here today for a med | | | review.................................... | | | ................................Jadyn | | | [facility] March 22, 2019 1:16 PM [...] | tablets. She has been to see [facility] for | | | counseling and has [...] sent. | | + + + | [facility] FOLLOW-UP NOTE Duration of | | | session: 30 minutesCURRENT BEHAVIORAL | | | HEALTH CONCERNS/REASON(S) FOR VISIT: Pt is | | | a 38 year old female Patient | | | self-referred to the Behavioral Health | | | Integration Program (IP) for Anxiety and | | | Pervasive [...] Tele-Psych | | | as she prefers pojk-sm-xnbg sessions. | | | Discussion was had on Pts potential | | | options. Three were identified. Pt is able | | | to transition to a different PCP, Pt is | | | able to engage in Tele-Psych through [facility], | | | and Pt is able to pursue psychiatric | | | evaluation from a different psychiatrist | | | outside of [facility]. Pt decided at this time to | | | pursue Tele-Psych through [facility] and was | | | scheduled for [...] N/APatient | | | will follow-up with: [facility] if she chooses to | | | in the future. The pt is able to | | | participate in treatment and consents to | | | the [facility] treatment plan. | | + + + | Patient is here today for a med | | | review.................................... | | | ................................Jadyn | | | [facility] February 09, 2019 11:44 AM | | [...] | | .........................Kae Moran | | | RESOURCE COORDINATOR January 14, 2019 1:58 PM Sick for [...] sick. History of | | | pneumonia [phone] (Patient | | | cell) [phone] (Dad emergency contact) | | + + + | Patient is here today wanting an | | | antibiotic with possible | | | MRSA...................................... | | | ..............................Jadyn | | | Arnulfo [facility] January 05, 2019 12:59 PM | | | DAVDI LANDAVERDE is a 38 year old female | | | who presents to the clinic today with | | | chief complaint of several issues to | | | discuss1) father with another bout of | | | MRSA. Pt as talking to her new UX DESIGNER and | | | states that she [...] needs to schedule | | | with [facility] for furer counseling. | | | Discussed changing to [...] needing paperwork | | | filled out media consultant outside sales said they was not | | | filled out | | | right..................................... | | | ..............................Jadyn | | | [facility] November 05, 2018 8:00 PM [...] as she will need | | | [facility] evalu[facility]. 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 | | | she has had hernia surgery mesh and is | | | concerned aobut his. We discussed that | | | she does need to follow specialist | | | recommendations and there may be changes | | | in the past 5 years. She will consider. | | | She will be having the [facility] mental health | | | evaluation for that portion of the | | | disability forms. | | + + + | Chris is here today needing paperwork | | | filled out for | | | [facility]...................................... | | | ..............................Jadyn | | | [facility] October 20, 2018 1:46 PM | | [...] + + | Follow up anxiety psychotherapy [facility] | | | FOLLOW-UP NOTE Duration of session: 20 | | | minutesCURRENT BEHAVIORAL HEALTH | | | CONCERNS/REASON(S) FOR VISIT: Pt is a 38 | | | year old female Patient self-referred to | | | the Behavioral Health Integration Program | | | ([facility]) for Anxiety and Pervasive | [...] | | | .............................Jadyn | | | [facility] October 01, 2018 5:08 PM [...] | | ...............................Jadyn | | | Arredondo [facility] September 04, 2018 3:53 PM | [...] + + + | Follow up psychotherapy [facility] FOLLOW-UP | | | NOTE Duration of session: 50 | | | minutesCURRENT BEHAVIORAL HEALTH | | | CONCERNS/REASON(S) FOR VISIT: Pt is a 38 | | | year old female Patient self-referred to | | | the Behavioral Health Integration Program | | | ([facility]) for Anxiety and Pervasive | [...] | | | 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 mandated radiology therapist and | | | would be required [...] | | | .................................Jadyn | | | [facility] August 21, 2018 3:15 PM [...] BEHAVIORAL | | | HEALTH INTEGRATION PROGRAM ([facility]) INITIAL | | | CLINICAL ASSESSMENT Duration of session: | | | 30 minutesCURRENT MENTAL HEALTH | | | CONCERN(S)/REASON(S) FOR VISITPt is a 38 | | | year old female Patient self-referred to | | | the Behavioral Health Integration Program | | | (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 She feels that something | | | [...] signed. | | | first. her last [place] 10mg refill was on | | | [...]
--- OUTSIDE RECORDS SUMMARY | ~2020-06-29 | XMS | Clinical Summary ---
Demographics + + + | Address | [address] | | | [place] [address] | + + + | Home Phone | | + + + | Preferred Language | Unknown | + + + | Marital Status | Unknown or other | + + + | Taoist Affiliation | Unknown | + + + | Race | White | + + + | Ethnic Group | Patient Declined | + + + Author + + + | Author | [facility] | + + + | Organization | [facility] | + + + | Address | [address] | | | [place] [address] | + + + | Phone | | + + + Care Team Providers + + + + | Care Mail Room Clerk Name | Role | Phone | [...] tion | | +---------+---------+---------+--------+---------+---------+---------+---------+---------+ | Body | [id number] | | Active | | Amal | [...] | | | +---------+---------+---------+--------+---------+---------+---------+---------+---------+ | Pneumon | [id number] | | Active | | Marilyn | | Pneumon | | | ia | 07 | /25 | | /25 | R | | ia | | | | (SNOMED | | | | Czapka | | | | | | CT) | | | | CAUSTICISER | | | | +---------+---------+---------+--------+---------+---------+---------+---------+---------+ | Screeni | [id number] | | Active | | Sheila | | Procedu | | | ng for | | / | | / | [place] | | re | | | infecti | (SNOMED | | | | PA-C | | carried | | | ous | CT) | | | | | | out on | | | disease | | | | | | | | | | | | | | | | | subject | | +---------+---------+---------+--------+---------+---------+---------+---------+---------+ | Depress | [id number] | | Active | | Sheila | | Depress | | | ion | | / | | | [place] | | cesilia | | | | (SNOMED | | | | PA-C | | disorde | | | | CT) | | | | | | r | | +---------+---------+---------+--------+---------+---------+---------+---------+---------+ | screeni | [id number] | | Active | | Amal | | Depress | | | ng for | | | | | Tominna | | ion | | | depress | (SNOMED | | | | | | screeni | | | ion | CT) | | | | | | ng | | +---------+---------+---------+--------+---------+---------+---------+---------+---------+ | Encount | [id number] | | Active | | Yaneli | [...] | | | +---------+---------+---------+--------+---------+---------+---------+---------+---------+ | Degener | [id number] | | Active | | Sheila | | Degener | | | ative | 8 | | | | [place] | | ation | | | disc | (SNOMED | | | | PA-C | | of | | | disease | CT) | | | | | | interve | | | | | | | | | | rtebral | | | | | | | | | | disc | | +---------+---------+---------+--------+---------+---------+---------+---------+---------+ | Cervica | [id number] | | Active | | Sheila | | HPV - | | | l high | 04 | /10 | | /13 | [place] | | Human | | | risk [...] | | | +---------+---------+---------+--------+---------+---------+---------+---------+---------+ | Umbilic | [id number] | | Active | | Sheila | | Umbilic | | | al | | / | | | [place] | | al | | | hernia | (SNOMED | | | | PA-C | | hernia | | | | CT) | | | | | | | | +---------+---------+---------+--------+---------+---------+---------+---------+---------+ | Other | [id number] | | Active | | Sheila | | Dyspnea | | | abnorma | 07 | /13 | | /16 | [place] | | | | | lities | (SNOMED | | | | PA-C | | | | | of | CT) | | | | | | | | | breathi | | | | | | | | | | ng | | | | | | | | | +---------+---------+---------+--------+---------+---------+---------+---------+---------+ | Cigaret | [id number] | | Active | | Yaneli | | Cigaret | | | te | 7 | /30 | | /05 | Anil | | te | | | smoker | (SNOMED | | | | | | smoker | | | | CT) | | | | | | | | +---------+---------+---------+--------+---------+---------+---------+---------+---------+ | Autism | [id number] | | Active | | Elder | | Autisti | | | | 03 | / | | /13 | D | | c | | | | (SNOMED | | | | [place] | | disorde | | | | CT) | | | | MD | | r | | +---------+---------+---------+--------+---------+---------+---------+---------+---------+ | Lumbar | [id number] | | Active | | Leobardo | [...] | | | +---------+---------+---------+--------+---------+---------+---------+---------+---------+ | Anxiety | 0006563 | | Active | | Leobardo | | Anxiety | | | | 06 | / | | | Park MD | | | | | disorde | (SNOMED | | | | | | disorde | | | r | CT) | | | | | | r | | +---------+---------+---------+--------+---------+---------+---------+---------+---------+ | Vitamin | [id number] | | Active | | Yomaira | | Vitamin | | | D | 6 | / | | | M | | D | | | deficie | (SNOMED | | | | Paez | | deficie | | | ncy | CT) | | | | DEVELOPMENT AND PLANNING ENGINEER | | ncy | | +---------+---------+---------+--------+---------+---------+---------+---------+---------+ | Sacroil | [id number] | | Active | | Yomaira | | Sacroil | | | iac | 03 | | | | M | | iac | | | joint | (SNOMED | | | | Paez | | disorde | | | dysfunc | CT) | | | | DEVELOPMENT AND PLANNING ENGINEER | | r | | | tion | | | | | | | | | +---------+---------+---------+--------+---------+---------+---------+---------+---------+ | Pain in | [id number] | | Active | | Yomaira | | Multipl | | | joint, | | | | | M | | e joint | | | | (SNOMED | | | | Paez | | pain | | | multipl | CT) | | | | DEVELOPMENT AND PLANNING ENGINEER | | | | | e sites | | | | | | | | | +---------+---------+---------+--------+---------+---------+---------+---------+---------+ | Ilioing | [id number] | | Active | | Yomaira | | Ilioing | | | uinal | | | | | M | | uinal | | | nerve | (SNOMED | | | | Paez | | nerve | | | neuriti | CT) | | | | DEVELOPMENT AND PLANNING ENGINEER | | neuriti | | | s, left | | | | | | | s | | +---------+---------+---------+--------+---------+---------+---------+---------+---------+ | Incisio | [id number] | | Active | | Yomaira | | Incisio | | | nal | 00 | / | | | M | | nal | | | hernia | (SNOMED | | | | Paez | | hernia | | | | CT) | | | | DEVELOPMENT AND PLANNING ENGINEER | | | | +---------+---------+---------+--------+---------+---------+---------+---------+---------+ | Hx of | [id number] | | Active | | Yomaira | | H/O: | | | dysmeno | | | | | M | | dysmeno | | | rrhea | (SNOMED | | | | Paez | | rrhea | | | | CT) | | | | DEVELOPMENT AND PLANNING ENGINEER | | | | +---------+---------+---------+--------+---------+---------+---------+---------+---------+ | Pelvic | [id number] | | Active | | Yomaira | | Pain in | | | pain, | 03 | | | | M | | female | | | female | (SNOMED | | | | Paez | | pelvis | | | | CT) | | | | DEVELOPMENT AND PLANNING ENGINEER | | | | +---------+---------+---------+--------+---------+---------+---------+---------+---------+ | Endomet | [id number] | 2017/11 | Active | | Yomaira | | Endomet | | | riosis | 03 | /21 | | /21 | M | | riosis | | | | (SNOMED | | | | Paez | | (clinic | | | | CT) | | | | DEVELOPMENT AND PLANNING ENGINEER | | al) | | +---------+---------+---------+--------+---------+---------+---------+---------+---------+ | Chronic | 0988208 | | Active | | Yomaira | | Chronic | | | pain | 1 | | | | M | | pain | | | | (SNOMED | | | | Paez | | | | | | CT) | | | | DEVELOPMENT AND PLANNING ENGINEER | | | | +---------+---------+---------+--------+---------+---------+---------+---------+---------+ Medications + + + + + + + + | Medication | Instructio | Start Date | Stop Date | Generic | NDC | Provider | | | ns | | | Name | | | + + + + + + + + | CLONAZEPAM | take 1 | | | CLONAZEPAM | [id number] | Sheila Dorman | | 0.5 MG [...] take 1 | | | VENLAFAXIN | [id number] | Sheila Dorman | | E HCL ER | capsule by | | | E HCL | 5 | PA-C | | 150 MG | mouth | | | | | | | [id number] | daily | | | | | | + + + + + + + + | TRAMADOL | one pill | | | TRAMADOL | [id number] | Sheila Dorman | | HCL 50 [...] NS | | | | | Paez DEVELOPMENT AND PLANNING ENGINEER | + + + + +--------+ + | AVIANE TABS | | | Critical | Active | Yomaira M | | | | | | | Paez DEVELOPMENT AND PLANNING ENGINEER | + + + + +--------+ + | PENICILLIN | | | Moderate | Active | Yomaira M | | | | | | | [place]ae[place] DEVELOPMENT AND PLANNING ENGINEER | + + + + +--------+ + [...] + + + | Referral | | OB-BUSINESS OPERATIONS COORDINATOR for | | | | [facility] | | | | Physicians, [address], [address], [place], | | | | [place], [address] | | | | | + + [...] INDEX DOCUMENTED | | | | | (MERGED WITH [facility]) | | | + + + + + | [id number] | SNOMED-CT: | | | | | [id number] | | | | | Current Medications | | | | | Documented | | | + + + + + | [id number] | XR Chest 2 Views | | | + + + + + | CBC | CBC- Auto Diff | | | + + + + + | OTHLAB | Other Lab | | | + + + + + | CPT-75014 | [facility] PT[facility] | | | [...] | + + + + + | CPT-29131 | [facility] PT/F[facility] | | | | | 45 MIN | | | + + + + + | CPT-3725F | [facility] Depression | | | | | Screening ([facility]) | | | + + + + + | CPT-61799 | [facility]CH | | | | [...] | + + + + + | CPT-23943 | [facility] DIAG | | | | | CHANCE Rivera/MED [facility] | | | + + + + + | DME | DME | | | + + + + + | [id number] | SNOMED-CT: | | | | | [id number] Smoking | | | | | Cessation | | | | | Counseling | | | + + + + + | [id number] | SNOMED-CT: | | | | | [id number] | | | | | Current Medications | | | | | Documented | | | + + + + + | CPT-3725F | [facility] Depression | | | | | Screening ([facility]) | | | + + + + + | [id number] | Physical | | | | | [...] 2 surgeries to cor rect -- Supervisor Body Assembly Dr Julien.Peptic ulcerpyelonephritisPernicious anemia History of Present Illness + + + | History of Present Illness Description | Start Date | + + + | Patient is here today for a med | | | review.................................... | | | ................................Jadyn | | | [facility] February 09, 2019 11:44 AM | [...] | | .......................................... | | | .........................Kae Dean | | | DEVELOPMENT AND PLANNING ENGINEER January 14, 2019 1:58 PM Sick for [...] sick. History of | | | pneumonia [phone] (Patient | | | cell) [phone] ([facility] emergency contact) | | + + + | Patient is here today wanting an | | | antibiotic with possible | | | MRSA...................................... | | | ..............................Jadyn | | | Arredondo TAPING MACHINE OPERATOR January 05, 2019 12:59 PM | | | DAVID LANDAVERDE is a 38 year old female | | | who presents to the clinic today with | | | chief complaint of several issues to | | | discuss1) father with another bout of | | | MRSA. Pt as talking to her new BUSINESS OPERATIONS COORDINATOR and | | | states that she [...] needing paperwork | | | filled out incident analyst said they was not | | | filled out | | | right..................................... | | | ..............................Jadyn | | | Arredondo [facility] November 05, 2018 8:00 PM | | [...] as she will need | | | [facility] evaluaiton. I kept the [...] | | | plan.Ongoing endometiral pain, last ply cutter | | | discussed fure lab for better diagnosis. | | | [...] | filled out for | | | [facility]...................................... | | | ..............................Jadyn | | | Arredondo [facility] October 20, 2018 1:46 PM | | [...] + + | Follow up anxiety psychotherapy [facility] | | | FOLLOW-UP NOTE [...] | | | .............................Jadyn | | | [facility] October 01, 2018 5:08 PM [...] | | | ...............................Jadyn | | | [facility] September 04, 2018 3:53 PM | [...] + + + | Follow up psychotherapy [facility] FOLLOW-UP | | | NOTE [...] | | | 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 mandated development and planning engineer and | | | would be [...] | | | .................................Jadyn | | | [facility] August 21, 2018 3:15 PM [...] BEHAVIORAL | | | HEALTH INTEGRATION PROGRAM ([facility]) INITIAL | | | CLINICAL ASSESSMENT Duration of session: | | | 30 minutesCURRENT MENTAL HEALTH | | | CONCERN(S)/REASON(S) FOR VISITPt is a 38 | | | year old female Patient self-referred to | | | the [facility] | | | ([facility]) for Anxiety and Pervasive | [...] | | started to become concerned of halfway | | | side effects and took [...] | + + + | Establish care. Alexeyraminchai LPNchronic low | | | back pain. [...] signed. | | | first. her last [place] 10mg refill was on | | | [...]
--- OUTSIDE RECORDS SUMMARY | ~2020-06-29 | XMS | Clinical Summary ---
Demographics + + + | Address | [address] | | | [place] [address] | + + + | Home Phone | | + + + | Preferred Language | Unknown | + + + | Marital Status | Unknown or other | + + + | Protestant Affiliation | Unknown | + + + | Race | White | + + + | Ethnic Group | Patient Declined | + + + Author + + + | Author | [facility] | + + + | Organization | [facility] | + + + | Address | [address] | | | [place] [address] | + + + | Phone | | + + + Care Team Providers + + + + | Care Truck Driver Flatbed Name | Role | Phone | + [...] tion | | +---------+---------+---------+--------+---------+---------+---------+---------+---------+ | Autism | [id number] | | Active | | Elder | | Autisti | | | | | / | | | D | | c | | | | (SNOMED | | | | [place] | | disorde | | | | CT) | | | | MD | | r | | +---------+---------+---------+--------+---------+---------+---------+---------+---------+ | other | [id number] | | Active | | Amal | [...] subject | | +---------+---------+---------+--------+---------+---------+---------+---------+---------+ | Lumbar | [id number] | | Active | | Leobardo | [...] | | | +---------+---------+---------+--------+---------+---------+---------+---------+---------+ | Anxiety | 7612360 | | Active | | Leobardo | | Anxiety | | | | | | | | Robyn AMOS | | | | | disorde | (SNOMED | | | | | | disorde | | | r | CT) | | | | | | r | | +---------+---------+---------+--------+---------+---------+---------+---------+---------+ | Vitamin | 1422589 | | Active | | Yomaira | | Vitamin | | | D | 6 | 21 | | / | M | | D | | | deficie | (SNOMED | | | | Paez | | deficie | | | ncy | CT) | | | | COPY OPERATOR | | ncy | | +---------+---------+---------+--------+---------+---------+---------+---------+---------+ | Sacroil | 9825231 | | Active | | Yomaira | | Sacroil | | | iac | 03 | / | | 21 | M | | iac | | | joint | (SNOMED | | | | Paez | | disorde | | | dysfunc | CT) | | | | COPY OPERATOR | | r | | | tion | | | | | | | | | +---------+---------+---------+--------+---------+---------+---------+---------+---------+ | Pain in | 7725676 | | Active | | Yomaira | | Multipl | | | joint, | | / | | | M | | e joint | | | | (SNOMED | | | | Paez | | pain | | | multipl | CT) | | | | COPY OPERATOR | | | | | e sites | | | | | | | | | +---------+---------+---------+--------+---------+---------+---------+---------+---------+ | Ilioing | 2114062 | | Active | | Yomaira | | Ilioing | | | uinal | | | | | M | | uinal | | | nerve | (SNOMED | | | | Paez | | nerve | | | neuriti | CT) | | | | COPY OPERATOR | | neuriti | | | s, left | | | | | | | s | | +---------+---------+---------+--------+---------+---------+---------+---------+---------+ | Incisio | 1159683 | | Active | | Yomaira | | Incisio | | | nal | 00 | | | | M | | nal | | | hernia | (SNOMED | | | | Paez | | hernia | | | | CT) | | | | COPY OPERATOR | | | | +---------+---------+---------+--------+---------+---------+---------+---------+---------+ | Hx of | [id number] | | Active | | Yomaira | | H/O: | | | dysmeno | | | | | M | | dysmeno | | | rrhea | (SNOMED | | | | Paez | | rrhea | | | | CT) | | | | COPY OPERATOR | | | | +---------+---------+---------+--------+---------+---------+---------+---------+---------+ | Pelvic | 7423031 | | Active | | Yomaira | | Pain in | | | pain, | | / | | / | M | | female | | | female | (SNOMED | | | | Paez | | pelvis | | | | CT) | | | | COPY OPERATOR | | | | +---------+---------+---------+--------+---------+---------+---------+---------+---------+ | Endomet | [id number] | | Active | | Yomaira | | Endomet | | | riosis | | | | | M | | riosis | | | | (SNOMED | | | | Paez | | (clinic | | | | CT) | | | | COPY OPERATOR | | al) | | +---------+---------+---------+--------+---------+---------+---------+---------+---------+ | Chronic | 0647670 | | Active | | Yomaira | | Chronic | | | pain | 1 | | | | M | | pain | | | | (SNOMED | | | | Paez | | | | | | CT) | | | | COPY OPERATOR | | | | +---------+---------+---------+--------+---------+---------+---------+---------+---------+ Medications + + + + + + + + | Medication | Instructio | Start Date | Stop Date | Generic | NDC | Provider | | | ns | | | Name | | | + + + + + + + + | SERTRALINE | 1.5 po qd | | | SERTRALINE | [id number] | Elder Charles | | HCL 100 | | | | HCL | 0 | Gloria AMOS | | MG TABS | | | | | | | + + + + + + + + | CLONAZEPAM | 1 po tid | | | CLONAZEPAM | [id number] | Elder Charles | | 1 MG TABS | as needed | | | | 1 | Gloria AMOS | | | for | | | [...] NS | | | | | Paez COPY OPERATOR | + + + + +--------+ + | AVIANE TABS | | | Critical | Active | Yomaira M | | | | | | | Paez COPY OPERATOR | + + + + +--------+ + | PENICILLIN | | | Moderate | Active | Yomaira M | | | | | | | Paez COPY OPERATOR | + + + + +--------+ [...] stain | + + + +---+---+---+ + | | PHQ-9 | 11 | | | | Adult | | | SCORE | | | | | depression | | | | | | | | screening | | | | | | | | | | | | | | | | assessment | + + + +---+---+---+ + + + | Office Visit: medication follow up | + + + + + +---+---+---+ [...] + + + +---+---+---+ + | | FALLRSKASS | No | | | | Fall risk | | | ES | | | | | assessment | + + + +---+---+---+ + | [...] + + +---+---+---+ + + + | Lab Report: CMP, [...] Therapy | | | | [facility] [place] | | | | [facility] | | | | [facility], | | | | [place], [address] | | | | | + + [...] | + + + + + | CPT-62857 | [facility] | | | | | CHANCE W/MED SR[facility]CS | | | + + + + + | DME | DME | | | + + + + + | [id number] | SNOMED-CT: | | | | | [id number] Smoking | | | | | Cessation | | | | | Counseling | | | + + + + + | [id number] | SNOMED-CT: | | | | | [id number] | | | | | Current Medications [...] +--------+---------+ + | | Heart Rate | 90 | /min | pulse rate E&M | [...] + +--------+---------+ + | | Body | 99.3 | [degF] | temperature E&M | | [...] Start Date | + + + | medication follow [...] -- 2 surgeries to cor rect -- Lead Athlete Dr Julien.Peptic ulcerpyelonephritisPernicious anemia History of Present [...] was | | | refered to Dr Zerenberg for epidural but | | | her insurance denied. She will be referred | | | to PT She used to take Hydrocodone 10mg | | | tid and Tramadol before. she is not on | | | any controlled substance. we will do UDS | | | and contolled substance agreement signed. | | | first. her last [place] 10mg refill was on | | | [...]
--- OUTSIDE RECORDS SUMMARY | ~2020-06-29 | XMS | Clinical Summary ---
Demographics + + + | Address | [address] | | | [place] [address] | + + + | Home Phone [...] + + + | Address | [address] | | | [place] [address] | + + + | Phone | | + + + Care Team Providers + + + + | Care Personal Lines Account Executive Name | Role | Phone | + [...] | | tion | | +---------+---------+---------+--------+---------+---------+---------+---------+---------+ | Positiv | [id number] | | Active | | Zo | | Positiv | | | e | [id number] | /13 | | /15 | Willoug | | e | | | screeni | 0 | | | | hby | | screeni | | | ng for | (SNOMED | | | | HYDROELECTRIC STATION CHIEF | | ng for | | | [...] 9) | | +---------+---------+---------+--------+---------+---------+---------+---------+---------+ | Cigaret | [id number] | 2018/10 | Active | | Yaneli | | Cigaret | | | te | 7 | /30 | | /05 | Anil | | te | | | smoker | (SNOMED | | | | | | smoker | | | | CT) | | | | | | | | +---------+---------+---------+--------+---------+---------+---------+---------+---------+ | Autism | [id number] | | Active | | Elder | | Autisti | | | | 03 | / | | / | D | | c | | | | (SNOMED | | | | [place] | | disorde | | | | CT) | | | | MD | | r | | +---------+---------+---------+--------+---------+---------+---------+---------+---------+ | other | [id number] | | Active | | Amal | | Procedu | | | screeni | 03 | / | | | Tominna | | re | | | ng | (SNOMED | | | | | | carried | | | | CT) | | | | | | out on | | | | | | | | | | | | | | | | | | | | subject | | +---------+---------+---------+--------+---------+---------+---------+---------+---------+ | Lumbar | [id number] | | Active | | Leobardo | [...] | | | +---------+---------+---------+--------+---------+---------+---------+---------+---------+ | Anxiety | [id number] | | Active | | Leobardo | | Anxiety | | | | | | | | Robyn AMOS | | | | | disorde | (SNOMED | | | | | | disorde | | | r | CT) | | | | | | r | | +---------+---------+---------+--------+---------+---------+---------+---------+---------+ | Vitamin | [id number] | | Active | | Yomaira | | Vitamin | | | D | 6 | / | | | M | | D | | | deficie | (SNOMED | | | | Paez | | deficie | | | ncy | CT) | | | | CANTEEN OPERATOR | | ncy | | +---------+---------+---------+--------+---------+---------+---------+---------+---------+ | Sacroil | [id number] | | Active | | Yomaira | | Sacroil | | | iac | 03 | / | | | M | | iac | | | joint | (SNOMED | | | | Paez | | disorde | | | dysfunc | CT) | | | | CANTEEN OPERATOR | | r | | | tion | | | | | | | | | +---------+---------+---------+--------+---------+---------+---------+---------+---------+ | Pain in | [id number] | | Active | | Yomaira | | Multipl | | | joint, | 5 | / | | | M | | e joint | | | | (SNOMED | | | | Paez | | pain | | | multipl | CT) | | | | CANTEEN OPERATOR | | | | | e sites | | | | | | | | | +---------+---------+---------+--------+---------+---------+---------+---------+---------+ | Ilioing | [id number] | | Active | | Yomaira | | Ilioing | | | uinal | 08 | / | | | M | | uinal | | | nerve | (SNOMED | | | | Paez | | nerve | | | neuriti | CT) | | | | CANTEEN OPERATOR | | neuriti | | | s, left | | | | | | | s | | +---------+---------+---------+--------+---------+---------+---------+---------+---------+ | Incisio | [id number] | | Active | | Yomaira | | Incisio | | | nal | 00 | / | | | M | | nal | | | hernia | (SNOMED | | | | Paez | | hernia | | | | CT) | | | | CANTEEN OPERATOR | | | | +---------+---------+---------+--------+---------+---------+---------+---------+---------+ | Hx of | [id number] | | Active | | Yomaira | | H/O: | | | dysmeno | | | | | M | | dysmeno | | | rrhea | (SNOMED | | | | Paez | | rrhea | | | | CT) | | | | CANTEEN OPERATOR | | | | +---------+---------+---------+--------+---------+---------+---------+---------+---------+ | Pelvic | [id number] | | Active | | Yomaira | | Pain in | | | pain, | | | | | M | | female | | | female | (SNOMED | | | | Paez | | pelvis | | | | CT) | | | | CANTEEN OPERATOR | | | | +---------+---------+---------+--------+---------+---------+---------+---------+---------+ | Endomet | [id number] | | Active | | Yomaira | | Endomet | | | riosis | 03 | /21 | | /21 | M | | riosis | | | | (SNOMED | | | | Paez | | (clinic | | | | CT) | | | | CANTEEN OPERATOR | | al) | | +---------+---------+---------+--------+---------+---------+---------+---------+---------+ | Chronic | [id number] | | Active | | Yomaira | | Chronic | | | pain | 1 | / | | /21 | M | | pain | | | | (SNOMED | | | | Paez | | | | | | CT) | | | | CANTEEN OPERATOR | | | | +---------+---------+---------+--------+---------+---------+---------+---------+---------+ Medications + + + + + + + + | Medication | Instructio | Start Date | Stop Date | Generic | NDC | Provider | | | ns | | | Name | | | + + + + + + + + | SERTRALINE | take 2 | | | SERTRALINE | [id number] | Sheila Dorman | | HCL 100 [...] take 1 | | | CLONAZEPAM | [id number] | Sheila Dorman | | 0.5 MG [...] po tid | | | CLONAZEPAM | [id number] | Sheila Dorman | | 1 MG [...] NS | | | | | Paez CANTEEN OPERATOR | + + + + +--------+ + | AVIANE TABS | | | Critical | Active | Yomaira M | | | | | | | Paez CANTEEN OPERATOR | + + + + +--------+ + | PENICILLIN | | | Moderate | Active | Yomaira M | | | | | | | Paez CANTEEN OPERATOR | + + + + +--------+ [...] +---+ + + + | Office Visit: needs [...] Therapy | | | | [facility] [place] | | | | [facility] | | | | [facility], | | | | [place], [address] | | | | | + + [...] | + + + + + | CPT-81207 | [facility] | | | | [...] | + + + + + | CPT-87447 | [facility] DI[facility] | | | | | [place] W/MED SRVCS | | | + + + + + | DME | DME | | | + + + + + | [id number] | SNOMED-CT: | | | | | [id number] Smoking | | | | | Cessation | | | | | Counseling | | | + + + + + | [id number] | SNOMED-CT: | | | | | [id number] | | | | | Current Medications [...] -- 2 surgeries to cor rect -- Public Works Laborer Dr Julien.Peptic ulcerpyelonephritisPernicious anemia History of Present [...] | | | 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 [...] | | | .................................Jadyn | | | [facility] August 21, 2018 3:15 PM | [...] BEHAVIORAL | | | HEALTH INTEGRATION PROGRAM ([facility]) INITIAL | | | CLINICAL ASSESSMENT Duration of session: | | | 30 minutesCURRENT MENTAL HEALTH | | | CONCERN(S)/REASON(S) FOR VISITPt is a 38 | | | year old female Patient self-referred to | | | the [facility] | | | ([facility]) for [...] | | started to become concerned of skilled nursing | | | side effects and took [...] She | | | used to see PRASHANHT Rose, She was | | | refered [...] signed. | | | first. her last [place] 10mg refill was on | | | [...]
--- OUTSIDE RECORDS SUMMARY | ~2020-06-29 | XMS | Clinical Summary ---
Demographics + + + | Address | [address] | | | [place] [address] | + + + | Home Phone | | + + + | Preferred Language | Unknown | + + + | Marital Status | Unknown or other | + + + | Christian Affiliation | Unknown | + + + | Race | White | + + + | Ethnic Group | Patient Declined | + + + Author + + + | Author | [facility] | + + + | Organization | [facility] | + + + | Address | [address] | | | [place] [address] | + + + | Phone | | + + + Care Team Providers + + + + | Care Fire Sprinkler Service Technician Name | Role | Phone | [...] | | tion | | +---------+---------+---------+--------+---------+---------+---------+---------+---------+ | Encount | [id number] | | Active | | Yaneli | [...] | | | +---------+---------+---------+--------+---------+---------+---------+---------+---------+ | Degener | [id number] | | Active | | Sheila | | Degener | | | ative | 8 | / | | /13 | Alpine | | ation | | | disc | (SNOMED | | | | PA-C | | of | | | disease | CT) | | | | | | interve | | | | | | | | | | rtebral | | | | | | | | | | disc | | +---------+---------+---------+--------+---------+---------+---------+---------+---------+ | Cervica | [id number] | | Active | | Sheila | | HPV - | | | l high | 04 | / | | / | Alpine | | Human | | | risk [...] | | | +---------+---------+---------+--------+---------+---------+---------+---------+---------+ | Umbilic | [id number] | | Active | | Sheila | | Umbilic | | | al | | | | | Alpine | | al | | | hernia | (SNOMED | | | | PA-C | | hernia | | | | CT) | | | | | | | | +---------+---------+---------+--------+---------+---------+---------+---------+---------+ | Other | [id number] | | Active | | Sheila | | Dyspnea | | | abnorma | 07 | / | | /16 | Alpine | | | | | ignacioies | (SNOMED | | | | PA-C | | | | | of | CT) | | | | | | | | | breathi | | | | | | | | | | ng | | | | | | | | | +---------+---------+---------+--------+---------+---------+---------+---------+---------+ | Cigaret | [id number] | | Active | | Yaneli | | Cigaret | | | te | 7 | /30 | | /05 | Anil | | te | | | smoker | (SNOMED | | | | | | smoker | | | | CT) | | | | | | | | +---------+---------+---------+--------+---------+---------+---------+---------+---------+ | Autism | [id number] | | Active | | Elder | | Addisti | | | | 03 | | | | D | | c | | | | (SNOMED | | | | Eau Galle | | disorde | | | | CT) | | | | MD | | r | | +---------+---------+---------+--------+---------+---------+---------+---------+---------+ | other | [id number] | | Active | | Amal | | Procedu | | | screeni | | | | | Tominna | | re | | | ng | (SNOMED | | | | | | carried | | | | CT) | | | | | | out on | | | | | | | | | | | | | | | | | | | | subject | | +---------+---------+---------+--------+---------+---------+---------+---------+---------+ | Lumbar | [id number] | | Active | | Leobardo | [...] | | | +---------+---------+---------+--------+---------+---------+---------+---------+---------+ | Anxiety | 5043080 | | Active | | Leobardo | | Anxiety | | | | | | | | Robyn AMOS | | | | | disorde | (SNOMED | | | | | | disorde | | | r | CT) | | | | | | r | | +---------+---------+---------+--------+---------+---------+---------+---------+---------+ | Vitamin | 3167422 | | Active | | Yomaira | | Vitamin | | | D | 6 | /21 | | /21 | M | | D | | | deficie | (SNOMED | | | | Paez | | deficie | | | ncy | CT) | | | | COMPLIANCE EXAMINER | | ncy | | +---------+---------+---------+--------+---------+---------+---------+---------+---------+ | Sacroil | 6666047 | | Active | | Yomaira | | Sacroil | | | iac | 03 | | | | M | | iac | | | joint | (SNOMED | | | | Paez | | disorde | | | dysfunc | CT) | | | | COMPLIANCE EXAMINER | | r | | | tion | | | | | | | | | +---------+---------+---------+--------+---------+---------+---------+---------+---------+ | Pain in | 2780085 | | Active | | Yomaira | | Multipl | | | joint, | 5 | / | | / | M | | e joint | | | | (SNOMED | | | | Paez | | pain | | | multipl | CT) | | | | COMPLIANCE EXAMINER | | | | | e sites | | | | | | | | | +---------+---------+---------+--------+---------+---------+---------+---------+---------+ | Ilioing | [id number] | | Active | | Yomaira | | Ilioing | | | uinal | 08 | | | | M | | uinal | | | nerve | (SNOMED | | | | Paez | | nerve | | | neuriti | CT) | | | | COMPLIANCE EXAMINER | | neuriti | | | s, left | | | | | | | s | | +---------+---------+---------+--------+---------+---------+---------+---------+---------+ | Incisio | 7293929 | | Active | | Yomaira | | Incisio | | | nal | 00 | | | | M | | nal | | | hernia | (SNOMED | | | | Paez | | hernia | | | | CT) | | | | COMPLIANCE EXAMINER | | | | +---------+---------+---------+--------+---------+---------+---------+---------+---------+ | Hx of | [id number] | | Active | | Yomaira | | H/O: | | | dysmeno | 06 | / | | /21 | M | | dysmeno | | | rrhea | (SNOMED | | | | Paez | | rrhea | | | | CT) | | | | COMPLIANCE EXAMINER | | | | +---------+---------+---------+--------+---------+---------+---------+---------+---------+ | Pelvic | [id number] | | Active | | Yomaira | | Pain in | | | pain, | | | | | M | | female | | | female | (SNOMED | | | | Paez | | pelvis | | | | CT) | | | | COMPLIANCE EXAMINER | | | | +---------+---------+---------+--------+---------+---------+---------+---------+---------+ | Endomet | [id number] | | Active | | Yomaira | | Endomet | | | riosis | | | | | M | | riosis | | | | (SNOMED | | | | Paez | | (clinic | | | | CT) | | | | COMPLIANCE EXAMINER | | al) | | +---------+---------+---------+--------+---------+---------+---------+---------+---------+ | Chronic | 2180533 | | Active | | Yomaira | | Chronic | | | pain | 1 | /21 | | /21 | M | | pain | | | | (SNOMED | | | | Paez | | | | | | CT) | | | | COMPLIANCE EXAMINER | | | | +---------+---------+---------+--------+---------+---------+---------+---------+---------+ Medications + + + + + + + + | Medication | Instructio | Start Date | Stop Date | Generic | NDC | Provider | | | ns | | | Name | | | + + + + + + + + | SERTRALINE | take 2 | | | SERTRALINE | [id number] | Sheila Dorman | | HCL 100 | tablet by | | | HCL | 0 | PA-C | | MG TABS | mouth | | | | | | | | daily | | | | | | + + + + + + + + | TRAMADOL | one pill | | | TRAMADOL | [id number] | Sheila Dorman | | HCL 50 [...] take 1 | | | CLONAZEPAM | [id number] | Sheila Dorman | | 0.5 MG [...] NS | | | | | Paez COMPLIANCE EXAMINER | + + + + +--------+ + | AVIANE TABS | | | Critical | Active | Yomaira M | | | | | | | Paez COMPLIANCE EXAMINER | + + + + +--------+ + | PENICILLIN | | | Moderate | Active | Yomaira M | | | | | | | Paez COMPLIANCE EXAMINER | + + + + +--------+ + [...] + + +---+ +---+ + | | ROBERTO-GE-placidok | CULT NOT | | | | [...] | 01:20 PM | Sheila Dorman PA-C, [address] | | | | [place], [place], | | | | | + + + + | Appointment | 04:00 PM | Zo BLACK, | | | | [address], | | | | [place], [place], | + + + + | Referral | | Physical | | | | Therapy/Occupational | | | | Therapy | + + + + | Referral | | Physical | | | | Therapy/Occupational | | | | Therapy | | | | [facility] [place] | | | | [place] [address] | | | | [facility], | | | | [place], [address] | | | | | + + [...] | + + + + + | CPT-48317 | 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 Dr Julien.Peptic ulcerpyelonephritisPernicious anemia History of Present [...] | | .............................Jadyn | | | [facility] October 01, 2018 5:08 PM | | [...] | | | ...............................Jadyn | | | [facility] September 04, 2018 3:53 PM | [...] Behavioral Health Integration Program | | | ([facility]) for [...] | | | 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 Dar GRIGSBYNchronic low | | | back pain. --major [...] signed. | | | first. her last [place] 10mg refill was on | | | [...]
--- OUTSIDE RECORDS SUMMARY | ~2020-06-29 | XMS | Clinical Summary ---
Demographics + + + | Address | [address] | | | [place] [address] | + + + | Home Phone | | + + + | Preferred Language | Unknown | + + + | Marital Status | Unknown or other | + + + | Pentecostal Affiliation | Unknown | + + + | Race | White | + + + | Ethnic Group | Patient Declined | + + + Author + + + | Author | [facility] | + + + | Organization | [facility] | + + + | Address | [address] | | | [place] [address] | + + + | Phone | | + + + Care Team Providers + + + + | Care Plating Equipment Tender Name | Role | Phone | + [...] tion | | +---------+---------+---------+--------+---------+---------+---------+---------+---------+ | Other | [id number] | | Active | | Sheila | | Dyspnea | | | abnorma | | / | | / | [place]enson | | | | | lities | (SNOMED | | | | PA-C | | | | | of | CT) | | | | | | | | | breathi | | | | | | | | | | ng | | | | | | | | | +---------+---------+---------+--------+---------+---------+---------+---------+---------+ | Positiv | [id number] | | Active | | Zo | | Positiv | | | e | [id number] | | | /15 | Willoug | | e | | | screeni | 0 | | | | hby | | screeni | | | ng for | (SNOMED | | | | SOCIAL INSURANCE ADMINISTRATOR | | ng for | | | [...] 9) | | +---------+---------+---------+--------+---------+---------+---------+---------+---------+ | Cigaret | 8321493 | | Active | | Yaneli | | Cigaret | | | te | 7 | /30 | | /05 | Anil | | te | | | smoker | (SNOMED | | | | | | smoker | | | | CT) | | | | | | | | +---------+---------+---------+--------+---------+---------+---------+---------+---------+ | Autism | 8727932 | | Active | | Elder | | Addisti | | | | 03 | /13 | | /13 | D | | c | | | | (SNOMED | | | | [place] | | disorde | | | | CT) | | | | MD | | r | | +---------+---------+---------+--------+---------+---------+---------+---------+---------+ | other | 1889399 | | Active | | Amal | [...] subject | | +---------+---------+---------+--------+---------+---------+---------+---------+---------+ | Lumbar | 5452580 | | Active | | Leobardo | [...] | | | +---------+---------+---------+--------+---------+---------+---------+---------+---------+ | Anxiety | 7286208 | | Active | | Leobardo | | Anxiety | | | | | | | | Robyn AMOS | | | | | disorde | (SNOMED | | | | | | disorde | | | r | CT) | | | | | | r | | +---------+---------+---------+--------+---------+---------+---------+---------+---------+ | Vitamin | 1676582 | | Active | | Yomaira | | Vitamin | | | D | 6 | /21 | | /21 | M | | D | | | deficie | (SNOMED | | | | Paez | | deficie | | | ncy | CT) | | | | SHOE LINING FITTER | | ncy | | +---------+---------+---------+--------+---------+---------+---------+---------+---------+ | Sacroil | 3900049 | | Active | | Yomaira | | Sacroil | | | iac | 03 | / | | | M | | iac | | | joint | (SNOMED | | | | Paez | | disorde | | | dysfunc | CT) | | | | SHOE LINING FITTER | | r | | | tion | | | | | | | | | +---------+---------+---------+--------+---------+---------+---------+---------+---------+ | Pain in | 1125465 | | Active | | Yomaira | | Multipl | | | joint, | 5 | /21 | | / | M | | e joint | | | | (SNOMED | | | | Paez | | pain | | | multipl | CT) | | | | SHOE LINING FITTER | | | | | e sites | | | | | | | | | +---------+---------+---------+--------+---------+---------+---------+---------+---------+ | Ilioing | [id number] | | Active | | Yomaira | | Ilioing | | | uinal | 08 | | | | M | | uinal | | | nerve | (SNOMED | | | | Paez | | nerve | | | neuriti | CT) | | | | SHOE LINING FITTER | | neuriti | | | s, left | | | | | | | s | | +---------+---------+---------+--------+---------+---------+---------+---------+---------+ | Incisio | 0704730 | | Active | | Yomaira | | Incisio | | | nal | 00 | | | | M | | nal | | | hernia | (SNOMED | | | | Paez | | hernia | | | | CT) | | | | SHOE LINING FITTER | | | | +---------+---------+---------+--------+---------+---------+---------+---------+---------+ | Hx of | 6259721 | | Active | | Yomaira | | H/O: | | | dysmeno | | | | | M | | dysmeno | | | rrhea | (SNOMED | | | | Paez | | rrhea | | | | CT) | | | | SHOE LINING FITTER | | | | +---------+---------+---------+--------+---------+---------+---------+---------+---------+ | Pelvic | 9460122 | | Active | | Yomaira | | Pain in | | | pain, | | | | | M | | female | | | female | (SNOMED | | | | Paez | | pelvis | | | | CT) | | | | SHOE LINING FITTER | | | | +---------+---------+---------+--------+---------+---------+---------+---------+---------+ | Endomet | 3992682 | | Active | | Yomaira | | Endomet | | | riosis | | | | | M | | riosis | | | | (SNOMED | | | | Paez | | (clinic | | | | CT) | | | | SHOE LINING FITTER | | al) | | +---------+---------+---------+--------+---------+---------+---------+---------+---------+ | Chronic | 5932835 | | Active | | Yomaira | | Chronic | | | pain | 1 | /21 | | /21 | M | | pain | | | | (SNOMED | | | | Paez | | | | | | CT) | | | | SHOE LINING FITTER | | | | +---------+---------+---------+--------+---------+---------+---------+---------+---------+ Medications + + + + + + + + | Medication | Instructio | Start Date | Stop Date | Generic | NDC | Provider | | | ns | | | Name | | | + + + + + + + + | SERTRALINE | take 2 | | | SERTRALINE | [id number] | Sheila Dorman | | HCL 100 | tablet by | | | HCL | 0 | PA-C | | MG TABS | mouth | | | | | | | | daily | | | | | | + + + + + + + + | TRAMADOL | one pill | | | TRAMADOL | [id number] | Sheila Dorman | | HCL 50 [...] take 1 | | | CLONAZEPAM | [id number] | Sheila Dorman | | 0.5 MG [...] NS | | | | | Paez SHOE LINING FITTER | + + + + +--------+ + | AVIANE TABS | | | Critical | Active | Yomaira M | | | | | | | Paez SHOE LINING FITTER | + + + + +--------+ + | PENICILLIN | | | Moderate | Active | Yomaira M | | | | | | | Paez SHOE LINING FITTER | + + + + +--------+ + [...] | 01:20 PM | Sheila Dorman PA-C, [address] [place] [address] | | | | [place], [place], | | | | | + + + + | Appointment | 04:00 PM | Zo [facility], | | | | [address], | | | | [place], [place], | + + + + | Referral | | Physical | | | | Therapy/Occupational | | | | Therapy | | | | [facility] [place] | | | | [facility] | | | | [facility], | | | | [place], [address] | | | | | + + [...] + + + + | CPT-4004F | [facility] TOBACCO SCREEN | | | | | AND COUNSELING | | | | | ([facility]) | | | + + + + + | CPT-67216 | [facility] PSYTX PT/FAM | | | | | 45 MIN | | | + + + + + | CPT-3725F | [facility] Depression | | | | | Screening ([facility]) | | | + + + + + | CPT-63341 | [facility] | | | | [...] | + + + + + | CPT-84619 | [facility] DIAG | | | | | EVAL W/MED SRVCS | | | + + + + + | DME | DME | | | + + + + + | [id number] | SNOMED-CT: | | | | | [id number] Smoking | | | | | Cessation | | | | | Counseling | | | + + + + + | [id number] | SNOMED-CT: | | | | | [id number] | | | | | Current Medications [...] -- 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) for Anxiety and Pervasive | | | [...] | | | ...............................Jadyn | | | [facility] September 04, 2018 3:53 PM | [...] + + + | Follow up psychotherapy [facility] FOLLOW-UP | | | NOTE Duration of session: 50 | | | minutesCURRENT BEHAVIORAL HEALTH | | | CONCERNS/REASON(S) FOR VISIT: Pt is a 38 | | | year old female Patient self-referred to | | | the Behavioral Health Integration Program | | | (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 | | | .................................Jadny | | | [facility] August 21, 2018 3:15 PM | [...] | | started to become concerned of group home | | | 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 | | | first. her last [place] 10mg refill was on | | | [...]
--- OUTSIDE RECORDS SUMMARY | ~2020-06-29 | XMS | Clinical Summary ---
Demographics + + + | Address | [address] | | | [place] [address] | + + + | Home Phone [...] Author + + + | Author | [facility] | + + + | Organization | [facility] | + + + | Address | [address] | | | [place] [address] | + + + | Phone | | + + + Care Team Providers + + + + | Care Dictaphone Mechanic Name | Role | Phone | + [...] tion | | +---------+---------+---------+--------+---------+---------+---------+---------+---------+ | Body | [id number] | | Active | | Amal | [...] | | | +---------+---------+---------+--------+---------+---------+---------+---------+---------+ | Pneumon | [id number] | | Active | | Marilyn | | Pneumon | | | ia | 07 | /25 | | /25 | R | | ia | | | | (SNOMED | | | | Czapka | | | | | | CT) | | | | 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 MANAGER | | | | +---------+---------+---------+--------+---------+---------+---------+---------+---------+ | Screeni | [id number] | | Active | | Sheila | | Procedu | | | ng for | | / | | / | [place] | | re | | | infecti | (SNOMED | | | | PA-C | | carried | | | ous | CT) | | | | | | out on | | | disease | | | | | | | | | | | | | | | | | subject | | +---------+---------+---------+--------+---------+---------+---------+---------+---------+ | Depress | [id number] | | Active | | Sheila | | Depress | | | ion | | | | | [place] | | cesilia | | | | (SNOMED | | | | PA-C | | disorde | | | | CT) | | | | | | r | | +---------+---------+---------+--------+---------+---------+---------+---------+---------+ | screeni | [id number] | | Active | | [place] | | Depress | | | ng for | | | | | T[place]na | | ion | | | depress | (SNOMED | | | | | | screeni | | | ion | CT) | | | | | | ng | | +---------+---------+---------+--------+---------+---------+---------+---------+---------+ | Encount | [id number] | | Active | | Yaneli | [...] | | | +---------+---------+---------+--------+---------+---------+---------+---------+---------+ | Degener | [id number] | | Active | | Sheila | | Degener | | | ative | 8 | | | | [place] | | ation | | | disc | (SNOMED | | | | PA-C | | of | | | disease | CT) | | | | | | interve | | | | | | | | | | rtebral | | | | | | | | | | disc | | +---------+---------+---------+--------+---------+---------+---------+---------+---------+ | Cervica | [id number] | | Active | | Sheila | | HPV - | | | l high | 04 | /10 | | /13 | [place] | | Human | | | risk [...] | | | +---------+---------+---------+--------+---------+---------+---------+---------+---------+ | Umbilic | [id number] | | Active | | Sheila | | Umbilic | | | al | | / | | | [place] | | al | | | hernia | (SNOMED | | | | PA-C | | hernia | | | | CT) | | | | | | | | +---------+---------+---------+--------+---------+---------+---------+---------+---------+ | Other | [id number] | | Active | | Sheila | | Dyspnea | | | abnorma | 07 | /13 | | /16 | [place] | | | | | lities | (SNOMED | | | | PA-C | | | | | of | CT) | | | | | | | | | breathi | | | | | | | | | | ng | | | | | | | | | +---------+---------+---------+--------+---------+---------+---------+---------+---------+ | Cigaret | [id number] | | Active | | Yaneli | | Cigaret | | | te | 7 | /30 | | /05 | Anil | | te | | | smoker | (SNOMED | | | | | | smoker | | | | CT) | | | | | | | | +---------+---------+---------+--------+---------+---------+---------+---------+---------+ | Autism | [id number] | | Active | | Elder | | Autisti | | | | 03 | / | | /13 | D | | c | | | | (SNOMED | | | | [place] | | disorde | | | | CT) | | | | MD | | r | | +---------+---------+---------+--------+---------+---------+---------+---------+---------+ | Lumbar | [id number] | | Active | | Leobardo | [...] | | | +---------+---------+---------+--------+---------+---------+---------+---------+---------+ | Anxiety | [id number] | | Active | | Leobardo | | Anxiety | | | | 06 | / | | | [place] MD | | | | | disorde | (SNOMED | | | | | | disorde | | | r | CT) | | | | | | r | | +---------+---------+---------+--------+---------+---------+---------+---------+---------+ | Vitamin | [id number] | | Active | | Yomaira | | Vitamin | | | D | 6 | | | | M | | D | | | deficie | (SNOMED | | | | Paez | | deficie | | | ncy | CT) | | | | ELECTRONIC COMMERCE SPECIALIST | | ncy | | +---------+---------+---------+--------+---------+---------+---------+---------+---------+ | Sacroil | [id number] | | Active | | Yomaira | | Sacroil | | | iac | 03 | | | | M | | iac | | | joint | (SNOMED | | | | Paez | | disorde | | | dysfunc | CT) | | | | ELECTRONIC COMMERCE SPECIALIST | | r | | | tion | | | | | | | | | +---------+---------+---------+--------+---------+---------+---------+---------+---------+ | Pain in | [id number] | | Active | | Yomaira | | Multipl | | | joint, | | | | | M | | e joint | | | | (SNOMED | | | | Paez | | pain | | | multipl | CT) | | | | ELECTRONIC COMMERCE SPECIALIST | | | | | e sites | | | | | | | | | +---------+---------+---------+--------+---------+---------+---------+---------+---------+ | Ilioing | [id number] | | Active | | Yomaira | | Ilioing | | | uinal | | | | | M | | uinal | | | nerve | (SNOMED | | | | Paez | | nerve | | | neuriti | CT) | | | | ELECTRONIC COMMERCE SPECIALIST | | neuriti | | | s, left | | | | | | | s | | +---------+---------+---------+--------+---------+---------+---------+---------+---------+ | Incisio | [id number] | | Active | | Yomaira | | Incisio | | | nal | 00 | / | | | M | | nal | | | hernia | (SNOMED | | | | Paez | | hernia | | | | CT) | | | | ELECTRONIC COMMERCE SPECIALIST | | | | +---------+---------+---------+--------+---------+---------+---------+---------+---------+ | Hx of | [id number] | | Active | | Yomaira | | H/O: | | | dysmeno | | | | | M | | dysmeno | | | rrhea | (SNOMED | | | | Paez | | rrhea | | | | CT) | | | | ELECTRONIC COMMERCE SPECIALIST | | | | +---------+---------+---------+--------+---------+---------+---------+---------+---------+ | Pelvic | [id number] | | Active | | Yomaira | | Pain in | | | pain, | | | | | M | | female | | | female | (SNOMED | | | | Paez | | pelvis | | | | CT) | | | | ELECTRONIC COMMERCE SPECIALIST | | | | +---------+---------+---------+--------+---------+---------+---------+---------+---------+ | Endomet | [id number] | | Active | | Yomaira | | Endomet | | | riosis | 03 | /21 | | /21 | M | | riosis | | | | (SNOMED | | | | Paez | | (clinic | | | | CT) | | | | ELECTRONIC COMMERCE SPECIALIST | | al) | | +---------+---------+---------+--------+---------+---------+---------+---------+---------+ | Chronic | [id number] | | Active | | Yomaira | | Chronic | | | pain | 1 | | | | M | | pain | | | | (SNOMED | | | | Paez | | | | | | CT) | | | | ELECTRONIC COMMERCE SPECIALIST | | | | +---------+---------+---------+--------+---------+---------+---------+---------+---------+ Medications + + + + + + + + | Medication | Instructio | Start Date | Stop Date | Generic | NDC | Provider | | | ns | | | Name | | | + + + + + + + + | ACETAMINOP | take 1 | | | ACETAMINOP | [id number] | Sheila Dorman | | HEN-CODEIN | [...] one tablet | | | CLONAZEPAM | [id number] | Sheila Dorman | | 1 MG [...] take 1 | | | VENLAFAXIN | [id number] | Sheila Dorman | | E HCL ER | capsule by | | | E HCL | 5 | PA-C | | 75 MG | mouth | | | | | | | [id number] | daily | | | | | [...] NS | | | | | Paez ELECTRONIC COMMERCE SPECIALIST | + + + + +--------+ + | AVIANE TABS | | | Critical | Active | Yomaira M | | | | | | | Paez ELECTRONIC COMMERCE SPECIALIST | + + + + +--------+ + | PENICILLIN | | | Moderate | Active | Yomaira M | | | | | | | Paez ELECTRONIC COMMERCE SPECIALIST | + + + + +--------+ + [...] + + + | Referral | | OB-PELT INSPECTOR Women | | | | - [facility] | | Physicians [facility], [address] | | | [address], | | | | [place], [address] | | | | | + + [...] | + + + + + | CPT-69113 | [facility] PSYTX PT/FAM | | | | | 30 MIN | | | + + + + + | CPT-3008F | [facility] BODY MASS | | | | | INDEX DOCUMENTED | | | | | ([facility]) | | | + + + + + | [id number] | SNOMED-CT: | | | | | [id number] | | | | | Current Medications | | | | | Documented | | | + + + + + | 61538 | XR Chest 2 Views | | | + + + + + | CBC | CBC- Auto Diff | | | + + + + + | OTHLAB | Other Lab | | | + + + + + | CPT-55225 | [facility] PSYTX PT/FAM | | | | | 30 MIN | | | + + + + + | CPT-3725F | [facility] Depression | | | | | Screening ([facility]) | | | + + + + + | CPT-3725F | [facility] Depression | | | | | Screening ([facility]) | | | + + + + + | CPT-4004F | [facility] TOBACCO SCREEN | | | | | AND COUNSELING | | | | | ([facility]) | | | + + + + + | CPT-50050 | [facility] PSYTX PT/FAM | | | | | 45 MIN | | | + + + + + | CPT-3725F | [facility] Depression | | | | | Screening ([facility]) | | | + + + + + | CPT-08317 | [facility] PSYCH | | | | [...] | + + + + + | CPT-48510 | [facility] PSYCH DIAG | | | | | [facility] | | | + + + + + | DME | DME | | | + + + + + | [id number] | SNOMED-CT: | | | | | [id number] Smoking | | | | | Cessation | | | | | Counseling | | | + + + + + | [id number] | SNOMED-CT: | | | | | [id number] | | | | | Current Medications | | | | | Documented | | | + + + + + | CPT-3725F | [facility] Depression | | | | | Screening ([facility]) | | | + + + + + | [id number] | Physical | | | | | [...] -- 2 surgeries to cor rect -- 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 | | | ................................Jadyn | | | Arredondo CMA March 22, 2019 1:16 PM DAVID | [...] Tele-Psych | | | as she prefers lnbx-bt-banw sessions. | | | Discussion was had on Pts potential | | | options. Three were identified. Pt is able | | | to transition to a different PCP, Pt is | | | able to engage in Tele-Psych through [facility], | | | and Pt is able to pursue psychiatric | | | evaluation from a different psychiatrist | | | outside of [facility]. Pt decided at this time to | | | pursue Tele-Psych through [facility] and was | | | scheduled for Tele-Psych appointment. | | | Reviewed Medication(s) Plan: Pt agrees to | | | continue current medication regimen as | | | prescribed by PCP. SCREENING SCORESPHQ9: | | | Screening not completed.GAD7: Screening | | | not completed. BARRIERS TO CARE None | | | identified.[facility] | | | scheduled. Counseling interventions: | | | Problem-Focused Therapy.Substance use | | | interventions (if applicable): N/APatient | | | will follow-up with: [facility] if she chooses to | | | in the future. The pt is able to | | | participate in treatment and consents to | | | the [facility] treatment plan. | | + + + | Patient is here today for a med | | | review.................................... | | | ................................Jadyn | | | [facility] February 09, 2019 11:44 AM | [...] | | .........................Kae Moran | | | ELECTRONIC COMMERCE SPECIALIST January 14, 2019 1:58 PM Sick for [...] sick. History of | | | pneumonia [phone] (Patient | | | cell) [phone] (Dad emergency contact) | | + + [...] MRSA. Pt as talking to her new PELT INSPECTOR and | | | states that she [...] needing paperwork | | | filled out commercial account officer said they was not | | | [...] as she will need | | | [facility] evaluaiton. 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 | | | discussed furhte lab for [...] | | She will be having the [facility] mental health | | | [...] + + | Follow up anxiety psychotherapy [facility] | | | FOLLOW-UP NOTE [...] | | | .............................Jadyn | | | [facility] October 01, 2018 5:08 PM | [...] | | | ...............................Jadyn | | | [facility] September 04, 2018 3:53 PM | [...] + + + | Follow up psychotherapy [facility] FOLLOW-UP | | | NOTE Duration of session: 50 | | | minutesCURRENT BEHAVIORAL HEALTH | | | CONCERNS/REASON(S) FOR VISIT: Pt is a 38 | | | year old female Patient self-referred to | | | the Behavioral Health Integration Program | | | ([facility]) for Anxiety and Pervasive | [...] | | | 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 mandated health actuary and | | | would be required [...] | | | .................................Jadyn | | | [facility] August 21, 2018 3:15 PM | [...] BEHAVIORAL | | | HEALTH INTEGRATION PROGRAM ([facility]) INITIAL | | | CLINICAL ASSESSMENT Duration of session: | | | 30 minutesCURRENT MENTAL HEALTH | | | CONCERN(S)/REASON(S) FOR VISITPt is a 38 | | | year old female Patient self-referred to | | | the [facility] Health Integration Program | | | ([facility]) for Anxiety and Pervasive | [...] | | started to become concerned of correction | | | 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 | | | first. her last [place] 10mg refill was on | | | [...]
--- OUTSIDE RECORDS SUMMARY | ~2020-06-29 | XMS | Continuity of Care Document ---
Demographics + + + | Address | [address] | | | [place] [address] | + + + | Home Phone | | + + + | Preferred Language | Unknown | + + + | Marital Status | Unknown | + + + | Samaritan Affiliation | Unknown | + + + | Race | Unknown | + + + | Ethnic Group | Unknown | + + + Author + + + | Author | [facility] | + + + | Organization | [facility] | + + + | Address | [facility] Information & | | | Technology support for [facility] | + + + | Phone | Unavailable | + + + Support + + + + + | Name | Relationship | Address | Phone | + + + + + | EUGENE LANDAVERDE | Next Of Kin | [address] | | | | | [place] [address] | | + + + + + Care Team Providers + + + + | Care Defensive Secondary Coach Name | Role | Phone | + + + + | Sheila Dorman | Unavailable | | + + + + Insurance Providers + + + + + | Payer Name | Policy Number | Subscriber Name | Relationship | + + + + + | KELSEY STEELE | [id number] | DAVID LANDAVERDE | SAME PATIENT | | [facility] | | | | + + + + + Chief Complaint and Reason for Visit + + + | Reason for Visit | EYE INJURY | + + + Problems No problem information available. Medications Current Home Medications + +------+-------+-------+ + + +--------+ | Medicati | Dose | Units | Route | Directio | Days/Qty | Instruct | Start | | on | | | | ns | | ions | Date | + +------+-------+-------+ + + +--------+ | Clonazep | 1 | MG | ORAL | | | | | | am 1 MG | | | | | | | | | TABLET | | | | | | | | + +------+-------+-------+ + + +--------+ | Sertrali | 200 | MG | ORAL | ONCE | | | | | ne Hcl | | | | DAILY | | | | | 100 MG | | | | | | | | | TABLET | | | | | | | | + +------+-------+-------+ + + +--------+ | TRAMADOL | 50 | MG | ORAL | EVERY 6 | | | | | HCL | | | | HOURS | | | | | (ULTRAM) | | | | NEEDED. | | | | | 50 MG | | | | as | | | | | TABLET | | | | needed | | | | | | | | | for Pain | | | | + +------+-------+-------+ + + +--------+ Past Home Medications + + + + + | Medication | Directions | Ordered | Status | + + + + + | Alprazolam 0.5 Mg | for ANXIETY | Unknown | Discontinued | | Tablet Tablet, 0.25 | | | | | Mg Oral | | | | + + + + + | Docusate Sodium | ONCE DAILY for | Unknown | Discontinued | | (Stool Softener) | CONSTIPATION | | | | 250 Mg Capsule | | | | | Capsule, 3 Tab Oral | | | | + + + + + | Duloxetine Hcl | AT BEDTIME | Unknown | Discontinued | | (Cymbalta) 60 Mg | | | | | Capsule.dr | | | | | Capsule.dr, 40 Mg | | | | | Oral | | | | + + + + + | Gabapentin 100 Mg | AT BEDTIME as | Unknown | Discontinued | | Capsule Capsule, | needed for Pain | | | | 600 Mg Oral | | | | + + + + + | Hydrocodone/Apap | FIVE TIMES DAILY as | Unknown | Discontinued | | 5-325 Mg 1 Each | needed for Pain | | | | Tablet Tablet, 2 | | | | | Tab Oral | | | | + + + + + | Hydroxyzine Pamoate | TWICE DAILY | 05/04/18 | Discontinued | | (Vistaril) 50 Mg | NEEDED as needed | | | | Capsule Capsule, 50 | for Anxiety | | | | Mg Oral | | | | + + + + + | Propranolol Hcl 20 | ONCE DAILY as | Unknown | Discontinued | | Mg Tablet Tablet, | needed for Anxiety | | | | 10 Mg Oral | | | | + + + + + Social History + + + + + | Query | Response | Start Date | Stop Date | + + + + + | Smoking Status/ | Current Every Day | | | | | Smoker | | | + + + + + Hospital Discharge Instructions No hospital discharge instructions. Plan of Care + + + | Discharge Date | 10/15/18 | + + + | Disposition | DISCHARGE HOME ROUTINE HOME | + + + | Condition at Discharge | Stable | + + + | Instructions/Education Provided | Erythromycin (Into the eye) | | | Corneal Abrasion (ED) | | | Corneal Abrasion (DC) | + + + | Forms Provided | Home Medications/Allergy Form | + + + | Prescriptions | See Medications Section | + + + | Referrals | Leo Garces - Reason(s) for | | | Referral:Notes:Dr. Garces will see you here | | | tomorrow at 1100. | | |Notes: | | |Dr. Garces will see you here tomorrow at 1100. | + + + | Additional Instructions/Education | Return to the Emergency Department | | | tomorrow around [address] Garces will | | | see you for followup care for your eye | | | injury. | + + + Functional Status + + + + | Query | Response | Date Recorded | + + + + | Weight LB: | 120.00 | October 15, 2018 3:36pm | + + + + | KG: | 54.43 | October 15, 2018 3:36pm | + + + + | HEIGHT: FT. | 5 | October 15, 2018 3:36pm | + + + + | IN. | 7.00 | October 15, 2018 3:36pm | + + + + Allergies, Adverse [...] + + + | Blood Pressure | 10/15/18 3:36pm | 155/104 | + + + + | Temperature | 12/24/18 3:36pm | 97.8 F | + + + + | Respiratory Rate | 18 3:36pm | 20 | + + + + | Pulse Rate | 10/15/18 3:36pm | 89 | + + + + | Bedside Pulse Oximetry | 18 3:36pm | 100 | + + + + | Height | 18 3:36pm | 5 ft 7 in | + + + + | Height | 10/15/18 3:36pm | 170.18 cm | + + + + | Weight | 18 3:36pm | 120 lb | + + + + | Weight | 10/15/18 3:36pm | 54.43 kg | + + + + | Body Mass Index | 10/15/18 3:36pm | 18.8 kg/m2 | + + + [...] + +--------+-------+ + + + + | Urine | URINE | | | | 05/03/18 | 05/04/18 | | | Source | | | | | 11:17pm | 7:43am | | + + +--------+-------+ + + + + | Urine | YELLOW | | | YELLOW | 05/03/18 | 05/04/18 | | | Color | | | | | 11:17pm | 7:43am | | + + +--------+-------+ + + + + | Urine | CLEAR | | | CLEAR | 05/03/18 | 05/04/18 | | | Appearan | | | | | 11:17pm | 7:43am | | | ce | | | | | | | | + + +--------+-------+ + + + + | Urine | 1.015 | | | 1.000-1. | 05/03/18 | 05/04/18 | | | Specific | | | | 030 | 11:17pm | 7:43am | | | [place] | | | | | | | | + + +--------+-------+ + + + + | Urine pH | 8.0 | | | 5.0 - | 05/03/18 | 05/04/18 | | | | | | | 8.0 | 11:17pm | 7:43am | | + + +--------+-------+ + + + + | Urine | NEGATIVE | mg/dL | | NEGATIVE | 18 | 18 | | | Protein | | | | | 11:17pm | 7:43am | | + + +--------+-------+ + + + + | Urine | NORMAL | mg/dL | | NEGATIVE | 18 | 18 | | | Glucose | | | | | 11:17pm | 7:43am | | | (UA) | | | | | | | | + + +--------+-------+ + + + + | Urine | NEGATIVE | mg/dL | | NEGATIVE | 18 | 18 | | | Ketones | | | | | 11:17pm | 7:43am | | + + +--------+-------+ + + + + | Urine | NEGATIVE | Tho/ul | | NEGATIVE | 05/03/18 | 05/04/18 | | | Occult | | | | | 11:17pm | 7:43am | | | Blood | | | | | | | | + + +--------+-------+ + + + + | Urine | NEGATIVE | mg/dL | | NEGATIVE | 05/03/18 | 05/04/18 | | | Bilirubi | | | | | 11:17pm | 7:43am | | | n | | | | | | | | + + +--------+-------+ + + + + | Urine | NEGATIVE | Anirudh/uL | | NEGATIVE | 05/03/18 | 18 | | | Leukocyt | | | | | 11:17pm | 7:43am | | | e | | | | | | | | | Esterase | | | | | | | | + + +--------+-------+ + + + + | Urine | NEGATIVE | | | NEGATIVE | 05/03/18 | 05/04/18 | | | Nitrite | | | | | 11:17pm | 7:43am | | + + +--------+-------+ + + + + | Urine | NORMAL | mg/dL | | < 2.0 | 05/03/18 | 05/04/18 | | | Urobilin | | | | | 11:17pm | 7:43am | | | ogen | | | | | | | | + + +--------+-------+ + + + + | N/A | NOT | | | | 05/03/18 | 05/04/18 | | | | INDICATE | | | | 11:17pm | 7:43am | | | | D | | | | | | | + + +--------+-------+ + + + + | Urine | CULT NOT | | | | 05/03/18 | 05/04/18 | | | Culture | | | | | 11:17pm | 7:43am | | | Indicate | INDICATE | | | | | | | | d | D | | | | | | | + + +--------+-------+ + + + + | Urine | NEGATIVE | | | NEGATIVE | 05/03/18 | 05/04/18 | | | Barbitur | | | | | 11:17pm | 8:17am | | | ates | | | | | | | | | Screen | | | | | | | | + + +--------+-------+ + + + + | Urine | NEGATIVE | | | NEGATIVE | 05/03/18 | 05/04/18 | | | Benzodia | | | | | 11:17pm | 8:17am | | | zepines | | | | | | | | | Screen | | | | | | | | + + +--------+-------+ + + + + | Urine | NEGATIVE | | | NEGATIVE | 05/03/18 | 05/04/18 | | | Cocaine | | | | | 11:17pm | 8:17am | | | Screen | | | | | | | | + + +--------+-------+ + + + + | Urine | POSITIVE | | H | NEGATIVE | 05/03/18 | 05/04/18 | | | Amphetam | | | | | 11:17pm | 8:17am | | | pina | | | | | | | | | Screen | | | | | | | | + + +--------+-------+ + + + + | Urine | NEGATIVE | | | NEGATIVE | 05/03/18 | 18 | | | Methadon | | | | | 11:17pm | 8:17am | | | e Screen | | | | | | | | + + +--------+-------+ + + + + | Urine | POSITIVE | | H | NEGATIVE | 18 | 05/04/18 | | | Opiates | | | | | 11:17pm | 8:17am | | | Screen | | | | | | | | + + +--------+-------+ + + + + | Urine | NEGATIVE | | | NEGATIVE | 18 | 18 | | | Oxycodon | | | | | 11:17pm | 8:17am | | | e Screen | | | | | | | | + + +--------+-------+ + + + + | Urine | NEGATIVE | | | NEGATIVE | 18 | 18 | | | Propoxyp | | | | | 11:17pm | 8:17am | | | hene | | | | | | | | | Screen | | | | | | | | + + +--------+-------+ + + + + | Urine | NEGATIVE | | | NEGATIVE | 05/03/18 | 05/04/18 | | | Marijuan | | | | | 11:17pm | 8:17am | | | a (THC) | | | | | | | | | Screen | | | | | | | [...] | % | L | 15-45 | 05/03/18 | 05/03/18 | | | cody % [...] 1 | % | | 0-2 | 05/03/18 | 05/03/18 | | | s % | | | | | 11:15pm | 11:49pm | | | (Manual) | | | | | | | | + + +--------+-------+ + + + + | Platelet | ADEQUATE | | | | 05/03/18 | 05/03/18 | | | [...] > 60 | | | >60 | 05/03/18 | 05/03/18 | Limitati | | Glomerul | | [...] + + + + | Departed | [facility] | 10/15/18 3:35pm | 10/15/18 4:47pm | [facility] | | Emergency | Hospital | | | | + + + + + + | Registered | [facility] | 10/02/18 4:41pm | | [facility] | | Physician/Provi | [facility] | | | [place] | | [facility] | | | | | | Visit | | | | | + + + + + + | Registered | [facility] | 10/01/18 4:34pm | | Sheila Dorman | | Physician/Provi | Hospital | | | [facility] | | [facility] | | | | | | Visit | | | | | + + + + + + | Registered | [facility] | 09/04/18 3:15pm | | [facility] | | Physician/Provi | [facility] | | | [facility] [place] | | [facility] | | | | | | Visit | | | | | + + + + + + | Registered | [facility] | 09/04/18 3:15pm | | Sheila Dorman | | Physician/Provi | Hospital | | | [facility] | | [facility] | | | | | | Visit | | | | | + + + + + + | Registered | [facility] | 08/21/18 3:12pm | | Sheila Dorman | | Physician/Provi | Hospital | | | [facility] | | [facility] | | | | | | Visit | | | | | + + + + + + | Registered | [facility] | 08/21/18 1:17pm | | Abdulaziz Jaimes | | Physician/Provi | Hospital | | | [facility] | | [facility] | | | | | | Visit | | | | | + + + + + + | Departed | [facility] | 05/03/18 | 05/04/18 2:48am | Marilyn Reza | | Emergency | Hospital | 10:44pm | | | + + + + + +"
--- OUTSIDE RECORDS SUMMARY | ~2020-06-29 | XMS | Clinical Summary ---
Demographics + + + | Address | [address] | | | [place] [address] | + + + | Home Phone | | + + + | Preferred Language | Unknown | + + + | Marital Status | Unknown or other | + + + | Oriental Orthodox Affiliation | Unknown | + + + | Race | White | + + + | Ethnic Group | Patient Declined | + + + Author + + + | Author | [facility] | + + + | Organization | [facility] | + + + | Address | [address] | | | [place] [address] | + + + | Phone | | + + + Care Team Providers + + + + | Care Construction Worker Name | Role | Phone | + [...] tion | | +---------+---------+---------+--------+---------+---------+---------+---------+---------+ | Depress | [id number] | | Active | | Sheila | | Depress | | | ion | | / | | / | Gooding | | cesilia | | | | (SNOMED | | | | PA-C | | disorde | | | | CT) | | | | | | r | | +---------+---------+---------+--------+---------+---------+---------+---------+---------+ | screeni | [id number] | | Active | | Amal | | Depress | | | ng for | | / | | / | Tominna | | ion | | | depress | (SNOMED | | | | | | screeni | | | ion | CT) | | | | | | ng | | +---------+---------+---------+--------+---------+---------+---------+---------+---------+ | Encount | [id number] | | Active | | Yaneli | [...] | | | +---------+---------+---------+--------+---------+---------+---------+---------+---------+ | Degener | [id number] | | Active | | Sheila | | Degener | | | ative | | | | | Gooding | | ation | | | disc | (SNOMED | | | | PA-C | | of | | | disease | CT) | | | | | | interve | | | | | | | | | | rtebral | | | | | | | | | | disc | | +---------+---------+---------+--------+---------+---------+---------+---------+---------+ | Cervica | [id number] | | Active | | Sheila | | HPV - | | | l high | 04 | / | | | Gooding | | Human | | | risk [...] | | | +---------+---------+---------+--------+---------+---------+---------+---------+---------+ | Umbilic | [id number] | | Active | | Sheila | | Umbilic | | | al | | | | | Gooding | | al | | | hernia | (SNOMED | | | | PA-C | | hernia | | | | CT) | | | | | | | | +---------+---------+---------+--------+---------+---------+---------+---------+---------+ | Other | [id number] | | Active | | Sheila | | Dyspnea | | | abnorma | | | | /16 | Gooding | | | | | lities | (SNOMED | | | | PA-C | | | | | of | CT) | | | | | | | | | breathi | | | | | | | | | | ng | | | | | | | | | +---------+---------+---------+--------+---------+---------+---------+---------+---------+ | Cigaret | [id number] | | Active | | Yaneli | | Cigaret | | | te | 7 | /30 | | /05 | Anil | | te | | | smoker | (SNOMED | | | | | | smoker | | | | CT) | | | | | | | | +---------+---------+---------+--------+---------+---------+---------+---------+---------+ | Autism | [id number] | | Active | | Elder | | Autisti | | | | 03 | /13 | | /13 | D | | c | | | | (SNOMED | | | | [place] | | disorde | | | | CT) | | | | MD | | r | | +---------+---------+---------+--------+---------+---------+---------+---------+---------+ | Lumbar | [id number] | | Active | | Leobardo | [...] | | | +---------+---------+---------+--------+---------+---------+---------+---------+---------+ | Anxiety | [id number] | | Active | | Leobardo | | Anxiety | | | | 06 | | | | Park MD | | | | | disorde | (SNOMED | | | | | | disorde | | | r | CT) | | | | | | r | | +---------+---------+---------+--------+---------+---------+---------+---------+---------+ | Vitamin | [id number] | | Active | | Yomaira | | Vitamin | | | D | 6 | | | | M | | D | | | deficie | (SNOMED | | | | Paez | | deficie | | | ncy | CT) | | | | NEWSPAPER WRITER | | ncy | | +---------+---------+---------+--------+---------+---------+---------+---------+---------+ | Sacroil | [id number] | | Active | | Yomaira | | Sacroil | | | iac | 03 | | | | M | | iac | | | joint | (SNOMED | | | | Paez | | disorde | | | dysfunc | CT) | | | | NEWSPAPER WRITER | | r | | | tion | | | | | | | | | +---------+---------+---------+--------+---------+---------+---------+---------+---------+ | Pain in | [id number] | | Active | | Yomaira | | Multipl | | | joint, | 5 | / | | / | M | | e joint | | | | (SNOMED | | | | Paez | | pain | | | multipl | CT) | | | | NEWSPAPER WRITER | | | | | e sites | | | | | | | | | +---------+---------+---------+--------+---------+---------+---------+---------+---------+ | Ilioing | [id number] | | Active | | Yomaira | | Ilioing | | | uinal | 08 | | | | M | | uinal | | | nerve | (SNOMED | | | | Paez | | nerve | | | neuriti | CT) | | | | NEWSPAPER WRITER | | neuriti | | | s, left | | | | | | | s | | +---------+---------+---------+--------+---------+---------+---------+---------+---------+ | Incisio | [id number] | | Active | | Yomaira | | Incisio | | | nal | 00 | | | | M | | nal | | | hernia | (SNOMED | | | | Paez | | hernia | | | | CT) | | | | NEWSPAPER WRITER | | | | +---------+---------+---------+--------+---------+---------+---------+---------+---------+ | Hx of | [id number] | | Active | | Yomaira | | H/O: | | | dysmeno | | | | | M | | dysmeno | | | rrhea | (SNOMED | | | | Paez | | rrhea | | | | CT) | | | | NEWSPAPER WRITER | | | | +---------+---------+---------+--------+---------+---------+---------+---------+---------+ | Pelvic | [id number] | | Active | | Yomaira | | Pain in | | | pain, | | | | | M | | female | | | female | (SNOMED | | | | Paez | | pelvis | | | | CT) | | | | NEWSPAPER WRITER | | | | +---------+---------+---------+--------+---------+---------+---------+---------+---------+ | Endomet | [id number] | | Active | | Yomaira | | Endomet | | | riosis | | | | | M | | riosis | | | | (SNOMED | | | | Paez | | (clinic | | | | CT) | | | | NEWSPAPER WRITER | | al) | | +---------+---------+---------+--------+---------+---------+---------+---------+---------+ | Chronic | [id number] | | Active | | Yomaira | | Chronic | | | pain | 1 | /21 | | /21 | M | | pain | | | | (SNOMED | | | | Paez | | | | | | CT) | | | | NEWSPAPER WRITER | | | | +---------+---------+---------+--------+---------+---------+---------+---------+---------+ Medications + + + + + + + + | Medication | Instructio | Start Date | Stop Date | Generic | NDC | Provider | | | ns | | | Name | | | + + + + + + + + | TRAMADOL | one pill | | | TRAMADOL | [id number] | Sheila Dorman | | HCL 50 [...] take 1 | | | CLONAZEPAM | [id number] | Claudia | | 0.5 MG | tablet by | | | | 1 | Rich | | TABS | mouth up | | | | | SNUFF GRINDER | | | to 3 times | | | | | | | | per day | | | | | | + + + + + + + + | SERTRALINE | take 2 | | | SERTRALINE | [id number] | Sheila Dorman | | HCL 100 [...] NS | | | | | Paez NEWSPAPER WRITER | + + + + +--------+ + | AVIANE TABS | | | Critical | Active | Yomaira M | | | | | | | Paez NEWSPAPER WRITER | + + + + +--------+ + | PENICILLIN | | | Moderate | Active | Yomaira M | | | | | | | Paez NEWSPAPER WRITER | + + + + +--------+ + [...] | Appointment | 02:00 PM | [address], | | | | [place], | + + + + | Referral | | Tele-Psych | + + + + | Referral | | Physical | | | | Therapy/Occupational | | | | Therapy | + + + + | Referral | | Physical | | | | Therapy/Occupational | | | | Therapy | | | | [facility] [place] | | | | [facility] | | | | [facility] | | | | [facility] [address] | | | | | + + [...] | + + + + + | CPT-03206 | [facility] PSYTX PT/FAM | | | | [...] | + + + + + | CPT-78178 | [facility] PSYTX PT/FAM | | | | | 45 MIN | | | + + + + + | CPT-3725F | [facility] Depression | | | | | Screening ([facility]) | | | + + + + + | CPT-88440 | [facility] PSYCH | | | | [...] | + + + + + | CPT-59451 | [facility] PSYCH DIAG | | | | | EVAL W/MED SRVCS | | | + + + + + | DME | DME | | | + + + + + | [id number] | SNOMED-CT: | | | | | [id number] Smoking | | | | | Cessation | | | | | Counseling | | | + + + + + | [id number] | SNOMED-CT: | | | | | [id number] | | | | | Current Medications [...] -- 2 surgeries to cor rect -- Financial Services Professional Dr Julien.Peptic ulcerpyelonephritisPernicious anemia History of Present Illness + + + | History of Present Illness Description | Start Date | + + + | Patient is here today needing paperwork | | | filled out coloring room worker said they was not | | [...] as she will need | | | [facility] evaluaiton. 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 | | | she has had hernia surgery mesh and is | | | concerned aobut his. We discussed that | | | she does need to follow specialist | | | recommendations and there may be changes | | | in the past 5 years. She will consider. | | | She will be having the [facility] mental health | | | evaluation for that portion of the | | | disability forms. | | + + + | Chris is here today needing paperwork | | | filled out for | | | [facility]...................................... | | | ..............................Jadyn | | | [facility] October 20, 2018 1:46 PM | [...] + + | Follow up anxiety psychotherapy [facility] | | | FOLLOW-UP NOTE Duration of session: 20 | | | minutesCURRENT BEHAVIORAL HEALTH | | | CONCERNS/REASON(S) FOR VISIT: Pt is a 38 | | | year old female Patient self-referred to | | | the Behavioral Health Integration Program | | | ([facility]) for Anxiety and Pervasive | [...] | | .............................Jadyn | | | Arnulfo [facility] October 01, 2018 5:08 PM | | [...] | | ...............................Jadyn | | | Arredondo [facility] September 04, 2018 3:53 PM | | [...] + + + | Follow up psychotherapy [facility] FOLLOW-UP | | | NOTE Duration of session: 50 | | | minutesCURRENT BEHAVIORAL HEALTH | | | CONCERNS/REASON(S) FOR VISIT: Pt is a 38 | | | year old female Patient self-referred to | | | the Behavioral Health Integration Program | | | (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) INITIAL | | | CLINICAL ASSESSMENT Duration of session: | | | 30 minutesCURRENT MENTAL HEALTH | | | CONCERN(S)/REASON(S) FOR VISITPt is a 38 | | | year old female Patient self-referred to | | | the Behavioral Health Integration Program | | | (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 | | | first. her last [employer] 10mg refill was on | | | [...]
--- OUTSIDE RECORDS SUMMARY | ~2020-06-29 | XMS | Clinical Summary ---
Demographics + + + | Address | [address] | | | [place] [address] | + + + | Home Phone | | + + + | Preferred Language | Unknown | + + + | Marital Status | Unknown or other | + + + | Religion Affiliation | Unknown | + + + | Race | White | + + + | Ethnic Group | Patient Declined | + + + Author + + + | Author | [facility] | + + + | Organization | [facility] | + + + | Address | [address] | | | [place] [address] | + + + | Phone | | + + + Care Team Providers + + + + | Care High School Biology Teacher Name | Role | Phone | + [...] tion | | +---------+---------+---------+--------+---------+---------+---------+---------+---------+ | Depress | [id number] | | Active | | Sheila | | Depress | | | ion | | / | | / | Toombs | | cesilia | | | | (SNOMED | | | | PA-C | | disorde | | | | CT) | | | | | | r | | +---------+---------+---------+--------+---------+---------+---------+---------+---------+ | screeni | [id number] | | Active | | Amal | | Depress | | | ng for | | / | | / | Tominna | | ion | | | depress | (SNOMED | | | | | | screeni | | | ion | CT) | | | | | | ng | | +---------+---------+---------+--------+---------+---------+---------+---------+---------+ | Encount | [id number] | | Active | | Yaneli | [...] | | | +---------+---------+---------+--------+---------+---------+---------+---------+---------+ | Degener | [id number] | | Active | | Sheila | | Degener | | | ative | | | | | [place]ombs | | ation | | | disc | (SNOMED | | | | PA-C | | of | | | disease | CT) | | | | | | interve | | | | | | | | | | rtebral | | | | | | | | | | disc | | +---------+---------+---------+--------+---------+---------+---------+---------+---------+ | Cervica | [id number] | | Active | | Sheila | | HPV - | | | l high | 04 | / | | | [place]ombs | | Human | | | risk [...] | | | +---------+---------+---------+--------+---------+---------+---------+---------+---------+ | Umbilic | [id number] | | Active | | Sheila | | Umbilic | | | al | | | | | [place]bs | | al | | | hernia | (SNOMED | | | | PA-C | | hernia | | | | CT) | | | | | | | | +---------+---------+---------+--------+---------+---------+---------+---------+---------+ | Other | [id number] | | Active | | Sheila | | Dyspnea | | | abnorma | | | | /16 | Toombs | | | | | lities | (SNOMED | | | | PA-C | | | | | of | CT) | | | | | | | | | breathi | | | | | | | | | | ng | | | | | | | | | +---------+---------+---------+--------+---------+---------+---------+---------+---------+ | Cigaret | [id number] | | Active | | Yaneli | | Cigaret | | | te | 7 | /30 | | /05 | Anil | | te | | | smoker | (SNOMED | | | | | | smoker | | | | CT) | | | | | | | | +---------+---------+---------+--------+---------+---------+---------+---------+---------+ | Autism | [id number] | | Active | | Elder | | Autisti | | | | 03 | /13 | | /13 | D | | c | | | | (SNOMED | | | | [place] | | disorde | | | | CT) | | | | MD | | r | | +---------+---------+---------+--------+---------+---------+---------+---------+---------+ | Lumbar | [id number] | | Active | | Leobardo | [...] | | | +---------+---------+---------+--------+---------+---------+---------+---------+---------+ | Anxiety | [id number] | | Active | | Leobardo | | Anxiety | | | | 06 | | | | Park MD | | | | | disorde | (SNOMED | | | | | | disorde | | | r | CT) | | | | | | r | | +---------+---------+---------+--------+---------+---------+---------+---------+---------+ | Vitamin | 1322274 | | Active | | Yomaira | | Vitamin | | | D | 6 | | | | M | | D | | | deficie | (SNOMED | | | | Paez | | deficie | | | ncy | CT) | | | | AQUA AMMONIA OPERATOR | | ncy | | +---------+---------+---------+--------+---------+---------+---------+---------+---------+ | Sacroil | [id number] | | Active | | Yomaira | | Sacroil | | | iac | 03 | | | | M | | iac | | | joint | (SNOMED | | | | Paez | | disorde | | | dysfunc | CT) | | | | AQUA AMMONIA OPERATOR | | r | | | tion | | | | | | | | | +---------+---------+---------+--------+---------+---------+---------+---------+---------+ | Pain in | [id number] | | Active | | Yomaira | | Multipl | | | joint, | 5 | / | | / | M | | e joint | | | | (SNOMED | | | | Paez | | pain | | | multipl | CT) | | | | AQUA AMMONIA OPERATOR | | | | | e sites | | | | | | | | | +---------+---------+---------+--------+---------+---------+---------+---------+---------+ | Ilioing | [id number] | | Active | | Yomaira | | Ilioing | | | uinal | 08 | | | | M | | uinal | | | nerve | (SNOMED | | | | Paez | | nerve | | | neuriti | CT) | | | | AQUA AMMONIA OPERATOR | | neuriti | | | s, left | | | | | | | s | | +---------+---------+---------+--------+---------+---------+---------+---------+---------+ | Incisio | [id number] | | Active | | Yomaira | | Incisio | | | nal | 00 | | | | M | | nal | | | hernia | (SNOMED | | | | Paez | | hernia | | | | CT) | | | | AQUA AMMONIA OPERATOR | | | | +---------+---------+---------+--------+---------+---------+---------+---------+---------+ | Hx of | [id number] | | Active | | Yomaira | | H/O: | | | dysmeno | | | | | M | | dysmeno | | | rrhea | (SNOMED | | | | Paez | | rrhea | | | | CT) | | | | AQUA AMMONIA OPERATOR | | | | +---------+---------+---------+--------+---------+---------+---------+---------+---------+ | Pelvic | [id number] | | Active | | Yomaira | | Pain in | | | pain, | | | | | M | | female | | | female | (SNOMED | | | | Paez | | pelvis | | | | CT) | | | | AQUA AMMONIA OPERATOR | | | | +---------+---------+---------+--------+---------+---------+---------+---------+---------+ | Endomet | [id number] | | Active | | Yomaira | | Endomet | | | riosis | | | | | M | | riosis | | | | (SNOMED | | | | Paez | | (clinic | | | | CT) | | | | AQUA AMMONIA OPERATOR | | al) | | +---------+---------+---------+--------+---------+---------+---------+---------+---------+ | Chronic | [id number] | | Active | | Yomaira | | Chronic | | | pain | 1 | | | | M | | pain | | | | (SNOMED | | | | Paez | | | | | | CT) | | | | AQUA AMMONIA OPERATOR | | | | +---------+---------+---------+--------+---------+---------+---------+---------+---------+ Medications Medications Administered Allergies, Adverse Reactions, Alerts + + + + +--------+ + | Allergy Name | Reaction | Start Date | Severity | Status | Provider | | | Description | | | | | + + + + +--------+ + | CEPHALOSPORI | | | Critical | Active | Yomaira M | | NS | | | | | Paez AQUA AMMONIA OPERATOR | + + + + +--------+ + | AVIANE TABS | | | Critical | Active | Yomaira M | | | | | | | Paez AQUA AMMONIA OPERATOR | + + + + +--------+ + | PENICILLIN | | | Moderate | Active | Yomaira M | | | | | | | Paez AQUA AMMONIA OPERATOR | + + + + +--------+ [...] | + +--------+----+---+---+---+ + Plan of Care Procedures + + + + + | Code | Procedure Name | Date | Entry Date | + + + + + | CPT-92021 | [facility] PSYTX PT/FAM | | | | | 30 MIN | | | + + + + + | CPT-3725F | [facility] Depression | | | | | Screening ([facility]) | | | + + + + + | CPT-3725F | [facility] Depression | | | | | Screening ([facility]) | | | + + + + + | CPT-4004F | [facility] TOBACCO SCREEN | | | | | AND COUNSELING | | | | | ([facility]) | | | + + + + + | CPT-01613 | [facility] PSYTX PT/FAM | | | | | 45 MIN | | | + + + + + | CPT-3725F | [facility] Depression | | | | | Screening ([facility]) | | | + + + + + | CPT-47313 | [facility] PS[facility]CH | | | | [...] | + + + + + | CPT-63189 | [facility] PSYCH DIAG | | | | | EVAL W/MED SRVCS | | | + + + + + | DME | DME | | | + + + + + | [id number] | SNOMED-CT: | | | | | [id number] Smoking | | | | | Cessation | | | | | Counseling | | | + + + + + | [id number] | SNOMED-CT: | | | | | [id number] | | | | | Current Medications [...] -- 2 surgeries to cor rect -- 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.Peptic ulcerpyelonephritisPernicious anemia History of Present Illness + + + | History of Present Illness Description | Start Date | + + + | Follow up anxiety psychotherapy [facility] | | | FOLLOW-UP NOTE Duration of session: 20 | | | minutesCURRENT BEHAVIORAL HEALTH | | | CONCERNS/REASON(S) FOR VISIT: Pt is a 38 | | | year old female Patient self-referred to | | | the Behavioral Health Integration Program | | | ([facility]) for Anxiety and Pervasive | [...] | | | .............................Jadyn | | | [facility] October 01, 2018 5:08 PM | [...] | | | ...............................Jadyn | | | [facility] September 04, 2018 3:53 PM | [...] + + + | Follow up psychotherapy [facility] FOLLOW-UP | | | NOTE Duration of session: 50 | | | minutesCURRENT BEHAVIORAL HEALTH | | | CONCERNS/REASON(S) FOR VISIT: Pt is a 38 | | | year old female Patient self-referred to | | | the Behavioral Health Integration Program | | | ([facility]) for Anxiety and Pervasive | [...] | | | 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 | | | first. her last [employer] 10mg refill was on | | | [...]
--- OUTSIDE RECORDS SUMMARY | ~2020-06-29 | XMS | Clinical Summary ---
Demographics + + + | Address | [address] | | | [place] [address] | + + + | Home Phone [...] Author + + + | Author | [facility] | + + + | Organization | [facility] | + + + | Address | [address] | | | [place] [address] | + + + | Phone | | + + + Care Team Providers + + + + | Care Hog Cooler Name | Role | Phone | + [...] tion | | +---------+---------+---------+--------+---------+---------+---------+---------+---------+ | Autism | [id number] | | Active | | Elder | | Autisti | | | | | / | | | D | | c | | | | (SNOMED | | | | [place] | | disorde | | | | CT) | | | | MD | | r | | +---------+---------+---------+--------+---------+---------+---------+---------+---------+ | other | [id number] | | Active | | Amal | [...] subject | | +---------+---------+---------+--------+---------+---------+---------+---------+---------+ | Lumbar | [id number] | | Active | | Leobardo | [...] | | | +---------+---------+---------+--------+---------+---------+---------+---------+---------+ | Anxiety | [id number] | | Active | | Leobardo | | Anxiety | | | | | | | | Robyn AMOS | | | | | disorde | (SNOMED | | | | | | disorde | | | r | CT) | | | | | | r | | +---------+---------+---------+--------+---------+---------+---------+---------+---------+ | Vitamin | [id number] | | Active | | Yomaira | | Vitamin | | | D | 6 | /21 | | / | M | | D | | | deficie | (SNOMED | | | | Paez | | deficie | | | ncy | CT) | | | | IT SECURITY ANALYST | | ncy | | +---------+---------+---------+--------+---------+---------+---------+---------+---------+ | Sacroil | [id number] | | Active | | Yomaira | | Sacroil | | | iac | 03 | | | | M | | iac | | | joint | (SNOMED | | | | Paez | | disorde | | | dysfunc | CT) | | | | IT SECURITY ANALYST | | r | | | tion | | | | | | | | | +---------+---------+---------+--------+---------+---------+---------+---------+---------+ | Pain in | [id number] | | Active | | Yomaira | | Multipl | | | joint, | | | | | M | | e joint | | | | (SNOMED | | | | Paez | | pain | | | multipl | CT) | | | | IT SECURITY ANALYST | | | | | e sites | | | | | | | | | +---------+---------+---------+--------+---------+---------+---------+---------+---------+ | Ilioing | [id number] | | Active | | Yomaira | | Ilioing | | | uinal | | | | /21 | M | | uinal | | | nerve | (SNOMED | | | | Paez | | nerve | | | neuriti | CT) | | | | IT SECURITY ANALYST | | neuriti | | | s, left | | | | | | | s | | +---------+---------+---------+--------+---------+---------+---------+---------+---------+ | Incisio | [id number] | | Active | | Yomaira | | Incisio | | | nal | 00 | | | | M | | nal | | | hernia | (SNOMED | | | | Paez | | hernia | | | | CT) | | | | IT SECURITY ANALYST | | | | +---------+---------+---------+--------+---------+---------+---------+---------+---------+ | Hx of | [id number] | | Active | | Yomaira | | H/O: | | | dysmeno | 06 | | | | M | | dysmeno | | | rrhea | (SNOMED | | | | Paez | | rrhea | | | | CT) | | | | IT SECURITY ANALYST | | | | +---------+---------+---------+--------+---------+---------+---------+---------+---------+ | Pelvic | [id number] | | Active | | Yomaira | | Pain in | | | pain, | 03 | / | | / | M | | female | | | female | (SNOMED | | | | Paez | | pelvis | | | | CT) | | | | IT SECURITY ANALYST | | | | +---------+---------+---------+--------+---------+---------+---------+---------+---------+ | Endomet | [id number] | | Active | | Yomaira | | Endomet | | | riosis | | | | | M | | riosis | | | | (SNOMED | | | | Paez | | (clinic | | | | CT) | | | | IT SECURITY ANALYST | | al) | | +---------+---------+---------+--------+---------+---------+---------+---------+---------+ | Chronic | [id number] | | Active | | Yomaira | | Chronic | | | pain | 1 | | | | M | | pain | | | | (SNOMED | | | | Paez | | | | | | CT) | | | | IT SECURITY ANALYST | | | | +---------+---------+---------+--------+---------+---------+---------+---------+---------+ Medications + + + + + + + + | Medication | Instructio | Start Date | Stop Date | Generic | NDC | Provider | | | ns | | | Name | | | + + + + + + + + | SERTRALINE | take 1 and | | | SERTRALINE | [id number] | Sheila Dorman | | HCL 100 [...] po tid | | | CLONAZEPAM | [id number] | Elder Charles | | 1 MG [...] NS | | | | | Paez IT SECURITY ANALYST | + + + + +--------+ + | AVIANE TABS | | | Critical | Active | Yomaira M | | | | | | | Paez IT SECURITY ANALYST | + + + + +--------+ + | PENICILLIN | | | Moderate | Active | Yomaira M | | | | | | | Paez IT SECURITY ANALYST | + + + + +--------+ + [...] 03:40 PM | Sheila Dorman PA-C, [address] | | | | [facility], [place], | | | | | + + + + | Referral | | Physical | | | | Therapy/Occupational | | | | Therapy | | | | Re[facility] [address] | | | | [place] [address] | | | | [facility], | | | | [place], [address] | | | | | + + [...] | + + + + + | CPT-94815 | [facility] | | | | | [facility] W/MED SRVCS | | | + + + + + | DME | DME | | | + + + + + | [id number] | SNOMED-CT: | | | | | [id number] Smoking | | | | | Cessation | | | | | Counseling | | | + + + + + | [id number] | SNOMED-CT: | | | | | [id number] | | | | | Current Medications [...] -- 2 surgeries to cor rect -- 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 | | | first. her last [place] 10mg refill was on | | | [...]
--- OUTSIDE RECORDS SUMMARY | ~2020-06-29 | XMS | Clinical Summary ---
Demographics + + + | Address | [address] | | | [place] [address] | + + + | Home Phone | | + + + | Preferred Language | Unknown | + + + | Marital Status | Unknown or other | + + + | Jew Affiliation | Unknown | + + + | Race | White | + + + | Ethnic Group | Patient Declined | + + + Author + + + | Author | [facility] | + + + | Organization | [facility] | + + + | Address | [address] | | | [place] [address] | + + + | Phone | | + + + Care Team Providers + + + + | Care Ms Access Database Developer Name | Role | Phone | + [...] tion | | +---------+---------+---------+--------+---------+---------+---------+---------+---------+ | Pneumon | [id number] | | Active | | Marilyn | | Pneumon | | | ia | 07 | /25 | | /25 | R | | ia | | | | (SNOMED | | | | Czapka | | | | | | CT) | | | | SPINE SPECIALIST | | | | +---------+---------+---------+--------+---------+---------+---------+---------+---------+ | Screeni | [id number] | | Active | | Sheila | | Procedu | | | ng for | 03 | /16 | | /16 | Pondera | | re | | | infecti | (SNOMED | | | | PA-C | | carried | | | ous | CT) | | | | | | out on | | | disease | | | | | | | | | | | | | | | | | subject | | +---------+---------+---------+--------+---------+---------+---------+---------+---------+ | Depress | [id number] | | Active | | Sheila | | Depress | | | ion | 7 | / | | / | Pondera | | cesilia | | | | (SNOMED | | | | PA-C | | disorde | | | | CT) | | | | | | r | | +---------+---------+---------+--------+---------+---------+---------+---------+---------+ | screeni | [id number] | | Active | | Amal | | Depress | | | ng for | | / | | / | Tominna | | ion | | | depress | (SNOMED | | | | | | screeni | | | ion | CT) | | | | | | ng | | +---------+---------+---------+--------+---------+---------+---------+---------+---------+ | Encount | [id number] | | Active | | Yaneli | [...] | | | +---------+---------+---------+--------+---------+---------+---------+---------+---------+ | Degener | [id number] | | Active | | Sheila | | Degener | | | ative | 8 | / | | /13 | Pondera | | ation | | | disc | (SNOMED | | | | PA-C | | of | | | disease | CT) | | | | | | interve | | | | | | | | | | rtebral | | | | | | | | | | disc | | +---------+---------+---------+--------+---------+---------+---------+---------+---------+ | Cervica | [id number] | | Active | | Sheila | | HPV - | | | l high | 04 | /10 | | /13 | Pondera | | Human | | | risk [...] | | | +---------+---------+---------+--------+---------+---------+---------+---------+---------+ | Umbilic | [id number] | | Active | | Sheila | | Umbilic | | | al | 07 | /10 | | /13 | Pondera | | al | | | hernia | (SNOMED | | | | PA-C | | hernia | | | | CT) | | | | | | | | +---------+---------+---------+--------+---------+---------+---------+---------+---------+ | Other | [id number] | | Active | | Sheila | | Dyspnea | | | abnorma | 07 | / | | /16 | Pondera | | | | | lities | (SNOMED | | | | PA-C | | | | | of | CT) | | | | | | | | | breathi | | | | | | | | | | ng | | | | | | | | | +---------+---------+---------+--------+---------+---------+---------+---------+---------+ | Cigaret | [id number] | | Active | | Yaneli | | Cigaret | | | te | 7 | /30 | | /05 | Anil | | te | | | smoker | (SNOMED | | | | | | smoker | | | | CT) | | | | | | | | +---------+---------+---------+--------+---------+---------+---------+---------+---------+ | Autism | 7659859 | | Active | | Elder | | Autisti | | | | 03 | / | | | D | | c | | | | (SNOMED | | | | Medina | | disorde | | | | CT) | | | | MD | | r | | +---------+---------+---------+--------+---------+---------+---------+---------+---------+ | Lumbar | [id number] | | Active | | Leobardo | [...] | | | +---------+---------+---------+--------+---------+---------+---------+---------+---------+ | Anxiety | 3964415 | | Active | | Leobardo | | Anxiety | | | | | | | | Robyn AMOS | | | | | disorde | (SNOMED | | | | | | disorde | | | r | CT) | | | | | | r | | +---------+---------+---------+--------+---------+---------+---------+---------+---------+ | Vitamin | 7995240 | | Active | | Yomaira | | Vitamin | | | D | 6 | /21 | | /21 | M | | D | | | deficie | (SNOMED | | | | Paez | | deficie | | | ncy | CT) | | | | GASOLINE PLANT OPERATOR | | ncy | | +---------+---------+---------+--------+---------+---------+---------+---------+---------+ | Sacroil | [id number] | | Active | | Yomaira | | Sacroil | | | iac | 03 | | | | M | | iac | | | joint | (SNOMED | | | | Paez | | disorde | | | dysfunc | CT) | | | | GASOLINE PLANT OPERATOR | | r | | | tion | | | | | | | | | +---------+---------+---------+--------+---------+---------+---------+---------+---------+ | Pain in | 2773540 | | Active | | Yomaira | | Multipl | | | joint, | 5 | /21 | | / | M | | e joint | | | | (SNOMED | | | | Paez | | pain | | | multipl | CT) | | | | GASOLINE PLANT OPERATOR | | | | | e sites | | | | | | | | | +---------+---------+---------+--------+---------+---------+---------+---------+---------+ | Ilioing | 1189127 | | Active | | Yomaira | | Ilioing | | | uinal | 08 | | | | M | | uinal | | | nerve | (SNOMED | | | | Paez | | nerve | | | neuriti | CT) | | | | GASOLINE PLANT OPERATOR | | neuriti | | | s, left | | | | | | | s | | +---------+---------+---------+--------+---------+---------+---------+---------+---------+ | Incisio | [id number] | | Active | | Yomaira | | Incisio | | | nal | 00 | | | | M | | nal | | | hernia | (SNOMED | | | | Paez | | hernia | | | | CT) | | | | GASOLINE PLANT OPERATOR | | | | +---------+---------+---------+--------+---------+---------+---------+---------+---------+ | Hx of | [id number] | | Active | | Yomaira | | H/O: | | | dysmeno | 06 | / | | /21 | M | | dysmeno | | | rrhea | (SNOMED | | | | Paez | | rrhea | | | | CT) | | | | GASOLINE PLANT OPERATOR | | | | +---------+---------+---------+--------+---------+---------+---------+---------+---------+ | Pelvic | 7185949 | | Active | | Yomaira | | Pain in | | | pain, | | | | | M | | female | | | female | (SNOMED | | | | Paez | | pelvis | | | | CT) | | | | GASOLINE PLANT OPERATOR | | | | +---------+---------+---------+--------+---------+---------+---------+---------+---------+ | Endomet | 6265032 | | Active | | Yomaira | | Endomet | | | riosis | | | | | M | | riosis | | | | (SNOMED | | | | Paez | | (clinic | | | | CT) | | | | GASOLINE PLANT OPERATOR | | al) | | +---------+---------+---------+--------+---------+---------+---------+---------+---------+ | Chronic | [id number] | | Active | | Yomaira | | Chronic | | | pain | 1 | /21 | | /21 | M | | pain | | | | (SNOMED | | | | Paez | | | | | | CT) | | | | GASOLINE PLANT OPERATOR | | | | +---------+---------+---------+--------+---------+---------+---------+---------+---------+ Medications + + + + + + + + | Medication | Instructio | Start Date | Stop Date | Generic | NDC | Provider | | | ns | | | Name | | | + + + + + + + + | TRAMADOL | one pill | | | TRAMADOL | [id number] | Sheila Dorman | | HCL 50 [...] take 2 | | | SERTRALINE | [id number] | Sheila Pondera | | HCL 100 | tablet by | | | HCL | 0 | PA-C | | MG TABS | mouth | | | | | | | | daily | | | | | | + + + + + + + + | CLONAZEPAM | take 1 | | | CLONAZEPAM | [id number] | Sheila Dorman | | 0.5 MG [...] tab by | | | SULFAMETHO | [id number] | Marilyn R | | 800-160 | mouth | | | XAZOLE-TRI | 1 | Czapka | | MG TABS | twice a | | | METHOPRIM | | SPINE SPECIALIST | | | day | | | | | | + + + + + + + + | VENLAFAXIN | take 1 | | | VENLAFAXIN | [id number] | Sheila Dorman | | E HCL ER | capsule by | | | E HCL | 5 | PA-C | | 37.5 MG | mouth | | | | | | | [id number] | daily for | | | | | | | | 10 days | | | | | | + + + + + + + + | VENLAFAXIN | take 1 | | | VENLAFAXIN | [id number] | Sheila Dorman | | E HCL ER | capsule by | | | E HCL | 5 | PA-C | | 75 MG | mouth | | | | | | | [id number] | daily | | | | | [...] NS | | | | | Paez GASOLINE PLANT OPERATOR | + + + + +--------+ + | AVIANE TABS | | | Critical | Active | Yomaira M | | | | | | | Paez GASOLINE PLANT OPERATOR | + + + + +--------+ + | PENICILLIN | | | Moderate | Active | Yomaira M | | | | | | | Paez GASOLINE PLANT OPERATOR | + + + + +--------+ [...] 02:20 PM | Sheila Dorman PA-C, [address] [facility] [address] [facility] | | | | [place], [place], | | | | | + + + + | Referral | | OB-JUNIOR LINUX ADMINISTRATOR for | | | | [facility] | | | | Physicians, [address] | | | | [address], | | | | [place], [id number] | | | | | + + [...] | + + + + + | [id number] | SNOMED-CT: | | | | | [id number] | | | | | Current Medications | | | | | Documented | | | + + + + + | 81208 | XR Chest 2 Views | | | + + + + + | CBC | CBC- Auto Diff | | | + + + + + | OTHLAB | Other Lab | | | + + + + + | CPT-78860 | [facility] PT[facility] | | | [...] | + + + + + | CPT-67177 | [facility] PT/[facility]AM | | | | | 45 MIN | | | + + + + + | CPT-3725F | [facility] Depression | | | | | Screening ([facility]) | | | + + + + + | CPT-05739 | [facility]CH | | | | [...] | + + + + + | CPT-15092 | [facility] | | | | | [facility]ANCE W/MED SRVCS | | | + + + + + | DME | DME | | | + + + + + | [id number] | SNOMED-CT: | | | | | [id number] Smoking | | | | | Cessation | | | | | Counseling | | | + + + + + | [id number] | SNOMED-CT: | | | | | [id number] | | | | | Current Medications | | | | | Documented | | | + + + + + | CPT-3725F | [facility] | | | | | Screening ([facility]) | | | + + + + + | [id number] | Physical | | | | | [...] -- 2 surgeries to cor rect -- 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 History of | | | pneumonia [phone] (Patient | | | cell) [phone] (Dad emergency contact) | | + + [...] MRSA. Pt as talking to her new JUNIOR LINUX ADMINISTRATOR and | | | states that she [...] needing paperwork | | | filled out job recruiter said they was not | | | filled out | | | right..................................... | | | ..............................Jadyn | | | [facility] November 05, 2018 8:00 PM | [...] as she will need | | | [facility] evaluaiton. 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 | | | she has had hernia surgery mesh and is | | | concerned aobut his. We discussed that | | | she does need to follow specialist | | | recommendations and there may be changes | | | in the past 5 years. She will consider. 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 | | | first. her last [place] 10mg refill was on | | | [...]
--- OUTSIDE RECORDS SUMMARY | ~2020-06-29 | XMS | Clinical Summary ---
Demographics + + + | Address | [address] | | | [place] [address] | + + + | Home Phone | | + + + | Preferred Language | Unknown | + + + | Marital Status | Unknown or other | + + + | Caodaism Affiliation | Unknown | + + + | Race | Unknown | + + + | Ethnic Group | Unknown | + + + Author + + + | Author | [facility] | + + + | Organization | [facility] | + + + | Address | [address] [place] [address] | | | [place] [address] | + + + | Phone | | + + + Care Team Providers + + + + | Care Food Beverage Server Name | Role | Phone | + [...] | | tion | | +---------+---------+---------+--------+---------+---------+---------+---------+---------+ | Vitamin | [id number] | | Active | | Yomaira | | Vitamin | | | D | 6 | /21 | | /21 | M | | D | | | deficie | (SNOMED | | | | Paez | | deficie | | | ncy | CT) | | | | APARTMENT MANAGER | | ncy | | +---------+---------+---------+--------+---------+---------+---------+---------+---------+ | Sacroil | [id number] | | Active | | Yomaira | | Sacroil | | | iac | 03 | /21 | | /21 | M | | iac | | | joint | (SNOMED | | | | Paez | | disorde | | | dysfunc | CT) | | | | APARTMENT MANAGER | | r | | | tion | | | | | | | | | +---------+---------+---------+--------+---------+---------+---------+---------+---------+ | Pain in | [id number] | | Active | | Yomaira | | Multipl | | | joint, | 5 | / | | | M | | e joint | | | | (SNOMED | | | | Paez | | pain | | | multipl | CT) | | | | APARTMENT MANAGER | | | | | e sites | | | | | | | | | +---------+---------+---------+--------+---------+---------+---------+---------+---------+ | Ilioing | [id number] | | Active | | Yomaira | | Ilioing | | | uinal | 08 | | | | M | | uinal | | | nerve | (SNOMED | | | | Paez | | nerve | | | neuriti | CT) | | | | APARTMENT MANAGER | | neuriti | | | s, left | | | | | | | s | | +---------+---------+---------+--------+---------+---------+---------+---------+---------+ | Incisio | [id number] | | Active | | Yomaira | | Incisio | | | nal | 00 | | | | M | | nal | | | hernia | (SNOMED | | | | Paez | | hernia | | | | CT) | | | | APARTMENT MANAGER | | | | +---------+---------+---------+--------+---------+---------+---------+---------+---------+ | Hx of | [id number] | | Active | | Yomaira | | H/O: | | | dysmeno | 06 | / | | / | M | | dysmeno | | | rrhea | (SNOMED | | | | Paez | | rrhea | | | | CT) | | | | APARTMENT MANAGER | | | | +---------+---------+---------+--------+---------+---------+---------+---------+---------+ | Pelvic | [id number] | | Active | | Yomaira | | Pain in | | | pain, | | / | | | M | | female | | | female | (SNOMED | | | | Paez | | pelvis | | | | CT) | | | | APARTMENT MANAGER | | | | +---------+---------+---------+--------+---------+---------+---------+---------+---------+ | Endomet | [id number] | | Active | | Yomaira | | Endomet | | | riosis | 03 | | | | M | | riosis | | | | (SNOMED | | | | Paez | | (clinic | | | | CT) | | | | APARTMENT MANAGER | | al) | | +---------+---------+---------+--------+---------+---------+---------+---------+---------+ | Chronic | [id number] | | Active | | Yomaira | | Chronic | | | pain | | | | | M | | pain | | | | (SNOMED | | | | Paez | | | | | | CT) | | | | APARTMENT MANAGER | | | | +---------+---------+---------+--------+---------+---------+---------+---------+---------+ Medications No information available. Medications Administered No information available. Allergies, Adverse [...] NS | | | | | Paez APARTMENT MANAGER | + + + + +--------+ + | AVIANE TABS | | | Critical | Active | Yomaira M | | | | | | | Paez APARTMENT MANAGER | + + + + +--------+ + | PENICILLIN | | | Moderate | Active | Yomaira M | | | | | | | Paez APARTMENT MANAGER | + + + + +--------+ + Results +------+------+-------+------+-------+------+ + | Date | Name | Value | Unit | Range | Flag | Descriptio | | | | | | | | n | +------+------+-------+------+-------+------+ + + + | Lab Report: CMP, CBC, PLT, & MANUAL DIFF | + + + + + + + +---+ + | | RBC MORPH | NORMAL | | NORMAL | | RBC | | | | | | | | morphology | + + + + + +---+ + | | ZZ-GE-unk | SLIGHT | | | | GE use | | | | DECREASE | | | | only - for [...] | | specified | + + + + + +---+ [...] +---+ + | | MONOS % | 0 | % | 0-12 | | monocytes [...] +---+ + | | BAND % | 28 | % | 0-8 | H | [...] + +---+ + | | PMN%(MANUA | 66 | | 38-70 | | neutrophil | | | L) | [...] + +---+ + | | WBC | 7.7 | 10*3/mm3 | 4.8-10.8 | | leukocyte | | | | | | | | count, | | | | | | | | blood | + + + + + +---+ + | | PLATELETS | 126 | 10*3/mm3 | 150-400 | L | platelet | | | | | | | | count | + + + + + +---+ + | | RDW | 12.2 | % | 11.0-15.0 | | red blood | | | | | | | | cell | | | | | | | | distributi | | | | | | | | on width | + + + + + +---+ + | | MCHC | 32.4 | G/DL | 33.0-35.5 | L | mean | | | | | [...] + +---+ + | | MCH | 29.4 | pg | 27.0-34.0 | | mean | | | | | | | | corpuscula | | | | | | | | r | | | | | | | | hemoglobin | | | | | | | | , RBC | + + + + + +---+ + | | MCV | 90.7 | fL | 81.0-100.0 | | mean | | | | | | | | corpuscula | | | | | | | | r volume, | | | | | | | | RBC | + + + + + +---+ + | | RBC | 4.24 M/UL | 10*6/mm3 | 3.80-5.20 | | erythrocyt | | | | | | | | e (RBC) | | | | | | | | count | + + + + + +---+ + | | HCT | 38.4 | % | 35-46 | | hematocrit | | | | | | | | , blood | + + + + + +---+ + | | HGB | 12.5 | g/dL | 11.6-15.5 | | hemoglobin [...] +---+ + | | SGOT (AST) | 55 | U/L | 15-41 | H | aspartate | | | | | | | | aminotrans | | | | | | | | ferase | | | | | | | | (SGOT), | | | | | | | | serum | + + + + + +---+ + | | ALK PHOS | 42 | U/L | 50-136 | L | alkaline | | | | | | | | phosphatas | | | | | | | | e, serum | + + + + + +---+ + | | SGPT (ALT) | 32 | U/L | 14-54 | | alanine | | | | | | | | aminotrans | | | | | | | | ferase | | | | | | | | (SGPT), | | | | | | | | serum | + + + + + +---+ + | | BILI TOTAL | 0.2 | mg/dL | 0.3-1.2 | L | bilirubin, | | | | | [...] + +---+ + | | GLOBULIN | 3.0 | | 2.3-3.5 | | globulin, | | | | | | | | serum | + + + + + +---+ + | | ALBUMIN | 4.2 | g/dL | 3.5-5.0 | | albumin, | | | | | | | | serum | + + + + + +---+ + | | PROTEIN, | 7.2 | g/dL | 6.0-8.3 | | protein, | | | TOT | | | | | total, | | | | | | | | serum | + + + + + +---+ + | | CALCIUM | 8.6 | mg/dL | 8.6-10.0 | | calcium, | | | | | | | | serum | + + + + + +---+ + | | GLUCOSE | 110 | mg/dL | 65-110 | | blood | | | SER | | | | | glucose | + + + + + +---+ + | | BUN/CREAT | 33.3 Ratio | | 7.0-24.0 | H | urea | | | | | | | | nitrogen/c | | | | | | | | reatinine | | | | | | | | ratio, | | | | | | | | serum | + + + + + +---+ + | | BUN | 20 | mg/dL | 6-20 | | urea | | | | | | | | nitrogen, | | | | | | | | blood | + + + + + +---+ + | | CREATININE | 0.6 | mg/dL | 0.6-1.1 | | creatinine | | | | | | | | , serum | + + + + + +---+ + | | ANION GAP | 12.6 | mmol/L | 5-16 | | anion gap, | | | | | | | | serum | + + + + + +---+ + | | CO2 | 28 | mmol/L | 23-29 | | carbon | | | | | | | | dioxide, | | | | | | | | venous | | | | | | | | blood | + + + + + +---+ + | | CHLORIDE | 96 | mmol/L | 98-107 | L | chloride, | | | | | | | | serum | + + + + + +---+ + | | POTASSIUM | 3.6 | mmol/L | 3.5-5.1 | | potassium, | | | | | | | | serum | + + + + + +---+ + | | SODIUM | 133 | mmol/L | 136-145 | L | sodium, | | | | | | | | serum | + + + + + +---+ + Plan of Care + + + + | Type | Date | Detail | + + + + | Appointment | 01:00 PM | Leobardo Carlson MD, [address] [facility] | | | | [place], [place], | | | | | + + + + | Appointment | 09:00 AM | Elder Castro MD, [address] | | | | [facility], | | | | [place], | + + + + Procedures No information available. Vital Signs + + +--------+---------+ + | Date | Name | Value | Unit | Description | + + +--------+---------+ + | | BMI (Body Mass | 19.06 | kg/m2 | Body Mass Index | | | Index) | | | [Ratio] | + + +--------+---------+ + | | BP Diastolic | 80 | mm[Hg] | blood pressure, | | | | | | diastolic | + + +--------+---------+ + | | BP Systolic | 144 | mm[Hg] | blood pressure, | | [...] +--------+---------+ + | | Weight Measured | 121.25 | [lb_av] | weight E&M | + + +--------+---------+ + | | Weight Measured | 55.11 | kg | weight in | | | | | | kilograms E&M | + + +--------+---------+ + Immunizations No information available. Advance Directives No information available. Chief Complaint No information available. Family History + +--------+ + | Relation [...] not generated History of Past Illness Peptic ulcerpyelonephritisPernicious anemia History of Present Illness No information available. Review of Systems No information available."
--- OUTSIDE RECORDS SUMMARY | ~2020-06-29 | XMS | Clinical Summary ---
Demographics + + + | Address | [address] | | | [place] [address] | + + + | Home Phone | | + + + | Preferred Language | Unknown | + + + | Marital Status | Unknown or other | + + + | Latter-Day Affiliation | Unknown | + + + | Race | White | + + + | Ethnic Group | Patient Declined | + + + Author + + + | Author | [facility] | + + + | Organization | [facility] | + + + | Address | [address] | | | [place] [address] | + + + | Phone | | + + + Care Team Providers + + + + | Care Senior Vice President & General Counsel Name | Role | Phone | + [...] | | tion | | +---------+---------+---------+--------+---------+---------+---------+---------+---------+ | other | [id number] | | Active | | Amal | | Procedu | | | screeni | | / | | | Tominna | | re | | | ng | (SNOMED | | | | | | carried | | | | CT) | | | | | | out on | | | | | | | | | | | | | | | | | | | | subject | | +---------+---------+---------+--------+---------+---------+---------+---------+---------+ | Hyperch | [id number] | | Active | | Leobardo | | Hyperch | | | olester | | / | | | Robyn AMOS | | olester | | | olemia | (SNOMED | | | | | | olemia | | | | CT) | | | | | | | | +---------+---------+---------+--------+---------+---------+---------+---------+---------+ | Lumbar | [id number] | | Active | | Leobardo | [...] | | | +---------+---------+---------+--------+---------+---------+---------+---------+---------+ | Anxiety | [id number] | | Active | | Leobardo | | Anxiety | | | | | | | | Robyn AMOS | | | | | disorde | (SNOMED | | | | | | disorde | | | r | CT) | | | | | | r | | +---------+---------+---------+--------+---------+---------+---------+---------+---------+ | Vitamin | [id number] | | Active | | Yomaira | | Vitamin | | | D | 6 | /21 | | / | M | | D | | | deficie | (SNOMED | | | | Paez | | deficie | | | ncy | CT) | | | | OUTGOING INSPECTOR | | ncy | | +---------+---------+---------+--------+---------+---------+---------+---------+---------+ | Sacroil | [id number] | | Active | | Yomaira | | Sacroil | | | iac | | | | | M | | iac | | | joint | (SNOMED | | | | Paez | | disorde | | | dysfunc | CT) | | | | OUTGOING INSPECTOR | | r | | | tion | | | | | | | | | +---------+---------+---------+--------+---------+---------+---------+---------+---------+ | Pain in | [id number] | | Active | | Yomaira | | Multipl | | | joint, | | | | | M | | e joint | | | | (SNOMED | | | | Paez | | pain | | | multipl | CT) | | | | OUTGOING INSPECTOR | | | | | e sites | | | | | | | | | +---------+---------+---------+--------+---------+---------+---------+---------+---------+ | Ilioing | [id number] | | Active | | Yomaira | | Ilioing | | | uinal | | | | M | | uinal | | | nerve | (SNOMED | | | | Paez | | nerve | | | neuriti | CT) | | | | OUTGOING INSPECTOR | | neuriti | | | s, left | | | | | | | s | | +---------+---------+---------+--------+---------+---------+---------+---------+---------+ | Incisio | [id number] | | Active | | Yomaira | | Incisio | | | nal | 00 | | | | M | | nal | | | hernia | (SNOMED | | | | Paez | | hernia | | | | CT) | | | | OUTGOING INSPECTOR | | | | +---------+---------+---------+--------+---------+---------+---------+---------+---------+ | Hx of | [id number] | | Active | | Yomaira | | H/O: | | | dysmeno | | | | | M | | dysmeno | | | rrhea | (SNOMED | | | | Paez | | rrhea | | | | CT) | | | | OUTGOING INSPECTOR | | | | +---------+---------+---------+--------+---------+---------+---------+---------+---------+ | Pelvic | 9573501 | | Active | | Yomaira | | Pain in | | | pain, | | / | | / | M | | female | | | female | (SNOMED | | | | Paez | | pelvis | | | | CT) | | | | OUTGOING INSPECTOR | | | | +---------+---------+---------+--------+---------+---------+---------+---------+---------+ | Endomet | [id number] | | Active | | Yomaira | | Endomet | | | riosis | | | | | M | | riosis | | | | (SNOMED | | | | Paez | | (clinic | | | | CT) | | | | OUTGOING INSPECTOR | | al) | | +---------+---------+---------+--------+---------+---------+---------+---------+---------+ | Chronic | [id number] | | Active | | Yomaira | | Chronic | | | pain | 1 | | | | M | | pain | | | | (SNOMED | | | | Paez | | | | | | CT) | | | | OUTGOING INSPECTOR | | | | +---------+---------+---------+--------+---------+---------+---------+---------+---------+ Medications + + + + + + + + | Medication | Instructio | Start Date | Stop Date | Generic | NDC | Provider | | | ns | | | Name | | | + + + + + + + + | HYDROCODON | One every | | | HYDROCODON | [id number] | Leobardo | | E-ACETAMIN | eight | | | E-ACETAMIN | 1 | Park MD | | OPHEN | hours as | | | OPHEN | | | | 10-325 MG | needed for | | | | | | | TABS | pain | | | | | [...] NS | | | | | Paez OUTGOING INSPECTOR | + + + + +--------+ + | AVIANE TABS | | | Critical | Active | Yomaira M | | | | | | | Paez OUTGOING INSPECTOR | + + + + +--------+ + | PENICILLIN | | | Moderate | Active | Yomaira M | | | | | | | Paez OUTGOING INSPECTOR | + + + + +--------+ + [...] + + +---+ + + + | Office Visit: [...] assessment | + + + +---+---+---+ + Plan of Care + + + + | Type | Date | Detail | + + + + | Appointment | 09:00 AM | Elder Castro MD, [address] | | | | [facility], | | | | [phone] | + + + + | Appointment | 03:30 PM | Leobardo Carlson MD, [address] | | | | [place], [place], | | | | | + + + + | Referral | | Physical | | | | Therapy/Occupational | | | | Therapy | + + + + | Referral | | DME | + + + + | Pending [...] | + + + + + | [id number] | SNOMED-CT: | | | | | [id number] Smoking | | | | | Cessation | | | | | Counseling | | | + + + + + | [id number] | SNOMED-CT: | | | | | [id number] | | | | | Current Medications [...] + | | BMI (Body Mass | 18.35 | kg/m2 | Body Mass Index | [...] +--------+---------+ + | | Heart Rate | 110 | /min | pulse rate E&M | + + +--------+---------+ + | | Height | 67 | [in_us] | height E&M | + + +--------+---------+ + | | Respiratory | 18 | /min | respiratory | | | Rate | | | rate E&M | + + +--------+---------+ + | | Weight Measured | 117.2 | [lb_av] | weight E&M | + [...] Start Date | + + + | Establish care [...] -- 2 surgeries to cor rect -- Student Outreach Coordinator Dr Julien.Peptic ulcerpyelonephritisPernicious anemia History of Present Illness + + + | History of Present Illness Description | Start Date | + + + | Establish care. [...] signed. | | | first. her last [place] 10mg refill was on | | | [...]
--- OUTSIDE RECORDS SUMMARY | ~2020-06-29 | XMS | Clinical Summary ---
Demographics + + + | Address | [address] | | | [place] [address] | + + + | Home Phone [...] Author + + + | Author | [facility] | + + + | Organization | [facility] | + + + | Address | [address] | | | [place] [address] | + + + | Phone | | + + + Care Team Providers + + + + | Care Oil Well Pumper Name | Role | Phone | + [...] | | tion | | +---------+---------+---------+--------+---------+---------+---------+---------+---------+ | Pervasi | [id number] | | Active | | Elder | | Autism | | | ve | | / | | / | D | | spectru | | | develop | (SNOMED | | | | [place] | | m | | | mental | CT) | | | | MD | | disorde | | | disorde | | | | | | | r | | | r | | | | | | | | | +---------+---------+---------+--------+---------+---------+---------+---------+---------+ | other | [id number] | | Active | | Amal | [...] subject | | +---------+---------+---------+--------+---------+---------+---------+---------+---------+ | Lumbar | [id number] | | Active | | Leobardo | [...] | | | +---------+---------+---------+--------+---------+---------+---------+---------+---------+ | Anxiety | [id number] | | Active | | Leobardo | | Anxiety | | | | | | | | Robyn AMOS | | | | | disorde | (SNOMED | | | | | | disorde | | | r | CT) | | | | | | r | | +---------+---------+---------+--------+---------+---------+---------+---------+---------+ | Vitamin | 1562891 | | Active | | Yomaira | | Vitamin | | | D | 6 | / | | /21 | M | | D | | | deficie | (SNOMED | | | | Paez | | deficie | | | ncy | CT) | | | | ROUTER TENDER | | ncy | | +---------+---------+---------+--------+---------+---------+---------+---------+---------+ | Sacroil | [id number] | | Active | | Yomaira | | Sacroil | | | iac | 03 | / | | | M | | iac | | | joint | (SNOMED | | | | Paez | | disorde | | | dysfunc | CT) | | | | ROUTER TENDER | | r | | | tion | | | | | | | | | +---------+---------+---------+--------+---------+---------+---------+---------+---------+ | Pain in | [id number] | | Active | | Yomaira | | Multipl | | | joint, | | | | | M | | e joint | | | | (SNOMED | | | | Paez | | pain | | | multipl | CT) | | | | ROUTER TENDER | | | | | e sites | | | | | | | | | +---------+---------+---------+--------+---------+---------+---------+---------+---------+ | Ilioing | [id number] | | Active | | Yomaira | | Ilioing | | | uinal | 08 | / | | | M | | uinal | | | nerve | (SNOMED | | | | Paez | | nerve | | | neuriti | CT) | | | | ROUTER TENDER | | neuriti | | | s, left | | | | | | | s | | +---------+---------+---------+--------+---------+---------+---------+---------+---------+ | Incisio | [id number] | | Active | | Yomaira | | Incisio | | | nal | 00 | | | | M | | nal | | | hernia | (SNOMED | | | | Paez | | hernia | | | | CT) | | | | ROUTER TENDER | | | | +---------+---------+---------+--------+---------+---------+---------+---------+---------+ | Hx of | [id number] | | Active | | Yomaira | | H/O: | | | dysmeno | 06 | | | | M | | dysmeno | | | rrhea | (SNOMED | | | | Paez | | rrhea | | | | CT) | | | | ROUTER TENDER | | | | +---------+---------+---------+--------+---------+---------+---------+---------+---------+ | Pelvic | [id number] | | Active | | Yomaira | | Pain in | | | pain, | 03 | / | | /21 | M | | female | | | female | (SNOMED | | | | Paez | | pelvis | | | | CT) | | | | ROUTER TENDER | | | | +---------+---------+---------+--------+---------+---------+---------+---------+---------+ | Endomet | [id number] | | Active | | Yomaira | | Endomet | | | riosis | 03 | / | | | M | | riosis | | | | (SNOMED | | | | Paez | | (clinic | | | | CT) | | | | ROUTER TENDER | | al) | | +---------+---------+---------+--------+---------+---------+---------+---------+---------+ | Chronic | 9249899 | | Active | | Yomaira | | Chronic | | | pain | 1 | / | | /21 | M | | pain | | | | (SNOMED | | | | Paez | | | | | | CT) | | | | ROUTER TENDER | | | | +---------+---------+---------+--------+---------+---------+---------+---------+---------+ Medications + + + + + + + + | Medication | Instructio | Start Date | Stop Date | Generic | NDC | Provider | | | ns | | | Name | | | + + + + + + + + | SERTRALINE | 1/2 for a | | | SERTRALINE | [id number] | Elder D | | HCL 50 MG | week then | | | HCL | 0 | Gloria AMOS | | TABS | to 2 qd. | | | | | | + + + + + + + + | CLONAZEPAM | 1-2 bid | | | CLONAZEPAM | [id number] | Elder Charles | | 0.5 MG | prn for | | | | 1 | Gloria AMOS | | TABS | anxiety, | | | | | | | | agitation, | | | | | | | | anger or | | | | | | | | sleep | | | | | | + + + + + + + + | HYDROCODON | One every | | | HYDROCODON | [id number] | Leobardo | | E-ACETAMIN | eight | | | E-ACETAMIN | 1 | Robyn MD | | OPHEN | hours as [...] | NS | | | | | Philippe ROUTER TENDER | + + + + +--------+ + | AVIANE TABS | | | Critical | Active | Yomaira M | | | | | | | Paez ROUTER TENDER | + + + + +--------+ + | PENICILLIN | | | Moderate | Active | Yomaira M | | | | | | | Paez ROUTER TENDER | + + + + +--------+ + [...] +---+---+---+ + + + | Office Visit: New Patient | + + + +--------+------+---+---+---+ + | | MEDS | Done | [...] | | | | ) | + +--------+------+---+---+---+ + Plan of Care + + + + | Type | Date | Detail | + + + + | Appointment | 03:30 PM | Leobardo Carlson MD, [address] [facility] | | | | [place], [place], | | | | | + + + + | Appointment | 02:00 PM | Elder Castro MD, [address] | | | | [facility], | | | | [place] | + + + + | Referral | | DME | + + + + | Referral | | Physical | | | | Therapy/Occupational | | | | Therapy | | | | [facility] | | | | [facility], [address] | | | | [facility], | | | | [place], [address] | | | | | + + [...] | + + + + + | [id number] | SNOMED-CT: | | | | | [id number] Smoking | | | | | Cessation | | | | | Counseling | | | + + + + + | [id number] | SNOMED-CT: | | | | | [id number] | | | | | Current Medications [...] + | | BMI (Body Mass | 19.61 | kg/m2 | Body Mass Index | | | Index) | | | [Ratio] | + + +--------+---------+ + | | BP Diastolic | 90 | mm[Hg] | blood pressure, | | | | | | diastolic | + + +--------+---------+ + | | BP Systolic | 130 | mm[Hg] | blood pressure, | | | | | | systolic | + + +--------+---------+ + | | Heart Rate | 93 | /min | pulse rate E&M | + + +--------+---------+ + | | Height | 67 | [in_us] | height E&M | + + +--------+---------+ + | | Respiratory | 18 | /min | respiratory | | | Rate | | | rate E&M | + + +--------+---------+ + | | Weight Measured | 125.2 | [lb_av] | weight E&M | + [...] Start Date | + + + | New Patient [...] -- 2 surgeries to cor rect -- Health Care Coordinator Dr Julien.Peptic ulcerpyelonephritisPernicious anemia History of Present Illness + + + | History of Present Illness Description | Start Date | + + + | This is [...] | | started to become concerned of nursing home | | | side effects and [...] signed. | | | first. her last [place] 10mg refill was on | | | [...]
--- OUTSIDE RECORDS SUMMARY | ~2020-06-29 | XMS | Clinical Summary ---
Demographics + + + | Address | [address] | | | [place] [address] | + + + | Home Phone | . | + + + | Preferred Language [...] + + + | Address | [address] | | | [place] [address] | + + + | Phone | | + + + Care Team Providers + + + + | Care Sider Name | Role | Phone | + [...] tion | | +---------+---------+---------+--------+---------+---------+---------+---------+---------+ | Autism | [id number] | | Active | | Elder | | Autisti | | | | | / | | | D | | c | | | | (SNOMED | | | | Loda | | disorde | | | | CT) | | | | MD | | r | | +---------+---------+---------+--------+---------+---------+---------+---------+---------+ | other | [id number] | | Active | | Amal | [...] subject | | +---------+---------+---------+--------+---------+---------+---------+---------+---------+ | Lumbar | [id number] | | Active | | Leobardo | [...] | | | +---------+---------+---------+--------+---------+---------+---------+---------+---------+ | Anxiety | [id number] | | Active | | Leobardo | | Anxiety | | | | 06 | | | | Robyn AMOS | | | | | disorde | (SNOMED | | | | | | disorde | | | r | CT) | | | | | | r | | +---------+---------+---------+--------+---------+---------+---------+---------+---------+ | Vitamin | [id number] | | Active | | Yomaira | | Vitamin | | | D | 6 | | | | M | | D | | | deficie | (SNOMED | | | | Paez | | deficie | | | ncy | CT) | | | | ANALYTICAL CLERK | | ncy | | +---------+---------+---------+--------+---------+---------+---------+---------+---------+ | Sacroil | [id number] | | Active | | Yomaira | | Sacroil | | | iac | 03 | / | | | M | | iac | | | joint | (SNOMED | | | | Paez | | disorde | | | dysfunc | CT) | | | | ANALYTICAL CLERK | | r | | | tion | | | | | | | | | +---------+---------+---------+--------+---------+---------+---------+---------+---------+ | Pain in | [id number] | | Active | | Yomaira | | Multipl | | | joint, | 5 | | | | M | | e joint | | | | (SNOMED | | | | Paez | | pain | | | multipl | CT) | | | | ANALYTICAL CLERK | | | | | e sites | | | | | | | | | +---------+---------+---------+--------+---------+---------+---------+---------+---------+ | Ilioing | [id number] | | Active | | Yomaira | | Ilioing | | | uinal | 08 | | | /21 | M | | uinal | | | nerve | (SNOMED | | | | Paez | | nerve | | | neuriti | CT) | | | | ANALYTICAL CLERK | | neuriti | | | s, left | | | | | | | s | | +---------+---------+---------+--------+---------+---------+---------+---------+---------+ | Incisio | [id number] | | Active | | Yomaira | | Incisio | | | nal | 00 | | | | M | | nal | | | hernia | (SNOMED | | | | Paez | | hernia | | | | CT) | | | | ANALYTICAL CLERK | | | | +---------+---------+---------+--------+---------+---------+---------+---------+---------+ | Hx of | [id number] | | Active | | Yomaira | | H/O: | | | dysmeno | | | | | M | | dysmeno | | | rrhea | (SNOMED | | | | Paez | | rrhea | | | | CT) | | | | ANALYTICAL CLERK | | | | +---------+---------+---------+--------+---------+---------+---------+---------+---------+ | Pelvic | [id number] | | Active | | Yomaira | | Pain in | | | pain, | 03 | /21 | | /21 | M | | female | | | female | (SNOMED | | | | Paez | | pelvis | | | | CT) | | | | ANALYTICAL CLERK | | | | +---------+---------+---------+--------+---------+---------+---------+---------+---------+ | Endomet | [id number] | | Active | | Yomaira | | Endomet | | | riosis | 03 | / | | | M | | riosis | | | | (SNOMED | | | | Paez | | (clinic | | | | CT) | | | | ANALYTICAL CLERK | | al) | | +---------+---------+---------+--------+---------+---------+---------+---------+---------+ | Chronic | [id number] | | Active | | Yomaira | | Chronic | | | pain | 1 | / | | | M | | pain | | | | (SNOMED | | | | Paez | | | | | | CT) | | | | ANALYTICAL CLERK | | | | +---------+---------+---------+--------+---------+---------+---------+---------+---------+ Medications + + + + + + + + | Medication | Instructio | Start Date | Stop Date | Generic | NDC | Provider | | | ns | | | Name | | | + + + + + + + + | CLONAZEPAM | 1 po tid | | | CLONAZEPAM | [id number] | Elder Charles | | 1 MG [...] po qd | | | SERTRALINE | [id number] | Elder D | | HCL 100 | | | [...] NS | | | | | Paez ANALYTICAL CLERK | + + + + +--------+ + | AVIANE TABS | | | Critical | Active | Yomaira M | | | | | | | Paez ANALYTICAL CLERK | + + + + +--------+ + | PENICILLIN | | | Moderate | Active | Yomaira M | | | | | | | Paez ANALYTICAL CLERK | + + + + +--------+ [...] + + + + | Appointment | 02:30 PM | [address] [facility] | | | | [place], [address], | + + + + | Referral | | DME | + + + + | Referral | | Physical | | | | Therapy/Occupational | | | | Therapy | | | | [facility] [place] | | | | [place] [address] | | | | [facility], | | | | [place], [address] | | | | | + + [...] | + + + + + | [id number] | [facility] | | | | | CHANCE Rivera/STU [facility] | | | + + + + + | [id number] | SNOMED-CT: | | | | | [id number] Smoking | | | | | Cessation | | | | | Counseling | | | + + + + + | [id number] | SNOMED-CT: | | | | | [id number] | | | | | Current Medications [...] -- 2 surgeries to cor rect -- Systematic Theology Professor Dr Julien.Peptic ulcerpyelonephritisPernicious anemia History of Present [...] | | started to become concerned of jail | | | 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 | | | first. her last [place] 10mg refill was on | | | [...]
--- OUTSIDE RECORDS SUMMARY | ~2020-06-29 | XMS | Clinical Summary ---
Demographics + + + | Address | [address] | | | [place] [address] | + + + | Home Phone | | + + + | Preferred Language | Unknown | + + + | Marital Status | Unknown or other | + + + | Episcopal Affiliation | Unknown | + + + | Race | White | + + + | Ethnic Group | Patient Declined | + + + Author + + + | Author | [facility] | + + + | Organization | [facility] | + + + | Address | [address] | | | [place] [address] | + + + | Phone | | + + + Care Team Providers + + + + | Care Wing Coverer Name | Role | Phone | + [...] | | tion | | +---------+---------+---------+--------+---------+---------+---------+---------+---------+ | Hyperch | [id number] | | Active | | Leobardo | | Hyperch | | | olester | 9 | / | | /22 | Robyn AMOS | | olester | | | olemia | (SNOMED | | | | | | olemia | | | | CT) | | | | | | | | +---------+---------+---------+--------+---------+---------+---------+---------+---------+ | Lumbar | [id number] | | Active | | Leobardo | | Disorde | | | disc | 03 | /22 | | /22 | Robyn AMOS | | r of [...] | | | +---------+---------+---------+--------+---------+---------+---------+---------+---------+ | Anxiety | 9024839 | | Active | | Leobardo | | Anxiety | | | | 06 | | | | Park MD | | | | | disorde | (SNOMED | | | | | | disorde | | | r | CT) | | | | | | r | | +---------+---------+---------+--------+---------+---------+---------+---------+---------+ | Vitamin | [id number] | | Active | | Yomaira | | Vitamin | | | D | 6 | / | | | M | | D | | | deficie | (SNOMED | | | | Paez | | deficie | | | ncy | CT) | | | | UNIFORM ATTENDANT | | ncy | | +---------+---------+---------+--------+---------+---------+---------+---------+---------+ | Sacroil | [id number] | | Active | | Yomaira | | Sacroil | | | iac | 03 | | | | M | | iac | | | joint | (SNOMED | | | | Paez | | disorde | | | dysfunc | CT) | | | | UNIFORM ATTENDANT | | r | | | tion | | | | | | | | | +---------+---------+---------+--------+---------+---------+---------+---------+---------+ | Pain in | 8511278 | | Active | | Yomaira | | Multipl | | | joint, | 5 | / | | | M | | e joint | | | | (SNOMED | | | | Paez | | pain | | | multipl | CT) | | | | UNIFORM ATTENDANT | | | | | e sites | | | | | | | | | +---------+---------+---------+--------+---------+---------+---------+---------+---------+ | Ilioing | 5577081 | | Active | | Yomaira | | Ilioing | | | uinal | | | | | M | | uinal | | | nerve | (SNOMED | | | | Paez | | nerve | | | neuriti | CT) | | | | UNIFORM ATTENDANT | | neuriti | | | s, left | | | | | | | s | | +---------+---------+---------+--------+---------+---------+---------+---------+---------+ | Incisio | [id number] | | Active | | Yomaira | | Incisio | | | nal | 00 | | | | M | | nal | | | hernia | (SNOMED | | | | Paez | | hernia | | | | CT) | | | | UNIFORM ATTENDANT | | | | +---------+---------+---------+--------+---------+---------+---------+---------+---------+ | Hx of | [id number] | | Active | | Yomaira | | H/O: | | | dysmeno | | | | | M | | dysmeno | | | rrhea | (SNOMED | | | | Paez | | rrhea | | | | CT) | | | | UNIFORM ATTENDANT | | | | +---------+---------+---------+--------+---------+---------+---------+---------+---------+ | Pelvic | [id number] | | Active | | Yomaira | | Pain in | | | pain, | 03 | | | | M | | female | | | female | (SNOMED | | | | Paez | | pelvis | | | | CT) | | | | UNIFORM ATTENDANT | | | | +---------+---------+---------+--------+---------+---------+---------+---------+---------+ | Endomet | 1410549 | | Active | | Yomaiar | | Endomet | | | riosis | 03 | /21 | | /21 | M | | riosis | | | | (SNOMED | | | | Paez | | (clinic | | | | CT) | | | | UNIFORM ATTENDANT | | al) | | +---------+---------+---------+--------+---------+---------+---------+---------+---------+ | Chronic | 1923340 | | Active | | Yomaira | | Chronic | | | pain | 1 | / | | /21 | M | | pain | | | | (SNOMED | | | | Paez | | | | | | CT) | | | | UNIFORM ATTENDANT | | | | +---------+---------+---------+--------+---------+---------+---------+---------+---------+ Medications + + + + + + + + | Medication | Instructio | Start Date | Stop Date | Generic | NDC | Provider | | | ns | | | Name | | | + + + + + + + + | HYDROCODON | One every | | | HYDROCODON | [id number] | Leobardo | | E-ACETAMIN | eight [...] NS | | | | | Philippe UNIFORM ATTENDANT | + + + + +--------+ + | AVIANE TABS | | | Critical | Active | Yomaira M | | | | | | | Paez UNIFORM ATTENDANT | + + + + +--------+ + | PENICILLIN | | | Moderate | Active | Yomaira M | | | | | | | Paez UNIFORM ATTENDANT | + + + + +--------+ + [...] Castro MD, [address] | | | | [facility], | | | | [place], | + + + + | Appointment | 03:30 PM | Leobardo Carlson MD, [address] | | | | [facility], [place], | | | | | + + [...] | + + + + + | [id number] | SNOMED-CT: | | | | | [id number] Smoking | | | | | Cessation | | | | | Counseling | | | + + + + + | [id number] | SNOMED-CT: | | | | | [id number] | | | | | Current Medications [...] -- 2 surgeries to cor rect -- Insurance Claim Representative Dr Julien.Peptic ulcerpyelonephritisPernicious anemia History of Present [...] signed. | | | first. her last [place] 10mg refill was on | | | [...] Castro in September. | | | FRANCK 12/21 PHQ-9 endometriosis -- she | | | [...]
--- OUTSIDE RECORDS SUMMARY | ~2020-06-29 | XMS | Clinical Summary ---
Demographics + + + | Address | [address] | | | [place] [address] | + + + | Home Phone | | + + + | Preferred Language | Unknown | + + + | Marital Status | Unknown or other | + + + | Cheondoism Affiliation | Unknown | + + + | Race | White | + + + | Ethnic Group | Patient Declined | + + + Author + + + | Author | [facility] | + + + | Organization | [facility] | + + + | Address | [address] | | | [place] [address] | + + + | Phone | | + + + Care Team Providers + + + + | Care Tire Buster Name | Role | Phone | + [...] tion | | +---------+---------+---------+--------+---------+---------+---------+---------+---------+ | Pervasi | [id number] | | Active | | Elder | | Autism | | | ve | | / | | / | D | | spectru | | | develop | (SNOMED | | | | [place] | | m | | | mental | CT) | | | | MD | | disorde | | | disorde | | | | | | | r | | | r | | | | | | | | | +---------+---------+---------+--------+---------+---------+---------+---------+---------+ | other | [id number] | | Active | | Amal | [...] subject | | +---------+---------+---------+--------+---------+---------+---------+---------+---------+ | Lumbar | 8061787 | | Active | | Leobardo | [...] | | | +---------+---------+---------+--------+---------+---------+---------+---------+---------+ | Anxiety | 3856827 | | Active | | Leobardo | | Anxiety | | | | | | | | Robyn AMOS | | | | | disorde | (SNOMED | | | | | | disorde | | | r | CT) | | | | | | r | | +---------+---------+---------+--------+---------+---------+---------+---------+---------+ | Vitamin | 8247820 | | Active | | Yomaira | | Vitamin | | | D | 6 | / | | /21 | M | | D | | | deficie | (SNOMED | | | | Paez | | deficie | | | ncy | CT) | | | | INFORMATION MANAGEMENT OFFICER | | ncy | | +---------+---------+---------+--------+---------+---------+---------+---------+---------+ | Sacroil | 3126592 | | Active | | Yomaira | | Sacroil | | | iac | 03 | / | | | M | | iac | | | joint | (SNOMED | | | | Paez | | disorde | | | dysfunc | CT) | | | | INFORMATION MANAGEMENT OFFICER | | r | | | tion | | | | | | | | | +---------+---------+---------+--------+---------+---------+---------+---------+---------+ | Pain in | 2772046 | | Active | | Yomaira | | Multipl | | | joint, | | | | | M | | e joint | | | | (SNOMED | | | | Paez | | pain | | | multipl | CT) | | | | INFORMATION MANAGEMENT OFFICER | | | | | e sites | | | | | | | | | +---------+---------+---------+--------+---------+---------+---------+---------+---------+ | Ilioing | 5348039 | | Active | | Yomaira | | Ilioing | | | uinal | 08 | / | | | M | | uinal | | | nerve | (SNOMED | | | | Paez | | nerve | | | neuriti | CT) | | | | INFORMATION MANAGEMENT OFFICER | | neuriti | | | s, left | | | | | | | s | | +---------+---------+---------+--------+---------+---------+---------+---------+---------+ | Incisio | [id number] | | Active | | Yomaira | | Incisio | | | nal | 00 | | | | M | | nal | | | hernia | (SNOMED | | | | Paez | | hernia | | | | CT) | | | | INFORMATION MANAGEMENT OFFICER | | | | +---------+---------+---------+--------+---------+---------+---------+---------+---------+ | Hx of | 8620894 | | Active | | Yomaira | | H/O: | | | dysmeno | 06 | | | | M | | dysmeno | | | rrhea | (SNOMED | | | | Paez | | rrhea | | | | CT) | | | | INFORMATION MANAGEMENT OFFICER | | | | +---------+---------+---------+--------+---------+---------+---------+---------+---------+ | Pelvic | 2795732 | | Active | | Yomaira | | Pain in | | | pain, | 03 | / | | /21 | M | | female | | | female | (SNOMED | | | | Paez | | pelvis | | | | CT) | | | | INFORMATION MANAGEMENT OFFICER | | | | +---------+---------+---------+--------+---------+---------+---------+---------+---------+ | Endomet | 5400217 | | Active | | Yomaira | | Endomet | | | riosis | 03 | / | | | M | | riosis | | | | (SNOMED | | | | Paez | | (clinic | | | | CT) | | | | INFORMATION MANAGEMENT OFFICER | | al) | | +---------+---------+---------+--------+---------+---------+---------+---------+---------+ | Chronic | 6946152 | | Active | | Yomaira | | Chronic | | | pain | 1 | / | | /21 | M | | pain | | | | (SNOMED | | | | Paez | | | | | | CT) | | | | INFORMATION MANAGEMENT OFFICER | | | | +---------+---------+---------+--------+---------+---------+---------+---------+---------+ Medications + + + + + + + + | Medication | Instructio | Start Date | Stop Date | Generic | NDC | Provider | | | ns | | | Name | | | + + + + + + + + | HYDROCODON | One every | | | HYDROCODON | [id number] | Leobardo | | E-ACETAMIN | eight [...] for a | | | SERTRALINE | [id number] | Elder Charles | | HCL 50 MG | week then | | | HCL | 0 | Gloria MD | | TABS | to 2 qd. | | | | | | + + + + + + + + | CLONAZEPAM | 1-2 bid | | | CLONAZEPAM | [id number] | Elder D | | 0.5 MG | prn for [...] NS | | | | | Philippe INFORMATION MANAGEMENT OFFICER | + + + + +--------+ + | AVIANE TABS | | | Critical | Active | Yomaira M | | | | | | | Paez INFORMATION MANAGEMENT OFFICER | + + + + +--------+ + | PENICILLIN | | | Moderate | Active | Yomaira M | | | | | | | Paez INFORMATION MANAGEMENT OFFICER | + + + + +--------+ + [...] Castro MD, [address] | | | | [facility], | | | | [place] | + + + + | Appointment | 03:00 PM | Leobardo Carlson MD, [address] | | | | [place], [place], | | | | | + + + + | Referral | | DME | + + + + | Referral | | Physical | | | | Therapy/Occupational | | | | Therapy | | | | [facility] [place] | | | | [facility], [address] | | | | [facility], | | | | [place], [address] | | | | | + + [...] | + + + + + | [id number] | [facility] | | | | | CHANCE Rivera/STU [facility] | | | + + + + + | [id number] | SNOMED-CT: | | | | | [id number] Smoking | | | | | Cessation | | | | | Counseling | | | + + + + + | [id number] | SNOMED-CT: | | | | | [id number] | | | | | Current Medications [...] -- 2 surgeries to cor rect -- Assistant Toddler Teacher Dr Julien.Peptic ulcerpyelonephritisPernicious anemia History of [...] | | started to become concerned of retirement | | | 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 | | | first. her last [place] 10mg refill was on | | | [...]
--- OUTSIDE RECORDS SUMMARY | ~2020-06-29 | XMS | Clinical Summary ---
Demographics + + + | Address | [address] | | | [place] [address] | + + + | Home Phone | | + + + | Preferred Language | Unknown | + + + | Marital Status | Unknown or other | + + + | Latter Day Affiliation | Unknown | + + + | Race | White | + + + | Ethnic Group | Patient Declined | + + + Author + + + | Author | [facility] | + + + | Organization | [facility] | + + + | Address | [address] | | | [place] [address] | + + + | Phone | | + + + Care Team Providers + + + + | Care Milk Delivery Driver Name | Role | Phone | + [...] tion | | +---------+---------+---------+--------+---------+---------+---------+---------+---------+ | Pervasi | [id number] | | Active | | Elder | | Autism | | | ve | | / | | / | D | | spectru | | | develop | (SNOMED | | | | Martin | | m | | | mental | CT) | | | | MD | | disorde | | | disorde | | | | | | | r | | | r | | | | | | | | | +---------+---------+---------+--------+---------+---------+---------+---------+---------+ | other | [id number] | | Active | | Amal | [...] subject | | +---------+---------+---------+--------+---------+---------+---------+---------+---------+ | Lumbar | 7362962 | | Active | | Leobardo | [...] | | | +---------+---------+---------+--------+---------+---------+---------+---------+---------+ | Anxiety | 7359791 | | Active | | Leobardo | | Anxiety | | | | | | | | Robyn AMOS | | | | | disorde | (SNOMED | | | | | | disorde | | | r | CT) | | | | | | r | | +---------+---------+---------+--------+---------+---------+---------+---------+---------+ | Vitamin | 0381183 | | Active | | Yomaira | | Vitamin | | | D | 6 | / | | /21 | M | | D | | | deficie | (SNOMED | | | | Paez | | deficie | | | ncy | CT) | | | | CEO & CO FOUNDER | | ncy | | +---------+---------+---------+--------+---------+---------+---------+---------+---------+ | Sacroil | 9378678 | | Active | | Yomaira | | Sacroil | | | iac | 03 | / | | | M | | iac | | | joint | (SNOMED | | | | Paez | | disorde | | | dysfunc | CT) | | | | CEO & CO FOUNDER | | r | | | tion | | | | | | | | | +---------+---------+---------+--------+---------+---------+---------+---------+---------+ | Pain in | 8491555 | | Active | | Yomaira | | Multipl | | | joint, | | | | | M | | e joint | | | | (SNOMED | | | | Paez | | pain | | | multipl | CT) | | | | CEO & CO FOUNDER | | | | | e sites | | | | | | | | | +---------+---------+---------+--------+---------+---------+---------+---------+---------+ | Ilioing | 8354656 | | Active | | Yomaiar | | Ilioing | | | uinal | 08 | / | | | M | | uinal | | | nerve | (SNOMED | | | | Paez | | nerve | | | neuriti | CT) | | | | CEO & CO FOUNDER | | neuriti | | | s, left | | | | | | | s | | +---------+---------+---------+--------+---------+---------+---------+---------+---------+ | Incisio | 3994719 | | Active | | Yomaira | | Incisio | | | nal | 00 | | | | M | | nal | | | hernia | (SNOMED | | | | Paez | | hernia | | | | CT) | | | | CEO & CO FOUNDER | | | | +---------+---------+---------+--------+---------+---------+---------+---------+---------+ | Hx of | 2161472 | | Active | | Yomaira | | H/O: | | | dysmeno | 06 | | | | M | | dysmeno | | | rrhea | (SNOMED | | | | Paze | | rrhea | | | | CT) | | | | CEO & CO FOUNDER | | | | +---------+---------+---------+--------+---------+---------+---------+---------+---------+ | Pelvic | [id number] | | Active | | Yomaira | | Pain in | | | pain, | 03 | / | | /21 | M | | female | | | female | (SNOMED | | | | Paez | | pelvis | | | | CT) | | | | CEO & CO FOUNDER | | | | +---------+---------+---------+--------+---------+---------+---------+---------+---------+ | Endomet | [id number] | | Active | | Yomaira | | Endomet | | | riosis | 03 | / | | | M | | riosis | | | | (SNOMED | | | | Paez | | (clinic | | | | CT) | | | | CEO & CO FOUNDER | | al) | | +---------+---------+---------+--------+---------+---------+---------+---------+---------+ | Chronic | 1224962 | | Active | | Yomaira | | Chronic | | | pain | 1 | / | | /21 | M | | pain | | | | (SNOMED | | | | Paez | | | | | | CT) | | | | CEO & CO FOUNDER | | | | +---------+---------+---------+--------+---------+---------+---------+---------+---------+ Medications + + + + + + + + | Medication | Instructio | Start Date | Stop Date | Generic | NDC | Provider | | | ns | | | Name | | | + + + + + + + + | SERTRALINE | 1/2 for a | | | SERTRALINE | [id number] | Elder D | | HCL 50 MG | week then | | | HCL | 0 | Gloria AMOS | | TABS | to 2 qd. | | | | | | + + + + + + + + | CLONAZEPAM | 1-2 bid | | | CLONAZEPAM | [id number] | Elder Charles | | 0.5 MG [...] One every | | | HYDROCODON | [id number] | Leobardo | | E-ACETAMIN | eight [...] NS | | | | | Philippe CEO & CO FOUNDER | + + + + +--------+ + | AVIANE TABS | | | Critical | Active | Yomaira M | | | | | | | Paez CEO & CO FOUNDER | + + + + +--------+ + | PENICILLIN | | | Moderate | Active | Yomaira M | | | | | | | Paez CEO & CO FOUNDER | + + + + +--------+ + [...] 03:30 PM | Leobardo Carlson MD, [address] [facility] | | | | [place], [place], | | | | | + + + + | Appointment | 02:00 PM | Elder Castro MD, [address] | | | | [facility], | | | | [place] | + + + + | Referral | | DME | + + + + | Referral | | Physical | | | | Therapy/Occupational | | | | Therapy | | | | [facility] [place] | | | | [facility], [address] | | | | [facility], | | | | [place], [address] | | | | | + + [...] | + + + + + | [id number] | [facility] | | | | | CHANCE Rivera/STU [facility] | | | + + + + + | [id number] | SNOMED-CT: | | | | | [id number] Smoking | | | | | Cessation | | | | | Counseling | | | + + + + + | [id number] | SNOMED-CT: | | | | | [id number] | | | | | Current Medications [...] -- 2 surgeries to cor rect -- Dog Handler Dr Julien.Peptic ulcerpyelonephritisPernicious anemia History of Present [...] | | started to become concerned of [facility] | | | 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 | | | first. her last [place] 10mg refill was on | | | [...]
--- OUTSIDE RECORDS SUMMARY | ~2020-06-29 | XMS | Clinical Summary ---
Demographics + + + | Address | [address] | | | [place] [address] | + + + | Home Phone | | + + + | Preferred Language | Unknown | + + + | Marital Status | Unknown or other | + + + | Restorationism Affiliation | Unknown | + + + | Race | White | + + + | Ethnic Group | Patient Declined | + + + Author + + + | Author | [facility] | + + + | Organization | [facility] | + + + | Address | [address] | | | [place] [address] | + + + | Phone | | + + + Care Team Providers + + + + | Care Mock Up Builder Name | Role | Phone | + [...] tion | | +---------+---------+---------+--------+---------+---------+---------+---------+---------+ | Depress | [id number] | | Active | | Sheila | | Depress | | | ion | | / | | / | Hart | | cesilia | | | | (SNOMED | | | | PA-C | | disorde | | | | CT) | | | | | | r | | +---------+---------+---------+--------+---------+---------+---------+---------+---------+ | screeni | [id number] | | Active | | Amal | | Depress | | | ng for | | / | | / | Tominna | | ion | | | depress | (SNOMED | | | | | | screeni | | | ion | CT) | | | | | | ng | | +---------+---------+---------+--------+---------+---------+---------+---------+---------+ | Encount | [id number] | | Active | | Yaneli | [...] | | | +---------+---------+---------+--------+---------+---------+---------+---------+---------+ | Degener | [id number] | | Active | | Sheila | | Degener | | | ative | | | | | Hart | | ation | | | disc | (SNOMED | | | | PA-C | | of | | | disease | CT) | | | | | | interve | | | | | | | | | | rtebral | | | | | | | | | | disc | | +---------+---------+---------+--------+---------+---------+---------+---------+---------+ | Cervica | [id number] | | Active | | Sheila | | HPV - | | | l high | 04 | / | | | Hart | | Human | | | risk [...] | | | +---------+---------+---------+--------+---------+---------+---------+---------+---------+ | Umbilic | [id number] | | Active | | Sheila | | Umbilic | | | al | | | | | Hart | | al | | | hernia | (SNOMED | | | | PA-C | | hernia | | | | CT) | | | | | | | | +---------+---------+---------+--------+---------+---------+---------+---------+---------+ | Other | [id number] | | Active | | Sheila | | Dyspnea | | | abnorma | | | | /16 | Hart | | | | | lities | (SNOMED | | | | PA-C | | | | | of | CT) | | | | | | | | | breathi | | | | | | | | | | ng | | | | | | | | | +---------+---------+---------+--------+---------+---------+---------+---------+---------+ | Cigaret | [id number] | | Active | | Yaneli | | Cigaret | | | te | 7 | /30 | | /05 | Anil | | te | | | smoker | (SNOMED | | | | | | smoker | | | | CT) | | | | | | | | +---------+---------+---------+--------+---------+---------+---------+---------+---------+ | Autism | [id number] | | Active | | Elder | | Autisti | | | | 03 | /13 | | /13 | D | | c | | | | (SNOMED | | | | [place] | | disorde | | | | CT) | | | | MD | | r | | +---------+---------+---------+--------+---------+---------+---------+---------+---------+ | Lumbar | [id number] | | Active | | Leobardo | [...] | | | +---------+---------+---------+--------+---------+---------+---------+---------+---------+ | Anxiety | [id number] | | Active | | Leobardo | | Anxiety | | | | 06 | | | | Park MD | | | | | disorde | (SNOMED | | | | | | disorde | | | r | CT) | | | | | | r | | +---------+---------+---------+--------+---------+---------+---------+---------+---------+ | Vitamin | [id number] | | Active | | Yomaira | | Vitamin | | | D | 6 | | | | M | | D | | | deficie | (SNOMED | | | | Paez | | deficie | | | ncy | CT) | | | | FIRE ENGINEER | | ncy | | +---------+---------+---------+--------+---------+---------+---------+---------+---------+ | Sacroil | [id number] | | Active | | Yomaira | | Sacroil | | | iac | 03 | | | | M | | iac | | | joint | (SNOMED | | | | Paez | | disorde | | | dysfunc | CT) | | | | FIRE ENGINEER | | r | | | tion | | | | | | | | | +---------+---------+---------+--------+---------+---------+---------+---------+---------+ | Pain in | [id number] | | Active | | Yomaira | | Multipl | | | joint, | 5 | / | | / | M | | e joint | | | | (SNOMED | | | | Paez | | pain | | | multipl | CT) | | | | FIRE ENGINEER | | | | | e sites | | | | | | | | | +---------+---------+---------+--------+---------+---------+---------+---------+---------+ | Ilioing | [id number] | | Active | | Yomaira | | Ilioing | | | uinal | 08 | | | | M | | uinal | | | nerve | (SNOMED | | | | Paez | | nerve | | | neuriti | CT) | | | | FIRE ENGINEER | | neuriti | | | s, left | | | | | | | s | | +---------+---------+---------+--------+---------+---------+---------+---------+---------+ | Incisio | [id number] | | Active | | Yomaira | | Incisio | | | nal | 00 | | | | M | | nal | | | hernia | (SNOMED | | | | Paez | | hernia | | | | CT) | | | | FIRE ENGINEER | | | | +---------+---------+---------+--------+---------+---------+---------+---------+---------+ | Hx of | [id number] | | Active | | Yomaira | | H/O: | | | dysmeno | | | | | M | | dysmeno | | | rrhea | (SNOMED | | | | Paez | | rrhea | | | | CT) | | | | FIRE ENGINEER | | | | +---------+---------+---------+--------+---------+---------+---------+---------+---------+ | Pelvic | [id number] | | Active | | Yomaira | | Pain in | | | pain, | | | | | M | | female | | | female | (SNOMED | | | | Paez | | pelvis | | | | CT) | | | | FIRE ENGINEER | | | | +---------+---------+---------+--------+---------+---------+---------+---------+---------+ | Endomet | [id number] | | Active | | Yomaira | | Endomet | | | riosis | | | | | M | | riosis | | | | (SNOMED | | | | Paez | | (clinic | | | | CT) | | | | FIRE ENGINEER | | al) | | +---------+---------+---------+--------+---------+---------+---------+---------+---------+ | Chronic | [id number] | | Active | | Yomaira | | Chronic | | | pain | 1 | /21 | | /21 | M | | pain | | | | (SNOMED | | | | Paez | | | | | | CT) | | | | FIRE ENGINEER | | | | +---------+---------+---------+--------+---------+---------+---------+---------+---------+ Medications + + + + + + + + | Medication | Instructio | Start Date | Stop Date | Generic | NDC | Provider | | | ns | | | Name | | | + + + + + + + + | TRAMADOL | one pill | | | TRAMADOL | [id number] | Sheila Dorman | | HCL 50 [...] take 1 | | | CLONAZEPAM | [id number] | Claudia | | 0.5 MG | tablet by | | | | 1 | Rich | | TABS | mouth up | | | | | VIRTUAL CLASSROOM MANAGER | | | to 3 times | | | | | | | | per day | | | | | | + + + + + + + + | SERTRALINE | take 2 | | | SERTRALINE | [id number] | Sheila Dorman | | HCL 100 [...] NS | | | | | Paez FIRE ENGINEER | + + + + +--------+ + | AVIANE TABS | | | Critical | Active | Yomaira M | | | | | | | Paez FIRE ENGINEER | + + + + +--------+ + | PENICILLIN | | | Moderate | Active | Yomaira M | | | | | | | Paez FIRE ENGINEER | + + + + +--------+ [...] [facility], | | | | [address], | | | | [place], | + + + + | Referral | | Tele-Psych | + + + + | Referral | | Physical | | | | Therapy/Occupational | | | | Therapy | + + + + | Referral | | Physical | | | | Therapy/Occupational | | | | Therapy | | | | [facility] [place] | | | | [facility] | | | | [facility] [place], | | | | [place], [address] | | | | | + + [...] | + + + + + | CPT-75171 | [facility] PT[facility] | | | [...] | + + + + + | CPT-51504 | [facility] PSYTX PT/F[facility] | | | | | 45 MIN | | | + + + + + | CPT-3725F | [facility] Depression | | | | | Screening ([facility]) | | | + + + + + | CPT-49688 | [facility]CH | | | | [...] | + + + + + | CPT-68013 | [facility] DIAG | | | | | EVAL W/MED SRVCS | | | + + + + + | DME | DME | | | + + + + + | [id number] | SNOMED-CT: | | | | | [id number] Smoking | | | | | Cessation | | | | | Counseling | | | + + + + + | [id number] | SNOMED-CT: | | | | | [id number] | | | | | Current Medications [...] -- 2 surgeries to cor rect -- 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 | | | ..............................Jadyn | | | [facility] October 20, 2018 1:46 PM | | [...] + + | Follow up anxiety psychotherapy [facility] | | | FOLLOW-UP NOTE Duration of session: 20 | | | minutesCURRENT BEHAVIORAL HEALTH | | | CONCERNS/REASON(S) FOR VISIT: Pt is a 38 | | | year old female Patient self-referred to | | | the Behavioral Health Integration Program | | | ([facility]) for Anxiety and Pervasive | | | [...] | | .............................Jadyn | | | [facility] October 01, 2018 5:08 PM | [...] | | ...............................Jadyn | | | Arred[facility] September 04, 2018 3:53 PM | [...] + + + | Follow up psychotherapy [facility] FOLLOW-UP | | | NOTE Duration of session: 50 | | | minutesCURRENT BEHAVIORAL HEALTH | | | CONCERNS/REASON(S) FOR VISIT: Pt is a 38 | | | year old female Patient self-referred to | | | the Behavioral Health Integration Program | | | ([facility]) for Anxiety and Pervasive | | | [...] | | | 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 and | | | would be required [...] | | | .................................Jadyn | | | [facility] August 21, 2018 3:15 PM | | [...] BEHAVIORAL | | | HEALTH INTEGRATION PROGRAM ([facility]) INITIAL | | | CLINICAL ASSESSMENT Duration of session: | | | 30 minutesCURRENT MENTAL HEALTH | | | CONCERN(S)/REASON(S) FOR VISITPt is a 38 | | | year old female Patient self-referred to | | | the Behavioral Health Integration Program | | | ([facility]) for Anxiety and Pervasive | | | [...] | started to become 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 | | | first. her last Stuart 10mg refill was on | | | [...]
--- OUTSIDE RECORDS SUMMARY | ~2020-06-29 | XMS | Clinical Summary ---
Demographics + + + | Address | [address] | | | [place] [address] | + + + | Home Phone [...] + + + | Address | [address] | | | [place] [address] | + + + | Phone | | + + + Care Team Providers + + + + | Care Coal Trammer Name | Role | Phone | + [...] tion | | +---------+---------+---------+--------+---------+---------+---------+---------+---------+ | Pervasi | [id number] | | Active | | Elder | | Autism | | | ve | | / | | / | D | | spectru | | | develop | (SNOMED | | | | [place] | | m | | | mental | CT) | | | | MD | | disorde | | | disorde | | | | | | | r | | | r | | | | | | | | | +---------+---------+---------+--------+---------+---------+---------+---------+---------+ | other | [id number] | | Active | | Amal | [...] subject | | +---------+---------+---------+--------+---------+---------+---------+---------+---------+ | Lumbar | [id number] | | Active | | Leobardo | [...] | | | +---------+---------+---------+--------+---------+---------+---------+---------+---------+ | Anxiety | [id number] | | Active | | Leobardo | | Anxiety | | | | | | | | Robyn AMOS | | | | | disorde | (SNOMED | | | | | | disorde | | | r | CT) | | | | | | r | | +---------+---------+---------+--------+---------+---------+---------+---------+---------+ | Vitamin | [id number] | | Active | | Yomaira | | Vitamin | | | D | 6 | / | | /21 | M | | D | | | deficie | (SNOMED | | | | Paez | | deficie | | | ncy | CT) | | | | CLOTH MENDER | | ncy | | +---------+---------+---------+--------+---------+---------+---------+---------+---------+ | Sacroil | [id number] | | Active | | Yomaira | | Sacroil | | | iac | 03 | / | | | M | | iac | | | joint | (SNOMED | | | | Paez | | disorde | | | dysfunc | CT) | | | | CLOTH MENDER | | r | | | tion | | | | | | | | | +---------+---------+---------+--------+---------+---------+---------+---------+---------+ | Pain in | [id number] | | Active | | Yomaira | | Multipl | | | joint, | | | | | M | | e joint | | | | (SNOMED | | | | Paez | | pain | | | multipl | CT) | | | | CLOTH MENDER | | | | | e sites | | | | | | | | | +---------+---------+---------+--------+---------+---------+---------+---------+---------+ | Ilioing | 8943342 | | Active | | Yomaira | | Ilioing | | | uinal | 08 | / | | | M | | uinal | | | nerve | (SNOMED | | | | Paez | | nerve | | | neuriti | CT) | | | | CLOTH MENDER | | neuriti | | | s, left | | | | | | | s | | +---------+---------+---------+--------+---------+---------+---------+---------+---------+ | Incisio | [id number] | | Active | | Yomaira | | Incisio | | | nal | 00 | | | | M | | nal | | | hernia | (SNOMED | | | | Paez | | hernia | | | | CT) | | | | CLOTH MENDER | | | | +---------+---------+---------+--------+---------+---------+---------+---------+---------+ | Hx of | 6579944 | | Active | | Yomaira | | H/O: | | | dysmeno | 06 | | | | M | | dysmeno | | | rrhea | (SNOMED | | | | Paez | | rrhea | | | | CT) | | | | CLOTH MENDER | | | | +---------+---------+---------+--------+---------+---------+---------+---------+---------+ | Pelvic | [id number] | | Active | | Yomaira | | Pain in | | | pain, | 03 | / | | /21 | M | | female | | | female | (SNOMED | | | | Paez | | pelvis | | | | CT) | | | | CLOTH MENDER | | | | +---------+---------+---------+--------+---------+---------+---------+---------+---------+ | Endomet | [id number] | | Active | | Yomaira | | Endomet | | | riosis | 03 | / | | | M | | riosis | | | | (SNOMED | | | | Paez | | (clinic | | | | CT) | | | | CLOTH MENDER | | al) | | +---------+---------+---------+--------+---------+---------+---------+---------+---------+ | Chronic | [id number] | | Active | | Yomaira | | Chronic | | | pain | 1 | / | | /21 | M | | pain | | | | (SNOMED | | | | Paez | | | | | | CT) | | | | CLOTH MENDER | | | | +---------+---------+---------+--------+---------+---------+---------+---------+---------+ Medications + + + + + + + + | Medication | Instructio | Start Date | Stop Date | Generic | NDC | Provider | | | ns | | | Name | | | + + + + + + + + | HYDROCODON | One every | | | HYDROCODON | [id number] | Leobardo | | E-ACETAMIN | eight [...] for a | | | SERTRALINE | [id number] | Elder Charles | | HCL 50 MG | week then | | | HCL | 0 | Gloria MD | | TABS | to 2 qd. | | | | | | + + + + + + + + | CLONAZEPAM | 1-2 bid | | | CLONAZEPAM | [id number] | Elder D | | 0.5 MG [...] NS | | | | | Philippe CLOTH MENDER | + + + + +--------+ + | AVIANE TABS | | | Critical | Active | Yomaira M | | | | | | | Paez CLOTH MENDER | + + + + +--------+ + | PENICILLIN | | | Moderate | Active | Yomaira M | | | | | | | Paez CLOTH MENDER | + + + + +--------+ + [...] [address] | | | | [facility], | | | | [place] | + + + + | Appointment | 03:00 PM | Leobardo Carlson MD, [address] | | | | [place], [place], | | | | | + + + + | Referral | | DME | + + + + | Referral | | Physical | | | | Therapy/Occupational | | | | Therapy | | | | [facility] [place] | | | | [facility], [address] | | | | [facility], | | | | [place], [address] | | | | | + + [...] | + + + + + | CPT-42599 | [facility] DI[facility] | | | | | MONIQUEAL W/MED SRVCS | | | + + + + + | [id number] | SNOMED-CT: | | | | | [id number] Smoking | | | | | Cessation | | | | | Counseling | | | + + + + + | [id number] | SNOMED-CT: | | | | | [id number] | | | | | Current Medications [...] -- 2 surgeries to cor rect -- 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 | | | first. her last [place] 10mg refill was on | | | [...]
[2020-06-29] MEDS ORDERED: KLONOPIN0.5 MG PO (20:19)
[2020-06-29] MEDS ORDERED: BACTRIM DS TAB1 EACH PO (20:24)
== END 2020-06-29 20:40 | disposition home or self-care (01) ==
LOC: ED 20:01
PROC: 0H9CXZZ Drainage of Left Upper Arm Skin, External Approach (ICD-10-PCS; principal; 2020-06-29)
DX: H00.014 Hordeolum externum left upper eyelid (principal); L02.412 Cutaneous abscess of left axilla; L03.213 Periorbital cellulitis; F41.9 Anxiety disorder, unspecified; F32.9 Major depressive disorder, single episode, unspecified; F17.200 Nicotine dependence, unspecified, uncomplicated; Z88.1 Allergy status to other antibiotic agents; Z88.0 Allergy status to penicillin
CPT/HCPCS: 10060; 99283-25